=== PATIENT | male | born 1950 | race Caucasian/White ===

== ENCOUNTER 2020-05-08 10:47 | Outpatient (REF) | payer MEDICARE, SELFPAY ==
[2020-05-09 08:38] LABS: Lyme Abs Screen <0.90 index
== END 2020-05-08 10:48 | disposition home or self-care (01) ==
LOC: HO.HMGCLDS 10:47
PROVIDERS: PCP Nurse Practitioner Family; Visit Provider Hospitalist
DX: T14.8XXA Other injury of unspecified body region, initial encounter (principal)
CPT/HCPCS: 86618

== ENCOUNTER 2020-11-24 18:40 | Outpatient (REF) | payer MEDICARE, SELFPAY ==
--- NOTE | ~2020-11-24 | MR_ITS ---
EXAMINATION: MR LUMBAR SPINE WITHOUT CONTRAST CLINICAL INFORMATION: Low back pain. Self-reported bilateral lower extremity toe numbness or weakness. Self-reported left leg pain. COMPARISON: Lumbar spine radiographs 08/05/2019 TECHNIQUE: MRI of the lumbar spine was obtained using routine sequences without contrast. FINDINGS: VERTEBRAL BODIES AND PARASPINAL STRUCTURES: Four lumbar-type vertebral bodies are identified with mild bilateral sacralization of the presumed L5 vertebral body. No vertebral body compression deformities are identified. Multilevel endplate discogenic marrow signal changes are noted. Moderate multilevel anterior endplate osteophytosis is noted within the visualized lower thoracic spine and within the lumbar spine. CONUS MEDULLARIS AND CAUDA EQUINA: Normal, terminating at the level of L2. SPINAL LEVELS: T12-L1: No central or foraminal stenoses. Minimal posterior broad-based disc bulge. L1-L2: Mild left foraminal stenosis. Mild central stenosis. Findings arise secondary to a mild posterior broad-based disc bulge with focal prominence of the left intraforaminal component resulting in less than 50% left foraminal narrowing. Moderate bilateral ligamentum flavum hypertrophy and mild bilateral facet hypertrophy is noted. The intervertebral disc demonstrates approximately 75% overall loss of craniocaudal height. L2-L3: Mild central stenosis. Mild bilateral foraminal stenoses. Findings are present in the setting of a mild posterior broad-based disc bulge, moderate bilateral ligamentum flavum hypertrophy and mild bilateral facet hypertrophy. The intervertebral disc demonstrates approximately 75% overall loss of craniocaudal height. L3-L4: Mild central stenosis. Mild bilateral foraminal stenoses. Findings are present in the setting of marked diffuse loss of intervertebral disc height and a mild posterior broad-based disc-osteophyte complex along with moderate bilateral ligamentum flavum hypertrophy. L4-L5: Mild bilateral foraminal stenoses. Mild central stenosis. Findings are present in the setting of a mild central disc protrusion, moderate bilateral ligamentum flavum hypertrophy, mild bilateral facet hypertrophy, and approximately 50-75% loss of intervertebral disc height asymmetrically prominent posteriorly. L5-S1: Moderate right foraminal stenosis with mild abutment of disc material upon the exiting right L5 nerve roots. Mild central stenosis. Mild left foraminal stenosis. Findings are present in the setting of a mild posterior broad-based disc-osteophyte complex with right intraforaminal disc material mildly abutting the right L5 nerve roots. Partial effacement of the ventral thecal sac CSF space is noted. The intervertebral disc demonstrates greater than 75% loss of craniocaudal height. MR/MR lumbar spine wo con IMPRESSION: Multilevel chronic spondylosis throughout the lumbar spine, as detailed above. No marked central or marked foraminal stenoses are identified. Multilevel marked loss of intervertebral disc height is noted. Findings include L5-S1 moderate right foraminal stenosis with mild right L5 nerve root impingement.
== END 2020-11-24 18:41 | disposition home or self-care (01) ==
LOC: HO.MRI 18:40
PROVIDERS: PCP Nurse Practitioner Family; Visit Provider Nurse Practitioner Family
DX: M54.5 Low back pain (principal)
CPT/HCPCS: 72148

== ENCOUNTER 2021-01-11 07:00 | Outpatient (RCR) | payer MEDICARE, SELFPAY ==
--- NOTE | 2020-11-02 08:57 | MHC.PT.EP ---
[facility] [place] Office [place] Office [place] Office [address] Jennifer Kinsey [address] [phone] F: [phone] F: [phone] F: [phone] F: [phone] Physical Therapy Plan of Care Date of Evaluation: Date of Surgery: Diagnosis: SOMATIC DYSFUNCTION OF LEFT SACROILIAC JOINT Assessment: 70 YO MALE REF TO PT FOR SOMATIC DYSFUNCTION OF LEFT SI Jt W SECONDARY LEFT KNEE PAIN- HE IS RETIRED. OBJECTIVE FINDINGS: (+) PELVIC ASYM W LLI- SCOLIOSIS RIGHT THOR/LEFT LUMBAR; DECR FLEXIB Rt HS AND LATOYA HIP ROTAT; WEAKNESS IN LATOYA PROX LEs; PAIN W PALP Lt LS/ SI Jt. FUNCTIONAL LIMITATIONS : LIMITED STANDING/ WALKING/ DESC STAIRS, LEG EXER AND FITNESS WALKING/ HIKING. Pt IS A GOOD PT CANDIDATE TO DEV HEP AND IMPROVE Pt'S SELF-SX MGMT. Frequency and Duration: The patient will be seen 2x WK x 5 WKS Short Term Goals: DECR Pt'S LEFT SI Jt AND KNEE SXS TO 2-3/10 IN 2 WKS IMPROVE Pt'S PELVIC SYMM TO REDUCE LLI INFLUENCE ON Lt SI Jt IN 3 WKS Pt DMEON IMPROVED Rt HS AND LATOYA HIP ROTAT FLEXIBILITY IN 3 WKS Hoe Runner Goals: Pt INDEP W HEP FOR STRENGTH AND STAB AND SELF-SX MGMT TECHN IN 5 WKS Pt RESUME REG EXER/ FITNESS WALK/ ADLs EVIDENT W IMPROVED LEFT BY 10 POINTS (45/80 AT EVAL) IN 5 WKS Treatment Plan: Modalities to reduce pain, spasms and effusion. Manual therapy to restore motion and function. Therapeutic exercise to improve strength and flexibility. Neuromuscular re-education for posture and balance. Therapeutic activities to return to functional activities of daily living. Electronically signed by: Sylvia Osorio,PT Please sign and return to therapist. Thank you for your referral.
--- NOTE | 2021-01-11 08:02 | MHC.PT.DC ---
[facility] [place] Office [place] Office [place] Office [address] Jennifer Kinsey [address] [phone] F: [phone] F: [phone] F: [phone] F: [phone] Physical Therapy Discharge Report Diagnosis: SOMATIC DYSFUNCTION OF LEFT SACROILIAC JOINT Date of Surgery: Date of Evaluation: 11/02/20 Date of Discharge: 01/11/21 Treatments to Date: 14 Cancellations to Date: 0 No Shows to Date: 0 Discharge Status: Achieved Goals Improved Function Independent with HEP Discharge Summary: Pt HAS PROGRESSED NICELY IN PT- HE MET HIS GOALS OF SELF-SX MGMT, INDEP HEP/ PROGR; RETURN TO FITNESS WALKING/ EXER/ REG GYM WORKOUTS, AND IMPROVED BODY MECH/ POSTURAL AWARENESS. Pt'S PAIN IN HIS LS REGION AND LEFT KNEE HAVE REMAINED LOW 1-2/10 ; HE HAS WFL PELVIC SYMMETRY, AND HE DEMON IMPROVED OVERALL TRUNK AND HIP FLEXIBILITY- HIS LEFT SCORE AT D/C IS 65/80 (AT EVAL IT WAS 45/80) Electronically signed by: Sylvia Osorio,PT Please sign and return to therapist. Thank you for your referral.
== END 2021-01-11 08:03 | disposition home or self-care (01) ==
LOC: HO.PT 07:00
PROVIDERS: PCP Nurse Practitioner Family; Visit Provider Hospitalist
DX: M99.04 Segmental and somatic dysfunction of sacral region (principal)
CPT/HCPCS: 97110; 97112; 97140; 97162; 97530

== ENCOUNTER 2021-05-22 06:14 | Outpatient (REF) | payer MEDICARE, SELFPAY ==
[2021-05-22 11:15] LABS: Appearance Urine CLOUDY; Color Urine YELLOW; Glucose Urine UA NEG (NEG); Leukocyte Esterase Urine NEG (NEG); Nitrite Urine NEG (NEG); Specific Gravity - Urine >= 1.030 (1.005-1.025); Urine Blood NEG (NEG); Urine Ketones NEG (NEG); Urine Protein TRACE MG/DL (NEG-TRACE)
[2021-05-22 11:46] LABS: Alanine Aminotransferase 29 U/L (0-40); Albumin Level 4.5 g/dL (3.5-5.0); Alkaline Phosphatase 88 U/L (39-117); Anion Gap 12 (12-20); Aspartate Amino Transferase 23 U/L (5-37); Bilirubin Total 0.8 mg/dL (0.0-1.0); Blood Urea Nitrogen 24 mg/dL (9-16); Calcium 9.8 mg/dL (8.4-10.2); Carbon Dioxide 29 mmol/L (22-29); Chloride 100 mmol/L (96-108); Cholesterol 184 mg/dL; Estimated Glomerular Filt Rate > 60; Glucose Fasting 122 mg/dL (60-99); HDL Cholesterol 42 mg/dL; LDL Cholesterol Calculated 96 mg/dl; Potassium 4.3 mmol/L (3.3-5.1); Sodium 137 mmol/L (135-145); Total Protein 7.3 g/dL (6.5-8.0); Triglycerides 232 mg/dL
[2021-05-22 12:09] LABS: Prostate Specific Antigen Scr 1.68 ng/mL (<0.05-4.0); TSH reflex Free T4 3.63 uIU/mL (0.32-4.0)
== END 2021-05-22 06:15 | disposition home or self-care (01) ==
LOC: HO.HMGCLDS 06:14
PROVIDERS: PCP Nurse Practitioner Family; Visit Provider Nurse Practitioner Family
DX: Z12.5 Encounter for screening for malignant neoplasm of prostate (principal); I10 Essential (primary) hypertension
CPT/HCPCS: 36415; 80053; 80061; 81003; 84153; 84443

== ENCOUNTER 2021-08-13 07:01 | Outpatient (REF) | payer MEDICARE, SELFPAY ==
[2021-08-13 12:19] LABS: Cholesterol 169 mg/dL; HDL Cholesterol 43 mg/dL; LDL Cholesterol Calculated 92 mg/dl; Triglycerides 170 mg/dL
== END 2021-08-13 07:02 | disposition home or self-care (01) ==
LOC: HO.HMGCLDS 07:01
PROVIDERS: Visit Provider Nurse Practitioner Family
DX: E78.1 Pure hyperglyceridemia (principal)
CPT/HCPCS: 36415; 80061

== ENCOUNTER 2022-01-10 09:00 | Outpatient (RCR) | payer MEDICARE, SELFPAY ==
--- NOTE | 2021-12-05 09:29 | MHC.PT.EP ---
[facility] [place] Office [place] Office [place] Office [address] Jennifer Kinsey [address] [phone] F: [phone] F: [phone] F: [phone] F: [phone] Physical Therapy Plan of Care Date of Evaluation: Date of Surgery: Diagnosis: This is a 71 yo male presenting to skilled PT with a script for pain in L shoulder (RHD). Assessment: This is a 71 yo male presenting to skilled PT with a script for pain in L shoulder. Patient comes in today reporting frozen shoulder dx (2012), he would like to achieve improved ROM. Pain improved since initially dx'd but lately it has been increasing again. He is very active at baseline; enjoys hiking, yard work and consistent at the gym (however has been holding on his shoulder work lately due to pain). He has an x-ray from 2013 but nothing recent. Pain is located superior and posterior to GHJ. Pain is at rest (throbbing) and with movement (can be sharp). Denies numbness or tingling, also denies neck pain as well. He reports nonpainful crepitus at times including grinding. Pain increases with with adduction, abduction/IR, abduction/ER movements as well as OH movements and behind the back reaching. Tolerates household and ADLs fine. Assessment reveals pain that ranges up to a 3/10. He demos decreased shoulder and cervical ROM, decreased shoulder and scapular strength, impaired posture at c-spine, t-spine and GHJ, impaired joint mobility but tolerated mobs and improved ROM as well as gross functional decline with gym activities, ADLs and housework. He is a good candidate for skilled PT 2x/wk for 4 wks. Frequency and Duration: The patient will be seen 2x/wk for 4 wks Short Term Goals: I in HEP Demo good scap/retract/stab with HEP without need from cues from PT Print Controller Goals: Demos functional and equal ROM and strength Improve SPADI by at least 10 points Improve pain at the worst to no more than 1/10 with movement or at rest Demo proper lifting, squatting and carrying techniques without increase in pain or radiating symptoms Treatment Plan: Modalities to reduce pain, spasms and effusion. Manual therapy to restore motion and function. Therapeutic exercise to improve strength and flexibility. Neuromuscular re-education for posture and balance. Therapeutic activities to return to functional activities of daily living. Electronically signed by: Karmen Bass PT Please sign and return to therapist. Thank you for your referral.
--- NOTE | 2022-02-11 10:55 | MHC.PT.DC ---
[facility] [place] Office [place] Office [place] Office [address] Jennifer Kinsey [address] [phone] F: [phone] F: [phone] F: [phone] F: [phone] Physical Therapy Discharge Report Diagnosis: This is a 71 yo male presenting to skilled PT with a script for pain in L shoulder (RHD). Date of Surgery: Date of Evaluation: 12/05/21 Date of Discharge: 02/11/22 Treatments to Date: 9 Cancellations to Date: 0 No Shows to Date: 0 Discharge Status: Achieved Goals Improved Function Independent with HEP Recommend MD Follow-up Discharge Summary: Patient has reached I in HEP, he demos an improvement in ROM but still has crepitus and clunking. I educated him on following up with MD for updated imaging. He is active at the gym and has a thorough HEP for strength and ROM. Educated on safe ROM, anatomy and PT DC planning. At this time he is appropriate for DC to HEP and was educated on continuing exercises to maintain and continue to improve ROM. Patient on hold for 30 days and then DC'd. Electronically signed by: Karmen Bass PT Please sign and return to therapist. Thank you for your referral.
== END 2022-02-11 10:56 | disposition home or self-care (01) ==
LOC: HO.PTCHIC 09:00
PROVIDERS: PCP Nurse Practitioner Family; Visit Provider Nurse Practitioner Family
DX: M25.512 Pain in left shoulder (principal)
CPT/HCPCS: 97110; 97140; 97161; 97162

== ENCOUNTER 2022-01-17 14:10 | Outpatient (REF) | payer MEDICARE, SELFPAY ==
[2022-01-17 14:28] LABS: MANUAL DIFF FLAG NO
[2022-01-17 14:38] LABS: Basophils Absolute Auto 0.1 X10*3/uL (0.0-0.2); Eosinophils Absolute Auto 1.1 X10*3/uL (0.0-0.4); Eosinophils Percent Auto 10.4 % (0-4); Hematocrit 41.6 % (42.0-52.0); Hemoglobin 14.2 g/dl (14.0-18.0); Imm Gran Abs Auto 0.05 X10*3/uL (0.00-0.03); Imm Gran Pct Auto 0.5 % (0.0-0.4); Lymphocytes Absolute Auto 3.3 X10*3/uL (1.2-4.9); Lymphocytes Percent Auto 32.5 % (20-40); Mean Corpuscular HGB Conc 34.1 g/dl (31.0-36.0); Mean Corpuscular Hemoglobin 30.2 pg (27.0-33.0); Mean Corpuscular Volume 88.5 fL (80.0-98.0); Mean Platelet Volume 9.3 fL (9.4-12.4); Monocytes Absolute Auto 0.8 X10*3/uL (0.1-1.2); Monocytes Percent Auto 8.3 % (2-11); Neutrophils Absolute Auto 4.8 x10*3/uL (2.0-8.3); Neutrophils Percent Auto 47.3 % (45-73); Platelet Count 259 X10*3/uL (160-400); Red Cell Distribution Width 13.1 % (11.0-16.0); White Blood Count 10.1 X10*3/uL (4.8-10.8)
[2022-01-17 15:47] LABS: Alanine Aminotransferase 33 U/L (0-40); Albumin Level 4.5 g/dL (3.5-5.0); Alkaline Phosphatase 86 U/L (39-117); Anion Gap 15 (12-20); Aspartate Amino Transferase 29 U/L (5-37); Bilirubin Total 0.8 mg/dL (0.0-1.0); Blood Urea Nitrogen 26 mg/dL (9-16); Calcium 9.9 mg/dL (8.4-10.2); Carbon Dioxide 28 mmol/L (22-29); Chloride 100 mmol/L (96-108); Estimated Glomerular Filt Rate 59; Glucose Random 89 mg/dL (60-115); Potassium 5.1 mmol/L (3.3-5.1); Sodium 138 mmol/L (135-145); Total Protein 7.6 g/dL (6.5-8.0)
== END 2022-01-17 14:11 | disposition home or self-care (01) ==
LOC: HO.LAB 14:10
PROVIDERS: PCP Nurse Practitioner Family; Visit Provider Nurse Practitioner
DX: Z01.818 Encounter for other preprocedural examination (principal); D12.6 Benign neoplasm of colon, unspecified; Z80.0 Family history of malignant neoplasm of digestive organs
CPT/HCPCS: 36415; 80053; 85025; 99202

== ENCOUNTER 2022-05-22 10:29 | Outpatient (REF) | payer BC, SELFPAY ==
--- NOTE | ~2022-05-22 | XR_ITS ---
EXAMINATION: XR KNEE, LEFT CLINICAL INFORMATION: Left knee pain COMPARISON: Previous x-ray October 2014 TECHNIQUE: Four views of the left knee. FINDINGS: Bone alignment is normal. No fracture or dislocation. Arthritis at the medial femoral tibial and patellofemoral joints. No joint effusion. XR/XR knee LT 4V IMPRESSION: Arthritis.
== END 2022-05-22 10:30 | disposition home or self-care (01) ==
LOC: HO.HMGCX 10:29
PROVIDERS: PCP Nurse Practitioner Family; Visit Provider Nurse Practitioner Family
DX: M25.562 Pain in left knee (principal)
CPT/HCPCS: 73564

== ENCOUNTER 2022-05-23 07:11 | Day surgery (SDC) | payer BC, SELFPAY ==
[2022-05-17 09:27] VITALS: BMI 25.2
--- NOTE | 2022-05-23 06:33 | MHC.SHP ---
Pre-Procedural Eval Section A Date of Service: 05/23/22 Section B Chief Complaint: Personal history of colonic polyps Details of Present Illness: mother with colon cancer Relevant Family History (Specify if Yes): Yes Relevant Social History: Other (specify) (ex smoker, drinks alcohol ) Present Medications: see Short Stay Collaborative assessment Medical History: Significant History (Asthma Elevated cholesterol HTN (hypertension) Lipoma) History of Previous Operations: Relevant previous surgery/procedure and date(s) (H/O colonoscopy H/O right inguinal hernia repair Hx of excision of mass) Allergies: Allergies Allergy/AdvReac Type Severity Reaction Status Date / Time oxycodone [From PERCOCET] AdvReac Intermediate NAUSEA & Verified 05/22/22 09:44 VOMITING Review of Systems Sugical H&P ROS: Negative: Constitution, Cardiovascular, Respiratory, Neurological, Psychiatric, Hem-Onc, Allergic/Immunologic, Gastrointestinal, Genitourinary, Musculoskeletal, Integumentary, Endocrine and Eyes/Ears/Nose/Throat Exam Surgical H&P Exam: Normal: HEENT, Normal: Heart, Normal: Lungs, Normal: Extremities, Normal: Abdomen, Normal: Skin and Normal: Neurological Plan Diagnosis/Plan: Unchanged I have reviewed the history and physical and performed a pertinent physical examination on my patient. No changes have occurred unless specified. Time Spent With Patient Time: Total time managing care of this patient today ____ minutes.
[2022-05-23 07:29] VITALS: BMI 26.4
[2022-05-23 07:38] VITALS: BP 141/79; PULSE 73; RESP 16; TEMP 36.6; O2SAT 98
[2022-05-23] MEDS: Lactated Ringers 1,000 ML 50 ML IVCONT (07:54)
--- NOTE | 2022-05-23 08:01 | HO.ANESPROP2 ---
[facility] Active Problems Active Problems: All Active Problems (Updated 05/22/22 @ 10:19 by Nam Arguello [facility]-) Left knee pain (Acute) Tick bite (Acute) Essential hypertension (Acute) Somatic dysfunction of left sacroiliac joint (Acute) Lumbar back pain (Acute) HTN (hypertension) (Acute) Screening PSA (prostate specific antigen) (Acute) High triglycerides (Acute) Screening for colon cancer (Acute) Left shoulder pain (Acute) Encounter for annual wellness visit (AWV) in Medicare patient (Acute) Preop examination (Acute) Family history of colon cancer in mother (Acute) Tubular adenoma of colon (Acute) Past Medical History Medical History (Updated 05/22/22 @ 10:19 by MARCO A Weiss-) Asthma Elevated cholesterol HTN (hypertension) Lipoma Family History Family History Mother Mental health disorder Colon cancer Brother Prostate cancer Family history of problems with anesthesia: No Surgical History Surgical History (Updated 05/16/22 @ 15:12 by Ada Nevarez RN) H/O colonoscopy H/O right inguinal hernia repair Hx of excision of mass History of Problems with Anesthesia: No Social History Social History Housing: House Patient Tobacco Use Status: Former Tobacco user Quit Date: 2008 Tobacco use type: Cigarette Cigarette Packs Per Day: 1.5 Cigarettes Per Day: 30.0 Years Smoked: 40 Smoked in Last 30 Days: No e-Cigarette/Vaping Use: Never Used Use of substances other than those prescribed or required for medical reasons: Yes Are you DNR?: No Advance Directives: No Advance Directives Information Provided: Yes Current occupational status: retired Cognitive needs: No Hearing needs: No Vision needs: No Meds Allergies Allergy/AdvReac Type Severity Reaction Status Date / Time oxycodone [From PERCOCET] AdvReac Intermediate NAUSEA & Verified 05/23/22 07:27 VOMITING Active Medications: Current Medications Albuterol Sulfate (Albuterol Sulfate (0.083%) 2.5 Mg/3 Ml Vial.Neb) 2.5 mg INHALE ONCE PRN PRN Reason: Shortness of Breath/Wheezing Lactated Ringer's (Lr) 1,000 mls @ 50 mls/hr IVCONT .Q20H JOSÉ MANUEL Last Admin: 05/23/22 07:54 Dose: 50 mls/hr Home Medications Medication Instructions Recorded Confirmed Last Taken Type omeprazole magnesium 20 mg 20 mg PO DAILY 11/16/20 05/23/22 Unknown History tablet,delayed release (Prilosec OTC) Exam Exam Date and Time: May 23, 2022 0801 Height,Weight and Vital Signs: Height 5 ft 9 in Weight 81.193 kg Last Vital Signs Temp 97.8 F 05/23/22 07:38 Pulse 73 05/23/22 07:38 Resp 16 05/23/22 07:38 BP 141/79 H 05/23/22 07:38 Pulse Ox 98 05/23/22 07:38 O2 Del Method 05/23/22 07:38 Airway Mallampati Class: III TM Dist: >3cm Neck ROM: Full Partial: Upper and Lower Assessment and Plan Assessment Anesthesia Assessment: Anesthesia Plan Discussed and Chart Reviewed Final Anesthetic Review Family History of Problems with Anesthesia: No History of Problems with Anesthesia: No NPO: Yes ASA Class: II Final Preanesthetic Review: No Changes in Pt Med Stat, Meds/Allgs Chart Reviewed, Consent Obtained/Reviewed and Anes Risks/Benef Reviewed Patient Risk: Low Procedure Risk: Low Anesthetic Plan Anesthetic Plan: MAC: Disposition: Standard PACU
--- NOTE | 2022-05-23 08:10 | P.CONAN_ITS ---
[facility] Active Problems Active Problems: All Active Problems (Updated 05/22/22 @ 10:19 by Nam Arguello [facility]-) Left knee pain (Acute) Tick bite (Acute) Essential hypertension (Acute) Somatic dysfunction of left sacroiliac joint (Acute) Lumbar back pain (Acute) HTN (hypertension) (Acute) Screening PSA (prostate specific antigen) (Acute) High triglycerides (Acute) Screening for colon cancer (Acute) Left shoulder pain (Acute) Encounter for annual wellness visit (AWV) in Medicare patient (Acute) Preop examination (Acute) Family history of colon cancer in mother (Acute) Tubular adenoma of colon (Acute) Past Medical History Medical History (Updated 05/22/22 @ 10:19 by MARCO A Weiss-) Asthma Elevated cholesterol HTN (hypertension) Lipoma Family History Family History Mother Mental health disorder Colon cancer Brother Prostate cancer Family history of problems with anesthesia: No Surgical History Surgical History (Updated 05/16/22 @ 15:12 by Ada Nevarez RN) H/O colonoscopy H/O right inguinal hernia repair Hx of excision of mass History of Problems with Anesthesia: No Social History Social History Housing: House Patient Tobacco Use Status: Former Tobacco user Quit Date: 2008 Tobacco use type: Cigarette Cigarette Packs Per Day: 1.5 Cigarettes Per Day: 30.0 Years Smoked: 40 Smoked in Last 30 Days: No e-Cigarette/Vaping Use: Never Used Use of substances other than those prescribed or required for medical reasons: Yes Are you DNR?: No Advance Directives: No Advance Directives Information Provided: Yes Current occupational status: retired Cognitive needs: No Hearing needs: No Vision needs: No Meds Allergies Allergy/AdvReac Type Severity Reaction Status Date / Time oxycodone [From PERCOCET] AdvReac Intermediate NAUSEA & Verified 05/23/22 07:27 VOMITING Active Medications: Current Medications Albuterol Sulfate (Albuterol Sulfate (0.083%) 2.5 Mg/3 Ml Vial.Neb) 2.5 mg INHALE ONCE PRN PRN Reason: Shortness of Breath/Wheezing Lactated Ringer's (Lr) 1,000 mls @ 50 mls/hr IVCONT .Q20H JOSÉ MANUEL Last Admin: 05/23/22 07:54 Dose: 50 mls/hr Home Medications Medication Instructions Recorded Confirmed Last Taken Type omeprazole magnesium 20 mg 20 mg PO DAILY 11/16/20 05/23/22 Unknown History tablet,delayed release (Prilosec OTC) Exam Exam Date and Time: May 23, 2022 0810 Height,Weight and Vital Signs: Height 5 ft 9 in Weight 81.193 kg Last Vital Signs Temp 97.8 F 05/23/22 07:38 Pulse 73 05/23/22 07:38 Resp 16 05/23/22 07:38 BP 141/79 H 05/23/22 07:38 Pulse Ox 98 05/23/22 07:38 O2 Del Method 05/23/22 07:38 Airway Mallampati Class: III TM Dist: >3cm Neck ROM: Full Assessment and Plan Assessment Anesthesia Assessment: Anesthesia Plan Discussed and Chart Reviewed Final Anesthetic Review Family History of Problems with Anesthesia: No History of Problems with Anesthesia: No NPO: Yes
--- NOTE | 2022-05-23 08:10 | W.PM.OPN ---
Operative Note Operative Note Date of Service: 05/23/22 Narrative: Operative Information Procedure Description: Colonoscopy Indication: screening, FH of CRC< personal hx of polyps Anesthesia: MAC COLONOSCOPY Instrument: Olympus variable stiffness pediatric scope 190L Colonoscopy Monitoring: Vital signs and clinical assessment, continuous EKG monitoring, Pulse oximetry, Carbon Dioxide monitoring and blood pressure monitoring were done throughout the procedure. Colon withdrawal time was 8 minutes. Procedure: The patient was placed in the left lateral decubitis position and pre-procedure medications were administered. After a digital rectal examination of the ano-rectum, the video colonoscope was inserted into the rectum and advanced through the colon to the cecum/TI. The colonoscope was slowly withdrawn in a retrograde panoramic fashion and the colon mucosa was carefully examined including a retroflexed view of the rectum. Findings and interventions are described below. Procedure Difficulty: easy Findings: Terminal Ileum-normal Cecum:normal Ascending Colon: normal Transverse Colon -normal Descending Colon:normal Sigmoid Colon: 8-9 mm sessile polyp removed with cold snare, moderate diverticulosis noted Rectum: Retroflexion with small internal hemorrhoids, grade II, 7-9 mm sessile polyp removed with cold forceps Anorectum - normal Colon preparation: [place] Bowel Preparation Scale Right colon; 2 Transverse colon: 3 Left colon; 3 (0 = Unprepared colon segment with mucosa not seen due to solid stool that cannot be cleared. 1 = Portion of mucosa of the colon segment seen, but other areas of the colon segment not well seen due to staining, residual stool and/or opaque liquid. 2 = Minor amount of residual staining, small fragments of stool and/or opaque liquid, but mucosa of colon segment seen well. 3 = Entire mucosa of colon segment seen well with no residual staining, small fragments of stool or opaque liquid) Impression and Post Procedure Diagnosis: polyps internal hemorrhoids diverticular disease Plan: High fiber diet leaflet Avoid straining at stool, epsom salts and sitz bath, anusol supps or cream Repeat Colonoscopy in 5 years due to FH and hx of polyps or earlier if clinically indicated Above findings were reviewed with the patient and relevant handouts were provided if indicated.
[2022-05-23 08:53] VITALS: BP 118/67; PULSE 67; RESP 20; TEMP 36.6; O2SAT 96
[2022-05-23 09:08] VITALS: BP 117/62; PULSE 71; RESP 18; TEMP 36.1; O2SAT 96
== END 2022-05-23 09:44 | disposition home or self-care (01) ==
PROVIDERS: PCP Nurse Practitioner Family; Visit Provider Internal Medicine Gastroenterology
PROC: 0DJD8ZZ Inspection of Lower Intestinal Tract, Via Natural or Artificial Opening Endoscopic (ICD-10-PCS; CPT 45378; principal; 2022-05-23 08:20)
DX: Z12.11 Encounter for screening for malignant neoplasm of colon (principal); Z86.010 Personal history of colon polyps; Z80.0 Family history of malignant neoplasm of digestive organs; K63.5 Polyp of colon; K62.1 Rectal polyp; K57.30 Diverticulosis of large intestine without perforation or abscess without bleeding; K64.1 Second degree hemorrhoids; I10 Essential (primary) hypertension; E78.00 Pure hypercholesterolemia, unspecified; J45.909 Unspecified asthma, uncomplicated; Z79.51 Long term (current) use of inhaled steroids; Z79.899 Other long term (current) drug therapy; Z87.891 Personal history of nicotine dependence; Z88.8 Allergy status to other drugs, medicaments and biological substances
CPT/HCPCS: 45385; 45380; 88305

== ENCOUNTER 2022-05-24 17:36 | Emergency (ER) | payer BC, SELFPAY ==
--- NOTE | ~2022-05-24 | CT_ITS ---
EXAMINATION: CT ABDOMEN AND PELVIS WITH CONTRAST CLINICAL INFORMATION: Lower abdominal pain. Syncopal episodes. COMPARISON: None TECHNIQUE: Multidetector volumetric images were obtained from the superior aspect of the liver through the pubic symphysis following administration 85 mL of Omnipaque 350 intravenous contrast. Sagittal and coronal reformatted images were obtained on the technologist's workstation. Oral contrast: No This CT examination was performed using dose optimization techniques as appropriate, variously including the following: *Automated exposure control *Adjustment of mA and/or kV according to patient size (this includes techniques or standardized protocols for targeted exams where dose is matched to indication/reason for exam; i.e. extremities or head) *Use of iterative reconstruction technique DLP: 575 mGy-cm FINDINGS: LUNG BASES: The visualized lung bases are unremarkable. LIVER, GALLBLADDER, AND BILIARY TREE: The liver is normal in size, shape, and attenuation. No focal hepatic lesion or biliary ductal dilatation is present. There is perihepatic fluid collection. The gallbladder is unremarkable with no evidence of radiopaque gallstones, gallbladder wall thickening, or obvious pericholecystic inflammatory changes. PANCREAS: Unremarkable. SPLEEN: The spleen is normal size with minimal perisplenic fluid collection. ADRENAL GLANDS: The adrenal glands are symmetrical and normal. KIDNEYS AND URETERS: The kidneys are normal in size, shape, and attenuation. No hydronephrosis, hydroureter, or calculi seen. No perinephric stranding. There are nonenhancing bilateral exophytic renal cysts BLADDER: Unremarkable. GASTROINTESTINAL TRACT: There is colonic diverticulosis with mild mural thickening sigmoid colon but no pericolic fat stranding. Minimal scattered stool is seen in the right colon. The small bowel loops are nondilated with mild mural thickening. Appendix is normal caliber. There is minimal free fluid in the pelvis. There is mild mesenteric haziness likely edema ABDOMINAL WALL: No significant hernia is appreciated. LYMPH NODES: Normal. VASCULAR: Unremarkable. PELVIC VISCERA: The prostate gland is mildly enlarged with central gland calcification. Small amount of fluid is seen in the pelvis. No abnormal pelvic or inguinal lymph nodes seen. There is a left inguinal hernia containing fluid in the proximal inguinal ring. OSSEOUS STRUCTURES: There are degenerative disc changes and vacuum disc phenomena at 3 disc level. There is endplate sclerosis L1-L2 and L3-L4 disc levels. No aggressive lytic or sclerotic process seen. CT/CT abdomen pelvis w IV con IMPRESSION: 1. Diffuse mesenteric edema with small amount of free fluid in the abdomen and pelvis and mild mural thickening of small bowel suggestive of enteritis.. 2. Sigmoid diverticulosis without diverticulitis. 3. Bilateral exophytic renal cysts. 4. Small left inguinal hernia containing fluid in the proximal inguinal ring. 5. Mild prostate enlargement with central gland calcification. 6. Prominent lymph nodes in the portacaval space. Fleischner guidelines were followed.
--- NOTE | ~2022-05-24 | XR_ITS ---
EXAMINATION: XR CHEST CLINICAL INFORMATION: Syncope COMPARISON: Chest x-ray 10/01/2012 TECHNIQUE: Frontal view of the chest was obtained. FINDINGS: The lungs are clear. No airspace consolidation, pleural effusion, or pneumothorax. The cardiomediastinal silhouette is within normal limits. No acute osseous injury. Bilateral shoulder joint osteoarthritis noted. XR/XR chest 1V IMPRESSION: No acute pulmonary disease.
--- NOTE | ~2022-05-24 | CT_ITS ---
EXAMINATION: NONCONTRAST HEAD CT NONCONTRAST CERVICAL SPINE CT INDICATION INFORMATION: Syncope with head trauma COMPARISON: Head CT 05/28/2013 TECHNIQUE: Separate noncontrast CT examinations of the head and cervical spine were performed. Coronal and sagittal images were created for each examination at the technologist workstation. This CT examination was performed using dose optimization techniques as appropriate, variously including the following: *Automated exposure control *Adjustment of mA and/or kV according to patient size (this includes techniques or standardized protocols for targeted exams where dose is matched to indication/reason for exam; i.e. extremities or head) *Use of iterative reconstruction technique DLP: 1096 mGy-cm FINDINGS: HEAD: No intra or extra-axial fluid collection, hemorrhage, or mass. No ventriculomegaly. No midline shift or herniation. Basal cisterns are patent. Darby-white matter differentiation is maintained. No territorial encephalomalacia. No significant volume loss. A few scattered small foci of hypoattenuation in the supratentorial white matter, nonspecific. 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 Large left lateral scalp laceration. No calvarial fracture The mastoid air cells and visualized portions of the paranasal sinuses are well aerated. CERVICAL SPINE: Alignment: Straightening and minimal reversal the normal cervical lordosis. Mild retrolisthesis at C6-C7. No additional subluxation. Vertebra: No acute fracture. No prevertebral soft tissue swelling. Degenerative disc disease: Multilevel cervical spondylosis, severe at C5-C6 and C6-C7. Multilevel facet arthrosis and uncovertebral spurring also present. Moderate to severe spinal canal stenosis suspected at C5-C6. Other findings: No cervical lymphadenopathy. Visualized major salivary glands and thyroid gland are unremarkable. Visualized lung apices are clear. CT/CT cervical spine wo IV con IMPRESSION: 1. No intracranial hemorrhage or calvarial fracture. 2. Large left lateral scalp laceration. 3. No acute cervical spine fracture or traumatic subluxation. 4. Multilevel cervical spondylosis, severe at C5-C6 and C6-C7 with suspected moderate to severe spinal canal stenosis at C5-C6.
[2022-05-24 18:00] VITALS: BP 140/72; PULSE 78; RESP 18; TEMP 36.9; O2SAT 99; BMI 26.4
--- NOTE | 2022-05-24 18:02 | ED.GENADULT ---
HPI - General Adult General Chief complaint: Syncope <SHAYNA Alves Last Filed: 05/24/22 18:56> Stated complaint: head lac <SHAYNA Alves Last Filed: 05/24/22 18:56> Time Seen by Provider: 05/24/22 17:53 <SHAYNA Alves Last Filed: 05/24/22 18:56> Source: patient <SHAYNA Alves Last Filed: 05/24/22 18:56> Mode of arrival: ambulatory <SHAYNA Alves Last Filed: 05/24/22 18:56> History of Present Illness HPI narrative: 72-year-old male with past medical history of asthma, HLD, HTN, presenting to the ED complaining of scalp laceration s/p syncopal episode [employer]. Patient admits he had colonoscopy yesterday, since colonoscopy with abdominal discomfort/bloating without BM until this afternoon, states was sitting on toilet, mildly straining when syncopized hitting head on floor with + LOC. denies taking anticoagulation. Reports continued lightheadedness/generalized fatigue/weakness since incident. Admits to mild headache. Denies vision loss, neck/back pain, CP/SOB, nausea/vomiting, melena/bloody stools. Tetanus unknown <SHAYNA Alves Last Filed: 05/24/22 18:56> Onset (ago): hour(s) <SHAYNA Alves - Last Filed: 05/24/22 18:56> Related Data Home medications: Home Medications Medication Instructions Recorded Confirmed omeprazole magnesium 20 mg 20 mg PO DAILY 11/16/20 05/23/22 tablet,delayed release (Prilosec OTC) Previous Rx's Medication Instructions Recorded fluticasone propionate 110 1 puff PO BID 90 days #12 grams 07/23/21 mcg/actuation HFA aerosol inhaler (Flovent HFA) hydrochlorothiazide 12.5 mg tablet 12.5 mg PO DAILY #90 tabs 10/23/21 albuterol sulfate 90 mcg/actuation 2 puff PO Q6H PRN bronchospasm 30 11/22/21 aerosol inhaler (ProAir HFA) days #8.5 grams lisinopril 20 mg tablet 20 mg PO DAILY #90 tabs 01/01/22 atorvastatin 10 mg tablet 10 mg PO QPM 90 days #90 tabs 04/02/22 icosapent ethyl 1 gram capsule 1 g PO BID 90 days #180 caps 05/22/22 (Vascepa) <SHAYNA Alves - Last Filed: 05/24/22 18:56> Allergies/adverse reactions: Allergies Allergy/AdvReac Type Severity Reaction Status Date / Time oxycodone [From PERCOCET] AdvReac Intermediate NAUSEA & Verified 05/23/22 07:27 VOMITING <SHAYNA Alves - Last Filed: 05/24/22 18:56> Review of Systems Review of Systems: Constitutional: No Fever, No Chills, No Fatigue, No Malaise ENT/Mouth: No Ear Pain, No Nasal Congestion, No sore throat, No Rhinorrhea, No Swallowing Difficulty Eyes: No Eye Pain, No Swelling, No Redness, No Vision Changes Cardiovascular: No Chest Pain, No SOB, No Edema, No Palpitations Respiratory: No Cough, No Sputum, No Dyspnea Gastrointestinal: No Nausea, No Vomiting, No Diarrhea, No Constipation, + Abdominal pain Genitourinary: No irregular bleeding, No Dysuria, No Hematuria, No Urinary Incontinence/retention, No Flank Pain Musculoskeletal: No joint pain, No Myalgias, No Joint Swelling Skin: + Skin Lesions, No rash Neuro: No Weakness, No Numbness, No Paresthesias, + Loss of Consciousness, + lightheaded, +syncope, + Headache <SHAYNA Alves Last Filed: 05/24/22 18:56> Yes all other systems are reviewed and are negative <SHAYNA Alves Last Filed: 05/24/22 18:56> Constitutional: Constitutional: Reports as per HPI <SHAYNA Alves Last Filed: 05/24/22 18:56> Neurologic: Denies Abnormal speech present <SHAYNA Alves Last Filed: 05/24/22 18:56> [facility] Past Medical History Attestation statement: The following information was validated with the patient. <SHAYNA Alves Last Filed: 05/24/22 18:56> Medical History: Medical History Asthma Elevated cholesterol HTN (hypertension) Lipoma <SHAYNA Alves - Last Filed: 05/24/22 18:56> Surgical History: Surgical History H/O colonoscopy H/O right inguinal hernia repair Hx of excision of mass <SHAYNA Alves - Last Filed: 05/24/22 18:56> Family History Family History: Family History Mother Mental health disorder Colon cancer Brother Prostate cancer <SHAYNA Alves - Last Filed: 05/24/22 18:56> Social History Social History: Social History Housing: House Patient Tobacco Use Status: Former Tobacco user Quit Date: 2008 Tobacco use type: Cigarette Cigarette Packs Per Day: 1.5 Cigarettes Per Day: 30.0 Years Smoked: 40 e-Cigarette/Vaping Use: Never Used Advance Directives: Yes Advance Directives Information Provided: No Advance Directives on File: Yes Advance Directives Date on File: 11/27/21 Current occupational status: retired Cognitive needs: No Hearing needs: No Vision needs: No <SHAYNA Alves - Last Filed: 05/24/22 18:56> Physical Exam ED Vital Signs: Vital Signs - 24 hr 05/24/22 18:00 05/24/22 20:28 05/24/22 20:30 Temperature 98.4 F 98.3 F Pulse Rate 78 78 76 Respiratory Rate 18 17 Blood Pressure 140/72 H 131/63 136/59 L Pulse Oximetry 99 97 Oxygen Delivery Method Room Air Room Air 05/24/22 20:38 05/24/22 20:39 Temperature Pulse Rate 79 94 Respiratory Rate Blood Pressure 133/70 142/61 H Pulse Oximetry Oxygen Delivery Method BMI result Body Mass Index 26.4 <SHAYNA Alves - Last Filed: 05/24/22 18:56> Vital Signs - 24 hr 05/24/22 18:00 05/24/22 20:28 05/24/22 20:30 Temperature 98.4 F 98.3 F Pulse Rate 78 78 76 Respiratory Rate 18 17 Blood Pressure 140/72 H 131/63 136/59 L Pulse Oximetry 99 97 Oxygen Delivery Method Room Air Room Air 05/24/22 20:38 05/24/22 20:39 Temperature Pulse Rate 79 94 Respiratory Rate Blood Pressure 133/70 142/61 H Pulse Oximetry Oxygen Delivery Method BMI result Body Mass Index 26.4 <SHAYNA Brand Last Filed: 05/24/22 23:42> Const General: cooperative, healthy appearing and no acute distress <SHAYNA Alves Last Filed: 05/24/22 18:56> Orientation/consciousness: patient oriented x3 <SHAYNA Alves Last Filed: 05/24/22 18:56> Limitations: no limitations <SHAYNA Alves Last Filed: 05/24/22 18:56> HENMT Other: +8 cm half-boyd laceration noted to left parietal scalp with two small perpendicular lacerations one 2 cm one 1 cm <SHAYNA Alves Last Filed: 05/24/22 18:56> Head: Yes normal to inspection and No hematoma <SHAYNA Alves Last Filed: 05/24/22 18:56> Ears: hearing grossly normal bilaterally <SHAYNA Alves Last Filed: 05/24/22 18:56> General nose exam: Normal external nose present <SHAYNA Alves Last Filed: 05/24/22 18:56> Face and sinus: Yes normal facial exam <SHAYNA Alves Last Filed: 05/24/22 18:56> Mouth: Normal oral and palatal mucosa present <SHAYNA Alves Last Filed: 05/24/22 18:56> Throat: Yes posterior oropharynx normal, Yes tonsils normal, Yes uvula midline, No peritonsillar mass, No uvula laterally displaced and No uvular edema <SHAYNA Alves Last Filed: 05/24/22 18:56> Eyes General: appearance normal, both eyes and all related structures <SHAYNA Alves Last Filed: 05/24/22 18:56> Pupils: Equal, round and reactive pupils present <SHAYNA Alves Last Filed: 05/24/22 18:56> EOM: EOMs intact bilaterally <Shayna Linares PA - Last Filed: 05/24/22 18:56> Neck Other: No midline cervical spinous tenderness/step-off or deformity <Shayna Linares PA - Last Filed: 05/24/22 18:56> Neck: Yes normal visual inspection and Yes no meningeal signs <Shayna Linares PA - Last Filed: 05/24/22 18:56> Resp Effort & Inspection: normal respiratory effort and no respiratory distress <Shayna Linares PA - Last Filed: 05/24/22 18:56> Auscultation: clear to auscultation bilaterally <Shayna Linares PA - Last Filed: 05/24/22 18:56> Cardio Rate: regular rate <Shayna Linares PA - Last Filed: 05/24/22 18:56> Heart sounds: S1 normal heart sound present and S2 normal heart sound present <Shayna Linares PA - Last Filed: 05/24/22 18:56> GI Inspection: Yes normal to inspection <Shayna Linares PA - Last Filed: 05/24/22 18:56> Palpation (GI): Soft to palpation, not firm, nontender, no guarding and not rigid <Shayna Linares PA - Last Filed: 05/24/22 18:56> Back/Spine/Pelvis Other: No midline thoracic/lumbar spinous tenderness/step-off or deformity <Shayna Linares PA - Last Filed: 05/24/22 18:56> Skin Rashes: no rashes <Shayna Linares PA - Last Filed: 05/24/22 18:56> Wounds: no wounds <Shayna Linares PA - Last Filed: 05/24/22 18:56> Neuro General: patient oriented x3, gait normal, tone normal, moves all extremities, no meningeal signs, no focal motor deficits and CN's II-XI intact bilaterally <Shayna Linares PA - Last Filed: 05/24/22 18:56> Cranial nerves: Yes Equal, round and reactive pupils present <Shayna Linares PA - Last Filed: 05/24/22 18:56> Cognition (Neuro): normal cognition <SHAYNA Alves Last Filed: 05/24/22 18:56> Speech: No Abnormal speech present <SHAYNA Alves Last Filed: 05/24/22 18:56> Gait exam (Neuro): Normal gait present <SHAYNA Alves Last Filed: 05/24/22 18:56> Motor exam (neuro): 5/5 motor strength present throughout and no tremor noted <SHAYNA Alves Last Filed: 05/24/22 18:56> Extrem General: Yes normal to inspection, Yes no pedal edema and Yes no calf tenderness <SHAYNA Alves Last Filed: 05/24/22 18:56> Course Course Course Narrative: -Total at 18 gilda placed in patient's scalp -1900--ED care transferred to SHAYNA Bishop pending CT, CXR, labs, UA, orthostatics and re-evaluation <SHAYNA Alves Last Filed: 05/24/22 18:56> Reevaluation(s) Reevaluation #1: CT of head with no intracranial hemorrhage or clavicular fracture. Large left lateral scalp laceration which has been repaired. No acute cervical spine fracture or traumatic subluxation. Multilevel cervical spondylolysis noted. X-ray of the chest no acute findings. CBC with leukocytosis likely reactive, chemistry appears to be around patient's baseline with no acute electrolyte abnormalities requiring intervention. Troponin negative, EKG nonischemic unlikely ACS. Lipase within normal limits. Orthos negative. UA pending. Repeat CBC pending. <SHAYNA Brand Last Filed: 05/24/22 23:42> Time: 21:21 <SHAYNA Brand Last Filed: 05/24/22 23:42> Reevaluation #2: Repeat CBC still showing elevated leukocytosis will obtain CT of the abdomen and pelvis. Patient aware of plan. Educated him on plan he is agreeable he is still having some lower abdominal pain. <SHAYNA Brand Last Filed: 05/24/22 23:42> Time: 23:00 <SHAYNA Brand Last Filed: 05/24/22 23:42> Reevaluation #3: CT of the abdomen and pelvis with diffuse mesenteric edema with small amount of free fluid in the abdomen and pelvis suggestive of enteritis. I did discuss this CT with my attending who states patient can be discharged home with GI follow-up. At this time patient will be discharged home. Tolerating p.o. at time of discharge. Hemodynamically stable. Repeat abdomen exam improved, minimal tenderness to palpation. Patient feels better and feels good to go home. Educated patient on diagnosis and treatment plan, answered all question, patient verbalizes understanding. At this time patient will be discharged home, advised to return with new or worsening symptoms. Educated on worrisome signs and symptoms and when to return. At this time I feel comfortable discharge home. <SHAYNA Bradn - Last Filed: 05/24/22 23:42> Time: 23:41 <SHAYNA Brand - Last Filed: 05/24/22 23:42> Medications Administered Discontinued Medications Generic Name Dose Route Start Last Admin Trade Name Gabbie PRN Reason Stop Dose Admin Acetaminophen 650 mg 05/24/22 18:12 05/24/22 19:06 Acetaminophen 325 Mg Tablet PO 05/24/22 18:13 650 mg ONCE ONE Administration Diphtheria/Tetanus/Acell Pertussis 0.5 ml 05/24/22 18:12 05/24/22 19:56 Diphth,Pertus(Acell),Tet Adult 0.5 Ml Syringe IM 05/24/22 18:13 0.5 ml .ONCE ONE Administration Sodium Chloride 1,000 mls @ 999 mls/hr 05/24/22 18:15 05/24/22 21:29 Ns IV 05/24/22 19:15 Infused .Q1H1M JOSÉ MANUEL Infusion Iohexol 85 ml 05/24/22 22:13 05/24/22 22:13 Iohexol 350 Mg/Ml 100 Ml Infus..Btl IV 05/24/22 22:14 85 ml ONCE ONE Administration Lidocaine HCl 1 appl 05/24/22 18:18 05/24/22 19:57 Lidocaine 4 % Cream Kit TOPICAL 05/24/22 18:19 1 appl ONCE ONE Administration Protocol Ondansetron HCl 4 mg 05/24/22 18:12 05/24/22 19:07 Ondansetron Hcl 4 Mg/2 Ml Vial IVPUSH 05/24/22 18:13 4 mg ONCE ONE Administration <SHAYNA Alves Last Filed: 05/24/22 18:56> Medications Administered Discontinued Medications Generic Name Dose Route Start Last Admin Trade Name Gabbie PRN Reason Stop Dose Admin Acetaminophen 650 mg 05/24/22 18:12 05/24/22 19:06 Acetaminophen 325 Mg Tablet PO 05/24/22 18:13 650 mg ONCE ONE Administration Diphtheria/Tetanus/Acell Pertussis 0.5 ml 05/24/22 18:12 05/24/22 19:56 Diphth,Pertus(Acell),Tet Adult 0.5 Ml Syringe IM 05/24/22 18:13 0.5 ml .ONCE ONE Administration Sodium Chloride 1,000 mls @ 999 mls/hr 05/24/22 18:15 05/24/22 21:29 Ns IV 05/24/22 19:15 Infused .Q1H1M JOSÉ MANUEL Infusion Iohexol 85 ml 05/24/22 22:13 05/24/22 22:13 Iohexol 350 Mg/Ml 100 Ml Infus..Btl IV 05/24/22 22:14 85 ml ONCE ONE Administration Lidocaine HCl 1 appl 05/24/22 18:18 05/24/22 19:57 Lidocaine 4 % Cream Kit TOPICAL 05/24/22 18:19 1 appl ONCE ONE Administration Protocol Ondansetron HCl 4 mg 05/24/22 18:12 05/24/22 19:07 Ondansetron Hcl 4 Mg/2 Ml Vial IVPUSH 05/24/22 18:13 4 mg ONCE ONE Administration <SHAYNA Brand Last Filed: 05/24/22 23:42> Procedures Laceration Laceration 1: Site: scalp <SHAYNA Alves Last Filed: 05/24/22 18:56> Side (If applicable): left <SHAYNA Alves Last Filed: 05/24/22 18:56> Size (cm): 8 <SHAYNA Alves Last Filed: 05/24/22 18:56> Description: flap <SHAYNA Alves Last Filed: 05/24/22 18:56> Amount of anesthesia used (mL): 0 <Shayna Pouliot, PA - Last Filed: 05/24/22 18:56> Skin layer closed with: other (gilda) <Shayna Pouliot, PA - Last Filed: 05/24/22 18:56> Number of sutures: 13 <Shayna Pouliot, PA - Last Filed: 05/24/22 18:56> Laceration 2: Site: scalp <Shayna Pouliot, PA - Last Filed: 05/24/22 18:56> Size (cm): 2 <Shayna Pouliot, PA - Last Filed: 05/24/22 18:56> Description: linear <Shayna Pouliot, PA - Last Filed: 05/24/22 18:56> Amount of anesthesia used (mL): 0 <Shanya Pouliot, PA - Last Filed: 05/24/22 18:56> Skin layer closed with: other (gilda) <Shayna Pouliot, PA - Last Filed: 05/24/22 18:56> Number of sutures: 3 <Shayna Pouliot, PA - Last Filed: 05/24/22 18:56> Laceration 3: Site: scalp <Shayna Pouliot, PA - Last Filed: 05/24/22 18:56> Side (If applicable): left <Shayna Pouliot, PA - Last Filed: 05/24/22 18:56> Size (cm): 1 <Shayna Pouliot, PA - Last Filed: 05/24/22 18:56> Description: linear <Shayna Pouliot, PA - Last Filed: 05/24/22 18:56> Amount of anesthesia used (mL): 0 <Shayna Pouliot, PA - Last Filed: 05/24/22 18:56> Skin layer closed with: other (gilda) <Shayna Pouliot, PA - Last Filed: 05/24/22 18:56> Number of sutures: 2 <Shayna Pouliot, PA - Last Filed: 05/24/22 18:56> Medical Decision Making Medical Decision Making MDM Narrative: 72-year-old male with past medical history of asthma, HLD, HTN, presenting to the ED complaining of scalp laceration s/p syncopal episode [employer]. On exam vital signs stable, NAD, no midline spinous tenderness throughout, no red flag symptoms, physical exam as above with large left parietal scalp laceration, no active bleeding or hematoma. Concern for vasovagal syncope vs metabolic abnormality. Rule out ACS. Low suspicion for PE or GI bleed. Rule out ICH Plan: EKG, head/C-spine CT, labs, UA, CXR, IVF, orthostatics, repair wound, update tetanus <SHAYNA Alves - Last Filed: 05/24/22 18:56> Differential Diagnosis Differential Diagnoses: The differential diagnosis associated with the presentation includes <SHAYNA Alves - Last Filed: 05/24/22 18:56> As above <SHAYNA Alves - Last Filed: 05/24/22 18:56> Lab Data MDM Lab Attestation statement: I reviewed the patient's lab results. <SHAYNA Alves - Last Filed: 05/24/22 18:56> Result Diagrams: : 05/24/22 21:33 05/24/22 19:17 <SHAYNA Alves - Last Filed: 05/24/22 18:56> Labs: Lab Results 05/24/22 05/24/22 05/24/22 Range/Units 19:17 19:17 19:17 WBC 19.9 H (4.8-10.8) X10*3/uL RBC 5.03 (4.60-5.80) X10*6/uL Hgb 15.5 (14.0-18.0) g/dl Hct 44.4 (42.0-52.0) % MCV 88.3 (80.0-98.0) fL MCH 30.8 (27.0-33.0) pg MCHC 34.9 (31.0-36.0) g/dl RDW 13.0 (11.0-16.0) % Plt Count 267 (160-400) X10*3/uL MPV 9.4 (9.4-12.4) fL Immature Gran % (Auto) 0.5 H (0.0-0.4) % Neut % (Auto) 80.4 H (45-73) % Lymph % (Auto) 11.4 L (20-40) % Childress % (Auto) 5.9 (2-11) % Eos % (Auto) 1.3 (0-4) % Baso % (Auto) 0.5 (0-2) % Lymph # (Auto) 2.3 (1.2-4.9) X10*3/uL Childress # (Auto) 1.2 (0.1-1.2) X10*3/uL Eos # (Auto) 0.3 (0.0-0.4) X10*3/uL Baso # (Auto) 0.1 (0.0-0.2) X10*3/uL Abs Immat Gran (auto) 0.10 H (0.00-0.03) X10*3/uL Absolute Neuts (auto) 16.0 H (2.0-8.3) x10*3/uL Absolute Nucleated RBC 0.000 (0.0-0.012) X10*3/uL Nucleated RBC % (auto) 0.0 (0.0-0.2) /100WBC PT 11.2 (10.0-13.1) SEC INR 1.0 (0.9-1.1) Sodium 137 (135-145) mmol/L Potassium 4.4 (3.3-5.1) mmol/L Chloride 102 (96-108) mmol/L Carbon Dioxide 27 (22-29) mmol/L Anion Gap 12 (12-20) BUN 23 H (9-16) mg/dL Creatinine 1.29 (0.5-1.4) mg/dL Estim Creat Clear Calc 53.2 Estimated GFR 55 Random Glucose 146 H (60-115) mg/dL Calcium 9.7 (8.4-10.2) mg/dL Magnesium 1.6 (1.6-2.6) mg/dL Total Bilirubin 0.9 (0.0-1.0) mg/dL Direct Bilirubin 0.3 (0.0-0.5) mg/dL AST 25 (5-37) U/L ALT 35 (0-40) U/L Alkaline Phosphatase 91 (39-117) U/L Troponin I High Sens (<3.5-35.0) ng/L Total Protein 7.1 (6.5-8.0) g/dL Albumin 4.3 (3.5-5.0) g/dL Lipase 20 (8-78) U/L Urine Color Urine Appearance Urine pH (5.0-9.0) Ur Specific Gill (1.005-1.025) Urine Protein (Neg-Trace) mg/dL Urine Glucose (UA) (Negative) mg/dL Urine Ketones (Negative) mg/dL Urine Blood (Negative) Urine Nitrite (Negative) Ur Leukocyte Esterase (Negative) COVID-19 (GUANAKO) (Negative) COVID-19 Clin Com Influenza Type A (GENNA) (Negative) Influenza Type B (GENNA) (Negative) Influenza A & B Note 05/24/22 05/24/22 05/24/22 Range/Units 19:17 19:17 21:33 WBC (4.8-10.8) X10*3/uL RBC (4.60-5.80) X10*6/uL Hgb (14.0-18.0) g/dl Hct (42.0-52.0) % MCV (80.0-98.0) fL MCH (27.0-33.0) pg MCHC (31.0-36.0) g/dl RDW (11.0-16.0) % Plt Count (160-400) X10*3/uL MPV (9.4-12.4) fL Immature Gran % (Auto) (0.0-0.4) % Neut % (Auto) (45-73) % Lymph % (Auto) (20-40) % Childress % (Auto) (2-11) % Eos % (Auto) (0-4) % Baso % (Auto) (0-2) % Lymph # (Auto) (1.2-4.9) X10*3/uL Childress # (Auto) (0.1-1.2) X10*3/uL Eos # (Auto) (0.0-0.4) X10*3/uL Baso # (Auto) (0.0-0.2) X10*3/uL Abs Immat Gran (auto) (0.00-0.03) X10*3/uL Absolute Neuts (auto) (2.0-8.3) x10*3/uL Absolute Nucleated RBC (0.0-0.012) X10*3/uL Nucleated RBC % (auto) (0.0-0.2) /100WBC PT (10.0-13.1) SEC INR (0.9-1.1) Sodium (135-145) mmol/L Potassium (3.3-5.1) mmol/L Chloride (96-108) mmol/L Carbon Dioxide (22-29) mmol/L Anion Gap (12-20) BUN (9-16) mg/dL Creatinine (0.5-1.4) mg/dL Estim Creat Clear Calc Estimated GFR Random Glucose (60-115) mg/dL Calcium (8.4-10.2) mg/dL Magnesium (1.6-2.6) mg/dL Total Bilirubin (0.0-1.0) mg/dL Direct Bilirubin (0.0-0.5) mg/dL AST (5-37) U/L ALT (0-40) U/L Alkaline Phosphatase (39-117) U/L Troponin I High Sens < 3.5 (<3.5-35.0) ng/L Total Protein (6.5-8.0) g/dL Albumin (3.5-5.0) g/dL Lipase (8-78) U/L Urine Color Urine Appearance Urine pH (5.0-9.0) Ur Specific Gill (1.005-1.025) Urine Protein (Neg-Trace) mg/dL Urine Glucose (UA) (Negative) mg/dL Urine Ketones (Negative) mg/dL Urine Blood (Negative) Urine Nitrite (Negative) Ur Leukocyte Esterase (Negative) COVID-19 (GUANAKO) Negative (Negative) COVID-19 Clin Com See Note Influenza Type A (GENNA) Negative (Negative) Influenza Type B (GENNA) Negative (Negative) Influenza A & B Note See Note 05/24/22 05/24/22 05/24/22 Range/Units 21:33 21:33 21:41 WBC 15.9 H (4.8-10.8) X10*3/uL RBC 4.86 (4.60-5.80) X10*6/uL Hgb 14.7 (14.0-18.0) g/dl Hct 42.5 (42.0-52.0) % MCV 87.4 (80.0-98.0) fL MCH 30.2 (27.0-33.0) pg MCHC 34.6 (31.0-36.0) g/dl RDW 13.0 (11.0-16.0) % Plt Count 245 (160-400) X10*3/uL MPV 9.4 (9.4-12.4) fL Immature Gran % (Auto) 0.4 (0.0-0.4) % Neut % (Auto) 83.2 H (45-73) % Lymph % (Auto) 11.5 L (20-40) % Childress % (Auto) 4.1 (2-11) % Eos % (Auto) 0.4 (0-4) % Baso % (Auto) 0.4 (0-2) % Lymph # (Auto) 1.8 (1.2-4.9) X10*3/uL Childress # (Auto) 0.7 (0.1-1.2) X10*3/uL Eos # (Auto) 0.1 (0.0-0.4) X10*3/uL Baso # (Auto) 0.1 (0.0-0.2) X10*3/uL Abs Immat Gran (auto) 0.07 H (0.00-0.03) X10*3/uL Absolute Neuts (auto) 13.2 H (2.0-8.3) x10*3/uL Absolute Nucleated RBC 0.000 (0.0-0.012) X10*3/uL Nucleated RBC % (auto) 0.0 (0.0-0.2) /100WBC PT (10.0-13.1) SEC INR (0.9-1.1) Sodium (135-145) mmol/L Potassium (3.3-5.1) mmol/L Chloride (96-108) mmol/L Carbon Dioxide (22-29) mmol/L Anion Gap (12-20) BUN (9-16) mg/dL Creatinine (0.5-1.4) mg/dL Estim Creat Clear Calc Estimated GFR Random Glucose (60-115) mg/dL Calcium (8.4-10.2) mg/dL Magnesium (1.6-2.6) mg/dL Total Bilirubin (0.0-1.0) mg/dL Direct Bilirubin (0.0-0.5) mg/dL AST (5-37) U/L ALT (0-40) U/L Alkaline Phosphatase (39-117) U/L Troponin I High Sens 4.2 (<3.5-35.0) ng/L Total Protein (6.5-8.0) g/dL Albumin (3.5-5.0) g/dL Lipase (8-78) U/L Urine Color Yellow Urine Appearance Clear Urine pH 5.5 (5.0-9.0) Ur Specific Gill 1.020 (1.005-1.025) Urine Protein Trace (Neg-Trace) mg/dL Urine Glucose (UA) Negative (Negative) mg/dL Urine Ketones Negative (Negative) mg/dL Urine Blood Negative (Negative) Urine Nitrite Negative (Negative) Ur Leukocyte Esterase Negative (Negative) COVID-19 (GUANAKO) (Negative) COVID-19 Clin Com Influenza Type A (GENNA) (Negative) Influenza Type B (GENNA) (Negative) Influenza A & B Note <SHAYNA Alves - Last Filed: 05/24/22 18:56> Lab Results 05/24/22 05/24/22 05/24/22 Range/Units 19:17 19:17 19:17 WBC 19.9 H (4.8-10.8) X10*3/uL RBC 5.03 (4.60-5.80) X10*6/uL Hgb 15.5 (14.0-18.0) g/dl Hct 44.4 (42.0-52.0) % MCV 88.3 (80.0-98.0) fL MCH 30.8 (27.0-33.0) pg MCHC 34.9 (31.0-36.0) g/dl RDW 13.0 (11.0-16.0) % Plt Count 267 (160-400) X10*3/uL MPV 9.4 (9.4-12.4) fL Immature Gran % (Auto) 0.5 H (0.0-0.4) % Neut % (Auto) 80.4 H (45-73) % Lymph % (Auto) 11.4 L (20-40) % Childress % (Auto) 5.9 (2-11) % Eos % (Auto) 1.3 (0-4) % Baso % (Auto) 0.5 (0-2) % Lymph # (Auto) 2.3 (1.2-4.9) X10*3/uL Childress # (Auto) 1.2 (0.1-1.2) X10*3/uL Eos # (Auto) 0.3 (0.0-0.4) X10*3/uL Baso # (Auto) 0.1 (0.0-0.2) X10*3/uL Abs Immat Gran (auto) 0.10 H (0.00-0.03) X10*3/uL Absolute Neuts (auto) 16.0 H (2.0-8.3) x10*3/uL Absolute Nucleated RBC 0.000 (0.0-0.012) X10*3/uL Nucleated RBC % (auto) 0.0 (0.0-0.2) /100WBC PT 11.2 (10.0-13.1) SEC INR 1.0 (0.9-1.1) Sodium 137 (135-145) mmol/L Potassium 4.4 (3.3-5.1) mmol/L Chloride 102 (96-108) mmol/L Carbon Dioxide 27 (22-29) mmol/L Anion Gap 12 (12-20) BUN 23 H (9-16) mg/dL Creatinine 1.29 (0.5-1.4) mg/dL Estim Creat Clear Calc 53.2 Estimated GFR 55 Random Glucose 146 H (60-115) mg/dL Calcium 9.7 (8.4-10.2) mg/dL Magnesium 1.6 (1.6-2.6) mg/dL Total Bilirubin 0.9 (0.0-1.0) mg/dL Direct Bilirubin 0.3 (0.0-0.5) mg/dL AST 25 (5-37) U/L ALT 35 (0-40) U/L Alkaline Phosphatase 91 (39-117) U/L Troponin I High Sens (<3.5-35.0) ng/L Total Protein 7.1 (6.5-8.0) g/dL Albumin 4.3 (3.5-5.0) g/dL Lipase 20 (8-78) U/L Urine Color Urine Appearance Urine pH (5.0-9.0) Ur Specific Gill (1.005-1.025) Urine Protein (Neg-Trace) mg/dL Urine Glucose (UA) (Negative) mg/dL Urine Ketones (Negative) mg/dL Urine Blood (Negative) Urine Nitrite (Negative) Ur Leukocyte Esterase (Negative) COVID-19 (GUANAKO) (Negative) COVID-19 Clin Com Influenza Type A (GENNA) (Negative) Influenza Type B (GENNA) (Negative) Influenza A & B Note 05/24/22 05/24/22 05/24/22 Range/Units 19:17 19:17 21:33 WBC (4.8-10.8) X10*3/uL RBC (4.60-5.80) X10*6/uL Hgb (14.0-18.0) g/dl Hct (42.0-52.0) % MCV (80.0-98.0) fL MCH (27.0-33.0) pg MCHC (31.0-36.0) g/dl RDW (11.0-16.0) % Plt Count (160-400) X10*3/uL MPV (9.4-12.4) fL Immature Gran % (Auto) (0.0-0.4) % Neut % (Auto) (45-73) % Lymph % (Auto) (20-40) % Childress % (Auto) (2-11) % Eos % (Auto) (0-4) % Baso % (Auto) (0-2) % Lymph # (Auto) (1.2-4.9) X10*3/uL Childress # (Auto) (0.1-1.2) X10*3/uL Eos # (Auto) (0.0-0.4) X10*3/uL Baso # (Auto) (0.0-0.2) X10*3/uL Abs Immat Gran (auto) (0.00-0.03) X10*3/uL Absolute Neuts (auto) (2.0-8.3) x10*3/uL Absolute Nucleated RBC (0.0-0.012) X10*3/uL Nucleated RBC % (auto) (0.0-0.2) /100WBC PT (10.0-13.1) SEC INR (0.9-1.1) Sodium (135-145) mmol/L Potassium (3.3-5.1) mmol/L Chloride (96-108) mmol/L Carbon Dioxide (22-29) mmol/L Anion Gap (12-20) BUN (9-16) mg/dL Creatinine (0.5-1.4) mg/dL Estim Creat Clear Calc Estimated GFR Random Glucose (60-115) mg/dL Calcium (8.4-10.2) mg/dL Magnesium (1.6-2.6) mg/dL Total Bilirubin (0.0-1.0) mg/dL Direct Bilirubin (0.0-0.5) mg/dL AST (5-37) U/L ALT (0-40) U/L Alkaline Phosphatase (39-117) U/L Troponin I High Sens < 3.5 (<3.5-35.0) ng/L Total Protein (6.5-8.0) g/dL Albumin (3.5-5.0) g/dL Lipase (8-78) U/L Urine Color Urine Appearance Urine pH (5.0-9.0) Ur Specific Gill (1.005-1.025) Urine Protein (Neg-Trace) mg/dL Urine Glucose (UA) (Negative) mg/dL Urine Ketones (Negative) mg/dL Urine Blood (Negative) Urine Nitrite (Negative) Ur Leukocyte Esterase (Negative) COVID-19 (GUANAKO) Negative (Negative) COVID-19 Clin Com See Note Influenza Type A (GENNA) Negative (Negative) Influenza Type B (GENNA) Negative (Negative) Influenza A & B Note See Note 05/24/22 05/24/22 05/24/22 Range/Units 21:33 21:33 21:41 WBC 15.9 H (4.8-10.8) X10*3/uL RBC 4.86 (4.60-5.80) X10*6/uL Hgb 14.7 (14.0-18.0) g/dl Hct 42.5 (42.0-52.0) % MCV 87.4 (80.0-98.0) fL MCH 30.2 (27.0-33.0) pg MCHC 34.6 (31.0-36.0) g/dl RDW 13.0 (11.0-16.0) % Plt Count 245 (160-400) X10*3/uL MPV 9.4 (9.4-12.4) fL Immature Gran % (Auto) 0.4 (0.0-0.4) % Neut % (Auto) 83.2 H (45-73) % Lymph % (Auto) 11.5 L (20-40) % Childress % (Auto) 4.1 (2-11) % Eos % (Auto) 0.4 (0-4) % Baso % (Auto) 0.4 (0-2) % Lymph # (Auto) 1.8 (1.2-4.9) X10*3/uL Childress # (Auto) 0.7 (0.1-1.2) X10*3/uL Eos # (Auto) 0.1 (0.0-0.4) X10*3/uL Baso # (Auto) 0.1 (0.0-0.2) X10*3/uL Abs Immat Gran (auto) 0.07 H (0.00-0.03) X10*3/uL Absolute Neuts (auto) 13.2 H (2.0-8.3) x10*3/uL Absolute Nucleated RBC 0.000 (0.0-0.012) X10*3/uL Nucleated RBC % (auto) 0.0 (0.0-0.2) /100WBC PT (10.0-13.1) SEC INR (0.9-1.1) Sodium (135-145) mmol/L Potassium (3.3-5.1) mmol/L Chloride (96-108) mmol/L Carbon Dioxide (22-29) mmol/L Anion Gap (12-20) BUN (9-16) mg/dL Creatinine (0.5-1.4) mg/dL Estim Creat Clear Calc Estimated GFR Random Glucose (60-115) mg/dL Calcium (8.4-10.2) mg/dL Magnesium (1.6-2.6) mg/dL Total Bilirubin (0.0-1.0) mg/dL Direct Bilirubin (0.0-0.5) mg/dL AST (5-37) U/L ALT (0-40) U/L Alkaline Phosphatase (39-117) U/L Troponin I High Sens 4.2 (<3.5-35.0) ng/L Total Protein (6.5-8.0) g/dL Albumin (3.5-5.0) g/dL Lipase (8-78) U/L Urine Color Yellow Urine Appearance Clear Urine pH 5.5 (5.0-9.0) Ur Specific Gill 1.020 (1.005-1.025) Urine Protein Trace (Neg-Trace) mg/dL Urine Glucose (UA) Negative (Negative) mg/dL Urine Ketones Negative (Negative) mg/dL Urine Blood Negative (Negative) Urine Nitrite Negative (Negative) Ur Leukocyte Esterase Negative (Negative) COVID-19 (GUANAKO) (Negative) COVID-19 Clin Com Influenza Type A (GENNA) (Negative) Influenza Type B (GENNA) (Negative) Influenza A & B Note <SHAYNA Brand - Last Filed: 05/24/22 23:42> Radiology Impression Discussion of test interpretation with radiology: I have reviewed the radiologist's reading. <SHAYNA Alves - Last Filed: 05/24/22 18:56> Independent Historian Clinical information obtained from an independent historian. History obtained from or confirmed by: Friend <SHAYNA Alves - Last Filed: 05/24/22 18:56> External Record Review External record reviewed: Outpatient record and Prior outpatient labs <SHAYNA Alves - Last Filed: 05/24/22 18:56> Discharge Plan Discharge Clinical Impression: Syncope, Laceration of scalp, Vasovagal syncope <SHAYNA Alves Last Filed: 05/24/22 18:56> Patient Disposition: Home, Self-Care <SHAYNA Alves Last Filed: 05/24/22 18:56> Instructions: Laceration (ED), Near Syncope (ED) <SHAYNA Alves - Last Filed: 05/24/22 18:56> Additional Instructions: Your wounds were repaired today in the emergency department. Keep dry and clean. You need to return to any emergency department, urgent care, or your PCPs office in 7-10 days for suture removal Apply bacitracin and or Neosporin daily Once gilda are removed apply anti scar cream like Mederma If area begins look infected, is red, there is drainage, streaking, or you have fever please return to the emergency department Take your medications as prescribed. If you were prescribed antibiotics today, it is important that you take your medication to their entirety, do not skip any doses, do not finish them early. Follow-up with your primary care provider this week. Return to the emergency department with new or worsening symptoms. Such as fevers, chills, chest pain, shortness of breath, nausea, vomiting, dizziness, headache, vision changes, lethargy In case of emergency call 911 XR/XR chest 1V IMPRESSION: No acute pulmonary disease. CT/CT cervical spine & head wo IV con IMPRESSION: 1.? No intracranial hemorrhage or calvarial fracture. 2.? Large left lateral scalp laceration. 3.? No acute cervical spine fracture or traumatic subluxation. 4.? Multilevel cervical spondylosis, severe at C5-C6 and C6-C7 with suspected moderate to severe spinal canal stenosis at C5-C6. ? CT/CT abdomen pelvis w IV con IMPRESSION: 1.? Diffuse mesenteric edema with small amount of free fluid in the abdomen and pelvis and mild mural thickening of small bowel suggestive of enteritis.. 2.? Sigmoid diverticulosis without diverticulitis. 3.? Bilateral exophytic renal cysts. 4.? Small left inguinal hernia containing fluid in the proximal inguinal ring. 5. Mild prostate enlargement with central gland calcification. 6. Prominent lymph nodes in the portacaval space. ? Fleischner guidelines were followed. ? <SHAYNA Alves - Last Filed: 05/24/22 18:56> Prescriptions: No Action Flovent HFA 110 mcg/actuation HFA aerosol inhaler 1 puff PO BID 90 Days Qty: 12 12RF hydrochlorothiazide 12.5 mg tablet 12.5 mg PO DAILY Qty: 90 3RF albuterol sulfate [ProAir HFA] 90 mcg/actuation HFA aerosol inhaler 2 puff PO Q6H PRN (Reason: bronchospasm) 30 Days Qty: 8.5 3RF lisinopril 20 mg tablet 20 mg PO DAILY Qty: 90 3RF atorvastatin 10 mg tablet 10 mg PO QPM 90 Days Qty: 90 0RF omeprazole magnesium [Prilosec OTC] 20 mg tablet,delayed release (DR/EC) 20 mg PO DAILY icosapent ethyl [Vascepa] 1 gram capsule 1 g PO BID 90 Days Qty: 180 0RF <SHAYNA Alves - Last Filed: 05/24/22 18:56> Referrals: ED Physician,Generic [Physician] - 1 week (For staple removal) <SHAYNA Alves - Last Filed: 05/24/22 18:56> Interventions: ED Discharge Assessment Last Done: 05/25/22 00:01 <SHAYNA Alves - Last Filed: 05/24/22 18:56> Discharge Date/Time: 05/25/22 00:04 <SHAYNA Alves - Last Filed: 05/24/22 18:56>
--- NOTE | 2022-05-24 18:12 | ECG_ITS ---
Test Reason : SYNCOPE Blood Pressure : / mmHG Vent. Rate : 082 BPM Atrial Rate : 082 BPM P-R Int : 170 ms QRS Dur : 096 ms QT Int : 382 ms P-R-T Axes : 081 080 075 degrees QTc Int : 446 ms Normal sinus rhythm Normal ECG When compared with ECG of 11-DEC-2004 17:15, No significant change was found Referred By: Shayna Linares Electronically Signed By:LOKESH GOLDSTEIN MD
[2022-05-24] MEDS: Acetaminophen 325 MG TABLET 650 MG PO (19:06)
[2022-05-24] MEDS: ondansetron HCL 4 MG/2 ML VIAL IVPUSH (19:07)
[2022-05-24] MEDS: 0.9 % Sodium Chloride 1,000 ML 999 ML IV (19:07)
[2022-05-24 19:22] LABS: MANUAL DIFF FLAG NO
[2022-05-24 19:23] LABS: Basophils Absolute Auto 0.1 X10*3/uL (0.0-0.2); Basophils Percent Auto 0.5 % (0-2); Eosinophils Absolute Auto 0.3 X10*3/uL (0.0-0.4); Eosinophils Percent Auto 1.3 % (0-4); Hematocrit 44.4 % (42.0-52.0); Hemoglobin 15.5 g/dl (14.0-18.0); Imm Gran Pct Auto 0.5 % (0.0-0.4); Lymphocytes Absolute Auto 2.3 X10*3/uL (1.2-4.9); Lymphocytes Percent Auto 11.4 % (20-40); Mean Corpuscular HGB Conc 34.9 g/dl (31.0-36.0); Mean Corpuscular Hemoglobin 30.8 pg (27.0-33.0); Mean Corpuscular Volume 88.3 fL (80.0-98.0); Mean Platelet Volume 9.4 fL (9.4-12.4); Monocytes Absolute Auto 1.2 X10*3/uL (0.1-1.2); Monocytes Percent Auto 5.9 % (2-11); Neutrophils Percent Auto 80.4 % (45-73); Platelet Count 267 X10*3/uL (160-400); Red Blood Count 5.03 X10*6/uL (4.60-5.80); White Blood Count 19.9 X10*3/uL (4.8-10.8)
[2022-05-24 19:30] LABS: Prothrombin Time 11.2 SEC (10.0-13.1)
[2022-05-24 19:39] LABS: Alanine Aminotransferase 35 U/L (0-40); Albumin Level 4.3 g/dL (3.5-5.0); Alkaline Phosphatase 91 U/L (39-117); Anion Gap 12 (12-20); Aspartate Amino Transferase 25 U/L (5-37); Bilirubin Direct 0.3 mg/dL (0.0-0.5); Bilirubin Total 0.9 mg/dL (0.0-1.0); Blood Urea Nitrogen 23 mg/dL (9-16); Calcium 9.7 mg/dL (8.4-10.2); Carbon Dioxide 27 mmol/L (22-29); Chloride 102 mmol/L (96-108); Creatinine Clr Calc Pharmacy 53.2; Estimated Glomerular Filt Rate 55; Glucose Random 146 mg/dL (60-115); Lipase 20 U/L (8-78); Magnesium 1.6 mg/dL (1.6-2.6); Potassium 4.4 mmol/L (3.3-5.1); Sodium 137 mmol/L (135-145); Total Protein 7.1 g/dL (6.5-8.0)
[2022-05-24 19:43] LABS: COVID-19 Test Negative (Negative); IDNOW Serial# 16C4AD1C
[2022-05-24 19:47] LABS: Troponin-I High Sensitivity < 3.5 ng/L (<3.5-35.0)
[2022-05-24] MEDS: Diphth,Pertus(ACell),Tet Adult 0.5 ML SYRINGE IM (19:56)
[2022-05-24] MEDS: Lidocaine 4 % Cream KIT 1 APPL TOPICAL (19:57)
[2022-05-24 20:28] VITALS: BP 131/63; PULSE 78; RESP 17; TEMP 36.8; O2SAT 97
[2022-05-24 20:30] VITALS: BP 136/59; PULSE 76
[2022-05-24 20:38] VITALS: BP 133/70; PULSE 79
[2022-05-24 20:39] VITALS: BP 142/61; PULSE 94
[2022-05-24 21:37] LABS: MANUAL DIFF FLAG NO
[2022-05-24 21:38] LABS: Basophils Absolute Auto 0.1 X10*3/uL (0.0-0.2); Basophils Percent Auto 0.4 % (0-2); Eosinophils Absolute Auto 0.1 X10*3/uL (0.0-0.4); Eosinophils Percent Auto 0.4 % (0-4); Hematocrit 42.5 % (42.0-52.0); Hemoglobin 14.7 g/dl (14.0-18.0); Imm Gran Abs Auto 0.07 X10*3/uL (0.00-0.03); Imm Gran Pct Auto 0.4 % (0.0-0.4); Lymphocytes Absolute Auto 1.8 X10*3/uL (1.2-4.9); Lymphocytes Percent Auto 11.5 % (20-40); Mean Corpuscular HGB Conc 34.6 g/dl (31.0-36.0); Mean Corpuscular Hemoglobin 30.2 pg (27.0-33.0); Mean Corpuscular Volume 87.4 fL (80.0-98.0); Mean Platelet Volume 9.4 fL (9.4-12.4); Monocytes Absolute Auto 0.7 X10*3/uL (0.1-1.2); Monocytes Percent Auto 4.1 % (2-11); Neutrophils Absolute Auto 13.2 x10*3/uL (2.0-8.3); Neutrophils Percent Auto 83.2 % (45-73); Platelet Count 245 X10*3/uL (160-400); Red Blood Count 4.86 X10*6/uL (4.60-5.80); White Blood Count 15.9 X10*3/uL (4.8-10.8)
[2022-05-24 21:49] LABS: Appearance Urine Clear; Color Urine Yellow; Glucose Urine UA Negative (Negative); Leukocyte Esterase Urine Negative (Negative); Nitrite Urine Negative (Negative); PH 5.5 (5.0-9.0); Urine Blood Negative (Negative); Urine Ketones Negative (Negative); Urine Protein Trace mg/dL (Neg-Trace)
[2022-05-24 21:54] LABS: IDNOW Serial# 08D9AD1C; Influenza A Negative (Negative); Influenza B2 Negative (Negative)
[2022-05-24 22:00] LABS: Troponin-I High Sensitivity 4.2 ng/L (<3.5-35.0)
[2022-05-24] MEDS: iohexoL 350 MG/ML 100 ML INFUS..BTL 85 ML IV (22:13)
== END 2022-05-25 00:04 | disposition home or self-care (01) ==
PROVIDERS: Physician Assistant; Emergency Provider Internal Medicine; PCP Nurse Practitioner Family
DX: S01.01XA Laceration without foreign body of scalp, initial encounter (principal); S40.819A Abrasion of unspecified upper arm, initial encounter; R55 Syncope and collapse; I10 Essential (primary) hypertension; R51.9 Headache, unspecified; M54.2 Cervicalgia; M54.6 Pain in thoracic spine; R07.89 Other chest pain; F17.210 Nicotine dependence, cigarettes, uncomplicated; R10.9 Unspecified abdominal pain; W01.10XA Fall on same level from slipping, tripping and stumbling with subsequent striking against unspecified object, initial encounter; Y93.9 Activity, unspecified; Y92.9 Unspecified place or not applicable; Y99.9 Unspecified external cause status; Z20.822 Contact with and (suspected) exposure to COVID-19; Z71.6 Tobacco abuse counseling; Z23 Encounter for immunization; Z79.899 Other long term (current) drug therapy
CPT/HCPCS: 12034; 36415; 70450; 71045; 72125; 74177; 80048; 80076; 81003; 83690; 83735; 84484; 85025; 85610; 87502; 87635; 90471; 90715; 93005; 96361; 96374; 99284; J2405; Q9967

== ENCOUNTER → 2022-06-10 13:42 | Outpatient (BNVA) | payer BC, SELFPAY | PROVIDERS: PCP Nurse Practitioner Family; Referring Provider Nurse Practitioner Family; Visit Provider Internal Medicine Gastroenterology | DX: Z13.89 Encounter for screening for other disorder (principal) ==

== ENCOUNTER 2022-06-11 07:28 | Outpatient (REF) | payer BC, SELFPAY ==
[2022-06-11 11:38] LABS: Appearance Urine Clear; Color Urine Yellow; Glucose Urine UA Negative (Negative); Leukocyte Esterase Urine Negative (Negative); Nitrite Urine Negative (Negative); PH 5.5 (5.0-9.0); Urine Blood Negative (Negative); Urine Ketones Negative (Negative); Urine Protein Negative (Neg-Trace)
[2022-06-11 11:53] LABS: MANUAL DIFF FLAG NO
[2022-06-11 12:03] LABS: Basophils Absolute Auto 0.1 X10*3/uL (0.0-0.2); Basophils Percent Auto 1.1 % (0-2); Eosinophils Absolute Auto 0.9 X10*3/uL (0.0-0.4); Eosinophils Percent Auto 9.8 % (0-4); Hematocrit 44.1 % (42.0-52.0); Imm Gran Abs Auto 0.03 X10*3/uL (0.00-0.03); Imm Gran Pct Auto 0.3 % (0.0-0.4); Lymphocytes Absolute Auto 2.9 X10*3/uL (1.2-4.9); Lymphocytes Percent Auto 32.5 % (20-40); Mean Corpuscular Hemoglobin 30.5 pg (27.0-33.0); Mean Corpuscular Volume 89.6 fL (80.0-98.0); Monocytes Absolute Auto 0.9 X10*3/uL (0.1-1.2); Monocytes Percent Auto 9.6 % (2-11); Neutrophils Absolute Auto 4.1 x10*3/uL (2.0-8.3); Neutrophils Percent Auto 46.7 % (45-73); Platelet Count 290 X10*3/uL (160-400); Red Blood Count 4.92 X10*6/uL (4.60-5.80); Red Cell Distribution Width 13.1 % (11.0-16.0); White Blood Count 8.8 X10*3/uL (4.8-10.8)
[2022-06-11 12:49] LABS: Alanine Aminotransferase 38 U/L (0-40); Albumin Level 4.4 g/dL (3.5-5.0); Alkaline Phosphatase 90 U/L (39-117); Anion Gap 13 (12-20); Aspartate Amino Transferase 28 U/L (5-37); Bilirubin Total 1.1 mg/dL (0.0-1.0); Blood Urea Nitrogen 21 mg/dL (9-16); Calcium 9.8 mg/dL (8.4-10.2); Carbon Dioxide 29 mmol/L (22-29); Chloride 100 mmol/L (96-108); Cholesterol 162 mg/dL; Estimated Glomerular Filt Rate > 60; Glucose Fasting 132 mg/dL (60-99); HDL Cholesterol 41 mg/dL; LDL Cholesterol Calculated 90 mg/dl; Potassium 4.7 mmol/L (3.3-5.1); Sodium 137 mmol/L (135-145); Total Protein 7.5 g/dL (6.5-8.0); Triglycerides 158 mg/dL
[2022-06-11 12:53] LABS: Prostate Specific Antigen Scr 1.77 ng/mL (<0.05-4.0); TSH reflex Free T4 3.05 uIU/mL (0.32-4.0)
== END 2022-06-11 07:29 | disposition home or self-care (01) ==
LOC: HO.HMGCLDS 07:28
PROVIDERS: PCP Nurse Practitioner Family; Visit Provider Nurse Practitioner Family
DX: Z12.5 Encounter for screening for malignant neoplasm of prostate (principal); I10 Essential (primary) hypertension
CPT/HCPCS: 36415; 80053; 80061; 81003; 84153; 84443; 85025

== ENCOUNTER 2022-06-25 07:02 | Outpatient (REF) | payer BC, SELFPAY ==
[2022-06-25 12:24] LABS: Alanine Aminotransferase 28 U/L (0-40); Albumin Level 4.5 g/dL (3.5-5.0); Alkaline Phosphatase 94 U/L (39-117); Anion Gap 14 (12-20); Aspartate Amino Transferase 27 U/L (5-37); Bilirubin Total 1.5 mg/dL (0.0-1.0); Blood Urea Nitrogen 19 mg/dL (9-16); Carbon Dioxide 28 mmol/L (22-29); Chloride 100 mmol/L (96-108); Estimated Glomerular Filt Rate > 60; Glucose Fasting 116 mg/dL (60-99); Potassium 5.2 mmol/L (3.3-5.1); Sodium 137 mmol/L (135-145); Total Protein 7.5 g/dL (6.5-8.0)
[2022-06-25 12:31] LABS: Estimated Average Glucose 137 mg/dL; Hemoglobin A1c % 6.4 %
== END 2022-06-25 07:03 | disposition home or self-care (01) ==
LOC: HO.HMGCLDS 07:02
PROVIDERS: PCP Nurse Practitioner Family; Visit Provider Nurse Practitioner Family
DX: R73.01 Impaired fasting glucose (principal)
CPT/HCPCS: 36415; 80053; 83036

== ENCOUNTER 2022-06-27 11:23 | Outpatient (REF) | payer BC, SELFPAY ==
[2022-06-27 14:30] LABS: Anion Gap 14 (12-20); Carbon Dioxide 28 mmol/L (22-29); Chloride 98 mmol/L (96-108); Potassium 4.5 mmol/L (3.3-5.1); Sodium 135 mmol/L (135-145)
== END 2022-06-27 11:24 | disposition home or self-care (01) ==
LOC: HO.HMGCLDS 11:23
PROVIDERS: PCP Nurse Practitioner Family; Visit Provider Nurse Practitioner Family
DX: E87.5 Hyperkalemia (principal)
CPT/HCPCS: 36415; 80051

== ENCOUNTER 2022-09-26 09:01 | Outpatient (REF) | payer BC, SELFPAY ==
--- NOTE | ~2022-09-26 | CT_ITS ---
EXAMINATION: CT ABDOMEN AND PELVIS WITH CONTRAST CLINICAL INFORMATION: Noninfective gastroenteritis and colitis COMPARISON: CT abdomen pelvis 09/26/2022 TECHNIQUE: Multidetector volumetric images were obtained from the superior aspect of the liver through the pubic symphysis following administration 85 mL of Omnipaque 350 intravenous contrast. Sagittal and coronal reformatted images were obtained on the technologist's workstation. Oral contrast: No This CT examination was performed using dose optimization techniques as appropriate, variously including the following: *Automated exposure control *Adjustment of mA and/or kV according to patient size (this includes techniques or standardized protocols for targeted exams where dose is matched to indication/reason for exam; i.e. extremities or head) *Use of iterative reconstruction technique DLP: 712 mGy-cm FINDINGS: LUNG BASES: Calcified granuloma in the right lung base. 3 mm solid right lower lobe pulmonary nodule, 6:27. ABDOMINAL AND PELVIC WALL: A small fat-containing left inguinal hernia. LIVER AND BILIARY TREE: Unremarkable. GALLBLADDER: Unremarkable. PANCREAS: Tiny punctate calcification in the pancreas which could be seen in the setting of chronic pancreatitis. SPLEEN: Unremarkable. ADRENAL GLANDS: Unremarkable. KIDNEYS AND URETERS: Bilateral renal hypodensities too small to characterize. GASTROINTESTINAL TRACT: Colonic diverticulosis without evidence of diverticulitis. Small bowel is unremarkable. No bowel wall thickening or hyperenhancement levoconvex curvature of the lumbar spine with multilevel degenerative disc disease. Normal appendix. VASCULAR: Atherosclerosis of the abdominal aorta. LYMPH NODES/PERITONEUM: Jitendra hepatic lymphadenopathy for example a 1.5 cm short axis jitendra hepatic node, 3:19 unchanged from prior. A 0.8 cm short axis retrocaval node, 3:23 is slightly decreased from prior previously 1.1 cm. FREE FLUID: None. BLADDER: Unremarkable. PELVIC VISCERA: Unremarkable. OSSEOUS STRUCTURES: Unremarkable. CT/CT abdomen pelvis w IV con IMPRESSION: * Chronic diverticulosis without evidence of diverticulitis. No bowel wall thickening or hyperenhancement. * Jitendra hepatic lymphadenopathy, not significantly changed measuring up to 1.5 cm short axis. Findings are nonspecific however this is a common location for reactive lymphadenopathy if any history of underlying liver disease. A previously seen mildly enlarged retrocaval node is decreased in size from prior, no longer pathologically enlarged. * Tiny punctate calcification in the pancreas which could be seen in the setting of chronic pancreatitis. * 3 mm solid right lower lobe pulmonary nodule. Assuming patient has no history of malignancy, recommend follow-up per Fleischner Society recommendations. According to the UPDATED 2017 Fleischner Society recommendations, the advised followup imaging for solid nodules < 6 mm is: LOW RISK PATIENT: No routine follow up. HIGH RISK PATIENT: Optional CT at 12 months.
[2022-09-26] MEDS: iohexoL 350 MG/ML 100 ML INFUS..BTL 85 ML IV (11:31)
[2022-09-26] MEDS: Barium Sulfate Oral (Vanilla) 450 ML ORAL.SUSP 900 ML PO (11:32)
[2022-09-27 07:09] LABS: Creatinine POC 0.7 mg/dL (0.5-1.4); GFR POC > 60
== END 2022-09-26 09:02 | disposition home or self-care (01) ==
LOC: HO.CT 09:01
PROVIDERS: PCP Nurse Practitioner Family; Visit Provider Nurse Practitioner Family
DX: K52.9 Noninfective gastroenteritis and colitis, unspecified (principal); R93.5 Abnormal findings on diagnostic imaging of other abdominal regions, including retroperitoneum
CPT/HCPCS: 74177; 82565; Q9967

== ENCOUNTER 2022-12-18 08:56 | Outpatient (AMB) | payer BC, SELFPAY ==
--- NOTE | 2022-12-18 10:06 | MHC.OFFWIV ---
Intake Vital Signs 12/18/22 10:08 Height 5 ft 9 in BP 112/50 L Blood Pressure Location Rt brachial Position Sitting Pulse 86 Pulse Source Pulse Oximeter Temp 96.2 F L Temp Source Temporal Artery Scan Pulse Oximetry (%) 130 H Oxygen Delivery Method Room Air Intake Visit Reasons: EP, Right ear pain Intake Note: Pt is here c/o right ear pain for the last week. Patient Tobacco Use Status: Former Tobacco user Quit Date: 2008 Allergies oxycodone [From PERCOCET] Adverse Reaction (Intermediate, Verified 12/18/22 10:08) NAUSEA & VOMITING Do you need a note to return to daycare/school/sports/work: No HPI EP, Right ear pain HPI Details 72-year-old male patient presents today with right ear pain over the last week. He states his ear has been a little bit tender, and he has some hearing loss on that right side. He denies any fever, chills, or any other sick symptoms. [facility] Medical History Asthma Elevated cholesterol HTN (hypertension) Lipoma Surgical History H/O colonoscopy H/O right inguinal hernia repair Hx of excision of mass Family History Mother Mental health disorder Colon cancer Brother Prostate cancer Social History Housing: House Patient Tobacco Use Status: Former Tobacco user Quit Date: 2008 Tobacco use type: Cigarette Cigarette Packs Per Day: 1.5 Cigarettes Per Day: 30.0 Years Smoked: 40 e-Cigarette/Vaping Use: Never Used Advance Directives Date on File: 11/27/21 Current occupational status: retired Cognitive needs: No Hearing needs: No Vision needs: No Review of Systems Const All systems reviewed & are unremarkable except as noted in HPI and below Physical Exam Vital Signs: Last Vital Signs Temp 96.2 F L 12/18/22 10:08 Pulse 86 12/18/22 10:08 BP 112/50 L 12/18/22 10:08 Pulse Ox 130 H 12/18/22 10:08 Oxygen Delivery Method Room Air 12/18/22 10:08 Const General: cooperative, healthy appearing, comfortable and no acute distress HEENT Head: Yes normal to inspection Ears: external ears normal, TM normal on the left and TM abnormal (right TM erythematous, purulence effusion) General nose exam: Normal external nose present and Normal nares present Neck Neck: Yes no lymphadenopathy Resp Effort & Inspection: normal respiratory effort and able to speak in complete sentences Skin General skin exam: no rashes or lesions noted Extrem General: Yes capillary refill normal and Yes no clubbing, cyanosis or edema Psych Appearance: grossly normal Mental Status: mental status grossly normal Speech and movement: Normal speech and movement present Assessment & Plan Assessment & Plan (1) Right otitis media with effusion: Code(s): H65.91 - Unspecified nonsuppurative otitis media, right ear Plan: Augmentin BID for 10 days for right otitis media. Encourage patient to utilize Tylenol/Motrin as needed for any discomfort. If symptoms worsen or if he does not improve with treatment, he should return to the clinic. He agrees to plan. Medications: New amoxicillin-pot clavulanate 875-125 mg 1 tab PO BID 20 tabs 0RF 10 days H65.91 - Unspecified nonsuppurative otitis media, right ear Coding Level of Care Code Est Pt Level 3 (72819) Diagnoses Right otitis media with effusion H65.91
[2022-12-18 10:08] VITALS: BP 112/50; PULSE 86; TEMP 35.7; O2SAT 130
== END 2022-12-18 10:30 | disposition home or self-care (01) ==
PROVIDERS: PCP Nurse Practitioner Family; Visit Provider Nurse Practitioner Family
DX: H65.91 Unspecified nonsuppurative otitis media, right ear (principal)
CPT/HCPCS: 99213

== ENCOUNTER 2023-01-10 13:39 | Outpatient (AMB) | payer BC, SELFPAY ==
--- NOTE | 2023-01-10 13:46 | AM.OFFWIN_ITS ---
Intake Vital Signs 01/10/23 13:47 Height 5 ft 9 in Weight 169 lb BMI 25.0 BP 138/62 Blood Pressure Location Rt brachial Position Sitting Pulse 81 Pulse Source Pulse Oximeter Temp 98.2 F Temp Source Temporal Artery Scan Pulse Oximetry (%) 96 Oxygen Delivery Method Room Air Intake Visit Reasons: EP, right testicle swelling Intake Note: Pt is here c/o right testicle swelling. Pt states he noticed it about two months ago. Pt states he isn't in pain but it is very uncomfortable and concerning. Patient Tobacco Use Status: Former Tobacco user Quit Date: 2008 Allergies oxycodone [From PERCOCET] Adverse Reaction (Intermediate, Verified 12/18/22 10:08) NAUSEA & VOMITING HPI EP, right testicle swelling HPI Details [age] year male presents to the office for a sick visit. Patient is reporting a lump on the right side of his scrotum. Symptoms have been present for a couple of months. Patient is very active in the gym. He reports no pain. No urinary discharge. [facility] Medical History Asthma Elevated cholesterol HTN (hypertension) Lipoma Surgical History H/O colonoscopy H/O right inguinal hernia repair Hx of excision of mass Family History Mother Mental health disorder Colon cancer Brother Prostate cancer Social History Housing: House Patient Tobacco Use Status: Former Tobacco user Quit Date: 2008 Tobacco use type: Cigarette Cigarette Packs Per Day: 1.5 Cigarettes Per Day: 30.0 Years Smoked: 40 e-Cigarette/Vaping Use: Never Used Advance Directives Date on File: 11/27/21 Current occupational status: retired Cognitive needs: No Hearing needs: No Vision needs: No Physical Exam Vital Signs: Last Vital Signs Temp 98.2 F 01/10/23 13:47 Pulse 81 01/10/23 13:47 BP 138/62 01/10/23 13:47 Pulse Ox 96 01/10/23 13:47 Oxygen Delivery Method Room Air 01/10/23 13:47 BMI result Body Mass Index 25.0 Const General: cooperative and healthy appearing Nutritional Appearance: well nourished Orientation/consciousness: patient oriented x3 Limitations: no limitations HEENT Head: Yes normal to inspection Eyes General: appearance normal, both eyes and all related structures Neck Neck: Yes normal visual inspection Chest Chest palpation & inspection: normal palpation of entire chest wall Resp Effort & Inspection: normal respiratory effort Other: Gen: Ill-defined in swelling near the right testicle.. No tenderness. Left testicle is normal in size. Hernial orifices are empty. Neuro General: patient oriented x3 Assessment & Plan Assessment & Plan (1) Right varicocele: Code(s): I86.1 - Scrotal varices Plan: Ultrasound of the scrotum has been ordered. Will call with results. Coding Level of Care Code Est Pt Level 4 (52639) Diagnoses Right varicocele I86.1
[2023-01-10 13:47] VITALS: BP 138/62; PULSE 81; TEMP 36.8; O2SAT 96; BMI 25.0
== END 2023-01-10 15:23 | disposition home or self-care (01) ==
PROVIDERS: PCP Nurse Practitioner Family; Visit Provider Internal Medicine
DX: I86.1 Scrotal varices (principal)
CPT/HCPCS: 99214

== ENCOUNTER 2023-01-17 08:56 | Outpatient (AMB) | payer BC, SELFPAY ==
--- NOTE | 2023-01-17 09:58 | MHC.OFFWIV ---
Intake Vital Signs 01/17/23 09:59 Weight 168 lb BP 118/68 Blood Pressure Location Lt brachial Position Sitting Pulse 65 Pulse Source Pulse Oximeter Temp 97.3 F Temp Source Temporal Artery Scan Pulse Oximetry (%) 98 Oxygen Delivery Method Room Air Oxygen Flow Rate 97.3 Intake Visit Reasons: EP RT ear concern Intake Note: Patient here for right ear pain, he states he had bilat ear infection and was put on antibiotics which helped but now it seems to have come back only to that ear, states it feels like there is fluid in ear and very painful. Patient Tobacco Use Status: Former Tobacco user Quit Date: 2008 Allergies oxycodone [From PERCOCET] Adverse Reaction (Intermediate, Verified 01/17/23 10:01) NAUSEA & VOMITING HPI HPI Comments History of Present Illness Details This is a 72-year-old male who presents to the office today for sick visit. Patient complaining of right-sided otalgia times 2-3 days. Patient states he was treated for bilateral ear infection about 1 month ago. He completed a course of antibiotics and his symptoms subsided; however, he began having similar symptoms in his right ear about 2 days ago. He denies any fevers or chills. Denies any sick contacts. He reports a chronic cough secondary to his asthma denies any other acute symptoms he has congestion/rhinorrhea, sore throat, or myalgias. [facility] Medical History Asthma Elevated cholesterol HTN (hypertension) Lipoma Surgical History H/O colonoscopy H/O right inguinal hernia repair Hx of excision of mass Family History Mother Mental health disorder Colon cancer Brother Prostate cancer Social History Housing: House Patient Tobacco Use Status: Former Tobacco user Quit Date: 2008 Tobacco use type: Cigarette Cigarette Packs Per Day: 1.5 Cigarettes Per Day: 30.0 Years Smoked: 40 e-Cigarette/Vaping Use: Never Used Advance Directives Date on File: 11/27/21 Current occupational status: retired Cognitive needs: No Hearing needs: No Vision needs: No Review of Systems Const All systems reviewed & are unremarkable except as noted in HPI and below Reports no additional complaints Eyes Reports no additional complaints ENT Reports no additional complaints Card Reports no additional complaints Resp Reports no additional complaints GI Reports no additional complaints Reports no additional complaints Musc Reports no additional complaints Skin/Breast Reports system reviewed and no additional complaints, except as documented Neuro Reports no additional complaints Psych Reports no additional complaints Endo Reports no additional complaints Rocky/Lymph Reports no additional complaints Aller/Immun Reports no additional complaints Physical Exam Vital Signs: Last Vital Signs Temp 97.3 F 01/17/23 09:59 Pulse 65 01/17/23 09:59 BP 118/68 01/17/23 09:59 Pulse Ox 98 01/17/23 09:59 Oxygen Delivery Method Room Air 01/17/23 09:59 Oxygen Flow Rate 97.3 01/17/23 09:59 Const General: cooperative, healthy appearing, no acute distress and well developed Orientation/consciousness: patient oriented x3 HEENT Head: Yes normal to inspection Ears: hearing grossly normal bilaterally and TM abnormal bulging, erythematous and with fluid behind the TM General nose exam: Normal external nose present Face and sinus: Yes normal facial exam Mouth: Normal oral and palatal mucosa present Eyes General: appearance normal, both eyes and all related structures Pupils: Equal, round and reactive pupils present EOM: EOMs intact bilaterally Resp Effort & Inspection: normal respiratory effort and no respiratory distress Auscultation: clear to auscultation bilaterally Cardio Rate: regular rate Rhythm: regular rhythm Heart sounds: no gallops, no murmurs and no rubs Peripheral pulses: Peripheral pulses 2+ throughout GI Inspection: No distended Palpation (GI): Soft to palpation and nontender Auscultation: normal bowel sounds Skin General skin exam: no rashes or lesions noted Neuro General: patient oriented x3 Cranial nerves: Yes CN's II-XII intact bilaterally and Yes Equal, round and reactive pupils present Gait exam (Neuro): Normal gait present Motor exam (neuro): 5/5 motor strength present throughout Extrem General: Yes normal to inspection, Yes full ROM and Yes no clubbing, cyanosis or edema Psych Appearance: grossly normal Mental Status: mental status grossly normal Assessment & Plan Assessment & Plan (1) Otitis media: Code(s): H66.90 - Otitis media, unspecified, unspecified ear Plan: This is a 72-year-old male presenting to the office today complaining of right-sided no otalgia. On physical exam, his right TM is bulging and erythematous consistent with an acute otitis media. His vital signs are stable and patient is otherwise well and nontoxic appearing. Patient sent home on p.o. amoxicillin clavulanate twice daily x7 days. Recommended symptomatic management including [id number] decongestants as long as blood pressure allows, Advil/Tylenol as long as he has no medical contraindications, and antihistamines. Patient advised to follow-up with his primary care physician for possible ENT referral given recurrent ear infections. He was advised to follow-up here or go to the emergency room if he were to develop of persistent/worsening symptoms. Patient verbalizes understanding and he is in agreement with the plan. Medications: New amoxicillin-pot clavulanate 875-125 mg 1 tab PO BID 14 tabs 0RF Coding Level of Care Code Est Pt Level 3 (59691) Diagnoses Otitis media H66.90
[2023-01-17 09:59] VITALS: BP 118/68; PULSE 65; TEMP 36.3; O2SAT 98
== END 2023-01-17 10:13 | disposition home or self-care (01) ==
PROVIDERS: PCP Nurse Practitioner Family; Visit Provider Physician Assistant Medical
DX: H66.90 Otitis media, unspecified, unspecified ear (principal)
CPT/HCPCS: 99213

== ENCOUNTER 2023-01-20 11:26 | Outpatient (REF) | payer BC, SELFPAY ==
--- NOTE | ~2023-01-20 | US_ITS ---
EXAMINATION: US SCROTUM CLINICAL INFORMATION: Scrotal varices. COMPARISON: CT abdomen and pelvis with contrast 09/26/2022. TECHNIQUE: A sonogram of the scrotum was performed assessing sarah-scale appearance and color Doppler flow. Spectral Doppler analysis of the arterial and venous flow were performed in the testes bilaterally. FINDINGS: RIGHT: Right testicle measures 5.0 x 2.3 x 3.6 cm, volume 21.7 mL. Right tubular ectasia of the rete testes, largest right cyst 1.3 x 0.9 x 1.8 cm. Spectral Doppler analysis of the arterial and venous flow is normal in the right testis. Multiple cysts in the region of the right epididymal head, largest 2.6 x 2.1 x 3.3 cm, obscure visualization of discrete right epididymal head tissue. No right hydrocele or varicocele is seen. Right epididymal Doppler flow is normal. LEFT: Left testicle measures 5.2 x 1.9 x 2.9 cm, volume 15.0 mL. No focal testicular parenchymal lesions are visualized. Spectral Doppler analysis of the arterial and venous flow is normal in the left testis. Multiple cysts in the region of the left epididymal head, largest 1.9 x 1.0 x 1.7 cm, obscure visualization of discrete left epididymal head tissue. Left epididymal Doppler flow is normal. Left varicocele. No left hydrocele. US/US scrotum IMPRESSION: 1. Right testicle volume 21.7 mm, larger than left testicle 15.0 mL. 2. Multiple cysts in the region of the bilateral epididymal heads obscure visualization of bilateral epididymides. 3. Left varicocele.
== END 2023-01-20 11:27 | disposition home or self-care (01) ==
LOC: HO.HMGCX 11:26
PROVIDERS: PCP Nurse Practitioner Family; Visit Provider Internal Medicine
DX: I86.1 Scrotal varices (principal)
CPT/HCPCS: 76870

== ENCOUNTER 2023-02-25 09:53 | Outpatient (AMB) | payer BC, SELFPAY ==
[2023-02-25 10:13] VITALS: BP 110/68; PULSE 65; O2SAT 96; BMI 24.5
--- NOTE | 2023-02-25 10:13 | MHC.PC.OV ---
Vital Signs 02/25/23 10:13 Height 5 ft 9 in Weight 166 lb 2 oz BMI 24.5 BP 110/68 Blood Pressure Location Lt brachial Position Sitting Pulse 65 Pulse Source Pulse Oximeter Pulse Oximetry (%) 96 Oxygen Delivery Method Room Air Intake Visit Reasons: 4 month follow up Allergies oxycodone [From PERCOCET] Adverse Reaction (Intermediate, Verified 02/25/23 10:34) NAUSEA & VOMITING Medication List - Last Reconciled 02/25/23 by Nam Arguello [facility]- albuterol sulfate 90 mcg/actuation (ProAir HFA) 2 puffs PO Q6H PRN 30 days atorvastatin 10 mg PO QPM 90 days blood sugar diagnostic (Medbox Ultra Test strips) Check fasting blood sugar and a random blood sugar daily. blood-glucose meter (Medbox Ultra2 Meter) Check fasting blood sugar and a random blood sugar daily. fluticasone propionate 110 mcg/actuation (Flovent HFA) 1 puff PO BID 90 days hydrochlorothiazide 12.5 mg PO DAILY lancets (Medbox Delica Lancets) Check fasting blood sugar and a random blood sugar daily. lisinopril 20 mg PO DAILY omeprazole magnesium (Prilosec OTC) 20 mg PO DAILY psyllium husk (Metamucil) 1 tbsp PO DAILY Vascepa (icosapent ethyl) 1 g PO BID 90 days NS Tobacco use date assessed: 02/25/23 Fall risk assessment: 1 Fall in past year Last assessed Fall Risk: 02/25/23 Dental Screening Dental Screen Date: 02/25/23 Did you have a dental visit in the last 12 months?: Yes Did you have a dental problem in the last 6 months where you did not have access to dental care?: No Was dental information given to patient?: Patient has dentist HPI 4 month follow up HPI Details Pt is a diabetic, on an IBETH and a statin. A1C in office today is 6.3. Due for microalbumin, will order. Denies polyuria, polydipsia, does report neuropathy. Pt denies any signs and symptoms of hypoglycemia and does know how to correct it. Pt reports that his blood sugar is well-controlled. Pt had a recent scrotum US which showed multiple cysts in the region of the bilateral epididymal heads. Will refer to urology, though denies current pains. Pt reports some intermittent arm numbness after being very frustrated while replacing a door on his house. EKG in office today was benign. [facility] Medical History Asthma Elevated cholesterol HTN (hypertension) Lipoma Surgical History Hx of excision of mass H/O right inguinal hernia repair H/O colonoscopy Family History Mother Mental health disorder Colon cancer Brother Prostate cancer Social History Housing: House Patient Tobacco Use Status: Former Tobacco user Quit Date: 2008 Tobacco use type: Cigarette Cigarette Packs Per Day: 1.5 Cigarettes Per Day: 30.0 Years Smoked: 40 e-Cigarette/Vaping Use: Never Used Advance Directives Date on File: 11/27/21 Current occupational status: retired Cognitive needs: No Hearing needs: No Vision needs: No Questionnaire Thrive Questionnaire Date Thrive assessed: 06/04/22 ANDRIY-7 AMB Questionnaire ANDRIY-7 Date ANDRIY - 7 assessed: 06/04/22 Source: Developed by Drs. Kyle Bravo, Yareli Josue, Lucho Dhaliwal and colleagues, with an educational leyla from [employer]. Review of Systems Const Reports as per HPI Physical exam (Primary Care) Vital Signs: Last Vital Signs Pulse 65 02/25/23 10:13 BP 110/68 02/25/23 10:13 Pulse Ox 96 02/25/23 10:13 Oxygen Delivery Method Room Air 02/25/23 10:13 BMI result Body Mass Index 24.5 Tobacco/Smoking Status: Tobacco use Status Tobacco use date assessed 02/25/23 02/25/23 10:19 Patient Tobacco Use Status Former Tobacco user 02/25/23 10:19 Tobacco use type Cigarette 02/25/23 10:19 e-Cigarette/Vaping Use Never Used 02/25/23 10:19 Thrive Assessment: Date of Thrive Assessment Date Thrive assessed 06/04/22 02/25/23 10:19 Const General: cooperative Orientation/consciousness: patient oriented x3 Resp Effort & Inspection: normal respiratory effort Auscultation: clear to auscultation bilaterally Cardio Rate: regular rate Rhythm: regular rhythm Heart sounds: S1 normal heart sound present and S2 normal heart sound present Neuro General: patient oriented x3 Extrem Other: bilat feet: + sensation with use of monofilament Psych Appearance: grossly normal Mental Status: mental status grossly normal Speech and movement: Normal speech and movement present Affect: normal affect Attitude: cooperative Thought process: Normal thought process present Thought content: Normal thought content present Insight: Good insight present (Psych) Judgement: Good judgement present (Psych) Results AMB Hemoglobin A1c AMB Hemoglobin A1c 6.3 % Last Edit by Rosamaria Todd CMA on 02/25/23 11:00 Results Reviewed Results Reviewed: Laboratory Last Values Hgb A1c (Clinic) 6.3 % (4.0-6.0) H 02/25/23 10:49 Assessment and Plan Assessment & Plan (1) Diabetes: Code(s): E11.9 - Type 2 diabetes mellitus without complications Plan: Labs ordered (2) Epididymal cyst: Code(s): N50.3 - Cyst of epididymis Plan: Referred to urology (3) Arm numbness: Code(s): R20.0 - Anesthesia of skin Plan: EKG done in office Plan The patient agreed to the use of a center medical and lab director for this encounter. Scribed for EDER Ackerman by Amara Calvo center medical and lab director, on 02/25/2023 at 10:35 EST Orders: Orders Complete Blood Count Auto Diff Today E11.9 - Type 2 diabetes mellitus without complications Comprehensive [place]. Panel Fast Today E11.9 - Type 2 diabetes mellitus without complications TSH reflex Free T4 Today E11.9 - Type 2 diabetes mellitus without complications UA CC w/rflx Micro + Cult Today E11.9 - Type 2 diabetes mellitus without complications Microalbumin, Random (w Creat) Today E11.9 - Type 2 diabetes mellitus without complications AMB EKG-In Office Today R20.0 - Anesthesia of skin AMB Hemoglobin A1c Today E11.9 - Type 2 diabetes mellitus without complications Lipid Panel Today E11.9 - Type 2 diabetes mellitus without complications Referrals Urology Referral N50.3 - Cyst of epididymis Coding Level of Care Code Est Pt Level 3 (59826) Diagnoses Diabetes E11.9 Epididymal cyst N50.3 Arm numbness R20.0
== END 2023-02-25 11:18 | disposition home or self-care (01) ==
PROVIDERS: PCP Nurse Practitioner Family; Visit Provider Nurse Practitioner Family
DX: E11.9 Type 2 diabetes mellitus without complications (principal); N50.3 Cyst of epididymis; R20.0 Anesthesia of skin
CPT/HCPCS: 83036; 99213

== ENCOUNTER 2023-03-07 13:38 | Outpatient (AMB) | payer BC, SELFPAY ==
[2023-03-07 14:27] VITALS: BP 130/76; PULSE 74; TEMP 36.6; O2SAT 96; BMI 24.5
--- NOTE | 2023-03-07 14:27 | AM.OFFWIN_ITS ---
Intake Vital Signs 03/07/23 14:27 Height 5 ft 9 in Weight 166 lb BMI 24.5 BP 130/76 Blood Pressure Location Lt brachial Position Sitting Pulse 74 Pulse Source Pulse Oximeter Temp 97.8 F Temp Source Temporal Artery Scan Pulse Oximetry (%) 96 Oxygen Delivery Method Room Air Intake Visit Reasons: EST/lip swelling(lobby) Intake Note: pt is here for c/o lip swelling unsure how it happened Patient Tobacco Use Status: Former Tobacco user Quit Date: 2008 Allergies oxycodone [From PERCOCET] Adverse Reaction (Intermediate, Verified 03/07/23 14:27) NAUSEA & VOMITING Do you need a note to return to daycare/school/sports/work: Yes HPI HPI Comments History of Present Illness Details This is a 72-year-old male who presents to the office today for sick visit. Patient complaining of swelling of his lower lip. Patient states he was doing work outside in all the sudden developed swelling of his lower lip several hours ago. He denies any throat swelling, trouble swallowing, difficulty breathing, chest tightness, wheezing, or rash. Patient states he applied ice to the area and took some Benadryl and the lip swelling is now improved. [facility] Medical History Asthma Elevated cholesterol HTN (hypertension) Lipoma Surgical History Hx of excision of mass H/O right inguinal hernia repair H/O colonoscopy Family History Mother Mental health disorder Colon cancer Brother Prostate cancer Social History Housing: House Patient Tobacco Use Status: Former Tobacco user Quit Date: 2008 Tobacco use type: Cigarette Cigarette Packs Per Day: 1.5 Cigarettes Per Day: 30.0 Years Smoked: 40 e-Cigarette/Vaping Use: Never Used Advance Directives Date on File: 11/27/21 Current occupational status: retired Cognitive needs: No Hearing needs: No Vision needs: No Review of Systems Const All systems reviewed & are unremarkable except as noted in HPI and below Reports no additional complaints Eyes Reports no additional complaints ENT Reports no additional complaints Card Reports no additional complaints Resp Reports no additional complaints GI Reports no additional complaints Reports no additional complaints Musc Reports no additional complaints Skin/Breast Reports system reviewed and no additional complaints, except as documented Neuro Reports no additional complaints Psych Reports no additional complaints Endo Reports no additional complaints Rocky/Lymph Reports no additional complaints Aller/Immun Reports no additional complaints Physical Exam Vital Signs: Last Vital Signs Temp 97.8 F 03/07/23 14:27 Pulse 74 03/07/23 14:27 BP 130/76 03/07/23 14:27 Pulse Ox 96 03/07/23 14:27 Oxygen Delivery Method Room Air 03/07/23 14:27 BMI result Body Mass Index 24.5 Const Other: Vital signs reviewed. Constitutional: Non-toxic appearing. No acute distress. Well-developed and well-nourished. HEENT: Normocephalic and atraumatic. Moist mucous membranes. No pharyngeal erythema or exudates. No throat swelling. Mild swelling of the lower lip on the right side. Skin: Warm and dry. No rashes or lesions noted. Neck: Full and painless range of motion. No cervical lymphadenopathy. Cardio: Regular rate. No lower extremity edema. No JVD. Pulmonary: No respiratory distress. No accessory muscle usage. No stridor or audible wheezing. Gastrointestinal: Soft, nontender, and nondistended in all 4 quadrants. Genitourinary: No CVA tenderness. Musculoskeletal: Normal range of motion in joints throughout the body. No deformity or other signs of injury. Neuro: Alert and oriented x4. Cranial nerves 2-12 grossly intact. No focal deficits appreciated. Psych: Normal mood and affect. Assessment & Plan Assessment & Plan (1) Allergic reaction: Code(s): T78.40XA - Allergy, unspecified, initial encounter Plan: This is a 72-year-old male presenting to the office complaining of mild swelling of his lower lip that started several hours ago while working outside. Patient likely was bitten by an insect causing a localized reaction. He is no evidence of anaphylaxis or anaphylactic shock. He has no throat swelling, difficulty swallowing, trouble breathing, wheezing, stridor, or chest tightness. He has no rashes. Recommended applying ice to the area and continuing with antihistamines such as Benadryl. Patient was instructed to proceed directly to the emergency room if he were to develop throat swelling, difficulty swallowing, trouble breathing, wheezing, stridor, or chest tightness. Patient verbalized understanding and is agreeable with the plan. Coding Level of Care Code Est Pt Level 3 (30903) Diagnoses Allergic reaction T78.40XA
== END 2023-03-07 14:47 | disposition home or self-care (01) ==
PROVIDERS: PCP Nurse Practitioner Family; Visit Provider Physician Assistant Medical
DX: T78.40XA Allergy, unspecified, initial encounter (principal)
CPT/HCPCS: 99213

== ENCOUNTER 2023-03-13 07:19 | Outpatient (REF) | payer BC, SELFPAY ==
[2023-03-13 11:07] LABS: MANUAL DIFF FLAG NO
[2023-03-13 11:22] LABS: Appearance Urine Clear; Color Urine Yellow; Glucose Urine UA Negative (Negative); Leukocyte Esterase Urine Negative (Negative); Nitrite Urine Negative (Negative); PH 6.5 (5.0-9.0); Urine Blood Negative (Negative); Urine Ketones Negative (Negative); Urine Protein Negative (Neg-Trace)
[2023-03-13 11:26] LABS: Basophils Absolute Auto 0.1 X10*3/uL (0.0-0.2); Basophils Percent Auto 0.8 % (0-2); Eosinophils Absolute Auto 0.4 X10*3/uL (0.0-0.4); Eosinophils Percent Auto 4.5 % (0-4); Hematocrit 44.4 % (42.0-52.0); Hemoglobin 15.2 g/dl (14.0-18.0); Imm Gran Abs Auto 0.04 X10*3/uL (0.00-0.03); Imm Gran Pct Auto 0.4 % (0.0-0.4); Lymphocytes Absolute Auto 2.9 X10*3/uL (1.2-4.9); Lymphocytes Percent Auto 30.8 % (20-40); Mean Corpuscular HGB Conc 34.2 g/dl (31.0-36.0); Mean Corpuscular Hemoglobin 30.6 pg (27.0-33.0); Mean Corpuscular Volume 89.5 fL (80.0-98.0); Mean Platelet Volume 9.4 fL (9.4-12.4); Monocytes Absolute Auto 0.8 X10*3/uL (0.1-1.2); Monocytes Percent Auto 8.9 % (2-11); Neutrophils Absolute Auto 5.2 x10*3/uL (2.0-8.3); Neutrophils Percent Auto 54.6 % (45-73); Platelet Count 262 X10*3/uL (160-400); Red Blood Count 4.96 X10*6/uL (4.60-5.80); Red Cell Distribution Width 13.2 % (11.0-16.0); White Blood Count 9.4 X10*3/uL (4.8-10.8)
[2023-03-13 12:40] LABS: TSH reflex Free T4 1.85 uIU/mL (0.32-4.0)
[2023-03-13 12:42] LABS: Anion Gap 14 (12-20)
[2023-03-13 12:49] LABS: Alanine Aminotransferase 35 U/L (0-40); Albumin Level 4.5 g/dL (3.5-5.0); Alkaline Phosphatase 95 U/L (39-117); Aspartate Amino Transferase 32 U/L (5-37); Bilirubin Total 1.3 mg/dL (0.0-1.0); Blood Urea Nitrogen 23 mg/dL (9-16); Calcium 10.4 mg/dL (8.4-10.2); Carbon Dioxide 25 mmol/L (22-29); Chloride 100 mmol/L (96-108); Cholesterol 201 mg/dL (<200); Estimated Glomerular Filt Rate > 60; Glucose Fasting 102 mg/dL (60-99); HDL Cholesterol 60 mg/dL (>40); LDL Cholesterol Calculated 119 mg/dL (<100); Potassium 5.2 mmol/L (3.3-5.1); Sodium 134 mmol/L (135-145); Total Protein 7.8 g/dL (6.5-8.0); Triglycerides 113 mg/dL (<150)
[2023-03-13 13:30] LABS: Creatinine Urine 174.45 mg/dL; Microalbum/Creatinine Ratio Ur 4.5 ug/mg cr (<30)
== END 2023-03-13 07:20 | disposition home or self-care (01) ==
LOC: HO.HMGCLDS 07:19
PROVIDERS: PCP Nurse Practitioner Family; Visit Provider Nurse Practitioner Family
DX: E11.9 Type 2 diabetes mellitus without complications (principal)
CPT/HCPCS: 36415; 80053; 80061; 81003; 82043; 82570; 84443; 85025

== ENCOUNTER 2023-03-17 10:57 | Outpatient (REF) | payer MEDICARE, SELFPAY ==
[2023-03-17 14:10] LABS: Alanine Aminotransferase 38 U/L (0-40); Albumin Level 4.4 g/dL (3.5-5.0); Alkaline Phosphatase 85 U/L (39-117); Anion Gap 13 (12-20); Aspartate Amino Transferase 26 U/L (5-37); Bilirubin Total 0.6 mg/dL (0.0-1.0); Blood Urea Nitrogen 18 mg/dL (9-16); Calcium 9.9 mg/dL (8.4-10.2); Carbon Dioxide 27 mmol/L (22-29); Chloride 102 mmol/L (96-108); Estimated Glomerular Filt Rate > 60; Glucose Random 103 mg/dL (60-115); Potassium 4.7 mmol/L (3.3-5.1); Sodium 137 mmol/L (135-145); Total Protein 7.4 g/dL (6.5-8.0)
== END 2023-03-17 10:58 | disposition home or self-care (01) ==
LOC: HO.HMGCLDS 10:57
PROVIDERS: PCP Nurse Practitioner Family; Visit Provider Nurse Practitioner Family
DX: R93.5 Abnormal findings on diagnostic imaging of other abdominal regions, including retroperitoneum (principal)
CPT/HCPCS: 36415; 80053

== ENCOUNTER 2023-04-02 07:56 | Outpatient (REF) | payer MEDICARE, SELFPAY ==
--- NOTE | ~2023-04-02 | CT_ITS ---
EXAMINATION: CT ABDOMEN AND PELVIS WITH CONTRAST CLINICAL INFORMATION: Abnormal findings on diagnostic imaging of other abdominal region. COMPARISON: CT abdomen and pelvis 09/26/2022. TECHNIQUE: Multidetector volumetric images were obtained from the superior aspect of the liver through the pubic symphysis following administration 85 mL of Omnipaque 350 intravenous contrast. Sagittal and coronal reformatted images were obtained on the technologist's workstation. Oral contrast: No This CT examination was performed using dose optimization techniques as appropriate, variously including the following: *Automated exposure control *Adjustment of mA and/or kV according to patient size (this includes techniques or standardized protocols for targeted exams where dose is matched to indication/reason for exam; i.e. extremities or head) *Use of iterative reconstruction technique DLP: 356 mGy-cm FINDINGS: LUNG BASES: The visualized lung bases are unremarkable. LIVER, GALLBLADDER, AND BILIARY TREE: The liver is normal in size, shape, and attenuation. No focal hepatic lesion or biliary ductal dilatation is present. Suspect tiny cholelithiasis. PANCREAS: No discrete mass. No ductal dilatation. Punctate calcification in the uncinate. SPLEEN: Unremarkable. ADRENAL GLANDS: Unremarkable. KIDNEYS AND URETERS: Tiny cyst in the upper right kidney. Tiny cyst in the upper left kidney. No follow-up imaging is recommended. Symmetric nephrograms. No nephrolithiasis or hydronephrosis. BLADDER: Unremarkable. GASTROINTESTINAL TRACT: The small and large bowel are normal in caliber. The appendix is normal. Moderate sigmoid diverticulosis. ABDOMINAL WALL: Fat-containing left femoral hernia. LYMPH NODES: Enlarged portacaval node measuring 1.4 cm short axis unchanged compared to prior. Otherwise no enlarged lymph nodes. VASCULAR: Moderate aortoiliac atherosclerosis. No aneurysm. PELVIC VISCERA: Mildly enlarged prostate. OSSEOUS STRUCTURES: Degenerative changes in the spine. CT/CT abdomen pelvis w IV con IMPRESSION: Unchanged mildly enlarged portacaval lymph node measuring 1.4 cm. Otherwise no enlarged lymph nodes. Other findings as above. Fleischner guidelines were followed.
[2023-04-02] MEDS: iohexoL 350 MG/ML 100 ML INFUS..BTL IV (08:44)
== END 2023-04-02 07:57 | disposition home or self-care (01) ==
LOC: HO.CT 07:56
PROVIDERS: PCP Nurse Practitioner Family; Visit Provider Nurse Practitioner Family
DX: R93.5 Abnormal findings on diagnostic imaging of other abdominal regions, including retroperitoneum (principal); R59.1 Generalized enlarged lymph nodes
CPT/HCPCS: 74177; Q9967

== ENCOUNTER 2023-05-05 11:25 | Outpatient (AMB) | payer BC, SELFPAY ==
--- NOTE | 2023-05-05 11:42 | A.OFFVIS_ITS ---
Intake Intake Visit Reasons: Cyst of epididymis (pt asymptomatic) Intake Note: New Patient presents for initial visit for cyst of epididymis Urology Medications: none Blood Thinner: none Belt Measurer Required: No Accompanied by: Self / Same As Patient Allergies oxycodone [From PERCOCET] Adverse Reaction (Intermediate, Verified 05/05/23 13:31) NAUSEA & VOMITING Medication List - Last Reconciled 05/05/23 by MARCO A Min- albuterol sulfate 90 mcg/actuation (ProAir HFA) 2 puffs PO Q6H PRN 30 days atorvastatin 20 mg PO QPM 90 days blood sugar diagnostic (OneTouch Ultra Test strips) Check fasting blood sugar and a random blood sugar daily. blood sugar diagnostic (FreeStyle Test strips) bid for diabetes blood-glucose meter (OneTouch Ultra2 Meter) Check fasting blood sugar and a random blood sugar daily. blood-glucose meter (FreeStyle System Kit) BID testing for diabetes fluticasone propionate 110 mcg/actuation (Flovent HFA) 1 puff PO BID 90 days hydrochlorothiazide 12.5 mg PO DAILY lancets Check fasting blood sugar and a random blood sugar daily. lisinopril 20 mg PO DAILY omeprazole magnesium (Prilosec OTC) 20 mg PO DAILY psyllium husk (Metamucil) 1 tbsp PO DAILY Vascepa (icosapent ethyl) 1 g PO BID 90 days NS HPI HPI Comments History of Present Illness Details Bj is a very pleasant 73-year-old male patient of . He has a past medical history of asthma, hypertension, and hyperlipidemia. He presents to the office today as a new patient for ongoing int ermittent right-sided scrotal pain. In discussion with the patient today he reports to have followed up with urgent care services earlier this summer for intermittent right-sided scrotal discomfort he had been experiencing at which time a scrotal ultrasound was ordered and performed. These results were reviewed with the patient today. Multiple cysts of the region of the bilateral epididymal heads obscuring visualization of bilateral epididymitis. Left varicocele. In assessment of the patient today no pain elicited on exam. Bilateral testicles with no lesions, drainage, and or open areas noted. Two small palpable painless scrotal lumps noted to the right of the epididymal tail. These scrotal lumps were felt separately to the right of the testicle. Penis is circumcised with no abnormalities noted. He denies any recent or known trauma. However, he discusses going to the gym regularly and does feel he might have exerted himself. When asked he does report a weak urinary stream and discusses feeling it takes him longer to empty his bladder than previously. He otherwise denies urinary urgency, urinary frequency, incontinence, nocturia, hematuria, dysuria, foul smelling urine, changes to urinary stream, flank pain, fever, and or chills. He is happy with his current voiding parameters. He does not find weak urinary stream bothersome. He reports pain has since subsided and has not experienced pain in 2-3 months. Discussed obtaining PSA for further assessment evaluation. As well as retroperitoneal ultrasound as recent CT from approximately 1 month ago noted mildly enlarged prostate. In office urinalysis results reviewed with the patient today. He otherwise offers no other issues or concerns at this time. [facility] Medical History Asthma Elevated cholesterol HTN (hypertension) Lipoma Surgical History Hx of excision of mass H/O right inguinal hernia repair H/O colonoscopy Family History Mother Mental health disorder Colon cancer Brother Prostate cancer Social History Housing: House Patient Tobacco Use Status: Former Tobacco user Quit Date: 2008 Tobacco use type: Cigarette Cigarette Packs Per Day: 1.5 Cigarettes Per Day: 30.0 Years Smoked: 40 e-Cigarette/Vaping Use: Never Used Advance Directives Date on File: 11/27/21 Current occupational status: retired Cognitive needs: No Hearing needs: No Vision needs: No Review of Systems Const Reports as per HPI Eyes Reports no additional complaints ENT Reports no additional complaints Card Reports as per HPI Resp Reports as per HPI GI Reports no additional complaints Reports as per HPI Musc Reports no additional complaints Neuro Reports no additional complaints Psych Reports no additional complaints Endo Reports no additional complaints Rocky/Lymph Reports no additional complaints Aller/Immun Reports no additional complaints Physical Exam Const General: cooperative, healthy appearing, comfortable, no acute distress, well developed, alert and awake Orientation/consciousness: patient oriented x3 Limitations: no limitations HEENT Head: Yes normal to inspection, Yes normocephalic and Yes atraumatic Ears: hearing grossly normal bilaterally Eyes General: appearance normal, both eyes and all related structures Neck Neck: Yes normal visual inspection and Yes trachea midline Chest Chest palpation & inspection: normal inspection of the chest Resp Effort & Inspection: normal respiratory effort and able to speak in complete sentences Cardio Rate: regular rate GI Inspection: Yes normal to inspection General: Yes no CVA tenderness Penis: normal penis and circumcised Meatus: meatus normal Testes: epididymal mass (To small epididymal tail cyst noted) on the right and high-riding testicle (left greater than right ) Back/Spine/Pelvis Back: no CVA tenderness Skin General skin exam: no rashes or lesions noted Neuro General: patient oriented x3 Extrem General: Yes normal to inspection Psych Appearance: grossly normal and well kempt Mental Status: mental status grossly normal Speech and movement: Normal speech and movement present and Clear speech present Affect: normal affect Attitude: cooperative Thought process: Normal thought process present Thought content: Normal thought content present Insight: Fair insight present (Psych) Judgement: Fair judgement present (Psych) Results AMB Urinalysis, Automated UA Leukoctes 0 Zina/uL Last Edit by [employer] on 05/05/23 11:51 UA Nitrite Negative Last Edit by [employer] on 05/05/23 11:51 UA Urobilinogen 0.2 mg/dL Last Edit by [employer] on 05/05/23 11:51 UA Protein 15 mg/dL Last Edit by [employer] on 05/05/23 11:51 UA pH 6.0 Last Edit by [employer] on 05/05/23 11:51 UA Blood 0 Jose/uL Last Edit by [employer] on 05/05/23 11:51 UA Specific [place] 1.025 Last Edit by [employer] on 05/05/23 11:51 UA Ketone Negative Last Edit by [employer] on 05/05/23 11:51 UA Bilirubin 0 mg/dL Last Edit by [employer] on 05/05/23 11:51 UA Glucose 0 mg/dL Last Edit by [employer] on 05/05/23 11:51 Results Reviewed Results Reviewed: Laboratory Last Values Urine pH (Auto) 6.0 05/05/23 11:44 Specific [place] (Auto) 1.025 05/05/23 11:44 Urine Protein (Auto) 15 mg/dL 05/05/23 11:44 Glucose (UA)(Auto) 0 mg/dL 05/05/23 11:44 Urine Ketones (Auto) Negative 05/05/23 11:44 Urine Blood (Auto) 0 Jose/uL 05/05/23 11:44 Urine Nitrite (Auto) Negative 05/05/23 11:44 Urine Bilirubin (Auto) 0 mg/dL 05/05/23 11:44 Urine Urobilinogen (Auto) 0.2 mg/dL 05/05/23 11:44 Leukocyte Esterase (Auto) 0 Zina/uL 05/05/23 11:44 Date of Service: 01/20/23 EXAMINATION: US SCROTUM FINDINGS: RIGHT: Right testicle measures 5.0 x 2.3 x 3.6 cm, volume 21.7 mL. Right tubular ectasia of the rete testes, largest right cyst 1.3 x 0.9 x 1.8 cm. Spectral Doppler analysis of the arterial and venous flow is normal in the right testis. Multiple cysts in the region of the right epididymal head, largest 2.6 x 2.1 x 3.3 cm, obscure visualization of discrete right epididymal head tissue. No right hydrocele or varicocele is seen. Right epididymal Doppler flow is normal. LEFT: Left testicle measures 5.2 x 1.9 x 2.9 cm, volume 15.0 mL. No focal testicular parenchymal lesions are visualized. Spectral Doppler analysis of the arterial and venous flow is normal in the left testis. Multiple cysts in the region of the left epididymal head, largest 1.9 x 1.0 x 1.7 cm, obscure visualization of discrete left epididymal head tissue. Left epididymal Doppler flow is normal. Left varicocele. No left hydrocele. IMPRESSION: 1. Right testicle volume 21.7 mm, larger than left testicle 15.0 mL. 2. Multiple cysts in the region of the bilateral epididymal heads obscure visualization of bilateral epididymides. 3. Left varicocele. Assessment & Plan Assessment & Plan (1) Epididymal cyst: Code(s): N50.3 - Cyst of epididymis (2) Right varicocele: Code(s): I86.1 - Scrotal varices (3) Enlarged prostate: Code(s): N40.0 - Benign prostatic hyperplasia without lower urinary tract symptoms Plan In office urinalysis results reviewed with the patient today; as noted above. No pain elicited on exam today. Discussed surveillance monitoring of epididymal cyst versus surgical intervention; this was discussed at length; discussed risks and benefits of surveillance monitoring versus surgical intervention Will continue with surveillance monitoring Will obtain PSA for further assessment evaluation. Discussed obtaining retroperitoneal ultrasound however will await PSA results per patient request. Patient denies any bothersome urinary issues or concerns at this time. He reports to be happy with current voiding parameters. Follow-up in 2-4 weeks with lab to be completed prior; or sooner with any issues, concerns, and or questions. Orders: Orders AMB Urinalysis Automated Today Z13.9 - Encounter for screening, unspecified Prostate Specific Antigen Today N40.0 - Benign prostatic hyperplasia without lower urinary tract symptoms Patient Instructions: The patient had an opportunity to ask questions regarding the treatment plan. All questions were answered. Physical exam, labs, and imaging were discussed and reviewed in detail. As well as risks, benefits, and discussion of treatment choices. No major barriers to understanding were identified. The patient expressed understanding and agreement with the above treatment plan. The patient was made aware they should contact our office by phone for worsening of their current condition, the appearance of new symptoms, or with any questions or concerns. Compliance is encouraged with any medications and follow up testing that is ordered. It is a privilege to be allowed the opportunity to participate in? your urological care.? Again, if you have any questions or concerns If you have any questions or concerns please do not hesitate to contact me. The office is [phone]. This note is constructed using voice recognition software. While every effort has been made to ensure accuracy helmet coverer errors may have been included. Yours sincerely, EDER Min Coding Level of Care Code New Pt Level 3 (84428) Diagnoses Epididymal cyst N50.3 Right varicocele I86.1 Enlarged prostate N40.0
== END 2023-05-05 12:09 | disposition home or self-care (01) ==
PROVIDERS: PCP Nurse Practitioner Family; Referring Provider Nurse Practitioner Family; Visit Provider Nurse Practitioner Family
DX: N50.3 Cyst of epididymis (principal); I86.1 Scrotal varices; N40.0 Benign prostatic hyperplasia without lower urinary tract symptoms; Z13.9 Encounter for screening, unspecified
CPT/HCPCS: 99203

== ENCOUNTER → 2023-05-05 11:25 | Outpatient (BNVA) | payer BC, SELFPAY | PROVIDERS: PCP Nurse Practitioner Family; Referring Provider Nurse Practitioner Family; Visit Provider Nurse Practitioner Family | DX: N50.3 Cyst of epididymis (principal); I86.1 Scrotal varices; N40.0 Benign prostatic hyperplasia without lower urinary tract symptoms | CPT/HCPCS: 81003 ==

== ENCOUNTER 2023-05-23 09:05 | Outpatient (AMB) | payer BC, SELFPAY ==
[2023-05-23 10:07] VITALS: BP 118/60; PULSE 75; TEMP 36.3; O2SAT 96; BMI 25.8
--- NOTE | 2023-05-23 10:07 | MHC.OFFWIV ---
Intake Vital Signs 05/23/23 10:07 Height 5 ft 9 in Weight 175 lb BMI 25.8 BP 118/60 Blood Pressure Location Lt brachial Position Sitting Pulse 75 Pulse Source Pulse Oximeter Temp 97.3 F Temp Source Temporal Artery Scan Pulse Oximetry (%) 96 Oxygen Delivery Method Room Air Intake Visit Reasons: EP cough congestion asthma [id number] Intake Note: pt is here tofday for cough congestion asthma started 05/19 Patient Tobacco Use Status: Former Tobacco user Quit Date: 2008 Allergies oxycodone [From PERCOCET] Adverse Reaction (Intermediate, Verified 05/23/23 10:09) NAUSEA & VOMITING Do you need a note to return to daycare/school/sports/work: No HPI HPI Comments History of Present Illness Details He presents to office with cold he said cough, congestion, upper chest He had similar symptoms at the end of February that lasted 4 weeks Symptoms onset 05/19 Was exposed to dog danger and got congested/sneezing/runny eyes Tried Benadryl without relief used OTC cough medicine/Vitamin C, Ibuprofen Denies fever or chills. + fatigue and body aches + production to cough PFSH Medical History Asthma Elevated cholesterol HTN (hypertension) Lipoma Surgical History Hx of excision of mass H/O right inguinal hernia repair H/O colonoscopy Family History Mother Mental health disorder Colon cancer Brother Prostate cancer Social History Housing: House Patient Tobacco Use Status: Former Tobacco user Quit Date: 2008 Tobacco use type: Cigarette Cigarette Packs Per Day: 1.5 Cigarettes Per Day: 30.0 Years Smoked: 40 e-Cigarette/Vaping Use: Never Used Advance Directives Date on File: 11/27/21 Current occupational status: retired Cognitive needs: No Hearing needs: No Vision needs: No Review of Systems Const Denies body aches, Denies chills, Reports fatigue and Denies fever(s) Eyes Denies blurry vision ENT Denies otalgia, Reports nasal discharge, Reports sore throat (from cough) and Denies throat swelling Card Denies chest pain, Denies rapid heart rate and Denies dyspnea Resp Reports chest congestion, Reports cough and Denies dyspnea Endo Reports fatigue Aller/Immun Denies throat swelling Physical Exam Vital Signs: Last Vital Signs Temp 97.3 F 05/23/23 10:07 Pulse 75 05/23/23 10:07 BP 118/60 05/23/23 10:07 Pulse Ox 96 05/23/23 10:07 Oxygen Delivery Method Room Air 05/23/23 10:07 BMI result Body Mass Index 25.8 General: Non-toxic, NAD. Speaking full sentences. Skin: Warm dry throughout Eye: EOMI HENT: Airway patent. Uvula midline. Slight pharyngeal erythema without edema. No RENEWALS REPRESENTATIVE. Bilateral canals clear. TM non-erythematous, non-bulging. No TM perforation or hemotympanum noted. Respiratory: RHonchi without rales or wheeze. No tachypnea Cardiac: RRR. No murmur MSK: Full ROM extremities. Neurology: A/O. No aphasia or facial droop. Gait without abnormality Psych: Good mood and affect Assessment & Plan Assessment & Plan (1) Acute bacterial bronchitis: Code(s): J20.8 - Acute bronchitis due to other specified organisms; B96.89 - Other specified bacterial agents as the cause of diseases classified elsewhere Plan: Patient seen and evaluated. +rhonchi on exam, consistent with bacterial bronchitis Continue albuterol prn Tessalon for cough F/U with PCP Patient gave verbal understanding and had no additional questions or concerns at time of discharge All questions answered Medications: New benzonatate 100 mg PO BID-TID PRN 14 caps 0RF cough B96.89 - Other specified bacterial agents as the cause of diseases classified elsewhere, J20.8 - Acute bronchitis due to other specified organisms azithromycin start on day 2 of therapy 250 mg PO DAILY 6 tabs 0RF 6 days B96.89 - Other specified bacterial agents as the cause of diseases classified elsewhere, J20.8 - Acute bronchitis due to other specified organisms Coding Level of Care Code Est Pt Level 3 (03611) Diagnoses Acute bacterial bronchitis J20.8; B96.89
== END 2023-05-23 10:47 | disposition home or self-care (01) ==
PROVIDERS: PCP Nurse Practitioner Family; Visit Provider Physician Assistant
DX: J20.8 Acute bronchitis due to other specified organisms (principal); B96.89 Other specified bacterial agents as the cause of diseases classified elsewhere
CPT/HCPCS: 99213

== ENCOUNTER 2023-06-02 08:07 | Outpatient (REF) | payer BC, SELFPAY | END 2023-06-02 08:08 | disposition home or self-care (01) | LOC: HO.HMGCLDS 08:07 | PROVIDERS: PCP Nurse Practitioner Family; Visit Provider Nurse Practitioner Family | DX: Z12.5 Encounter for screening for malignant neoplasm of prostate (principal); E87.5 Hyperkalemia; N40.0 Benign prostatic hyperplasia without lower urinary tract symptoms | CPT/HCPCS: 36415; 80051; 84153 ==

== ENCOUNTER 2023-06-04 09:33 | Outpatient (AMB) | payer BC, SELFPAY ==
--- NOTE | 2023-06-04 09:54 | MHC.PC.OV ---
Vital Signs 06/04/23 09:56 Weight 173 lb BP 120/74 Blood Pressure Location Lt brachial Position Sitting Pulse 76 Pulse Source Pulse Oximeter Pulse Oximetry (%) 97 Oxygen Delivery Method Room Air Intake Visit Reasons: 4 month follow up Intake Note: Patient here for diabetes f/u. Pt states hes had a couple spikes in blood sugars recently and has a log. Allergies oxycodone [From PERCOCET] Adverse Reaction (Intermediate, Verified 06/04/23 09:57) NAUSEA & VOMITING Medication List - Last Reconciled 06/04/23 by Nam Arguello, FIELD ARTILLERY RADAR OPERATOR- albuterol sulfate 90 mcg/actuation (ProAir HFA) 2 puffs PO Q6H PRN 30 days atorvastatin 20 mg PO QPM 90 days blood sugar diagnostic ([employer]itch RadioTouch Ultra Test strips) Check fasting blood sugar and a random blood sugar daily. blood sugar diagnostic (FreeStyle Test strips) bid for diabetes blood-glucose meter (TalkTouch Ultra2 Meter) Check fasting blood sugar and a random blood sugar daily. blood-glucose meter (FreeStyle System Kit) BID testing for diabetes fluticasone propionate 110 mcg/actuation (Flovent HFA) 1 puff PO BID 90 days hydrochlorothiazide 12.5 mg PO DAILY lancets Check fasting blood sugar and a random blood sugar daily. lisinopril 20 mg PO DAILY omeprazole magnesium (Prilosec OTC) 20 mg PO DAILY psyllium husk (Metamucil) 1 tbsp PO DAILY Vascepa (icosapent ethyl) 1 g PO BID 90 days NS Tobacco use date assessed: 06/04/23 Fall risk assessment: No Falls in past year Last assessed Fall Risk: 06/04/23 Dental Screening Dental Screen Date: 07/02/23 Did you have a dental visit in the last 12 months?: Yes Did you have a dental problem in the last 6 months where you did not have access to dental care?: No Was dental information given to patient?: Patient has dentist HPI 4 month follow up HPI Details Pt is a diabetic, on an IBETH and a statin. A1C in office today is 7.1, microalbumin is up to date. Denies polyuria, polydipsia, and does have some neuropathy. Pt denies any signs and symptoms of hypoglycemia and does know how to correct it. Pt's blood sugar has been elevated, will start jardiance 10mg. Pt knows he should get an eye exam every year. [facility] Medical History Asthma Elevated cholesterol HTN (hypertension) Lipoma Surgical History Hx of excision of mass H/O right inguinal hernia repair H/O colonoscopy Family History Mother Mental health disorder Colon cancer Brother Prostate cancer Social History Housing: House Patient Tobacco Use Status: Former Tobacco user Quit Date: 2008 Tobacco use type: Cigarette Cigarette Packs Per Day: 1.5 Cigarettes Per Day: 30.0 Years Smoked: 40 e-Cigarette/Vaping Use: Never Used Advance Directives Date on File: 11/27/21 service: No Current occupational status: retired Cognitive needs: No Hearing needs: No Vision needs: No Questionnaire Thrive Questionnaire Date Thrive assessed: 06/04/22 AUDIT C Alcohol Use Questionnaire (AUDIT-C) 1. How often do you have a drink containing alcohol?: 2-4 times a month 2. How many drinks containing alcohol do you have on a typical day when you are drinking?: 1 or 2 3. How often do you have six or more drinks on one occasion?: Never Total Score: 2 Score Reviewed/Action Taken: No ANDRIY-7 AMB Questionnaire ANDRIY-7 Date ANDRIY - 7 assessed: 06/04/22 Source: Developed by Drs. Kyle Bravo, Yareli Josue, Lucho Dhaliwal and colleagues, with an educational leyla from [employer]. Review of Systems Const Reports as per HPI Physical exam (Primary Care) Vital Signs: Last Vital Signs Pulse 76 06/04/23 09:56 BP 120/74 06/04/23 09:56 Pulse Ox 97 06/04/23 09:56 Oxygen Delivery Method Room Air 06/04/23 09:56 Tobacco/Smoking Status: Tobacco use Status Tobacco use date assessed 06/04/23 06/04/23 09:59 Patient Tobacco Use Status Former Tobacco user 06/04/23 09:56 Tobacco use type Cigarette 06/04/23 09:56 e-Cigarette/Vaping Use Never Used 06/04/23 09:56 Thrive Assessment: Date of Thrive Assessment Date Thrive assessed 06/04/22 06/04/23 09:56 Const General: cooperative Orientation/consciousness: patient oriented x3 Resp Effort & Inspection: normal respiratory effort Auscultation: clear to auscultation bilaterally Cardio Rate: regular rate Rhythm: regular rhythm Heart sounds: S1 normal heart sound present and S2 normal heart sound present Neuro General: patient oriented x3 Extrem Other: bilat feet: + sensation with use of monofilament Psych Appearance: grossly normal Mental Status: mental status grossly normal Speech and movement: Normal speech and movement present Affect: normal affect Attitude: cooperative Thought process: Normal thought process present Thought content: Normal thought content present Insight: Good insight present (Psych) Judgement: Good judgement present (Psych) Results AMB Hemoglobin A1c AMB Hemoglobin A1c 7.1 % Last Edit by KELECHI Lopez on 06/04/23 10:11 Results Reviewed Results Reviewed: Laboratory Last Values Hgb A1c (Clinic) 7.1 % (4.0-6.0) H 06/04/23 10:10 Assessment and Plan Assessment & Plan (1) Diabetes: Code(s): E11.9 - Type 2 diabetes mellitus without complications Plan: Labs ordered Plan The patient agreed to the use of a medical examiner for this encounter. Scribed for EDER Ackerman by Amara Calvo medical examiner, on 06/04/2023 at 10:20 EST. Orders: Orders Lipid Panel Today E11.9 - Type 2 diabetes mellitus without complications AMB Hemoglobin A1c Today E11.9 - Type 2 diabetes mellitus without complications Complete Blood Count Auto Diff Today E11.9 - Type 2 diabetes mellitus without complications Comprehensive [place]. Panel Fast Today E11.9 - Type 2 diabetes mellitus without complications TSH reflex Free T4 Today E11.9 - Type 2 diabetes mellitus without complications UA CC w/rflx Micro + Cult Today E11.9 - Type 2 diabetes mellitus without complications Medications: New empagliflozin (Jardiance) 10 mg PO DAILY 90 tabs 0RF budesonide 90 mcg/actuation (Pulmicort Flexhaler) 1 inh inhalation BID 1 ea 4RF Coding Level of Care Code Est Pt Level 3 (90860) Diagnoses Diabetes E11.9
[2023-06-04 09:56] VITALS: BP 120/74; PULSE 76; O2SAT 97
== END 2023-06-04 11:32 | disposition home or self-care (01) ==
PROVIDERS: PCP Nurse Practitioner Family; Visit Provider Nurse Practitioner Family
DX: E11.9 Type 2 diabetes mellitus without complications (principal)
CPT/HCPCS: 83036; 99213

== ENCOUNTER 2023-06-09 10:35 | Outpatient (AMB) | payer BC, SELFPAY ==
--- NOTE | 2023-06-09 10:50 | MHC.OFFVIS ---
Intake Intake Visit Reasons: 5w/PSA Intake Note: Patient is Present for Follow Up PSA Urology Medication: None Antibiotic Allergies: None Blood Thinners: None PVR: 45ml Allergies oxycodone [From PERCOCET] Adverse Reaction (Intermediate, Verified 06/09/23 10:53) NAUSEA & VOMITING HPI HPI Comments History of Present Illness Details Bj is a very pleasant 73-year-old male patient of . He has a past medical history of asthma, hypertension, and hyperlipidemia. He presents to the office today for follow-up. Of note, patient was seen approximately 1 month ago as a new patient for ongoing intermittent right-sided scrotal pain at which time a PSA was ordered for further assessment evaluation. These results reviewed with the patient today. PSA 06/18--1.6. Previous workup has included a scrotal ultrasound noting multiple cysts of the region of the bilateral epididymal heads obscuring visualization of bilateral epididymitis. Left varicocele. When asked patient continues with no significant issues regarding his scrotal pain. He reports pain is very infrequent. Discussed at length potential treatment options for epididymal head cyst. Will continue with surveillance monitoring. This was discussed at length. In discussion with the patient today he reports since his last office visit here approximately 1 month ago he has been trending his urination in does feel he has bothersome nocturia. He reports episodes of nocturia approximately 4 times per night. Discussed at length potential causes of nocturia as well as lifestyle modifications. He also endorses weak urinary stream. He otherwise denies urinary urgency, urinary frequency, incontinence, hematuria, dysuria, foul smelling urine, flank pain, fever, and or chills. He reports pain has since subsided and has not experienced pain in 2-3 months. In office urinalysis results reviewed with the patient today. PVR 45 mL He otherwise offers no other issues or concerns at this time. [facility] Medical History Asthma Elevated cholesterol HTN (hypertension) Lipoma Surgical History Hx of excision of mass H/O right inguinal hernia repair H/O colonoscopy Family History Mother Mental health disorder Colon cancer Brother Prostate cancer Social History Housing: House Patient Tobacco Use Status: Former Tobacco user Quit Date: 2008 Tobacco use type: Cigarette Cigarette Packs Per Day: 1.5 Cigarettes Per Day: 30.0 Years Smoked: 40 e-Cigarette/Vaping Use: Never Used Advance Directives Date on File: 11/27/21 service: No Current occupational status: retired Cognitive needs: No Hearing needs: No Vision needs: No Review of Systems Const Reports as per HPI Eyes Reports no additional complaints ENT Reports no additional complaints Card Reports as per HPI Resp Reports as per HPI GI Reports no additional complaints Reports as per HPI Musc Reports no additional complaints Neuro Reports no additional complaints Psych Reports no additional complaints Endo Reports no additional complaints Rocky/Lymph Reports no additional complaints Aller/Immun Reports no additional complaints Physical Exam Const General: cooperative, healthy appearing, comfortable, no acute distress, well developed, alert and awake Orientation/consciousness: patient oriented x3 Limitations: no limitations HEENT Head: Yes normal to inspection, Yes normocephalic and Yes atraumatic Ears: hearing grossly normal bilaterally Eyes General: appearance normal, both eyes and all related structures Neck Neck: Yes normal visual inspection and Yes trachea midline Chest Chest palpation & inspection: normal inspection of the chest Resp Effort & Inspection: normal respiratory effort and able to speak in complete sentences Cardio Rate: regular rate GI Inspection: Yes normal to inspection General: Yes no CVA tenderness Back/Spine/Pelvis Back: no CVA tenderness Skin General skin exam: no rashes or lesions noted Neuro General: patient oriented x3 Extrem General: Yes normal to inspection Psych Appearance: grossly normal and well kempt Mental Status: mental status grossly normal Speech and movement: Normal speech and movement present and Clear speech present Affect: normal affect Attitude: cooperative Thought process: Normal thought process present Thought content: Normal thought content present Insight: Fair insight present (Psych) Judgement: Fair judgement present (Psych) Office Procedures Post Void Residual Post Residual Void Post Void Residual (PVR): 45 [id number] Void Residual by ultrasound Results AMB Urinalysis, Automated UA Leukoctes 0 Zina/uL Last Edit by SKYE Sandra on 06/09/23 11:06 UA Nitrite Negative Last Edit by SKYE Sandra on 06/09/23 11:06 UA Urobilinogen 0.2 mg/dL Last Edit by Makenzie Sabillon, RMA on 06/09/23 11:06 UA Protein 0 mg/dL Last Edit by Makenzie Sabillon, RMA on 06/09/23 11:06 UA pH 6.0 Last Edit by Makenzie Sabillon, RMA on 06/09/23 11:06 UA Blood 0 Jose/uL Last Edit by Makenzie Sabillon, RMA on 06/09/23 11:06 UA Specific [place] 1.030 Last Edit by Makenzie Sabillon, RMA on 06/09/23 11:06 UA Ketone Negative Last Edit by Makenzie Sabillon, RMA on 06/09/23 11:06 UA Bilirubin 0 mg/dL Last Edit by Makenzie Sabillon, RMA on 06/09/23 11:06 UA Glucose 0 mg/dL Last Edit by Makenzie Sabillon, A on 06/09/23 11:06 Results Reviewed Results Reviewed: Laboratory Last Values Urine pH (Auto) 6.0 06/09/23 10:54 Specific [place] (Auto) 1.030 06/09/23 10:54 Urine Protein (Auto) 0 mg/dL 06/09/23 10:54 Glucose (UA)(Auto) 0 mg/dL 06/09/23 10:54 Urine Ketones (Auto) Negative 06/09/23 10:54 Urine Blood (Auto) 0 Jose/uL 06/09/23 10:54 Urine Nitrite (Auto) Negative 06/09/23 10:54 Urine Bilirubin (Auto) 0 mg/dL 06/09/23 10:54 Urine Urobilinogen (Auto) 0.2 mg/dL 06/09/23 10:54 Leukocyte Esterase (Auto) 0 Zina/uL 06/09/23 10:54 Assessment & Plan Assessment & Plan (1) Epididymal cyst: Code(s): N50.3 - Cyst of epididymis (2) Right varicocele: Code(s): I86.1 - Scrotal varices (3) Enlarged prostate: Code(s): N40.0 - Benign prostatic hyperplasia without lower urinary tract symptoms Plan In office urinalysis results reviewed with the patient today; as noted above. PVR 45 mL. Recent PSA results reviewed with the patient today; as noted above Discussed at length lifestyle modifications to assist with nocturia Will continue with surveillance monitoring of epididymal head cysts. Start Flomax and finasteride as discussed and prescribed. Discussed possible near future in office cystoscopy for further assessment evaluation. Follow-up in 6 weeks with PVR; or sooner with any issues, concerns, and or questions. Orders: Orders AMB Post Void Residual by ultrasound Today N40.0 - Benign prostatic hyperplasia without lower urinary tract symptoms AMB Urinalysis Automated Today Z13.9 - Encounter for screening, unspecified Medications: New tamsulosin 0.4 mg PO BEDTIME 90 caps 0RF 90 days N40.1 - Benign prostatic hyperplasia with lower urinary tract symptoms finasteride 5 mg PO DAILY 90 tabs 1RF 90 days N13.8 - Other obstructive and reflux uropathy, N40.1 - Benign prostatic hyperplasia with lower urinary tract symptoms, R33.9 - Retention of urine, unspecified Patient Instructions: The patient had an opportunity to ask questions regarding the treatment plan. All questions were answered. Physical exam, labs, and imaging were discussed and reviewed in detail. As well as risks, benefits, and discussion of treatment choices. No major barriers to understanding were identified. The patient expressed understanding and agreement with the above treatment plan. The patient was made aware they should contact our office by phone for worsening of their current condition, the appearance of new symptoms, or with any questions or concerns. Compliance is encouraged with any medications and follow up testing that is ordered. It is a privilege to be allowed the opportunity to participate in? your urological care.? Again, if you have any questions or concerns If you have any questions or concerns please do not hesitate to contact me. The office is [phone]. This note is constructed using voice recognition software. While every effort has been made to ensure accuracy maple syrup maker errors may have been included. Yours sincerely, EDER Min Coding Level of Care Code Est Pt Level 4 (47711) Diagnoses Epididymal cyst N50.3 Right varicocele I86.1 Enlarged prostate N40.0 CPT Codes Post Residual Void - PVR CPT Code: 03791-Mpnd Void Residual by ultrasound ([id number])
== END 2023-06-09 11:29 | disposition home or self-care (01) ==
PROVIDERS: PCP Nurse Practitioner Family; Visit Provider Nurse Practitioner Family
DX: N50.3 Cyst of epididymis (principal); I86.1 Scrotal varices; N40.0 Benign prostatic hyperplasia without lower urinary tract symptoms; Z13.9 Encounter for screening, unspecified
CPT/HCPCS: 99214

== ENCOUNTER → 2023-06-09 10:35 | Outpatient (BNVA) | payer BC, SELFPAY | PROVIDERS: PCP Nurse Practitioner Family; Visit Provider Nurse Practitioner Family | DX: N50.3 Cyst of epididymis (principal); I86.1 Scrotal varices; N40.0 Benign prostatic hyperplasia without lower urinary tract symptoms | CPT/HCPCS: 51798; 81003 ==

== ENCOUNTER 2023-07-24 08:37 | Outpatient (AMB) | payer BC, SELFPAY ==
--- NOTE | 2023-07-24 08:41 | A.OFFVIS_ITS ---
Intake Intake Visit Reasons: 6w/PVR Intake Note: Patient presents today for follow up of epididymal cyst, r. varicocele, enlarged prostate, and psa lab PSA: 1.62 Urology Medication: finasteride and tamsulosin (patient stopped taking due to side effects) Antibiotic Allergies: None Blood Thinners: None PVR: 36ml's Spring Crater Required: No Accompanied by: Self / Same As Patient Allergies oxycodone [From PERCOCET] Adverse Reaction (Intermediate, Verified 07/24/23 09:00) NAUSEA & VOMITING Medication List - Last Reconciled 07/24/23 by MARCO A Min- albuterol sulfate 90 mcg/actuation (ProAir HFA) 2 puffs PO Q6H PRN 30 days atorvastatin 20 mg PO QPM 90 days blood sugar diagnostic (FreeStyle Test strips) bid for diabetes finasteride 5 mg PO DAILY 90 days fluticasone furoate 100 mcg/actuation (Arnuity Ellipta) 1 inh inhalation DAILY hydrochlorothiazide 12.5 mg PO DAILY lancets Check fasting blood sugar and a random blood sugar daily. lisinopril 20 mg PO DAILY metformin ER 500 mg PO DAILY omeprazole magnesium (Prilosec OTC) 20 mg PO DAILY psyllium husk (Metamucil) 1 tbsp PO DAILY tamsulosin 0.4 mg PO BEDTIME 90 days Vascepa (icosapent ethyl) 1 g PO BID 90 days NS HPI HPI Comments History of Present Illness Details Bj is a very pleasant 73-year-old male patient of Dr.G nichols. He has a past medical history of asthma, hypertension, and hyperlipidemia. He presents to the office today for follow-up. Of note, patient was seen approximately 1 month ago at which time a PSA was ordered for further assessment evaluation. These results reviewed with the patient today. PSA 06/18--1.6. During last office visit patient was started on Finasteride and Flomax daily as most recent CT noted mildly enlarged prostate. However, in discussion with the patient today he reports having stopped both Flomax and finasteride as he had been experiencing retrograde ejaculation as well as issues with maintaining his erections. He reports since stopping Flomax and finasteride he feels symptoms have resolved. Discussed at length side effects of these medications. Discuss trial of alfuzosin verses Flomax. This was discussed at length. He reports feeling episodes of nocturia have somewhat improved however also discusses variation in the symptoms. Discussed at length potential causes of nocturia as well as lifestyle modifications to assist with nocturia. Discussed in office cystoscopy for further assessment evaluation as patient does continue to report in endorse weak urinary stream. However, he discusses his reluctancy to further workup and or taking medications. He otherwise denies urinary urgency, urinary frequency, incontinence, hematuria, dysuria, foul smelling urine, flank pain, fever, and or chills. Of note, patient with a history of epididymal head cyst. However is not having any scrotal issues at this time will continue with surveillance monitoring. In office urinalysis results reviewed with the patient today. PVR 36mls. He otherwise offers no other issues or concerns at this time. [facility] Medical History Asthma Elevated cholesterol HTN (hypertension) Lipoma Surgical History Hx of excision of mass H/O right inguinal hernia repair H/O colonoscopy Family History Mother Mental health disorder Colon cancer Brother Prostate cancer Social History Housing: House Patient Tobacco Use Status: Former Tobacco user Quit Date: 2008 Tobacco use type: Cigarette Cigarette Packs Per Day: 1.5 Cigarettes Per Day: 30.0 Years Smoked: 40 e-Cigarette/Vaping Use: Never Used Advance Directives Date on File: 11/27/21 service: No Current occupational status: retired Cognitive needs: No Hearing needs: No Vision needs: No Review of Systems Const Reports as per HPI Eyes Reports no additional complaints ENT Reports no additional complaints Card Reports as per HPI Resp Reports as per HPI GI Reports no additional complaints Reports as per HPI Musc Reports no additional complaints Neuro Reports no additional complaints Psych Reports no additional complaints Endo Reports no additional complaints Rocky/Lymph Reports no additional complaints Aller/Immun Reports no additional complaints Physical Exam Const General: cooperative, healthy appearing, comfortable, no acute distress, well developed, alert and awake Orientation/consciousness: patient oriented x3 Limitations: no limitations HEENT Head: Yes normal to inspection, Yes normocephalic and Yes atraumatic Ears: hearing grossly normal bilaterally Eyes General: appearance normal, both eyes and all related structures Neck Neck: Yes normal visual inspection and Yes trachea midline Chest Chest palpation & inspection: normal inspection of the chest Resp Effort & Inspection: normal respiratory effort and able to speak in complete sentences Cardio Rate: regular rate GI Inspection: Yes normal to inspection General: Yes no CVA tenderness Back/Spine/Pelvis Back: no CVA tenderness Skin General skin exam: no rashes or lesions noted Neuro General: patient oriented x3 Extrem General: Yes normal to inspection Psych Appearance: grossly normal and well kempt Mental Status: mental status grossly normal Speech and movement: Normal speech and movement present and Clear speech present Affect: normal affect Attitude: cooperative Thought process: Normal thought process present Thought content: Normal thought content present Insight: Fair insight present (Psych) Judgement: Fair judgement present (Psych) Office Procedures Post Void Residual Post Residual Void Post Void Residual (PVR): 36 [id number] Void Residual by ultrasound Results AMB Urinalysis, Automated UA Leukoctes 0 Zina/uL Last Edit by [employer] on 07/24/23 08:57 UA Nitrite Negative Last Edit by [employer] on 07/24/23 08:57 UA Urobilinogen 0.2 mg/dL Last Edit by [employer] on 07/24/23 08:57 UA Protein 0 mg/dL Last Edit by [employer] on 07/24/23 08:57 UA pH 6.0 Last Edit by [employer] on 07/24/23 08:57 UA Blood 0 Jose/uL Last Edit by [employer] on 07/24/23 08:57 UA Specific [place] 1.015 Last Edit by [employer] on 07/24/23 08:57 UA Ketone Negative Last Edit by [employer] on 07/24/23 08:57 UA Bilirubin 0 mg/dL Last Edit by [employer] on 07/24/23 08:57 UA Glucose 0 mg/dL Last Edit by [employer] on 07/24/23 08:57 Results Reviewed Results Reviewed: Laboratory Last Values Urine pH (Auto) 6.0 07/24/23 08:47 Specific [place] (Auto) 1.015 07/24/23 08:47 Urine Protein (Auto) 0 mg/dL 07/24/23 08:47 Glucose (UA)(Auto) 0 mg/dL 07/24/23 08:47 Urine Ketones (Auto) Negative 07/24/23 08:47 Urine Blood (Auto) 0 Jose/uL 07/24/23 08:47 Urine Nitrite (Auto) Negative 07/24/23 08:47 Urine Bilirubin (Auto) 0 mg/dL 07/24/23 08:47 Urine Urobilinogen (Auto) 0.2 mg/dL 07/24/23 08:47 Leukocyte Esterase (Auto) 0 Zina/uL 07/24/23 08:47 Assessment & Plan Assessment & Plan (1) Enlarged prostate: Code(s): N40.0 - Benign prostatic hyperplasia without lower urinary tract symptoms (2) Epididymal cyst: Code(s): N50.3 - Cyst of epididymis (3) Weak urinary stream: Code(s): R39.12 - Poor urinary stream (4) Nocturia: Code(s): R35.1 - Nocturia Plan In office urinalysis results reviewed with the patient today; as noted above. PVR 36 mL. Recent PSA results reviewed with the patient today; as noted above. Discussed at length further treatment options for mildly enlarged prostate and lower urinary tract symptoms. Discussed at length side effects of medications prescribed such as alfuzosin, Flomax, and or finasteride. Stop Flomax as discussed. Will restart finasteride every other day as discussed Discuss trial alfuzosin; however patient declines does not feel urinary symptoms are bothersome at this time. Discussed bladder triggers/irritants. Discussed lifestyle modifications to assist with nocturia Will continue with surveillance monitoring of epididymal head cysts. He currently does not wish to undergo further treatment options as he does not feel urinary symptoms are bothersome Follow-up in 6 months with PVR; or sooner with any issues, concerns, and or questions. Orders: Orders AMB Urinalysis Automated Today Z13.9 - Encounter for screening, unspecified AMB Post Void Residual by ultrasound Today N40.0 - Benign prostatic hyperplasia without lower urinary tract symptoms Medications: Discontinued tamsulosin Discontinued Reason: Doctor's Order 0.4 mg PO BEDTIME 90 days 90 caps 0RF N40.1 - Benign prostatic hyperplasia with lower urinary tract symptoms Patient Instructions: The patient had an opportunity to ask questions regarding the treatment plan. All questions were answered. Physical exam, labs, and imaging were discussed and reviewed in detail. As well as risks, benefits, and discussion of treatment choices. No major barriers to understanding were identified. The patient expressed understanding and agreement with the above treatment plan. The patient was made aware they should contact our office by phone for worsening of their current condition, the appearance of new symptoms, or with any questions or concerns. Compliance is encouraged with any medications and follow up testing that is ordered. It is a privilege to be allowed the opportunity to participate in? your urological care.? Again, if you have any questions or concerns If you have any questions or concerns please do not hesitate to contact me. The office is [phone]. This note is constructed using voice recognition software. While every effort has been made to ensure accuracy load haul dump operator errors may have been included. Yours sincerely, EDER Min Coding Level of Care Code Est Pt Level 4 (96578) Diagnoses Enlarged prostate N40.0 Epididymal cyst N50.3 Weak urinary stream R39.12 Nocturia R35.1 CPT Codes Post Residual Void - PVR CPT Code: 42571-[id number] Void Residual by ultrasound ([id number]) Time Spent (min) 35
== END 2023-07-24 09:24 | disposition home or self-care (01) ==
PROVIDERS: PCP Nurse Practitioner Family; Visit Provider Nurse Practitioner Family
DX: N40.0 Benign prostatic hyperplasia without lower urinary tract symptoms (principal); N50.3 Cyst of epididymis; R39.12 Poor urinary stream; R35.1 Nocturia; Z13.9 Encounter for screening, unspecified
CPT/HCPCS: 99214

== ENCOUNTER → 2023-07-24 08:37 | Outpatient (BNVA) | payer BC, SELFPAY | PROVIDERS: PCP Nurse Practitioner Family; Visit Provider Nurse Practitioner Family | DX: N40.1 Benign prostatic hyperplasia with lower urinary tract symptoms (principal); R39.12 Poor urinary stream; R35.1 Nocturia; N50.3 Cyst of epididymis | CPT/HCPCS: 51798; 81003 ==

== ENCOUNTER 2023-08-12 09:24 | Outpatient (AMB) | payer BC, SELFPAY ==
[2023-08-12 10:19] VITALS: BP 120/68; PULSE 70; TEMP 36.5; O2SAT 98; BMI 25.4
--- NOTE | 2023-08-12 10:19 | AM.OFFWIN_ITS ---
Intake Vital Signs 08/12/23 10:19 Height 5 ft 9 in Weight 172 lb 4 oz BMI 25.4 BP 120/68 Blood Pressure Location Rt brachial Position Sitting Pulse 70 Pulse Source Pulse Oximeter Temp 97.7 F Temp Source Oral Pulse Oximetry (%) 98 Oxygen Delivery Method Room Air Intake Visit Reasons: EP Tick on RT thigh (lobby) Intake Note: pt says he noticed a tick in his lower right thigh and he pulled half of it out and part of it is still in pt's thigh he says he thinks he was bitten last Th pt say ok to l/m with results Patient Tobacco Use Status: Former Tobacco user Quit Date: 2008 Allergies oxycodone [From PERCOCET] Adverse Reaction (Intermediate, Verified 08/12/23 10:59) NAUSEA & VOMITING Medication List - Last Reconciled 08/12/23 by Teo Spencer MD albuterol sulfate 90 mcg/actuation (ProAir HFA) 2 puffs PO Q6H PRN 30 days atorvastatin 20 mg PO QPM 90 days blood sugar diagnostic (FreeStyle Test strips) bid for diabetes fluticasone furoate 100 mcg/actuation (Arnuity Ellipta) 1 inh inhalation DAILY hydrochlorothiazide 12.5 mg PO DAILY lancets Check fasting blood sugar and a random blood sugar daily. lisinopril 20 mg PO DAILY omeprazole magnesium (Prilosec OTC) 20 mg PO DAILY psyllium husk (Metamucil) 1 tbsp PO DAILY Vascepa (icosapent ethyl) 1 g PO BID 90 days NS HPI EP Tick on RT thigh (lobby) HPI Details 73-year-old male presents to the office for a sick visit. He has an em bedded tick in the right thigh that he would like evaluated. He noticed it yesterday. PFSH Medical History Asthma Elevated cholesterol HTN (hypertension) Lipoma Surgical History Hx of excision of mass H/O right inguinal hernia repair H/O colonoscopy Family History Mother Mental health disorder Colon cancer Brother Prostate cancer Social History Housing: House Patient Tobacco Use Status: Former Tobacco user Quit Date: 2008 Tobacco use type: Cigarette Cigarette Packs Per Day: 1.5 Cigarettes Per Day: 30.0 Years Smoked: 40 e-Cigarette/Vaping Use: Never Used Advance Directives Date on File: 11/27/21 service: No Current occupational status: retired Cognitive needs: No Hearing needs: No Vision needs: No Physical Exam Vital Signs: Last Vital Signs Temp 97.7 F 08/12/23 10:19 Pulse 70 08/12/23 10:19 BP 120/68 08/12/23 10:19 Pulse Ox 98 08/12/23 10:19 Oxygen Delivery Method Room Air 08/12/23 10:19 BMI result Body Mass Index 25.4 Skin Other: Right eye: Fragment of a tick embedded surrounded by erythema. No tenderness. Assessment & Plan Assessment & Plan (1) Tick bite: Code(s): W57.XXXA - Bitten or stung by nonvenomous insect and other nonvenomous arthropods, initial encounter Qualifiers: Encounter type: initial encounter Qualified Code(s): W57.XXXA - Bitten or stung by nonvenomous insect and other nonvenomous arthropods, initial encounter Plan: Doxycycline for 1 day. Lyme titer in 3 weeks. Coding Level of Care Code Est Pt Level 3 (19954) Diagnoses Tick bite, initial encounter W57.XXXA Encounter type: initial encounter
== END 2023-08-12 11:41 | disposition home or self-care (01) ==
PROVIDERS: PCP Nurse Practitioner Family; Visit Provider Internal Medicine
DX: T63.481A Toxic effect of venom of other arthropod, accidental (unintentional), initial encounter (principal)
CPT/HCPCS: 99213

== ENCOUNTER 2023-09-08 08:03 | Outpatient (REF) | payer BC, SELFPAY ==
[2023-09-09 09:50] LABS: Lyme Abs Screen <0.90 index
== END 2023-09-08 08:04 | disposition home or self-care (01) ==
LOC: HO.HMGCLDS 08:03
PROVIDERS: PCP Nurse Practitioner Family; Referring Provider Internal Medicine; Visit Provider Nurse Practitioner Family
DX: T14.8XXA Other injury of unspecified body region, initial encounter (principal); W57.XXXA Bitten or stung by nonvenomous insect and other nonvenomous arthropods, initial encounter
CPT/HCPCS: 36415; 86617; 86618

== ENCOUNTER 2023-09-16 07:57 | Outpatient (REF) | payer BC, SELFPAY ==
[2023-09-16 10:26] LABS: MANUAL DIFF FLAG NO
[2023-09-16 10:36] LABS: Basophils Absolute Auto 0.1 X10*3/uL (0.0-0.2); Eosinophils Absolute Auto 0.4 X10*3/uL (0.0-0.4); Eosinophils Percent Auto 5.3 % (0-4); Hematocrit 44.3 % (42.0-52.0); Imm Gran Abs Auto 0.03 X10*3/uL (0.00-0.03); Imm Gran Pct Auto 0.4 % (0.0-0.4); Lymphocytes Absolute Auto 2.6 X10*3/uL (1.2-4.9); Lymphocytes Percent Auto 32.6 % (20-40); Mean Corpuscular HGB Conc 33.9 g/dl (31.0-36.0); Mean Corpuscular Hemoglobin 30.8 pg (27.0-33.0); Mean Platelet Volume 9.6 fL (9.4-12.4); Monocytes Absolute Auto 0.8 X10*3/uL (0.1-1.2); Monocytes Percent Auto 10.3 % (2-11); Neutrophils Absolute Auto 4.1 x10*3/uL (2.0-8.3); Neutrophils Percent Auto 50.4 % (45-73); Platelet Count 235 X10*3/uL (160-400); Red Blood Count 4.87 X10*6/uL (4.60-5.80); Red Cell Distribution Width 13.2 % (11.0-16.0); White Blood Count 8.1 X10*3/uL (4.8-10.8)
[2023-09-16 10:40] LABS: Appearance Urine Turbid; Color Urine Yellow; Glucose Urine UA Negative (Negative); Leukocyte Esterase Urine Negative (Negative); Nitrite Urine Negative (Negative); PH 5.5 (5.0-9.0); Specific Gravity - Urine 1.025 (1.005-1.025); Urine Blood Negative (Negative); Urine Ketones Negative (Negative); Urine Protein Negative (Neg-Trace)
[2023-09-16 11:51] LABS: Alanine Aminotransferase 29 U/L (0-40); Albumin Level 4.4 g/dL (3.5-5.0); Alkaline Phosphatase 72 U/L (39-117); Anion Gap 11 (12-20); Aspartate Amino Transferase 21 U/L (5-37); Bilirubin Total 1.4 mg/dL (0.0-1.0); Blood Urea Nitrogen 18 mg/dL (9-16); Calcium 9.7 mg/dL (8.4-10.2); Carbon Dioxide 29 mmol/L (22-29); Chloride 99 mmol/L (96-108); Cholesterol 213 mg/dL (<200); Estimated Glomerular Filt Rate > 60; Glucose Fasting 114 mg/dL (60-99); HDL Cholesterol 50 mg/dL (>40); LDL Cholesterol Calculated 139 mg/dL (<100); Potassium 4.7 mmol/L (3.3-5.1); Sodium 134 mmol/L (135-145); Total Protein 7.2 g/dL (6.5-8.0); Triglycerides 124 mg/dL (<150)
[2023-09-16 12:09] LABS: TSH reflex Free T4 1.73 uIU/mL (0.32-4.0)
== END 2023-09-16 07:58 | disposition home or self-care (01) ==
LOC: HO.HMGCLDS 07:57
PROVIDERS: PCP Nurse Practitioner Family; Visit Provider Nurse Practitioner Family
DX: E11.9 Type 2 diabetes mellitus without complications (principal)
CPT/HCPCS: 36415; 80053; 80061; 81003; 84443; 85025

== ENCOUNTER 2023-09-24 09:36 | Outpatient (AMB) | payer BC, SELFPAY ==
--- NOTE | 2023-09-24 09:37 | MHC.PC.OV ---
Vital Signs 09/24/23 09:45 Height 5 ft 9 in Weight 166 lb 8 oz BMI 24.6 BP 112/68 Blood Pressure Location Rt brachial Position Sitting Pulse 64 Pulse Source Pulse Oximeter Pulse Oximetry (%) 94 Oxygen Delivery Method Room Air Intake Visit Reasons: Annual PE Intake Note: Patient here for physical exam. colon: Allergies oxycodone [From PERCOCET] Adverse Reaction (Intermediate, Verified 09/24/23 09:46) NAUSEA & VOMITING Medication List - Last Reconciled 09/24/23 by EDER Weiss albuterol sulfate 90 mcg/actuation (ProAir HFA) 2 puffs PO Q6H PRN 30 days atorvastatin 20 mg PO QPM 90 days blood sugar diagnostic (FreeStyle Test strips) bid for diabetes empagliflozin (Jardiance) 10 mg PO DAILY 90 days finasteride 5 mg PO DAILY fluticasone furoate 100 mcg/actuation (Arnuity Ellipta) 1 inh inhalation DAILY hydrochlorothiazide 12.5 mg PO DAILY lancets Check fasting blood sugar and a random blood sugar BID (freestyle) lisinopril 20 mg PO DAILY omeprazole magnesium (Prilosec OTC) 20 mg PO DAILY psyllium husk (Metamucil) 1 tbsp PO DAILY Vascepa (icosapent ethyl) 1 g PO BID 90 days NS Tobacco use date assessed: 06/04/23 Fall risk assessment: No Falls in past year Last assessed Fall Risk: 09/24/23 Dental Screening Dental Screen Date: 07/02/23 HPI Annual PE HPI Details Pt is here for a PE. Labs were already performed. Colon screen is up to date. PSA is up to date. Denies dribbling with urination, weak stream, and frequent nocturia. Pt is a diabetic, on an IBETH and a statin. A1C in office today is 6.7. Microalbumin is up to date. Denies polyuria, polydipsia, does report neuropathy. Pt denies any signs and symptoms of hypoglycemia and does know how to correct it. Will start jardiance 10mg. Dyslipidemia: Will increase atorvastatin from 20mg to 40mg. Will repeat labs 2 months after starting increased dose. [facility], [facility] Medical History Asthma Elevated cholesterol HTN (hypertension) Lipoma Surgical History Hx of excision of mass H/O right inguinal hernia repair H/O colonoscopy Family History Mother Mental health disorder Colon cancer Brother Prostate cancer Social History Housing: House Patient Tobacco Use Status: Former Tobacco user Quit Date: 2008 Tobacco use type: Cigarette Cigarette Packs Per Day: 1.5 Cigarettes Per Day: 30.0 Years Smoked: 40 e-Cigarette/Vaping Use: Never Used Advance Directives Date on File: 11/27/21 service: No Current occupational status: retired Cognitive needs: No Hearing needs: No Vision needs: No Questionnaire Thrive Questionnaire Date Thrive assessed: 06/04/22 AUDIT C Alcohol Use Questionnaire (AUDIT-C) 1. How often do you have a drink containing alcohol?: 2-3 times a week 2. How many drinks containing alcohol do you have on a typical day when you are drinking?: 1 or 2 3. How often do you have six or more drinks on one occasion?: Never Total Score: 3 Score Reviewed/Action Taken: No ANDRIY-7 AMB Questionnaire ANDRIY-7 Date ANDRIY - 7 assessed: 06/04/22 Source: Developed by Drs. Kyle Bravo, Yareli Josue, Lucho Dhaliwal and colleagues, with an educational leyla from [employer]. Review of Systems Const Denies chills and Denies fever(s) Eyes Denies blurry vision ENT Denies vertigo, Denies dizziness and Denies sore throat Card Denies chest pain at rest, Denies chest pain with activity, Denies diaphoresis, Denies dyspnea and Denies dyspnea on exertion Resp Denies cough, Denies dyspnea, Denies dyspnea on exertion and Denies wheezing GI Denies abdominal pain, Denies melena, Denies hematochezia, Denies constipation, Denies diarrhea and Denies loose stools Denies hematuria Musc Denies numbness and Denies tingling Skin/Breast Denies lesions Neuro Denies vertigo, Denies dizziness, Denies numbness and Denies tingling Psych Denies anxiety, Denies depression, Denies homicidal ideation, Denies suicidal ideation and Denies other (substance abuse) Aller/Immun Denies wheezing Physical exam (Primary Care) Vital Signs: Last Vital Signs Pulse 64 09/24/23 09:45 BP 112/68 09/24/23 09:45 Pulse Ox 94 09/24/23 09:45 Oxygen Delivery Method Room Air 09/24/23 09:45 BMI result Body Mass Index 24.6 Tobacco/Smoking Status: Tobacco use Status Tobacco use date assessed 06/04/23 09/24/23 09:39 Patient Tobacco Use Status Former Tobacco user 09/24/23 09:39 Tobacco use type Cigarette 09/24/23 09:39 e-Cigarette/Vaping Use Never Used 09/24/23 09:39 Thrive Assessment: Date of Thrive Assessment Date Thrive assessed 06/04/22 09/24/23 09:39 Const General: cooperative Nutritional Appearance: well nourished Orientation/consciousness: patient oriented x3 HENMT Head: Yes normal to inspection, Yes normocephalic and Yes atraumatic Ears: TM's normal bilaterally Eyes General: appearance normal, both eyes and all related structures Alignment and Position: alignment normal and position normal Neck Neck: Yes normal visual inspection and Yes no lymphadenopathy Thyroid: Thyroid normal Resp Effort & Inspection: normal respiratory effort Auscultation: clear to auscultation bilaterally Cardio Rate: regular rate Rhythm: regular rhythm Heart sounds: S1 normal heart sound present, S2 normal heart sound present and no murmurs GI Palpation (GI): Soft to palpation and nontender Auscultation: normal bowel sounds Male General Exam: Yes normal external exam Penis: normal penis Scrotum: scrotum normal, testes descended bilaterally and no inguinal hernias Testes: no testicular mass Skin Rashes: no rashes Neuro General: patient oriented x3, moves all extremities, no focal motor deficits and deep tendon reflexes 2+ bilaterally Romberg Test: Negative Extrem Other: bilat feet: + sensation with use of monofilament, feet intact Psych Appearance: grossly normal Mental Status: mental status grossly normal Speech and movement: Normal speech and movement present Affect: normal affect Attitude: cooperative Thought process: Normal thought process present Thought content: Normal thought content present Insight: Good insight present (Psych) Judgement: Good judgement present (Psych) Results AMB Hemoglobin A1c AMB Hemoglobin A1c 6.7 % Last Edit by KELECHI Lopez on 09/24/23 10:18 Assessment and Plan Assessment & Plan (1) Dyslipidemia: Code(s): E78.5 - Hyperlipidemia, unspecified Plan: increasing statin from 20mg to 40mg (2) Encounter for routine adult physical exam with abnormal findings: Code(s): Z00.01 - Encounter for general adult medical examination with abnormal findings Plan: adding jardiance (3) Diabetes: Code(s): E11.9 - Type 2 diabetes mellitus without complications Plan: 6.7 a1c, adding low dose jardiance Plan The patient agreed to the use of a medical physics researcher for this encounter. Scribed for EDER Ackerman by Amara Calvo medical physics researcher, on 09/24/2023 at 09:55 EST. Orders: Orders Lipid Panel Today E78.5 - Hyperlipidemia, unspecified Comprehensive [place]. Panel Fast Today E78.5 - Hyperlipidemia, unspecified AMB Hemoglobin A1c Today Z13.9 - Encounter for screening, unspecified Medications: New empagliflozin (Jardiance) 10 mg PO DAILY 90 days 90 tabs 0RF Changed From lancets Check fasting blood sugar and a random blood sugar daily. 100 ea 3RF R73.01 - Impaired fasting glucose To lancets Check fasting blood sugar and a random blood sugar BID (freestyle) 100 ea 3RF R73.01 - Impaired fasting glucose From atorvastatin 20 mg PO QPM 90 days 90 tabs 1RF To atorvastatin 40 mg PO QPM 90 days 90 tabs 1RF Coding Level of Care Code Est Pt Prev Care >65y(65577) Diagnoses Dyslipidemia E78.5 Encounter for routine adult physical exam with abnormal findings Z00.01 Diabetes E11.9
[2023-09-24 09:45] VITALS: BP 112/68; PULSE 64; O2SAT 94; BMI 24.6
== END 2023-09-24 11:19 | disposition home or self-care (01) ==
PROVIDERS: PCP Nurse Practitioner Family; Visit Provider Nurse Practitioner Family
DX: Z00.01 Encounter for general adult medical examination with abnormal findings (principal); E78.5 Hyperlipidemia, unspecified; E11.69 Type 2 diabetes mellitus with other specified complication
CPT/HCPCS: 83036; 99213; 99397

== ENCOUNTER 2023-10-18 10:00 | Outpatient (AMB) | payer BC, SELFPAY ==
--- NOTE | 2023-10-18 11:33 | A.OFFPC_ITS ---
Vital Signs 10/18/23 11:35 Height 5 ft 9 in Weight 165 lb BMI 24.4 BP 112/65 Blood Pressure Location Lt brachial Position Sitting Pulse 90 Pulse Source Pulse Oximeter Temp 100 F Temp Source Oral Pulse Oximetry (%) 98 Oxygen Delivery Method Room Air Intake Visit Reasons: Ep COVID + 10/17-paxlovid if [id number] Intake Note: Patient is here with Covid, tested positive, is wondering if he could have Paxlovide. Allergies oxycodone [From PERCOCET] Adverse Reaction (Intermediate, Verified 10/18/23 12:17) NAUSEA & VOMITING Tobacco use date assessed: 10/18/23 Fall risk assessment: No Falls in past year Last assessed Fall Risk: 09/24/23 Dental Screening Dental Screen Date: 07/02/23 [facility] Medical History Asthma Elevated cholesterol HTN (hypertension) Lipoma Surgical History Hx of excision of mass H/O right inguinal hernia repair H/O colonoscopy Family History Mother Mental health disorder Colon cancer Brother Prostate cancer Social History Housing: House Patient Tobacco Use Status: Former Tobacco user Quit Date: 2008 Tobacco use type: Cigarette Cigarette Packs Per Day: 1.5 Cigarettes Per Day: 30.0 Years Smoked: 40 e-Cigarette/Vaping Use: Never Used Advance Directives Date on File: 11/27/21 service: No Current occupational status: retired Cognitive needs: No Hearing needs: No Vision needs: No Questionnaire Thrive Questionnaire Date Thrive assessed: 06/04/22 ANDRIY-7 AMB Questionnaire ANDRIY-7 Date ANDRIY - 7 assessed: 06/04/22 Source: Developed by Drs. Kyle Bravo, Yareli Josue, Lucho Dhaliwal and colleagues, with an educational leyla from [employer]. Physical exam (Primary Care) Vital Signs: Last Vital Signs Temp 100 F 10/18/23 11:35 Pulse 90 10/18/23 11:35 BP 112/65 10/18/23 11:35 Pulse Ox 98 10/18/23 11:35 Oxygen Delivery Method Room Air 10/18/23 11:35 BMI result Body Mass Index 24.4 Tobacco/Smoking Status: Tobacco use Status Tobacco use date assessed 10/18/23 10/18/23 12:21 Patient Tobacco Use Status Former Tobacco user 10/18/23 11:34 Tobacco use type Cigarette 10/18/23 11:34 e-Cigarette/Vaping Use Never Used 10/18/23 11:34 Thrive Assessment: Date of Thrive Assessment Date Thrive assessed 06/04/22 10/18/23 11:34 Assessment and Plan Assessment & Plan Medications: New nirmatrelvir-ritonavir 300 mg (150 mg x 2)-100 mg (Paxlovid) take TWO 150 mg tablets of nirmatrelvir with ONE 100 mg tablet of ritonavir twice daily for 5 days PO 30 ea 0RF prednisone 40 mg (2 x 20 mg) PO DAILY 10 tabs 0RF 5 days Coding Level of Care Code Est Pt Level 4 (98840)
[2023-10-18 11:35] VITALS: BP 112/65; PULSE 90; TEMP 37.7; O2SAT 98; BMI 24.4
--- NOTE | 2023-10-18 14:47 | AM.OFFWIN_ITS ---
Intake Vital Signs 10/18/23 11:35 Height 5 ft 9 in Weight 165 lb BMI 24.4 BP 112/65 Blood Pressure Location Lt brachial Position Sitting Pulse 90 Pulse Source Pulse Oximeter Temp 100 F Temp Source Oral Pulse Oximetry (%) 98 Oxygen Delivery Method Room Air Intake Visit Reasons: Ep COVID + 10/17-paxlovid if [id number] Intake Note: Patient is here today, tested positive for Covid at home, he's hoping to get Paxlovid today. Patient Tobacco Use Status: Former Tobacco user Quit Date: 2008 Allergies oxycodone [From PERCOCET] Adverse Reaction (Intermediate, Verified 10/18/23 12:17) NAUSEA & VOMITING HPI Ep COVID + 10/17-paxlovid if [id number] HPI Details Patient is a 73-year-old male with a history of asthma, acute bronchitis, diabetes and hypertension, who has his primary care here at the office, and comes to the walk-in clinic complaining of being on his 3rd day of mild COVID symptoms. He just tested positive this morning, but had suspected this due to close contact falling ill just a few days prior. He reports due to his asthma history he would like to trial Paxlovid. He does have a mild cough, and has been using his albuterol a few times a day since getting sick, however he denies shortness of breath or chest pain. He also denies nausea vomiting or diarrhea, dizziness or weakness, myalgias, severe headache, severe sore throat, or other significant associated symptoms. Past medical history reviewed with the patient. He also uses Ellipta for maintenance treatment of the asthma. [facility] Medical History Asthma Elevated cholesterol HTN (hypertension) Lipoma Surgical History Hx of excision of mass H/O right inguinal hernia repair H/O colonoscopy Family History Mother Mental health disorder Colon cancer Brother Prostate cancer Social History Housing: House Patient Tobacco Use Status: Former Tobacco user Quit Date: 2008 Tobacco use type: Cigarette Cigarette Packs Per Day: 1.5 Cigarettes Per Day: 30.0 Years Smoked: 40 e-Cigarette/Vaping Use: Never Used Advance Directives Date on File: 11/27/21 service: No Current occupational status: retired Cognitive needs: No Hearing needs: No Vision needs: No Review of Systems Const All systems reviewed & are unremarkable except as noted in HPI and below Physical Exam Vital Signs: Last Vital Signs Temp 100 F 10/18/23 11:35 Pulse 90 10/18/23 11:35 BP 112/65 10/18/23 11:35 Pulse Ox 98 10/18/23 11:35 Oxygen Delivery Method Room Air 10/18/23 11:35 BMI result Body Mass Index 24.4 Const General: cooperative, healthy appearing, comfortable, no acute distress, alert, awake, Physically active, ill appearing (Mild) acutely and well groomed; No anxious, diaphoretic, intoxicated appearing, poor hygiene or tired appearing Nutritional Appearance: average body habitus Orientation/consciousness: patient oriented x3 Limitations: no limitations HEENT Head: Yes normal to inspection, Yes normocephalic and Yes atraumatic Ears: hearing grossly normal bilaterally, external ears normal, TM's normal bilaterally and EAC's normal General nose exam: Normal external nose present, Normal septum present, Abnormal mucous membranes and turbinates present and Nasal discharge present Face and sinus: Yes normal facial exam, Yes sinuses nontender and Yes face symmetric Mouth: Normal oral and palatal mucosa present, lip normal and tongue normal Throat: Yes posterior oropharynx normal, Yes abnormal tonsil (mildly erythematous bilaterally), No peritonsillar mass, No postnasal drainage, No uvular edema and No cobblestoning Eyes General: appearance normal, both eyes and all related structures Neck Neck: Yes normal visual inspection, Yes full ROM, Yes no lymphadenopathy, Yes trachea midline, Yes supple and No anterior neck swelling Chest Chest palpation & inspection: normal palpation of entire chest wall Resp Effort & Inspection: normal respiratory effort, able to speak in complete sentences, normal respiratory pattern, no audible wheezes, Actively coughing (mild), no grunting, not labored, no nasal flaring, no respiratory distress, no retractions, not tachypneic, no tripod positioning, no use of accessory muscles and symmetric chest movement Auscultation: clear to auscultation bilaterally, no crackles, no rales, no rhonchi, no wheezes, lung sounds not diminished and No rub present Cardio Rate: regular rate Rhythm: regular rhythm Skin Other: Good color, warm and dry Neuro General: patient oriented x3 Psych Appearance: grossly normal Mental Status: mental status grossly normal Speech and movement: Normal speech and movement present Affect: normal affect Attitude: cooperative Thought process: Normal thought process present Insight: Good insight present (Psych) Judgement: Good judgement present (Psych) Assessment & Plan Assessment & Plan (1) COVID: Code(s): U07.1 - COVID-19 Plan Patient is a 73 year old male asthma and diabetes as well as hypertension history, who presents on day 3 with apparent mild COVID virus today per home test, and so far he is coping well with his albuterol use and continuing his Ellipta for asthma. He declines chest x-ray today, and request Paxlovid. I did offer to start him on this, and advised that he monitor his symptoms closely. We discussed the most likely side effects. Due to using his albuterol a few times a day however, even though he denies shortness of breath, I did write him for a short course steroid in case his cough worsens or he grows short of breath over the weekend, has it holiday weekend and offices are closed on Friday. We will try to hold off on initially however, as he does have history of diabetes, and he is not showing any signs of being short of breath today. He knows to check his blood sugars closely if he does start the prednisone course, as even a prednisone injection in the past had transiently elevated his blood sugars. He knows to go to the emergency department if needed with any worrisome symptoms. Medications: New nirmatrelvir-ritonavir 300 mg (150 mg x 2)-100 mg (Paxlovid) take TWO 150 mg tablets of nirmatrelvir with ONE 100 mg tablet of ritonavir twice daily for 5 days PO 30 ea 0RF prednisone 40 mg (2 x 20 mg) PO DAILY 10 tabs 0RF 5 days Coding Level of Care Code Est Pt Level 4 (43683) Diagnoses COVID U07.1
== END 2023-10-18 13:29 | disposition home or self-care (01) ==
PROVIDERS: PCP Nurse Practitioner Family; Visit Provider Physician Assistant Medical
DX: U07.1 COVID-19 (principal)
CPT/HCPCS: 99214

== ENCOUNTER 2023-11-24 07:42 | Outpatient (REF) | payer BC, SELFPAY ==
[2023-11-24 12:18] LABS: Alanine Aminotransferase 30 U/L (0-40); Albumin Level 4.5 g/dL (3.5-5.0); Alkaline Phosphatase 101 U/L (39-117); Anion Gap 14 (12-20); Aspartate Amino Transferase 30 U/L (5-37); Bilirubin Total 1.1 mg/dL (0.0-1.0); Blood Urea Nitrogen 21 mg/dL (9-16); Calcium 10.2 mg/dL (8.4-10.2); Carbon Dioxide 26 mmol/L (22-29); Chloride 100 mmol/L (96-108); Cholesterol 177 mg/dL (<200); Estimated Glomerular Filt Rate > 60; Glucose Fasting 111 mg/dL (60-99); HDL Cholesterol 48 mg/dL (>40); LDL Cholesterol Calculated 105 mg/dL (<100); Potassium 4.5 mmol/L (3.3-5.1); Sodium 135 mmol/L (135-145); Total Protein 7.6 g/dL (6.5-8.0); Triglycerides 120 mg/dL (<150)
== END 2023-11-24 07:43 | disposition home or self-care (01) ==
LOC: HO.HMGCLDS 07:42
PROVIDERS: PCP Nurse Practitioner Family; Visit Provider Nurse Practitioner Family
DX: E78.5 Hyperlipidemia, unspecified (principal)
CPT/HCPCS: 36415; 80053; 80061

== ENCOUNTER 2023-12-01 07:06 | Outpatient (AMB) | payer BC, SELFPAY ==
--- NOTE | 2023-12-01 07:11 | A.OFFPC_ITS ---
Intake Visit Reasons: lab review Allergies oxycodone [From PERCOCET] Adverse Reaction (Intermediate, Verified 10/18/23 12:17) NAUSEA & VOMITING Tobacco use date assessed: 06/04/23 Dental Screening Dental Screen Date: 07/02/23 HPI lab review HPI Details Dyslipidemia: Pt's atorvastatin was recently increased from 20mg to 40mg. Pt's cholesterol is improving. Denies chest pain, shortness of breath, and dizziness. PFSH Medical History Asthma Elevated cholesterol HTN (hypertension) Lipoma Surgical History Hx of excision of mass H/O right inguinal hernia repair H/O colonoscopy Family History Mother Mental health disorder Colon cancer Brother Prostate cancer Social History Housing: House Patient Tobacco Use Status: Former Tobacco user Tobacco use type: Cigarette Cigarette Packs Per Day: 1.5 Cigarettes Per Day: 30.0 Years Smoked: 40 e-Cigarette/Vaping Use: Never Used Advance Directives Date on File: 11/27/21 service: No Current occupational status: retired Cognitive needs: No Hearing needs: No Vision needs: No Questionnaire Thrive Questionnaire Date Thrive assessed: 06/04/22 ANDRIY-7 AMB Questionnaire ANDRIY-7 Date ANDRIY - 7 assessed: 06/04/22 Source: Developed by Drs. Kyle Bravo, Yareli Josue, Lucho Dhaliwal and colleagues, with an educational leyla from [email or web address]. Review of Systems Const Reports as per HPI Physical exam (Primary Care) Tobacco/Smoking Status: Tobacco use Status Tobacco use date assessed 06/04/23 09/24/23 09:39 Patient Tobacco Use Status Former Tobacco user 10/18/23 14:49 Tobacco use type Cigarette 09/24/23 09:39 e-Cigarette/Vaping Use Never Used 09/24/23 09:39 Thrive Assessment: Date of Thrive Assessment Date Thrive assessed 06/04/22 09/24/23 09:39 Const General: cooperative Orientation/consciousness: patient oriented x3 Neuro General: patient oriented x3 Psych Appearance: grossly normal Mental Status: mental status grossly normal Speech and movement: Clear speech present Affect: normal affect Attitude: cooperative Thought process: Normal thought process present Thought content: Normal thought content present Insight: Good insight present (Psych) Judgement: Good judgement present (Psych) Telehealth Telehealth Telehealth Platform: [facility] Location of provider rendering services: practice address Location of patient: address on file Patient Identification confirmed using: Name, : Yes Telehealth method: video Patient verbally consented to treatment: Yes Patient verbally consented to billing insurance company: Yes Patient informed of any privacy concerns related to visit: Yes Minutes spent on Phone/Video with Pt.: 5 Assessment and Plan Assessment & Plan (1) Dyslipidemia: Code(s): E78.5 - Hyperlipidemia, unspecified Plan: Continue statin Plan The patient agreed to the use of a certified medical records coder for this encounter. Scribed for MARCO A Ackerman-DEVONTE by Amara Calvo certified medical records coder, on 12/01/2023 at 07:10 EST. Coding Level of Care Code Tele Est Pt Level 3 (89552) Diagnoses Dyslipidemia E78.5
== END 2023-12-01 08:23 | disposition home or self-care (01) ==
LOC: HO.HMGC 07:06
PROVIDERS: PCP Nurse Practitioner Family; Visit Provider Nurse Practitioner Family
DX: E78.5 Hyperlipidemia, unspecified (principal)
CPT/HCPCS: 99213

== ENCOUNTER 2024-01-21 10:37 | Outpatient (AMB) | payer BC, SELFPAY ==
--- NOTE | 2024-01-21 10:37 | MHC.OFFVIS ---
Intake Visit Reasons: 6 month follow up/ PVR Intake Note: Patient presents today for follow up on: epididymal cyst, enlarged prostate, and nocturia Urology Medication: finasteride Antibiotic Allergies: None Blood Thinners: None PVR: 43ml's [employer] Required: No Accompanied by: Self / Same As Patient Allergies oxycodone [From PERCOCET] Adverse Reaction (Intermediate, Verified 01/21/24 11:06) NAUSEA & VOMITING Medication List - Last Reconciled 01/21/24 by MARCO A Min- albuterol sulfate 90 mcg/actuation (ProAir HFA) 2 puffs PO Q6H PRN 30 days atorvastatin 40 mg PO QPM 90 days blood sugar diagnostic (FreeStyle Test strips) bid for diabetes empagliflozin (Jardiance) 10 mg PO DAILY 90 days finasteride 5 mg PO DAILY fluticasone furoate 100 mcg/actuation (Arnuity Ellipta) 1 inh inhalation DAILY hydrochlorothiazide 12.5 mg PO DAILY lancets Check fasting blood sugar and a random blood sugar BID (freestyle) lisinopril 20 mg PO DAILY omeprazole magnesium (Prilosec OTC) 20 mg PO DAILY prednisone 40 mg (2 x 20 mg) PO DAILY 5 days psyllium husk (Metamucil) 1 tbsp PO DAILY Vascepa (icosapent ethyl) 1 g PO BID 90 days NS HPI Comments Details: Bj is a very pleasant 73-year-old male patient of . He has a past medical history of asthma, hypertension, and hyperlipidemia. He presents to the office today for follow-up of his enlarged prostate and lower urinary tract symptoms. In discussion with the patient today he reports to be doing and feeling well. He reports compliance with finasteride 3 times per week as prescribed. He does discuss noting episodes of urinary urgency and frequency as well as urinary dribbling however does not find these bothersome. We discussed pelvic floor exercises and information was provided. We discussed affects of diabetes on the bladder as well as overall health and well-being. In office urinalysis results reviewed with the patient today 3+ glucose however patient on Jardiance. Patient previously trialed Flomax however did not find this helpful and was experiencing retrograde ejaculation and did not wish to trial other alpha-alicia as he does not feel lower urinary tract symptoms are bothersome. PSA 06/18 1.6. Discussed in office cystoscopy for further assessment evaluation as patient does continue to report and endorse weak urinary stream. However, he discusses his reluctancy to further workup and or taking medications. He otherwise denies incontinence, hematuria, dysuria, foul smelling urine, flank pain, fever, and or chills. Of note, patient with a history of epididymal head cyst. However is not having any scrotal issues at this time will continue with surveillance monitoring. PVR 43 mLs. He otherwise offers no other issues or concerns at this time. [facility] Medical History Asthma Elevated cholesterol HTN (hypertension) Lipoma Surgical History Hx of excision of mass H/O right inguinal hernia repair H/O colonoscopy Family History Mother Mental health disorder Colon cancer Brother Prostate cancer Social History Housing: House Patient Tobacco Use Status: Former Tobacco user Tobacco use type: Cigarette Cigarette Packs Per Day: 1.5 Cigarettes Per Day: 30.0 Years Smoked: 40 e-Cigarette/Vaping Use: Never Used Advance Directives Date on File: 11/27/21 service: No Current occupational status: retired Cognitive needs: No Hearing needs: No Vision needs: No Review of Systems Const Reports as per HPI Eyes Reports no additional complaints ENT Reports no additional complaints Card Reports as per HPI Resp Reports as per HPI GI Reports no additional complaints Reports as per HPI Musc Reports no additional complaints Neuro Reports no additional complaints Psych Reports no additional complaints Endo Reports no additional complaints Rocky/Lymph Reports no additional complaints Aller/Immun Reports no additional complaints Physical Exam Const General: cooperative, healthy appearing, comfortable, no acute distress, well developed, alert and awake Orientation/consciousness: patient oriented x3 Limitations: no limitations HEENT Head: Yes normal to inspection, Yes normocephalic and Yes atraumatic Ears: hearing grossly normal bilaterally Eyes General: appearance normal, both eyes and all related structures Neck Neck: Yes normal visual inspection and Yes trachea midline Chest Chest palpation & inspection: normal inspection of the chest Resp Effort & Inspection: normal respiratory effort and able to speak in complete sentences Cardio Rate: regular rate GI Inspection: Yes normal to inspection General: Yes no CVA tenderness Back/Spine/Pelvis Back: no CVA tenderness Skin General skin exam: no rashes or lesions noted Neuro General: patient oriented x3 Extrem General: Yes normal to inspection Psych Appearance: grossly normal and well kempt Mental Status: mental status grossly normal Speech and movement: Normal speech and movement present and Clear speech present Affect: normal affect Attitude: cooperative Thought process: Normal thought process present Thought content: Normal thought content present Insight: Fair insight present (Psych) Judgement: Fair judgement present (Psych) Office Procedures Post Void Residual Post Residual Void Post Void Residual (PVR): 43 20375-Kcar Void Residual by ultrasound Results AMB Urinalysis, Automated UA Leukoctes 0 Zina/uL Last Edit by [employer] on 01/21/24 10:53 UA Nitrite Last Edit by [employer] on 01/21/24 10:53 UA Urobilinogen 0.2 mg/dL Last Edit by [employer] on 01/21/24 10:53 UA Protein 0 mg/dL Last Edit by [employer] on 01/21/24 10:53 UA pH 6.0 Last Edit by [employer] on 01/21/24 10:53 UA Blood 0 Jose/uL Last Edit by [employer] on 01/21/24 10:53 UA Specific [place] 1.015 Last Edit by [employer] on 01/21/24 10:53 UA Ketone Last Edit by [employer] on 01/21/24 10:53 UA Bilirubin 0 mg/dL Last Edit by [employer] on 01/21/24 10:53 UA Glucose 1000 mg/dL Last Edit by [employer] on 01/21/24 10:53 Results Reviewed Results Reviewed: Laboratory Last Values Urine pH (Auto) 6.0 01/21/24 10:44 Specific [place] (Auto) 1.015 01/21/24 10:44 Urine Protein (Auto) 0 mg/dL 01/21/24 10:44 Glucose (UA)(Auto) 1000 mg/dL 01/21/24 10:44 Urine Blood (Auto) 0 Jose/uL 01/21/24 10:44 Urine Bilirubin (Auto) 0 mg/dL 01/21/24 10:44 Urine Urobilinogen (Auto) 0.2 mg/dL 01/21/24 10:44 Leukocyte Esterase (Auto) 0 Zina/uL 01/21/24 10:44 Assessment & Plan Assessment & Plan (1) Enlarged prostate: Code(s): N40.0 - Benign prostatic hyperplasia without lower urinary tract symptoms Category: Medical (2) Epididymal cyst: Code(s): N50.3 - Cyst of epididymis Category: Medical (3) Weak urinary stream: Code(s): R39.12 - Poor urinary stream Category: Medical (4) Nocturia: Code(s): R35.1 - Nocturia Category: Medical Plan In office urinalysis results reviewed with the patient today; as noted above. PVR 43 mL. Discussed at length further treatment options for mildly enlarged prostate and lower urinary tract symptoms. Discussed at length side effects of medications prescribed such as alfuzosin, doxazosin, Flomax, and or finasteride. Continue finasteride every other day as discussed Discussed bladder triggers/irritants. Discussed lifestyle modifications to assist with nocturia Discussed pelvic floor therapy exercises Discussed bladder triggers/irritants Discussed affects of diabetes on the bladder as well as overall health and wellbeing. Will continue with surveillance monitoring of epididymal head cysts. He currently does not wish to undergo further treatment options as he does not feel urinary symptoms are bothersome. Will obtain PSA in 6 months Follow-up in 6 months with PSA and PVR; or sooner with any issues, concerns, and or questions. Orders: Orders AMB Urinalysis Automated Today Z13.9 - Encounter for screening, unspecified Prostate Specific Antigen 6 Months R39.12 - Poor urinary stream AMB Post Void Residual by ultrasound Today R35.1 - Nocturia Patient Instructions: The patient had an opportunity to ask questions regarding the treatment plan. All questions were answered. Physical exam, labs, and imaging were discussed and reviewed in detail. As well as risks, benefits, and discussion of treatment choices. No major barriers to understanding were identified. The patient expressed understanding and agreement with the above treatment plan. The patient was made aware they should contact our office by phone for worsening of their current condition, the appearance of new symptoms, or with any questions or concerns. Compliance is encouraged with any medications and follow up testing that is ordered. It is a privilege to be allowed the opportunity to participate in? your urological care.? Again, if you have any questions or concerns If you have any questions or concerns please do not hesitate to contact me. The office is [phone]. This note is constructed using voice recognition software. While every effort has been made to ensure accuracy bicycle courier errors may have been included. Yours sincerely, EDER Min Coding Level of Care Code Est Pt Level 3 (59898) Complex EM visit Add On G2211 Diagnoses Enlarged prostate N40.0 Epididymal cyst N50.3 Weak urinary stream R39.12 Nocturia R35.1 CPT Codes Post Residual Void - PVR CPT Code: 29682-Ryhi Void Residual by ultrasound ([id number])
== END 2024-01-21 11:09 | disposition home or self-care (01) ==
PROVIDERS: PCP Nurse Practitioner Family; Visit Provider Nurse Practitioner Family
DX: N40.0 Benign prostatic hyperplasia without lower urinary tract symptoms (principal); N50.3 Cyst of epididymis; R39.12 Poor urinary stream; R35.1 Nocturia; Z13.9 Encounter for screening, unspecified
CPT/HCPCS: 99213

== ENCOUNTER → 2024-01-21 10:37 | Outpatient (BNVA) | payer BC, SELFPAY | PROVIDERS: PCP Nurse Practitioner Family; Visit Provider Nurse Practitioner Family | DX: N40.1 Benign prostatic hyperplasia with lower urinary tract symptoms (principal); R39.12 Poor urinary stream; R35.1 Nocturia; N50.3 Cyst of epididymis | CPT/HCPCS: 51798; 81003 ==

== ENCOUNTER 2024-01-22 17:53 | Observation (INO) | payer MEDICARE, SELFPAY ==
--- NOTE | ~2024-01-22 | US_ITS ---
EXAMINATION: US ABDOMEN LIMITED CLINICAL INFORMATION: Right upper quadrant pain. COMPARISON: CT of 04/02/2023 TECHNIQUE: Real-time imaging of the right upper quadrant abdominal viscera. FINDINGS: PANCREAS: Normal. LIVER: Normal. The liver is normal in size. The liver contour is normal. Parenchymal echogenicity is normal. No focal hepatic lesion. There is no intrahepatic biliary duct dilatation seen. GALLBLADDER: There are layering shadowing calculi within the gallbladder. No wall thickening, pericholecystic fluid or Whitney sign is evident. COMMON BILE DUCT: Normal in caliber measuring 0.5 cm in diameter. RIGHT KIDNEY: Normal. No hydronephrosis. No renal calculi or focal parenchymal lesions. The kidney measures 10.0 cm in maximum dimension. FREE FLUID: None. US/US abdomen limited IMPRESSION: Cholelithiasis. Electronically signed by: Eric Dailey MD 01/22/2024 07:35 PM EDT
--- NOTE | ~2024-01-22 | CT_ITS ---
EXAMINATION: CT ABDOMEN AND PELVIS WITHOUT CONTRAST CLINICAL INFORMATION: Epigastric abdominal pain. COMPARISON: CT scan of the pelvis April 02, 2023 TECHNIQUE: Multidetector volumetric imaging was performed from the superior aspect of the liver through the pubic symphysis. Sagittal and coronal reformatted images were obtained on the technologist's workstation. This CT examination was performed using dose optimization techniques as appropriate, variously including the following: *Automated exposure control *Adjustment of mA and/or kV according to patient size (this includes techniques or standardized protocols for targeted exams where dose is matched to indication/reason for exam; i.e. extremities or head) *Use of iterative reconstruction technique DLP: 473. mGy-cm FINDINGS: LUNG BASES: The visualized lung bases are unremarkable. LIVER, GALLBLADDER, AND BILIARY TREE: The liver is normal in size, shape, and attenuation. No focal hepatic lesion or biliary ductal dilatation is present. Several tiny calcified gallstones in the gallbladder. No gallbladder wall thickening or pericholecystic fluid. No intrahepatic or extrahepatic bile duct dilatation. PANCREAS: Unremarkable. SPLEEN: Unremarkable. ADRENAL GLANDS: Unremarkable. KIDNEYS AND URETERS: The kidneys are normal in size, shape, and attenuation. No hydronephrosis, hydroureter, or calculi seen. No perinephric stranding. 0.2 cm exophytic cyst upper pole left kidney. No follow-up imaging is recommended for simple renal cyst. BLADDER: Unremarkable. GASTROINTESTINAL TRACT: There are scattered diverticula of the sigmoid colon. There is no diverticulitis. There is no bowel wall thickening /edema. There is no bowel obstruction. There is a moderate volume of stool in the colon. The appendix is normal . The small bowel loops are unremarkable. The stomach is normal. There is no hiatal hernia. ABDOMINAL WALL: No significant hernia is appreciated. LYMPH NODES: Several enlarged portacaval lymph node measuring 1.4 cm unchanged since CAT scan May 24, 2022. No new lymphadenopathy. VASCULAR: Vascular calcifications of the wall aorta and iliac arteries. There is no aneurysm. PELVIC VISCERA: Unremarkable. OSSEOUS STRUCTURES: Advanced multilevel degenerative spondylosis of the spine. Moderate degenerative joint disease of the hips bilateral. CT/CT abdomen pelvis wo IV con IMPRESSION: 1. No acute abnormality CT scan abdomen pelvis. 2. Cholelithiasis. 3. Diverticulosis of colon. No acute abnormality of the bowel. Fleischner guidelines were followed. Electronically signed by: Bj Mccauley MD 01/22/2024 09:11 PM EDT RP
[2024-01-22 18:05] VITALS: BP 176/119; PULSE 97; RESP 16; TEMP 36.6; O2SAT 98; BMI 25.8
[2024-01-22 18:24] LABS: MANUAL DIFF FLAG NO
[2024-01-22 18:26] LABS: Basophils Absolute Auto 0.1 X10*3/uL (0.0-0.2); Basophils Percent Auto 0.8 % (0-2); Eosinophils Absolute Auto 0.5 X10*3/uL (0.0-0.4); Eosinophils Percent Auto 3.7 % (0-4); Hematocrit 41.2 % (42.0-52.0); Hemoglobin 14.3 g/dl (14.0-18.0); Imm Gran Abs Auto 0.06 X10*3/uL (0.00-0.03); Imm Gran Pct Auto 0.4 % (0.0-0.4); Lymphocytes Absolute Auto 2.6 X10*3/uL (1.2-4.9); Lymphocytes Percent Auto 18.5 % (20-40); Mean Corpuscular HGB Conc 34.7 g/dl (31.0-36.0); Mean Corpuscular Hemoglobin 30.9 pg (27.0-33.0); Monocytes Absolute Auto 1.3 X10*3/uL (0.1-1.2); Monocytes Percent Auto 9.3 % (2-11); Neutrophils Absolute Auto 9.4 x10*3/uL (2.0-8.3); Neutrophils Percent Auto 67.3 % (45-73); Platelet Count 277 X10*3/uL (160-400); Red Blood Count 4.63 X10*6/uL (4.60-5.80); Red Cell Distribution Width 13.8 % (11.0-16.0)
[2024-01-22 18:30] LABS: Appearance Urine Clear; Color Urine Yellow; Glucose Urine UA 500 mg/dL (Negative); Leukocyte Esterase Urine Negative (Negative); Nitrite Urine Negative (Negative); Specific Gravity - Urine >= 1.030 (1.005-1.025); Urine Blood Negative (Negative); Urine Ketones Negative (Negative); Urine Protein Negative (Neg-Trace)
[2024-01-22 18:39] LABS: Alanine Aminotransferase 58 U/L (0-40); Albumin Level 4.4 g/dL (3.5-5.0); Alkaline Phosphatase 203 U/L (39-117); Anion Gap 14 (12-20); Aspartate Amino Transferase 53 U/L (5-37); Blood Urea Nitrogen 20 mg/dL (9-16); Calcium 10.4 mg/dL (8.4-10.2); Carbon Dioxide 32 mmol/L (22-29); Chloride 97 mmol/L (96-108); Creatinine Clr Calc Pharmacy 69.1; Estimated Glomerular Filt Rate > 60; Glucose Random 124 mg/dL (60-115); Lipase 24 U/L (8-78); Magnesium 1.9 mg/dL (1.6-2.6); Potassium 4.5 mmol/L (3.3-5.1); Sodium 138 mmol/L (135-145); Total Protein 7.3 g/dL (6.5-8.0)
--- NOTE | 2024-01-22 20:41 | ED.GENADULT ---
HPI - General Adult General Chief complaint: Abdominal Pain Stated complaint: severe stomach pain Time Seen by Provider: 01/22/24 20:40 Source: patient History of Present Illness ED Provider: Walter JUNIOR narrative: 73-year-old male with past medical history of diabetes, dyslipidemia, hypertension presenting for abdominal pain. Patient states symptoms began this morning after breakfast with sharp epigastric pain that lasted approximately 45 minutes. His symptoms reoccurred after eating dinner with sharp epigastric pain. Also endorses diaphoresis however denies chest pain, shortness of breath, nausea, vomiting, fevers, chills. He is currently not experiencing any pain. Related Data Home Medications ?Medication ?Instructions ?Recorded ?Confirmed omeprazole magnesium 20 mg 20 mg PO DAILY 11/16/20 09/24/23 tablet,delayed release (Prilosec OTC) psyllium husk 3.4 gram/5.4 gram 1 tbsp PO DAILY 11/18/22 09/24/23 oral powder (Metamucil) finasteride 5 mg tablet 5 mg PO DAILY 09/24/23 09/24/23 Previous Rx's ?Medication ?Instructions ?Recorded albuterol sulfate 90 mcg/actuation 2 puff PO Q6H PRN bronchospasm 30 04/09/23 aerosol inhaler (ProAir HFA) days #8.5 grams fluticasone furoate 100 1 inh inhalation DAILY #30 ea 06/12/23 mcg/actuation blister powder for inhalation (Arnuity Ellipta) Vascepa 1 gram capsule (icosapent 1 g PO BID 90 days #180 caps 07/16/23 ethyl) atorvastatin 40 mg tablet 40 mg PO QPM 90 days #90 tabs 09/24/23 lancets 30 gauge #100 ea 09/24/23 prednisone 20 mg tablet 40 mg (2 x 20 mg) PO DAILY 5 days 10/18/23 #10 tabs hydrochlorothiazide 12.5 mg tablet 12.5 mg PO DAILY #90 tabs 10/30/23 empagliflozin 10 mg tablet 10 mg PO DAILY 90 days #90 tabs 12/08/23 (Jardiance) lisinopril 20 mg tablet 20 mg PO DAILY #90 tabs 01/08/24 blood sugar diagnostic (FreeStyle #100 ea 01/16/24 Test strips) Allergies Allergy/AdvReac Type Severity Reaction Status Date / Time oxycodone [From PERCOCET] AdvReac Intermediate NAUSEA & Verified 01/22/24 18:06 VOMITING Review of Systems Review of Systems: Patient endorses abdominal pain and diaphoresis Patient denies fevers, chills, head pain, chest pain, shortness of breath, nausea, vomiting, urinary Yes all other systems are reviewed and are negative [facility] Past Medical History Medical History Asthma Elevated cholesterol HTN (hypertension) Lipoma Surgical History Hx of excision of mass H/O right inguinal hernia repair H/O colonoscopy Family History Family History Mother Mental health disorder Colon cancer Brother Prostate cancer Social History Social History Housing: House Patient Tobacco Use Status: Former Tobacco user Tobacco use type: Cigarette Cigarette Packs Per Day: 1.5 Cigarettes Per Day: 30.0 Years Smoked: 40 Smoked in Last 30 Days: No e-Cigarette/Vaping Use: Never Used Advance Directives: Yes Advance Directives on File: Yes Advance Directives Date on File: 11/27/21 service: No Current occupational status: retired Cognitive needs: No Hearing needs: No Vision needs: No Physical Exam ED Vital Signs: Vital Signs - 24 hr 01/22/24 18:05 01/22/24 20:54 Temperature 98 F 98.7 F Pulse Rate 97 83 Respiratory Rate 16 20 Blood Pressure 176/119 H 155/79 H Pulse Oximetry 98 99 Oxygen Delivery Method Room Air Room Air BMI result Body Mass Index 25.8 Lungs clear to auscultation bilaterally; normal S1-S2 regular rate rhythm Abdomen is soft, nondistended with mild epigastric tenderness to palpation No lower extremity edema appreciated Skin clear Medical Decision Making Medical Decision Making MDM Narrative: 73-year-old male presenting with abdominal pain I am concerned for the following; pancreatitis, biliary disease, GERD, gastritis, PUD Symptoms less likely secondary to cardiac etiology however will obtain an EKG and troponins --> flat troponin and no signs of ischemia seen on EKG Patient's CT abdomen and abdominal ultrasound showed cholelithiasis Attempting a p.o. trial and will re-evaluate I consulted Dr. Arambula who recommended keeping the patient in the ER for surgery evaluation in the a.m. I placed patient in ED observation and signed out to the night attending Differential Diagnosis Differential Diagnoses: The differential diagnosis associated with the presentation includes Pancreatitis, cholelithiasis, GERD, gastritis, PUD Lab Data MDM Lab Attestation statement: I reviewed the patient's lab results. Elevated LFTs, UA clean, 01/22/24 18:19 01/22/24 18:19 Labs: Lab Results 01/22/24 01/22/24 01/22/24 Range/Units 18:19 20:57 21:50 WBC 14.0 H (4.8-10.8) X10*3/uL RBC 4.63 (4.60-5.80) X10*6/uL Hgb 14.3 (14.0-18.0) g/dl Hct 41.2 L (42.0-52.0) % MCV 89.0 (80.0-98.0) fL MCH 30.9 (27.0-33.0) pg MCHC 34.7 (31.0-36.0) g/dl RDW 13.8 (11.0-16.0) % Plt Count 277 (160-400) X10*3/uL MPV 9.0 L (9.4-12.4) fL Immature Gran % (Auto) 0.4 (0.0-0.4) % Neut % (Auto) 67.3 (45-73) % Lymph % (Auto) 18.5 L (20-40) % [place] % (Auto) 9.3 (2-11) % Eos % (Auto) 3.7 (0-4) % Baso % (Auto) 0.8 (0-2) % Lymph # (Auto) 2.6 (1.2-4.9) X10*3/uL [place] # (Auto) 1.3 H (0.1-1.2) X10*3/uL Eos # (Auto) 0.5 H (0.0-0.4) X10*3/uL Baso # (Auto) 0.1 (0.0-0.2) X10*3/uL Abs Immat Gran (auto) 0.06 H (0.00-0.03) X10*3/uL Absolute Neuts (auto) 9.4 H (2.0-8.3) x10*3/uL Absolute Nucleated RBC 0.000 (0.0-0.012) X10*3/uL Nucleated RBC % (auto) 0.0 (0.0-0.2) /100WBC Sodium 138 (135-145) mmol/L Potassium 4.5 (3.3-5.1) mmol/L Chloride 97 (96-108) mmol/L Carbon Dioxide 32 H (22-29) mmol/L Anion Gap 14 (12-20) BUN 20 H (9-16) mg/dL Creatinine 0.98 (0.5-1.4) mg/dL Estim Creat Clear Calc 69.1 Estimated GFR > 60 Random Glucose 124 H (60-115) mg/dL Lactic Acid 0.8 (0.5-2.0) mmol/L Calcium 10.4 H (8.4-10.2) mg/dL Magnesium 1.9 (1.6-2.6) mg/dL Total Bilirubin 1.0 (0.0-1.0) mg/dL AST 53 H (5-37) U/L ALT 58 H (0-40) U/L Alkaline Phosphatase 203 H (39-117) U/L Troponin I High Sens 4.4 (<3.5-35.0) ng/L Total Protein 7.3 (6.5-8.0) g/dL Albumin 4.4 (3.5-5.0) g/dL Lipase 24 (8-78) U/L Urine Color Yellow Urine Appearance Clear Urine pH 7.0 (5.0-9.0) Ur Specific [place] >= 1.030 H (1.005-1.025) Urine Protein Negative (Neg-Trace) mg/dL Urine Glucose (UA) 500 H (Negative) mg/dL Urine Ketones Negative (Negative) mg/dL Urine Blood Negative (Negative) Urine Nitrite Negative (Negative) Ur Leukocyte Esterase Negative (Negative) 01/23/24 Range/Units 00:16 WBC (4.8-10.8) X10*3/uL RBC (4.60-5.80) X10*6/uL Hgb (14.0-18.0) g/dl Hct (42.0-52.0) % MCV (80.0-98.0) fL MCH (27.0-33.0) pg MCHC (31.0-36.0) g/dl RDW (11.0-16.0) % Plt Count (160-400) X10*3/uL MPV (9.4-12.4) fL Immature Gran % (Auto) (0.0-0.4) % Neut % (Auto) (45-73) % Lymph % (Auto) (20-40) % [place] % (Auto) (2-11) % Eos % (Auto) (0-4) % Baso % (Auto) (0-2) % Lymph # (Auto) (1.2-4.9) X10*3/uL [place] # (Auto) (0.1-1.2) X10*3/uL Eos # (Auto) (0.0-0.4) X10*3/uL Baso # (Auto) (0.0-0.2) X10*3/uL Abs Immat Gran (auto) (0.00-0.03) X10*3/uL Absolute Neuts (auto) (2.0-8.3) x10*3/uL Absolute Nucleated RBC (0.0-0.012) X10*3/uL Nucleated RBC % (auto) (0.0-0.2) /100WBC Sodium (135-145) mmol/L Potassium (3.3-5.1) mmol/L Chloride (96-108) mmol/L Carbon Dioxide (22-29) mmol/L Anion Gap (12-20) BUN (9-16) mg/dL Creatinine (0.5-1.4) mg/dL Estim Creat Clear Calc Estimated GFR Random Glucose (60-115) mg/dL Lactic Acid (0.5-2.0) mmol/L Calcium (8.4-10.2) mg/dL Magnesium (1.6-2.6) mg/dL Total Bilirubin (0.0-1.0) mg/dL AST (5-37) U/L ALT (0-40) U/L Alkaline Phosphatase (39-117) U/L Troponin I High Sens 4.8 (<3.5-35.0) ng/L Total Protein (6.5-8.0) g/dL Albumin (3.5-5.0) g/dL Lipase (8-78) U/L Urine Color Urine Appearance Urine pH (5.0-9.0) Ur Specific [place] (1.005-1.025) Urine Protein (Neg-Trace) mg/dL Urine Glucose (UA) (Negative) mg/dL Urine Ketones (Negative) mg/dL Urine Blood (Negative) Urine Nitrite (Negative) Ur Leukocyte Esterase (Negative) Independent Interpretation I performed an independent interpretation of an: EKG, Ultrasound and CT Scan Interpretation: No ischemic changes I did not appreciate a bowel obstruction on patient's CT I appreciated shadowing indicative of stones on patient's gallbladder ultrasound Radiology Impression Discussion of test interpretation with radiology: I have reviewed the radiologist's reading. Radiologist Impression: CT and ultrasound positive for cholelithiasis Discharge Plan Discharge Clinical Impression: Cholelithiasis Patient Disposition: Still a Patient Prescriptions: No Action albuterol sulfate [ProAir HFA] 90 mcg/actuation HFA aerosol inhaler 2 puff PO Q6H PRN (Reason: bronchospasm) 30 Days Qty: 8.5 3RF Arnuity Ellipta 100 mcg/actuation blister with device 1 inh inhalation DAILY Qty: 30 0RF icosapent ethyl [Vascepa] 1 gram capsule 1 g PO BID 90 Days Qty: 180 1RF hydrochlorothiazide 12.5 mg tablet 12.5 mg PO DAILY Qty: 90 1RF Jardiance 10 mg tablet 10 mg PO DAILY 90 Days Qty: 90 1RF lisinopril 20 mg tablet 20 mg PO DAILY Qty: 90 1RF (DME) FreeStyle Test Strip See Rx Instructions .Route Qty: 100 1RF Rx Instructions: bid for diabetes omeprazole magnesium [Prilosec OTC] 20 mg tablet,delayed release (DR/EC) 20 mg PO DAILY Metamucil 3.4 gram/5.4 gram powder 1 tbsp PO DAILY Rx Instructions: mix into at least 8 oz of water or juice before administering finasteride 5 mg tablet 5 mg PO DAILY (DME) lancets 30 gauge misc See Rx Instructions .Route Qty: 100 3RF Rx Instructions: Check fasting blood sugar and a random blood sugar BID (freestyle) atorvastatin 40 mg tablet 40 mg PO QPM 90 Days Qty: 90 1RF prednisone 20 mg tablet 40 mg PO DAILY 5 Days Qty: 10 0RF Print Language: Montserratian ED Observation ED Observation Admit Reason for Observation: Abdominal Pain Anticipated Goals: Other (Surgery recommendation) Diagnostic Studies: Other HPI and ROS: 73-year-old male presenting for postprandial abdominal pain with CT scan and ultrasound showing cholelithiasis. I consulted Dr. Arambula who recommended keeping the patient in the ED for a surgery eval in the morning. I ruled out cardiac etiology with 2 negative troponins and an EKG that did not show any ischemic changes MDM: Imaging results and lab work consistent with cholelithiasis
[2024-01-22 20:54] VITALS: BP 155/79; PULSE 83; RESP 20; TEMP 37.1; O2SAT 99
--- NOTE | 2024-01-22 21:14 | ECG_ITS ---
Test Reason : ABD PAIN Blood Pressure : / mmHG Vent. Rate : 076 BPM Atrial Rate : 076 BPM P-R Int : 198 ms QRS Dur : 090 ms QT Int : 380 ms P-R-T Axes : 072 061 064 degrees QTc Int : 427 ms Poor data quality, interpretation may be adversely affected Normal sinus rhythm Normal ECG When compared with ECG of 24-MAY-2022 19:45, Nonspecific T wave abnormality no longer evident in Anterior leads Referred By: Vladimir Watson Electronically Signed By:DASIA MEANS
[2024-01-22 21:19] LABS: Lactic Acid 0.8 mmol/L (0.5-2.0)
[2024-01-22 22:19] LABS: Troponin-I High Sensitivity 4.4 ng/L (<3.5-35.0)
[2024-01-23] VITALS (16 sets, daily range): BP systolic 123–204; BP diastolic 50–93; PULSE 73–97; RESP 14–20; TEMP 36.2–37.6; O2SAT 96–100; BMI 24.5
--- NOTE | 2024-01-23 00:18 | PC.NURSE ---
Patient completed PO trial per MD request. initially patient does not have any discomfort but will continue to monitor at this time.
[2024-01-23 00:43] LABS: Troponin-I High Sensitivity 4.8 ng/L (<3.5-35.0)
--- NOTE | 2024-01-23 06:39 | PC.NURSE ---
Report given to short stay surgery
--- NOTE | 2024-01-23 07:22 | P.HPGS_ITS ---
History of Present Illness History of Present Illness Date of Service: 01/23/24 Chief complaint: severe stomach pain Narrative: Bj Lara is a 73 year old male who presents with a proximally 1 day history of epigastric/right upper quadrant pain radiating around to his back. He has never had this before. Because of progression of symptoms, patient presents to the emergency department for further evaluation. He is at present has no nausea or vomiting. This pain is very modestly improved while in the ER overnight. Patient otherwise has regular bowel habits. He has never been jaundiced before. No fatty food intolerance per se. Chart was reviewed and patient evaluated. CT and ultrasound demonstrate cholelithiasis. WBC count 14,000. LFTs within normal limits PMFSH Past Medical History Medical History Asthma Elevated cholesterol HTN (hypertension) Lipoma Family History Family History Mother Mental health disorder Colon cancer Brother Prostate cancer Surgical History Surgical History Hx of excision of mass H/O right inguinal hernia repair H/O colonoscopy Social History Social History Housing: House Patient Tobacco Use Status: Former Tobacco user Tobacco use type: Cigarette Cigarette Packs Per Day: 1.5 Cigarettes Per Day: 30.0 Years Smoked: 40 Smoked in Last 30 Days: No e-Cigarette/Vaping Use: Never Used Advance Directives: Yes Advance Directives on File: Yes Advance Directives Date on File: 11/27/21 service: No Current occupational status: retired Cognitive needs: No Hearing needs: No Vision needs: No Meds Allergies Allergy/AdvReac Type Severity Reaction Status Date / Time oxycodone [From PERCOCET] AdvReac Intermediate NAUSEA & Verified 01/22/24 18:06 VOMITING Active Medications: Current Medications Cefazolin Sodium/Dextrose (Ancef) 2 gm in 50 mls @ 100 mls/hr IV PREOP ONE Stop: 01/23/24 07:48 Lactated Ringer's (Lr) 1,000 mls @ 999 mls/hr IV .Q1H1M JOSÉ MANUEL Stop: 01/23/24 08:30 Home Medications ?Medication ?Instructions ?Recorded ?Confirmed ?Last Taken ?Type omeprazole magnesium 20 mg 20 mg PO DAILY 11/16/20 09/24/23 Unknown History tablet,delayed release (Prilosec OTC) psyllium husk 3.4 gram/5.4 gram 1 tbsp PO DAILY 11/18/22 09/24/23 Unknown History oral powder (Metamucil) finasteride 5 mg tablet 5 mg PO DAILY 09/24/23 09/24/23 Unknown History Physical Exam Vital Signs: Vital Signs: Last Vital Signs Temp 97.7 F 01/23/24 06:00 Pulse 97 01/23/24 06:00 Resp 16 01/23/24 06:00 BP 139/66 01/23/24 06:00 Pulse Ox 98 01/23/24 06:00 O2 Del Method Room Air 01/23/24 06:00 BMI result Body Mass Index 25.8 Eyes: Other: Anicteric Chest: Other: Chest breath sounds bilaterally, HS 1 in 2 GI: Other: Mildly corpulent, soft. Right upper quadrant tenderness and positive Whitney sign. Results Results Labs: Short CBC 01/22/24 Range/Units 18:19 WBC 14.0 H (4.8-10.8) X10*3/uL Hgb 14.3 (14.0-18.0) g/dl Hct 41.2 L (42.0-52.0) % Plt Count 277 (160-400) X10*3/uL BMP 01/22/24 18:19 Sodium 138 Potassium 4.5 Chloride 97 Carbon Dioxide 32 H BUN 20 H Creatinine 0.98 Calcium 10.4 H Liver Function 01/22/24 Range/Units 18:19 Total Bilirubin 1.0 (0.0-1.0) mg/dL AST 53 H (5-37) U/L ALT 58 H (0-40) U/L Alkaline Phosphatase 203 H (39-117) U/L Albumin 4.4 (3.5-5.0) g/dL Urine 01/22/24 Range/Units 18:19 Urine Color Yellow Urine Appearance Clear Urine pH 7.0 (5.0-9.0) Ur Specific [place] >= 1.030 H (1.005-1.025) Urine Protein Negative (Neg-Trace) mg/dL Urine Glucose (UA) 500 H (Negative) mg/dL Assessment and Plan (1) Cholelithiasis: Status: Acute (2) Symptomatic cholelithiasis: Status: Acute Plan Patient has symptoms consistent with either acute cholecystitis or symptomatic biliary colic/cholelithiasis. Risks, benefits, and alternatives of laparoscopic possible open cholecystectomy reviewed the patient and included but not limited to bleeding, infection, recurrence of symptoms, numbness, pain, scarring, bowel or bile duct injury or leak and the patient wishes to proceed. All questions answered. Arrangements were made for this today. Quality Stroke Does the patient have a stroke diagnosis?: No VTE Prior VTE?: No VTE Risk Level:: Surgical - low VTE Device Contraindication: N/A - Device Ordered VTE Drug Contraindication: Treatment Not Indicated Procedures Date of Service Date of Service: 01/23/24
[2024-01-23] MEDS: ceFAZolin Sodium/Dextrose,Iso 2 GM/50 ML PIGGYBACK IV (07:31)
[2024-01-23] MEDS: Lactated Ringers 1,000 ML 999 ML IV (07:32)
--- NOTE | 2024-01-23 07:35 | PC.NURSE ---
Pt. medicated per JUL.
--- NOTE | 2024-01-23 08:31 | PHA.MEDREC ---
Addendum entered by Sherron Elliott RPh 01/23/24 08:43: reviewed by [facility]. Original Note: Pharmacy Consult ? Medication Reconciliation Pharmacy has completed the medication reconciliation. Spoke with patient at bedside, he was able to name all his medications and confirmed the doses with me. He no longer takes prednisone and stated he doesn't really take the psyllium husk anymore.
--- NOTE | 2024-01-23 10:00 | PC.NURSE ---
Pt. resting comfortably. Call light within reach.
--- NOTE | 2024-01-23 13:10 | PC.NURSE ---
Per pre-op., pt.'s approximate surgical time is 15:00.
[2024-01-23 15:39] LABS: Glucose, Whole Blood 68 mg/dL (60-115)
[2024-01-23] MEDS: Lactated Ringers 1,000 ML 80 ML IVCONT (15:40)
--- NOTE | 2024-01-23 15:41 | PC.NURSE ---
Patient arrived to [facility] with one PRN angio in, #20 left AC. Site asymptomatic, flushed well with no issues.
[2024-01-23] MEDS: Dextrose 5 % 250 ML 999 ML IV (15:48)
[2024-01-23] MEDS: Albuterol/Iprat 2.5/0.5MG 3 ML AMPUL.NEB INHALE (15:53)
--- NOTE | 2024-01-23 16:11 | P.CONAN_ITS ---
HPI - Anesthesia Eval Anesthesia Pre-Procedure Meds Is the patient on any of the following meds?: SGLT2 Inhib If yes to any meds - educate patient: Pt education - increased risk of aspiration and/or euvolemic DKA PMFSH Active Problems Active Problems: All Active Problems Symptomatic cholelithiasis (Acute) Cholelithiasis (Acute) Encounter for routine adult physical exam with abnormal findings (Acute) Dyslipidemia (Acute) Nocturia (Acute) Weak urinary stream (Acute) Acute bacterial bronchitis (Acute) Enlarged prostate (Acute) Arm numbness (Acute) Epididymal cyst (Acute) Right varicocele (Acute) Diabetes (Acute) Anterior to posterior tear of superior glenoid labrum of left shoulder (Acute) Lymphadenopathy (Acute) Hyperkalemia (Acute) Abnormal CT of the abdomen (Acute) Enteritis (Acute) Elevated fasting blood sugar (Acute) Laceration of head (Acute) Fall (Acute) Left knee pain (Acute) Tubular adenoma of colon (Acute) Family history of colon cancer in mother (Acute) Preop examination (Acute) Encounter for annual wellness visit (AWV) in Medicare patient (Acute) Left shoulder pain (Acute) Screening for colon cancer (Acute) High triglycerides (Acute) Screening PSA (prostate specific antigen) (Acute) HTN (hypertension) (Acute) Lumbar back pain (Acute) Somatic dysfunction of left sacroiliac joint (Acute) Essential hypertension (Acute) Tick bite (Acute) Past Medical History Medical History (Updated 01/23/24 @ 07:24 by Hiram Arambula MD) Asthma Elevated cholesterol HTN (hypertension) Lipoma Family History Family History Mother Mental health disorder Colon cancer Brother Prostate cancer Family history of problems with anesthesia: No Surgical History Surgical History (Updated 01/23/24 @ 15:25 by Kenia Rivera RN) Hx of excision of mass H/O right inguinal hernia repair H/O colonoscopy History of Problems with Anesthesia: No Social History Social History Housing: House Are you a primary home care and home health aides teacher to a significant other at home: No Do you presently have visiting nurse or other home services: No Patient Tobacco Use Status: Former Tobacco user Tobacco use type: Cigarette Cigarette Packs Per Day: 1.5 Cigarettes Per Day: 30.0 Years Smoked: 40 Smoked in Last 30 Days: No e-Cigarette/Vaping Use: Never Used Use of substances other than those prescribed or required for medical reasons: Yes Substance Use Type Other:: Edible Substance Use Frequency: Occasionally Have you been hit, kicked, punched, or otherwise hurt by someone within the past year? If so, by whom?: No Are you DNR?: No Advance Directives: Yes Advance Directives on File: Yes Advance Directives Date on File: 11/27/21 Recently lost weight without trying: No How much weight loss: Not applicable Eating poorly because of decreased appetite: No Nutrition screen score: 0 Nutrition Risks: No Nutritional Risk Poor oral hygiene: Yes (Upper and lower partial) service: No Current occupational status: retired Cognitive needs: No Hearing needs: No Vision needs: No Meds Allergies Allergy/AdvReac Type Severity Reaction Status Date / Time oxycodone [From PERCOCET] AdvReac Intermediate NAUSEA & Verified 01/23/24 15:23 VOMITING Active Medications: Current Medications Lactated Ringer's (Lr) 1,000 mls @ 80 mls/hr IVCONT .[id number] [facility] Last Admin: 01/23/24 15:40 Dose: 80 mls/hr Dextrose (D5w) 250 mls @ 0 mls/hr IV .Q0M [facility] Last Admin: 01/23/24 15:48 Dose: 999 mls/hr Cefazolin Sodium/Dextrose (Ancef) 2 gm in 50 mls @ 100 mls/hr IV PREOP ONE Stop: 01/23/24 16:34 Home Medications ?Medication ?Instructions ?Recorded ?Confirmed ?Last Taken ?Type omeprazole magnesium 20 mg 20 mg PO DAILY@0630 11/16/01/23/24 01/22/24 History tablet,delayed release (Prilosec OTC) finasteride 5 mg tablet 5 mg PO DAILY 09/24/23 01/23/24 01/22/24 History atorvastatin 40 mg tablet 40 mg PO BEDTIME 01/23/24 01/23/24 01/22/24 History Exam Height,Weight and Vital Signs: Height 5 ft 9 in Weight 79.379 kg Last Vital Signs Temp 98.2 F 01/23/24 15:26 Pulse 85 01/23/24 15:26 Resp 16 01/23/24 15:26 BP 160/72 H 01/23/24 15:26 Pulse Ox 97 01/23/24 15:26 O2 Del Method Room Air 01/23/24 15:26 Pertinent Lab Results Pertinent Lab Results: Laboratory Tests 01/22/24 01/22/24 01/22/24 18:19 20:57 21:50 WBC 14.0 H RBC 4.63 Hgb 14.3 Hct 41.2 L MCV 89.0 MCH 30.9 MCHC 34.7 RDW 13.8 Plt Count 277 MPV 9.0 L Immature Gran % (Auto) 0.4 Neut % (Auto) 67.3 Lymph % (Auto) 18.5 L [place] % (Auto) 9.3 Eos % (Auto) 3.7 Baso % (Auto) 0.8 Lymph # (Auto) 2.6 [place] # (Auto) 1.3 H Eos # (Auto) 0.5 H Baso # (Auto) 0.1 Abs Immat Gran (auto) 0.06 H Absolute Neuts (auto) 9.4 H Absolute Nucleated RBC 0.000 Nucleated RBC % (auto) 0.0 Sodium 138 Potassium 4.5 Chloride 97 Carbon Dioxide 32 H Anion Gap 14 BUN 20 H Creatinine 0.98 Estim Creat Clear Calc 69.1 Estimated GFR > 60 POC Glucose Random Glucose 124 H Lactic Acid 0.8 Calcium 10.4 H Magnesium 1.9 Total Bilirubin 1.0 AST 53 H ALT 58 H Alkaline Phosphatase 203 H Troponin I High Sens 4.4 Total Protein 7.3 Albumin 4.4 Lipase 24 Urine Color Yellow Urine Appearance Clear Urine pH 7.0 Ur Specific [place] >= 1.030 H Urine Protein Negative Urine Glucose (UA) 500 H Urine Ketones Negative Urine Blood Negative Urine Nitrite Negative Ur Leukocyte Esterase Negative 01/23/24 01/23/24 00:16 15:32 WBC RBC Hgb Hct MCV MCH MCHC RDW Plt Count MPV Immature Gran % (Auto) Neut % (Auto) Lymph % (Auto) [place] % (Auto) Eos % (Auto) Baso % (Auto) Lymph # (Auto) [place] # (Auto) Eos # (Auto) Baso # (Auto) Abs Immat Gran (auto) Absolute Neuts (auto) Absolute Nucleated RBC Nucleated RBC % (auto) Sodium Potassium Chloride Carbon Dioxide Anion Gap BUN Creatinine Estim Creat Clear Calc Estimated GFR POC Glucose 68 Random Glucose Lactic Acid Calcium Magnesium Total Bilirubin AST ALT Alkaline Phosphatase Troponin I High Sens 4.8 Total Protein Albumin Lipase Urine Color Urine Appearance Urine pH Ur Specific [place] Urine Protein Urine Glucose (UA) Urine Ketones Urine Blood Urine Nitrite Ur Leukocyte Esterase Airway Mallampati Class: I TM Dist: <=3cm Neck ROM: Full Partial: Upper and Lower Heart: ok Lungs: ok Assessment and Plan Assessment Anesthesia Assessment: Anesthesia Plan Discussed and Chart Reviewed Final Anesthetic Review Family History of Problems with Anesthesia: No History of Problems with Anesthesia: No NPO: Yes ASA Class: II and Emergency Final Preanesthetic Review: No Changes in Pt Med Stat, Meds/Allgs Chart Reviewed, Consent Obtained/Reviewed and Anes Risks/Benef Reviewed Patient Risk: Intermediate Procedure Risk: Intermediate Anesthetic Plan Anesthetic Plan: GA and Agree w/ Assess. and Plan Disposition: Standard PACU
--- NOTE | 2024-01-23 16:15 | PC.NURSE ---
Patient in SSS. Blood sugar 68, asymptomatic Dr. Pagan made aware. New order to hang D5W. See orders.
--- NOTE | 2024-01-23 17:34 | P.OP_ITS ---
Operative Note Operative Note Date of Service: 01/23/24 Narrative: Preoperative diagnosis: [] Acute cholecystitis Postop diagnosis: [] Acute phlegmonous cholecystitis/hydrops of gallbladder Procedure [] laparoscopic cholecystectomy Surgeon: [] Ralf Rerecording Mixer: [] Slime Type of Anesthesia: [] General Indication for surgery: [] Markedly edematous phlegmonous gallbladder with omental adhesions to it. Because of his turgidity, gallbladder was decompressed where hydrops was demonstrated. Intrahepatic gallbladder Findings: [] Patient brought to the operating room, placed on operative table supine position, after an adequate level of general anesthesia was induced, the patient's abdomen was prepped and draped in usual sterile fashion using a supraumbilical curvilinear incision, Cannon technique was used to insufflate abdominal cavity to 15 mm of CO2. Upper midline and right subcostal ports were placed under direct laparoscopic view, and the patient placed in reverse Trendelenburg position, and tilted to the left. Omental adhesions were swept off the gallbladder were with findings as noted above. Because of its marked turgidity, gallbladder was decompressed with aspiriant consistent with hydrops. Gallbladder was then grasped with laparoscopic graspers, and retracted superiorly and laterally. Hilum was approached with the cystic artery and cystic duct were each identified, circumferentially skeletonized, traced directly into the gallbladder, and critical view obtained. Cystic artery was clipped proximally x2, distally x1, and transected. Cystic duct was clipped proximally x3, distally x1, and transected gallbladder which was moderately intrahepatic was then cauterized in the gallbladder fossa using Bovie. Phlegmonous specimen was placed in an Endo-Catch bag, a retrieved through the umbilical port. Abdominal cavity was copiously irrigated and secured hemostasis. All ports removed under direct laparoscopic view. Wounds were closed in the following manner; umbilical wound is fascia reapproximated using interrupted 0 Vicryl sutures. Skin wounds were closed using subcuticular 4-0 Vicryl sutures followed by Steri-Strips and sterile dressings. Wounds were infiltrated 0.5% Marcaine at completion. Sponge, needle, and instrument counts reported correct. Patient tolerated the procedure well and emerged from anesthesia stable condition. EBL minimal
[2024-01-23 17:42] LABS: Glucose, Whole Blood 129 mg/dL (60-115)
[2024-01-23] MEDS: HYDROmorphone HCl 0.5 MG/0.5 ML SYRINGE IVPUSH (17:55)
[2024-01-23] MEDS: Piperacillin Sodium/Tazobactam 3.375 GM in 0.9 % Sodium Chloride 50 ML IV ×2 (18:40→23:37)
[2024-01-23 19:50] LABS: Glucose, Whole Blood 123 mg/dL (60-115)
[2024-01-23] MEDS: Atorvastatin Calcium 40 MG TABLET PO (20:12)
[2024-01-23] MEDS: Acetaminophen 325 MG TABLET 650 MG PO (20:12)
[2024-01-23] MEDS: Docusate Sodium 100 MG CAPSULE PO (20:13)
[2024-01-23] MEDS: ondansetron HCL 4 MG/2 ML VIAL IVPUSH (20:13)
[2024-01-23] MEDS: HYDROmorphone HCl 2 MG TABLET PO (22:18)
[2024-01-23] MEDS: 0.9 % Sodium Chloride Flush 3 ML SYRINGE IVFLUSH (23:42)
--- NOTE | 2024-01-24 02:43 | PC.NURSE ---
[id number]; Patient alert and orientated, SBA out of bed. [address] on abd- gauze, C/D/I. Pain mngnt continuing Kath Palencia notifed of patients BP- 176/58, one time of Hydralazine put in. BP re checked post pain meds- 123/64- provider Thai Vincent said to not give Hydralazine
[2024-01-24 03:35] VITALS: BP 142/67; PULSE 85; RESP 20; TEMP 37; O2SAT 93
--- NOTE | 2024-01-24 04:44 | PC.NURSE ---
0444 Lactic Acid resulted at 3.2, provider Climax aware. Patient has a productive cough-CXR and resp panel ordered
[2024-01-24] MEDS: Omeprazole 20 MG CAPSULE.DR PO (05:21)
[2024-01-24] MEDS: Piperacillin Sodium/Tazobactam 3.375 GM in 0.9 % Sodium Chloride 50 ML IV (05:25)
[2024-01-24] MEDS: HYDROmorphone HCl 2 MG TABLET PO ×2 (05:29→10:25)
[2024-01-24 06:50] VITALS: BP 139/64; PULSE 87; RESP 16; TEMP 36.6; O2SAT 94
[2024-01-24 07:06] LABS: Glucose, Whole Blood 121 mg/dL (60-115)
[2024-01-24] MEDS: Finasteride 5 MG TABLET PO (08:15)
[2024-01-24] MEDS: Docusate Sodium 100 MG CAPSULE PO (08:15)
[2024-01-24 08:19] VITALS: BP 116/62
[2024-01-24] MEDS: hydroCHLOROthiazide 12.5 MG TABLET PO (08:19)
[2024-01-24] MEDS: lisinopriL 20 MG TABLET PO (08:20)
--- NOTE | 2024-01-24 09:09 | P.PNGS_ITS ---
Subjective Subjective Date of Service: 01/24/24 Interval history: describes pain on incision tolerating diet well no events overnight Physical Exam 2 Vital Signs: Vital Signs: Last Vital Signs Temp 98 F 01/24/24 06:50 Pulse 87 01/24/24 06:50 Resp 16 01/24/24 06:50 BP 116/62 01/24/24 08:19 Pulse Ox 94 01/24/24 06:50 O2 Del Method Room Air 01/24/24 06:50 O2 Flow Rate 2 01/23/24 18:25 BMI result Body Mass Index 24.5 Const: Other: Looks well General: comfortable and no acute distress Eyes: Other: Anicteric Resp: Effort & Inspection: normal respiratory effort Cardio: Rate: regular rate GI: Other: Dressings clean and dry Palpation (GI): Soft to palpation and not firm Objective Data Active Medications Acetaminophen (Acetaminophen 325 Mg Tablet) 650 mg PO Q6H PRN PRN Reason: Pain, Mild (Pain Scale 1-3), fever or headache Last Admin: 01/23/24 20:12 Dose: 650 mg Documented By: NILS Al Hydroxide/Mg Hydroxide (Magnesium Hydrox/Alum Hydrox 30 Ml Oral.Susp) 30 ml PO Q4H PRN PRN Reason: Heartburn Albuterol Sulfate (Albuterol Sulfate 90 Mcg 8 Gm Inhaler) 2 puff INHALE Q4H PRN PRN Reason: Shortness of Breath/Wheezing Atorvastatin Calcium (Atorvastatin Calcium 40 Mg Tablet) 40 mg PO BEDTIME [facility] Last Admin: 01/23/24 20:12 Dose: 40 mg Documented By: NILS Calcium Carbonate (Calcium Carbonate 750 Mg Tab.Chew) 750 mg PO Q4H PRN PRN Reason: Heartburn Docusate Sodium (Docusate Sodium 100 Mg Capsule) 100 mg PO BID [facility] Last Admin: 01/24/24 08:15 Dose: 100 mg Documented By: EDER Finasteride (Finasteride 5 Mg Tablet) 5 mg PO DAILY [facility] Last Admin: 01/24/24 08:15 Dose: 5 mg Documented By: EDER Fluticasone Propionate (Fluticasone Propionate 100 Mcg Blst.W.Dev) 1 puff INHALE RDAILY [facility] Glucose (Glucose Gel 15 Gm Gel..Gram.) 15 gm PO Q15M PRN; Protocol PRN Reason: per Hypoglycemia Standing Ord. Hydrochlorothiazide (Hydrochlorothiazide 12.5 Mg Tablet) 12.5 mg PO DAILY [facility]; Protocol Last Admin: 01/24/24 08:19 Dose: 12.5 mg Documented By: EDER Hydromorphone HCl (Hydromorphone Hcl 2 Mg Tablet) 2 mg PO Q4H PRN PRN Reason: Pain, Moderate(Pain Scale 4-6) Last Admin: 01/24/24 05:29 Dose: 2 mg Documented By: NILS Hydromorphone HCl (Hydromorphone Hcl 0.5 Mg/0.5 Ml Syringe) 0.5 mg IVPUSH Q4H PRN; Protocol PRN Reason: Pain, Severe (Pain Scale 7-10) Lactated Ringer's (Lr) 1,000 mls @ 80 mls/hr IVCONT .[id number] [facility] Last Admin: 01/24/24 05:58 Dose: Not Given Documented By: NILS Non-Admin Reason: IV Running Piperacillin Sod/Tazobactam (Sod 3.375 gm/ Sodium Chloride) 50 mls @ 100 mls/hr IV Q6H [facility] Last Infusion: 01/24/24 05:50 Dose: Infused Documented By: NILS Dextrose (D10) 250 mls @ 750 mls/hr IV Q15M PRN; Protocol PRN Reason: per Hypoglycemia Standing Ord. Insulin Human Lispro (Insulin Lispro 100 Unit/Ml 3 Ml Vial) 0 unit SUBCUT QIDACHS [facility]; Protocol Last Admin: 01/24/24 07:52 Dose: Not Given Documented By: EDER Non-Admin Reason: No Insulin Coverage Lisinopril (Lisinopril 20 Mg Tablet) 20 mg PO DAILY [facility]; Protocol Last Admin: 01/24/24 08:20 Dose: 20 mg Documented By: EDER Magnesium Hydroxide (Milk Of Magnesia 30 Ml Oral.Susp) 30 ml PO DAILY PRN PRN Reason: Constipation Melatonin (Melatonin 3 Mg Tablet) 6 mg PO BEDTIME PRN PRN Reason: Insomnia Omeprazole (Omeprazole 20 Mg Capsule.Dr) 20 mg PO DAILY@0630 [facility] Last Admin: 01/24/24 05:21 Dose: 20 mg Documented By: NILS Ondansetron HCl (Ondansetron Hcl 4 Mg/2 Ml Vial) 4 mg IVPUSH Q8H PRN PRN Reason: Nausea and Vomiting Last Admin: 01/23/24 20:13 Dose: 4 mg Documented By: NILS Polyethylene Glycol (Polyethylene Glycol 3350 17 Gm Powd.Pack) 17 gm PO DAILY PRN PRN Reason: Constipation Sodium Chloride (0.9 % Sodium Chloride Flush 3 Ml Syringe) 3 ml IVFLUSH QSHIFT [facility] Last Admin: 01/24/24 08:22 Dose: Not Given Documented By: EDER Non-Admin Reason: IV Running Labs 01/22/24 18:19 01/22/24 18:19 Labs: Laboratory Results - last 24 hr 01/23/24 01/23/24 01/23/24 15:32 17:38 19:41 POC Glucose 68 129 H 123 H 01/24/24 06:49 POC Glucose 121 H Procedures Date of Service Date of Service: 01/24/24 Progress Note: A&P Assessment and plan (1) Symptomatic cholelithiasis: Status: Acute Assessment and Plan: Status post laparoscopic cholecystectomy for acute cholecystitis Doing well Abdomen is soft and benign Good GI functions Okay to DC home today Instructions reinforced with patient Follow up with Dr. Arambula Time Spent With Patient Time: Total time managing care of this patient today ____ minutes. Quality Stroke Does the patient have a stroke diagnosis?: No VTE Prior VTE?: No VTE Risk Level:: Surgical - low VTE Device Contraindication: N/A - Device Ordered VTE Drug Contraindication: Treatment Not Indicated
--- NOTE | 2024-01-24 10:30 | HO.POSTANES ---
Post Anesthesia Evaluation Post Anesthesia Evaluation Date of Service: 01/24/24 Vital Signs: Vital Signs Temp Pulse Resp BP Pulse Ox O2 Del Method 01/24/24 08:19 116/62 01/24/24 06:50 98 F 87 16 139/64 94 Room Air 01/24/24 03:35 98.6 F 85 20 142/67 H 93 Room Air 01/23/24 22:39 123/64 01/23/24 22:38 86 123/64 96 Room Air Anesthesia: General Endotracheal-GETA Mental Status: Awake Pain Control: Satisfactory Nausea/Vomiting: None Hydration: Adequate Anesthesia-Related Issues: No Anes. Related Issues
[2024-01-24 11:14] LABS: Glucose, Whole Blood 138 mg/dL (60-115)
--- NOTE | 2024-01-24 12:59 | P.DS_ITS ---
DS: Providers Provider Date of Service: 01/24/24 Date of admission: 01/23/24 18:27 Primary care physician: LATASHA Stacy DS: Diagnosis Discharge Diagnosis (1) Symptomatic cholelithiasis: Status: Acute DS: Summary Hospital Course Hospital Course: HPI AT ADMISSION: Bj Lara is a 73 year old male who presents with a proximally 1 day history of epigastric/right upper quadrant pain radiating around to his back. He has never had this before. Because of progression of symptoms, patient presents to the emergency department for further evaluation. He is at present has no nausea or vomiting. This pain is very modestly improved while in the ER overnight. Patient otherwise has regular bowel habits. He has never been jaundiced before. No fatty food intolerance per se. Chart was reviewed and patient evaluated. CT and ultrasound demonstrate cholelithiasis. WBC count 14,000. LFTs within normal limits HOSPITAL COURSE: The patient was admitted to the surgical service for further treatment of the acute cholecystitis. He elected to proceed with laparoscopic cholecystectomy, possible open. He was added onto the OR schedule for that day. On 01/23/24, a laparoscopic cholecystectomy was performed by Dr. Arambula without complication. The patient tolerated the procedure well. He had an uncomplicated recovery course. On POD #1, he felt well and was tolerating a solid diet without nausea or vomiting, had good pain control and was ambulating without difficulty. He was hemodynamically stable. His abdomen was benign with appropriate post op tenderness and clean and intact dressings. He felt ready for discharge. He was discharged to home on 01/24/24 in stable condition. He is to follow up in the office in 1 week. Status at Discharge Functional status at discharge: independent ambulation Overall status at discharge: patient is progressing back to baseline Time Attestation Discharge Coordination Time (in mins): 30 Quality: Safe Use of Opioids Does Pt have an Active Cancer Diagnosis on the Problem List?: No Quality: Stroke Does the patient have a stroke diagnosis?: No Physical Exam Vital Signs: Vital Signs: Last Vital Signs Temp 98 F 01/24/24 06:50 Pulse 87 01/24/24 06:50 Resp 16 01/24/24 06:50 BP 116/62 01/24/24 08:19 Pulse Ox 94 01/24/24 06:50 O2 Del Method Room Air 01/24/24 06:50 O2 Flow Rate 2 01/23/24 18:25 BMI result Body Mass Index 24.5 Const: General: comfortable, no acute distress and alert Resp: Effort & Inspection: normal respiratory effort GI: Inspection: Yes incision (dressings c/d/i) Palpation (GI): Soft to palpation and no guarding Skin: General skin exam: no rashes or lesions noted and no jaundice DS: Data Data Completed and Pending Pending studies at discharge: Pending at discharge 01/23/24 17:22 Surgical [PTH] Routine Discharge Plan Discharge Patient Disposition: Home, Self-Care Referrals: Nam Arguello FNP- [Primary Care Provider] - Hiram Arambula MD [Physician] - Discharge Medications: New docusate sodium [Colace] 100 mg capsule 100 mg PO BID Qty: 30 0RF oxycodone-acetaminophen [Percocet] 5-325 mg tablet 1 tab PO Q4-6H PRN (Reason: pain) Qty: 20 0RF Rx Instructions: Partial Fill upon patient request. Continued albuterol sulfate [ProAir HFA] 90 mcg/actuation HFA aerosol inhaler 2 puff PO Q6H PRN (Reason: bronchospasm) 30 Days Qty: 8.5 3RF Arnuity Ellipta 100 mcg/actuation blister with device 1 inh inhalation DAILY Qty: 30 0RF icosapent ethyl [Vascepa] 1 gram capsule 1 g PO BID 90 Days Qty: 180 1RF hydrochlorothiazide 12.5 mg tablet 12.5 mg PO DAILY Qty: 90 1RF Jardiance 10 mg tablet 10 mg PO DAILY 90 Days Qty: 90 1RF lisinopril 20 mg tablet 20 mg PO DAILY Qty: 90 1RF (DME) FreeStyle Test Strip See Rx Instructions .Route Qty: 100 1RF Rx Instructions: bid for diabetes atorvastatin 40 mg tablet 40 mg PO BEDTIME omeprazole magnesium [Prilosec OTC] 20 mg tablet,delayed release (DR/EC) 20 mg PO DAILY@0630 finasteride 5 mg tablet 5 mg PO DAILY (DME) lancets 30 gauge misc See Rx Instructions .Route Qty: 100 3RF Rx Instructions: Check fasting blood sugar and a random blood sugar BID (freestyle) No Action simethicone 125 mg capsule 250 mg PO BID PRN (Reason: gas pain) Qty: 30 0RF Discharge Orders: Discharge Order (Routine); Ordered 01/24/24 Ordered By: Thai Vincent Diet: Advance to usual diet Activity on Discharge: No heavy lifting Print Language: Greenlandic Activity Restrictions/Additional Instructions: Apply an ice pack for short intervals (20 minutes on, followed by at least 20 minutes off) for the first 2 days. Do not apply heat. Do not use creams, lotions, or topical antibiotics. These can cause infection or allergic reaction. Ok to shower 48 hours after your surgery. Remove dressings in 2 days and replace as needed. You have steri strips (small white cloth strips) covering your incision- these will fall off ~1 week. Follow up in office with Dr. Arambula in 1 week. ([phone]) No heavy lifting (>10lbs) or strenuous activity! Call Your Doctor If: -Your temperature exceeds 101.5? F -You experience excessive pain or swelling -You have an unexpected reaction to medication -You have excessive bleeding -You experience continued vomiting/nausea -Your incision begins to separate -Your incision shows signs of infection such as increased redness, swelling, excessive pain, drainage (light blood or clear fluid is normal) or heat Care Plan Goals: Returned to baseline Health Concerns: Postop pain Hypertension Plan of Treatment: Oral pain meds Office follow-up Assessment: Doing well postop Patient Instructions: Laparoscopic Cholecystectomy (DC) Discharge Date/Time: 01/24/24 11:59
== END 2024-01-24 11:59 | disposition home or self-care (01) ==
LOC: HO.ED 01-23 15:12 → HO.SSS 01-23 15:23 → HO.S3 01-23 17:59 → HO.SSS 01-23 18:28 → HO.S3 01-23 18:28
PROVIDERS: Physician Assistant Medical; Student in an Organized Health Care Education/Training Program; Surgery; Admitting Provider Physician Assistant Surgical; Emergency Provider Emergency Medicine; PCP Nurse Practitioner Family; Visit Provider Physician Assistant Surgical
PROC: 0FT44ZZ Resection of Gallbladder, Percutaneous Endoscopic Approach (ICD-10-PCS; CPT 47562; principal; 2024-01-23 15:20)
DX: K80.20 Calculus of gallbladder without cholecystitis without obstruction (principal); E11.9 Type 2 diabetes mellitus without complications; I10 Essential (primary) hypertension; E78.5 Hyperlipidemia, unspecified; L60.8 Other nail disorders; Z79.899 Other long term (current) drug therapy
CPT/HCPCS: 47562; 36415; 74176; 76705; 80053; 81003; 82947; 83605; 83690; 83735; 84484; 85025; 88304; 93005; 96361; 96365; 96366; 96367; 96375; 99221; 99285; J0690; J1170; J1885; J2405; J2543; J2704; J2795; J3010; J7120

== ENCOUNTER → 2024-01-22 20:31 | Outpatient (BNV) | payer BC, SELFPAY | PROVIDERS: Emergency Provider Emergency Medicine; PCP Nurse Practitioner Family; Visit Provider Surgery | DX: K80.20 Calculus of gallbladder without cholecystitis without obstruction (principal) | CPT/HCPCS: 47562; 99024; 99222 ==

== ENCOUNTER 2024-02-04 08:15 | Outpatient (AMB) | payer MEDICARE, SELFPAY ==
--- NOTE | 2024-02-04 08:25 | MHC.OFFVIS ---
Intake Visit Reasons: s/p Lap/Joleen Intake Note: Patient here s/p lap joleen on 01-23-2024. Reports incisions healing well. Patient c/o: reports RUQ with deep breath or when yawning, reports feels fatigued, reports no chest pains. Pathology Laboratory Aide Required: No Accompanied by: Self / Same As Patient Allergies oxycodone [From PERCOCET] Adverse Reaction (Intermediate, Verified 02/04/24 08:36) NAUSEA & VOMITING HPI Comments Details: Patient was status post laparoscopic cholecystectomy. He is doing quite well. Starting a diet. He is having regular bowel habits although he had some loose stool recently. No other wound issues or complaints. Minimal incisional discomfort. He is increasing his activity level. [facility] Medical History Asthma Elevated cholesterol HTN (hypertension) Lipoma Surgical History History of laparoscopic cholecystectomy (01/23/24) Hx of excision of mass H/O right inguinal hernia repair H/O colonoscopy Family History Mother Mental health disorder Colon cancer Brother Prostate cancer Social History Household Members: None Housing: House Are you a primary child care aide to a significant other at home: No Do you presently have visiting nurse or other home services: No Comment: ache Patient Tobacco Use Status: Former Tobacco user Tobacco use type: Cigarette Cigarette Packs Per Day: 1.5 Cigarettes Per Day: 30.0 Years Smoked: 40 e-Cigarette/Vaping Use: Never Used Advance Directives Date on File: 11/27/21 service: No Current occupational status: retired Cognitive needs: No Hearing needs: No Vision needs: No Physical Exam Eyes Other: Anicteric GI Other: Abdomen is soft and benign. All wounds clean dry and intact Assessment & Plan Assessment & Plan (1) Status post laparoscopic cholecystectomy: Code(s): Z90.49 - Acquired absence of other specified parts of digestive tract Category: Medical Plan Patient is doing well. He has been given local instructions including avoiding strenuous activities for next few weeks time we will otherwise follow-up p.r.n.. All questions answered Coding Level of Care Code Global (61556) Diagnoses Status post laparoscopic cholecystectomy Z90.49
== END 2024-02-04 08:44 | disposition home or self-care (01) ==
PROVIDERS: PCP Nurse Practitioner Family; Visit Provider Surgery
DX: Z90.49 Acquired absence of other specified parts of digestive tract (principal)
CPT/HCPCS: 99024

== ENCOUNTER → 2024-02-04 08:15 | Outpatient (BNVA) | payer MEDICARE, SELFPAY | PROVIDERS: PCP Nurse Practitioner Family; Visit Provider Surgery | DX: Z09 Encounter for follow-up examination after completed treatment for conditions other than malignant neoplasm (principal); Z90.49 Acquired absence of other specified parts of digestive tract | CPT/HCPCS: 99212 ==

== ENCOUNTER 2024-02-09 11:23 | Outpatient (AMB) | payer MEDICARE, SELFPAY ==
--- NOTE | 2024-02-09 11:28 | A.OFFPC_ITS ---
Vital Signs 02/09/24 11:29 Height 5 ft 9 in Weight 156 lb BMI 23.0 BP 118/64 Blood Pressure Location Rt brachial Position Sitting Pulse 86 Pulse Source Pulse Oximeter Pulse Oximetry (%) 96 Intake Visit Reasons: 4 mon f/u - DM Intake Note: pt is here for DM f/up Allergies oxycodone [From PERCOCET] Adverse Reaction (Intermediate, Verified 02/09/24 12:15) NAUSEA & VOMITING Medication List - Last Reconciled 02/09/24 by EDER Weiss albuterol sulfate 90 mcg/actuation (ProAir HFA) 2 puffs PO Q6H PRN 30 days atorvastatin 40 mg PO BEDTIME blood sugar diagnostic (FreeStyle Test strips) bid for diabetes docusate sodium (Colace) 100 mg PO BID empagliflozin (Jardiance) 10 mg PO DAILY 90 days finasteride 5 mg PO DAILY fluticasone furoate 100 mcg/actuation (Arnuity Ellipta) 1 inh inhalation DAILY hydrochlorothiazide 12.5 mg PO DAILY lancets Check fasting blood sugar and a random blood sugar BID (freestyle) lisinopril 20 mg PO DAILY omeprazole magnesium (Prilosec OTC) 20 mg PO DAILY@0630 Vascepa (icosapent ethyl) 1 g PO BID 90 days NS Tobacco use date assessed: 06/04/23 Fall risk assessment: No Falls in past year Last assessed Fall Risk: 02/09/24 Dental Screening Dental Screen Date: 07/02/23 HPI 4 mon f/u - DM HPI Details Pt is a diabetic, on an IBETH and a statin. A1C in office today is 6.2. Due for microalbumin next month, will order. Denies polyuria, polydipsia, does report neuropathy. Pt denies any signs and symptoms of hypoglycemia and does know how to correct it. Pt c/o increased fatigue. He also reports some shortness of breath with exertion. He does have a hx of asthma. Will do an EKG in office. Will also order stress test, echo, and labs. Denies any chest pain,wheezing, orthopnea, PND. [facility] Medical History Asthma Elevated cholesterol HTN (hypertension) Lipoma Surgical History History of laparoscopic cholecystectomy (01/23/24) Hx of excision of mass H/O right inguinal hernia repair H/O colonoscopy Family History Mother Mental health disorder Colon cancer Brother Prostate cancer Social History Household Members: None Housing: House Are you a primary care support representative to a significant other at home: No Do you presently have visiting nurse or other home services: No Comment: ache Patient Tobacco Use Status: Former Tobacco user Tobacco use type: Cigarette Cigarette Packs Per Day: 1.5 Cigarettes Per Day: 30.0 Years Smoked: 40 e-Cigarette/Vaping Use: Never Used Advance Directives Date on File: 11/27/21 service: No Current occupational status: retired Cognitive needs: No Hearing needs: No Vision needs: No Questionnaire PHQ-9 Over the last 2 weeks, how often have you been bothered by any of the following problems? 54125 - PHQ-9 Billing: Patient declined-do not bill Source: Developed by Drs. Kyle Bravo, Yareli Josue, Lucho Dhaliwal and colleagues, with an educational leyla from [employer]. Thrive Questionnaire Date Thrive assessed: 02/07/24 I am a: Patient What is your living situation today?: I have a steady place to live Within the past 12 months, did the food you bought not last and you didn't have the money to get more?: Never true Within the past 12 months, did you worry whether your food would run out before you got money to buy more?: Never true Do you have trouble paying for medicines?: No Do you have trouble getting transportation to medical appointments?: No Do you have trouble paying your heating and electricity bill?: No Do you have trouble with day-to-day activities such as bathing, preparing meals, shopping, managing finances, etc.?: No Are you interested in more education?: No Currently or been in a relationship where the following occur: No concerns reported THRIVE Score: 0 AUDIT C Alcohol Use Questionnaire (AUDIT-C) 1. How often do you have a drink containing alcohol?: 2-3 times a week 2. How many drinks containing alcohol do you have on a typical day when you are drinking?: 1 or 2 3. How often do you have six or more drinks on one occasion?: Never Total Score: 3 ANDRIY-7 AMB Questionnaire ANDRIY-7 Date ANDRIY - 7 assessed: 06/04/22 Feeling nervous, anxious, or on edge: 0 = Not at all Not being able to stop or control worryin = Not at all Worrying too much about different things: 0 = Not at all Trouble relaxin = Not at all Being so restless that it is hard to sit still: 0 = Not at all Becoming easily annoyed or irritable: 0 = Not at all Feeling afraid as if something awful might happen: 0 = Not at all Total ANDRIY-7 score (0-4 normal; 5-9 mild; 10-14 moderate; 15-21 severe): 0 Source: Developed by Drs. Kyle Bravo, Yareli Josue, Lucho Dhaliwal and colleagues, with an educational leyla from [employer]. ANDRIY-7 Assessment Billing ANDRIY-7 Assessment Tool: ANDRIY-7 Assessment 09513 Review of Systems Const Reports as per HPI Physical exam (Primary Care) Vital Signs: Last Vital Signs Pulse 86 02/09/24 11:29 BP 118/64 02/09/24 11:29 Pulse Ox 96 02/09/24 11:29 BMI result Body Mass Index 23.0 Tobacco/Smoking Status: Tobacco use Status Tobacco use date assessed 06/04/23 02/09/24 11:29 Patient Tobacco Use Status Former Tobacco user 02/09/24 11:29 Tobacco use type Cigarette 02/09/24 11:29 e-Cigarette/Vaping Use Never Used 02/09/24 11:29 Thrive Assessment: Date of Thrive Assessment Date Thrive assessed 02/07/24 02/09/24 11:29 Currently or been in a relationship where the following occur: No concerns reported Const General: cooperative Orientation/consciousness: patient oriented x3 Resp Effort & Inspection: normal respiratory effort Auscultation: clear to auscultation bilaterally Cardio Rate: regular rate Rhythm: regular rhythm Heart sounds: S1 normal heart sound present and S2 normal heart sound present Neuro General: patient oriented x3 Extrem Other: bilat feet: minimal sensation with use of monofilament, feet intact Psych Appearance: grossly normal Mental Status: mental status grossly normal Speech and movement: Normal speech and movement present Affect: normal affect Attitude: cooperative Thought process: Normal thought process present Thought content: Normal thought content present Insight: Good insight present (Psych) Judgement: Good judgement present (Psych) Results AMB Hemoglobin A1c AMB Hemoglobin A1c 6.2 % Last Edit by Marco Cotton CMA on 02/09/24 11: 47 Results Reviewed Results Reviewed: Laboratory Last Values Hgb A1c (Clinic) 6.2 % (4.0-6.0) H 02/09/24 11:43 Assessment and Plan Assessment & Plan (1) Diabetes: Code(s): E11.9 - Type 2 diabetes mellitus without complications Plan: Labs ordered, recommended alpha lipoic acid for neuropathy symptoms (2) Fatigue: Code(s): R53.83 - Other fatigue Plan: EKG, stress test, and echo ordered, labs (3) SOB (shortness of breath) on exertion: Code(s): R06.02 - Shortness of breath Plan: pft, echo, stress tests (4) Smoker: Code(s): F17.200 - Nicotine dependence, unspecified, uncomplicated Plan The patient agreed to the use of a medical sales specialist for this encounter. Scribed for EDER Ackerman by Amara Calvo medical sales specialist, on 02/09/2024 at 11:45 EST. Orders: Orders Complete Blood Count Auto Diff Today E11.9 - Type 2 diabetes mellitus without complications Microalbumin, Random (w Creat) Today E11.9 - Type 2 diabetes mellitus without complications CA stress test Today R53.83 - Other fatigue CA echo transthoracic complete Today R53.83 - Other fatigue Tick-borne Disease Molecular Today R53.83 - Other fatigue Comprehensive [place]. Panel Fast Today E11.9 - Type 2 diabetes mellitus without complications TSH reflex Free T4 Today E11.9 - Type 2 diabetes mellitus without complications UA CC w/rflx Micro + Cult Today E11.9 - Type 2 diabetes mellitus without complications Lipid Panel Today E11.9 - Type 2 diabetes mellitus without complications AMB Hemoglobin A1c Today Z13.9 - Encounter for screening, unspecified AMB EKG-In Office Today R53.83 - Other fatigue NM cardiolite stress test Today R53.83 - Other fatigue PFT pulmonary function test Today R06.02 - Shortness of breath, R53.83 - Other fatigue IRON PROFILE Today R53.83 - Other fatigue Ferritin Today R53.83 - Other fatigue Lyme IgG/IgM w/reflex to WB Today R53.83 - Other fatigue Vitamin B12 and Folate Today R53.83 - Other fatigue Hemoglobin Electrophoresis Today R53.83 - Other fatigue Referrals Lung Cancer Screening Referral F17.200 - Nicotine dependence, unspecified, uncomplicated Coding Level of Care Code Est Pt Level 3 (37565) Diagnoses Diabetes E11.9 Fatigue R53.83 SOB (shortness of breath) on exertion R06.02 Smoker F17.200 Additional Codes ANDRIY-7 Assessment Billing - ANDRIY-7 Assessment Tool: ANDRIY-7 Assessment 82812 ([id number])
[2024-02-09 11:29] VITALS: BP 118/64; PULSE 86; O2SAT 96; BMI 23.0
== END 2024-02-09 13:00 | disposition home or self-care (01) ==
PROVIDERS: PCP Nurse Practitioner Family; Visit Provider Nurse Practitioner Family
DX: E11.9 Type 2 diabetes mellitus without complications (principal); R53.83 Other fatigue; R06.02 Shortness of breath; F17.200 Nicotine dependence, unspecified, uncomplicated; Z13.9 Encounter for screening, unspecified

== ENCOUNTER → 2024-02-09 11:23 | Outpatient (BNVA) | payer MEDICARE, SELFPAY | PROVIDERS: PCP Nurse Practitioner Family; Visit Provider Nurse Practitioner Family | DX: E11.9 Type 2 diabetes mellitus without complications (principal); R53.83 Other fatigue; R06.02 Shortness of breath; F17.200 Nicotine dependence, unspecified, uncomplicated | CPT/HCPCS: 83036; 96127; 99212 ==

== ENCOUNTER 2024-02-25 09:53 | Outpatient (AMB) | payer MEDICARE, SELFPAY ==
--- NOTE | 2024-02-25 10:03 | MHC.OFFWIV ---
Intake Vital Signs 02/25/24 10:04 Height 5 ft 9 in Weight 157 lb BMI 23.2 BP 126/80 Blood Pressure Location Lt brachial Position Sitting Pulse 84 Pulse Source Pulse Oximeter Pulse Oximetry (%) 96 Oxygen Delivery Method Room Air Intake Visit Reasons: EP-rt ear infection Intake Note: Patient here for right ear pain that has been present for about 1 week but recently has worsened. Patient Tobacco Use Status: Former Tobacco user Allergies oxycodone [From PERCOCET] Adverse Reaction (Intermediate, Verified 02/25/24 10:05) NAUSEA & VOMITING Do you need a note to return to daycare/school/sports/work: No HPI EP-rt ear infection HPI Details This note is constructed using voice recognition software. While every effort has been made to ensure accuracy, impregnator and drier helper errors may have been included. The patient is a 73 year old male who presents to the clinic today with right ear pain for the last week, with some worsening in the past 24 hours. He denies fever, chills, cough, shortness of breath, and body aches. He denies sinus congestion. [facility] Medical History Asthma Elevated cholesterol HTN (hypertension) Lipoma Surgical History History of laparoscopic cholecystectomy (01/23/24) Hx of excision of mass H/O right inguinal hernia repair H/O colonoscopy Family History Mother Mental health disorder Colon cancer Brother Prostate cancer Social History Household Members: None Housing: House Are you a primary post anesthesia care unit nurse to a significant other at home: No Do you presently have visiting nurse or other home services: No Comment: ache Patient Tobacco Use Status: Former Tobacco user Tobacco use type: Cigarette Cigarette Packs Per Day: 1.5 Cigarettes Per Day: 30.0 Years Smoked: 40 e-Cigarette/Vaping Use: Never Used Advance Directives Date on File: 11/27/21 service: No Current occupational status: retired Cognitive needs: No Hearing needs: No Vision needs: No Review of Systems Const All systems reviewed & are unremarkable except as noted in HPI and below Physical Exam Vital Signs: Last Vital Signs Pulse 84 02/25/24 10:04 BP 126/80 02/25/24 10:04 Pulse Ox 96 02/25/24 10:04 Oxygen Delivery Method Room Air 02/25/24 10:04 BMI result Body Mass Index 23.2 Const General: cooperative, healthy appearing, comfortable and no acute distress Orientation/consciousness: patient oriented x3 Limitations: no limitations HEENT Head: Yes normal to inspection Ears: hearing grossly normal bilaterally, external ears normal and TM abnormal retracted General nose exam: Normal external nose present, No nasal discharge present and Abnormal mucous membranes and turbinates present boggy and pale Face and sinus: Yes normal facial exam and Yes sinuses nontender Mouth: Normal oral and palatal mucosa present and moist mucous membranes Throat: Yes tonsils normal, Yes uvula midline, Yes posterior oropharynx abnormal (Erythema), Yes postnasal drainage and Yes cobblestoning Eyes General: appearance normal, both eyes and all related structures Neck Neck: Yes normal visual inspection Resp Effort & Inspection: normal respiratory effort, able to speak in complete sentences, Actively coughing, no respiratory distress, not tachypneic, no tripod positioning and no use of accessory muscles Auscultation: clear to auscultation bilaterally Cardio Rate: regular rate Rhythm: regular rhythm Heart sounds: normal S1 and S2 Skin General skin exam: no rashes or lesions noted Neuro General: patient oriented x3 Extrem General: Yes normal to inspection and Yes no clubbing, cyanosis or edema Assessment & Plan Assessment & Plan (1) Allergic rhinitis: Code(s): J30.9 - Allergic rhinitis, unspecified Qualifiers: Allergic rhinitis trigger: unspecified Allergic rhinitis seasonality: unspecified Qualified Code(s): J30.9 - Allergic rhinitis, unspecified Plan: Supportive measures encouraged and reviewed. Advised patient to try a Flonase nasal spray and second-generation antihistamine such as Zyrtec, Claritin, Evonne or similar. Advised consideration of sinus rinse if needed. Advised patient to follow up with primary care provider with worsening or failure to resolve. Plan See above for full details and plan. Coding Level of Care Code Est Pt Level 3 (23095) Diagnoses Allergic rhinitis, unspecified seasonality, unspecified trigger J30.9 Allergic rhinitis trigger: unspecified Allergic rhinitis seasonality: unspecified
[2024-02-25 10:04] VITALS: BP 126/80; PULSE 84; O2SAT 96; BMI 23.2
== END 2024-02-25 10:29 | disposition home or self-care (01) ==
PROVIDERS: PCP Nurse Practitioner Family; Visit Provider Registered Nurse
DX: J30.9 Allergic rhinitis, unspecified (principal)

== ENCOUNTER → 2024-02-25 09:53 | Outpatient (BNVA) | payer MEDICARE, SELFPAY | PROVIDERS: PCP Nurse Practitioner Family | DX: J30.9 Allergic rhinitis, unspecified (principal) | CPT/HCPCS: 99212 ==

== ENCOUNTER → 2024-03-09 13:49 | Outpatient (REF) | payer MEDICARE, SELFPAY ==
--- NOTE | 2024-03-09 13:52 | CA_ITS ---
Transthoracic Echocardiogram Patient (Last, First, Middle): Bj Lara N Gender: Male Date of : 1950 Age: 73 Procedure Date: 03/09/2024 Procedure Type: Transthoracic Echocardiogram Location: OP Height: 175.26 cm Weight: 71.22 kg BSA: 1.86 m2 Heart Rate: bpm BP: 110 / 64 mmHg Director Property: KEVIN Referring MD: Nam Arguello [facility] Symptoms: R53.83 - Other fatigue Study Quality: Fair ECG Rhythm: Sinus Conclusions: - The left ventricular systolic function is normal. The calculated ejection fraction is 66% by biplane method. - No obvious valvular pathology seen on this study. Findings Left Ventricle Normal left ventricular cavity size. The left ventricular systolic function is normal. The calculated ejection fraction is 66% by biplane method. There is no evidence of regional wall motion abnormalities. Diastolic function is normal for age. There is mild septal asymmetric hypertrophy. Right Ventricle Normal right ventricular cavity size and systolic function. Atria Both atria are normal in size. Aortic Valve There is a normal trileaflet aortic valve. There is mild calcification of the aortic valve. There is no aortic valve stenosis. There is no aortic valve regurgitation. Mitral Valve The mitral valve appears normal. There is no mitral valve regurgitation. There is no mitral valve stenosis. Pulmonic Valve The pulmonic valve is likely normal. Tricuspid Valve There is trace tricuspid valve regurgitation. Tricuspid regurgitation envelope is inadequate for calculation of right ventricular systolic pressure. There is no evidence of pulmonary hypertension. Great Vessels The asc aorta is normal in size. Venous The inferior vena cava is normal in size and collapses greater than 50% with inspiration. Pericardium/Pleural There is no evidence of pericardial effusion. Prior Study Comparison No prior study available for comparison. Recommendations, Care & Conclusions No obvious valvular pathology seen on this study. Measurements 2D Linear Measurements IVSd: 1.19 0.6-0.9/0.6-1.0 cm LVIDd: 4.14 3.9-5.3/4.2-5.9 cm LVIDd Index: 2.23 2.4-3.2/2.2-3.1 cm/m2 LVIDs: 3.00 2.0-3.6 cm LVPWd: 0.91 0.7-1.1 cm LA Diam: 2.80 2.7-3.8/3.0-4.0 cm LAIDs Index: 1.51 1.5-2.3 cm/m2 LV Mass: 179.26 67-162/88-224 g LV Mass Index: 96.38 43-95/49-115 g/m2 LVOT Diam: 2.10 3.0+(-)1.3 cm 2D Systolic Function EF 4C: 64.60 >55% EF 2C: 67.30 >55% EF BiP: 66.00 >55% Mitral Valve MV Pk E: 0.74 MV PK A: 0.74 MV Decel Time: 353.00 E/A: 1.00 E'Lateral: 9.36 E'Medial: 7.07 E/E' Med: 10.40 E/E' Lat: 7.90 PHT: 103.00 MVA PHT: 2.14 Decel [place]: 2.09 Aortic Valve AoV Pk Mark: 1.16 AoV Mn Mark: 0.85 AoV VTI: 0.27 AoV Pk Grad: 5.00 Aov Mn Grad: 3.00 ALEE Cont.VTI: 2.59 LVOT LVOT Pk Mark: 0.89 LVOT Mn Mark: 0.65 LVOT VTI: 0.20 LVOT Pk Grad: 3.00 LVOT Mn Grad: 2.00 LVOT Diam: 2.10 LVOT Area: 3.46 Diastolic Function MV Pk E: 0.74 MV Pk A: 0.74 E/A: 1.00 E'Medial: 7.07 E/E' Med: 10.40 E' Laterial: 9.36 E/E' Lat: 7.90 Right Ventricle TAPSE (mm): 28.20 TVS' Mark: 13.40 Tricuspid Valve RA Press: 3.00 Great Vessels Aorta Sinus of Valsalva: 3.37 2.0-3.[address] [place]: 2.34 1.7-3.4 cm Ao Asc: 3.30 2.1-3.4 cm Updated in Other Vendor System with Status of Final Simone Fernandez MD electronically signed on 03/09/2024 4:10:14 PM with status of Final
== END ==
LOC: HO.CARD 13:49
PROVIDERS: PCP Nurse Practitioner Family; Visit Provider Nurse Practitioner Family
DX: R53.83 Other fatigue (principal); R06.02 Shortness of breath
CPT/HCPCS: 93306

== ENCOUNTER → 2024-03-09 13:52 | Outpatient (BNV) | payer MEDICARE, SELFPAY | PROVIDERS: PCP Nurse Practitioner Family; Visit Provider Internal Medicine | DX: I42.2 Other hypertrophic cardiomyopathy (principal); I35.8 Other nonrheumatic aortic valve disorders | CPT/HCPCS: 93306 ==

== ENCOUNTER 2024-04-20 07:43 | Outpatient (REF) | payer MEDICARE, SELFPAY ==
--- NOTE | 2024-04-20 07:54 | PFT_ITS ---
Flows: FEV1: 77 % of predicted at 2.19 L FVC: 112 % of predicted at 4.38 L FEV1/FVC: 50 % Bronchodilator response: Present Volumes: Total lung capacity: 104 % of predicted at 6.73 L Residual volume: 113 % of predicted at 2.63 L Slow vital capacity: 101 % of predicted at 4.09 L Expiratory reserve volume: 48 % of predicted at 0.52 L Diffusion capacity: Normal Impression: Mild obstructive ventilatory defect with positive bronchodilator response. MTDD
[2024-04-20 10:14] VITALS: PULSE 77; O2SAT 99
== END 2024-04-20 07:44 | disposition home or self-care (01) ==
LOC: HO.RESP 07:43
PROVIDERS: PCP Nurse Practitioner Family; Visit Provider Nurse Practitioner Family
DX: R53.83 Other fatigue (principal); R06.02 Shortness of breath
CPT/HCPCS: 94010; 94640; 94727; 94729

== ENCOUNTER → 2024-04-20 07:54 | Outpatient (BNV) | payer MEDICARE, SELFPAY | PROVIDERS: PCP Nurse Practitioner Family; Visit Provider Internal Medicine Pulmonary Disease | DX: R06.02 Shortness of breath (principal) | CPT/HCPCS: 94060; 94727; 94729 ==

== ENCOUNTER 2024-04-30 09:22 | Outpatient (AMB) | payer MEDICARE, SELFPAY ==
--- NOTE | 2024-04-30 07:47 | MHC.OFFVIS ---
Intake Visit Reasons: Former Smoker Allergies oxycodone [From PERCOCET] Adverse Reaction (Intermediate, Verified 02/25/24 10:05) NAUSEA & VOMITING HPI HPI Former Smoker: Details: Initial visit for this 74yo former smoker with a 50PYH. Patient started smoking at age 20 for 51 years at 1ppd. He quit 13 years ago in 2010. . Denies marijuana use. Denies second hand smoke exposure. Denies exposure to chemicals or substances like asbestos. . Reports family history of lung cancer. Mother at 75. Denies personal history of cancers. Denies chest CT in last year. . Denies recent travel outside the [place]. Denies recent respiratory illness or recent hospitalization for respiratory issues. Reports testing positive for COVID prior. Admits receiving COVID Vaccine. . Denies fever, chills, new/worsening cough, hemoptysis, hoarseness or dysphagia. Denies significant chest pain, significant dyspnea or unintentional weight loss. Patient Lung Cancer Screening Questionnaire reviewed with patient by provider. . Shared Decision Making Completed. Patient meets criteria. Discussed in detail with patient, the risk vs benefit of LDCT screening. Patient consents to proceed with scan. Discussed smoking cessation. [facility] Medical History (Updated 04/30/24 @ 09:44 by Falguni Eisenberg PA-C) HTN (hypertension) Dyslipidemia Asthma Personal history of nicotine dependence Tubular adenoma of colon Lipoma Surgical History (Updated 03/22/24 @ 15:45 by Falguni Eisenberg PA-C) History of colonoscopy History of laparoscopic cholecystectomy (01/23/24) History of right inguinal hernia repair Hx of excision of mass Family History Mother Mental health disorder Colon cancer Brother Prostate cancer Social History (Updated 04/30/24 @ 09:44 by Falguni Eisenberg PA-C) Household Members: None Housing: House Are you a primary school child care attendant to a significant other at home: No Do you presently have visiting nurse or other home services: No Comment: ache Patient Tobacco Use Status: Former Tobacco user Tobacco use type: Cigarette Years Smoked: (onset 20yo, 1ppd x 51yrs, 50pyh - quit 2010) e-Cigarette/Vaping Use: Never Used Advance Directives Date on File: 11/27/21 service: No Current occupational status: retired Cognitive needs: No Hearing needs: No Vision needs: No Assessment & Plan Assessment & Plan (1) Personal history of nicotine dependence: Comment: (former smoker- onset 20yo, 1ppd x 51yrs, 50pyh - quit 2010) Code(s): Z87.891 - Personal history of nicotine dependence Category: Medical Plan: - SDM visit completed today in office. - Patient meets criteria for LDCT for lung cancer screening purposes and is asymptomatic. - Smoking cessation counseling offered. Patients can always call [phone]. - Will arrange for a LDCT scan of the chest for screening purposes at [facility]. - Risks, benefits, and alternatives were discussed in detail and the patient agrees to proceed. - Risks discussed include but are not limited to: radiation exposure, anxiety during testing and while awaiting results, false negatives, false positives and possibility of additional intervention such as further imaging or surgical procedures for benign disease. - Benefits are obviously detection of lung cancer at an early stage which can lead to improved outcomes. - Discussed the importance of screening program compliance with adherence to yearly LDCT scan as scheduled - or sooner interval scans for personalized screening regimen. - Discussed follow up plan. Our office will send a letter discussing results and if needed set up phone call and office visit based on CT findings. - Patient educated on results categorization and the management decisions for suspicious findings potentially found on the screening LDCT scan. Any patient with a Lung RADS score of 3 or 4 will be reviewed by a multidisciplinary team at [facility] to form a plan of action in regards to scan findings. - If further work up is warranted for a suspicious lung finding this will be followed by the Lung Cancer Screening program in conjunction with the Thoracic Surgery Department at [facility]. - A copy of the office note and LDCT will be sent to the patient's PCP - as well as documentation on any associated further plans of care. - Incidental findings on LDCT are the PCP's responsibility. These findings are indicated with an S finding on the LDCT Assessment. A note discussing the findings will be sent to the PCP who is then responsible for further management. - All questions answered.? Coding Level of Care Code Lung Cancer Screening G0296 Diagnoses Personal history of nicotine dependence Z87.891
== END 2024-04-30 13:27 | disposition home or self-care (01) ==
PROVIDERS: PCP Nurse Practitioner Family; Visit Provider Physician Assistant Medical
DX: Z87.891 Personal history of nicotine dependence (principal)
CPT/HCPCS: G0296

== ENCOUNTER 2024-04-30 09:46 | Outpatient (REF) | payer MEDICARE, SELFPAY ==
--- NOTE | ~2024-04-30 | CT_ITS ---
EXAMINATION: CT LOW-DOSE SCREENING CHEST WITHOUT CONTRAST CLINICAL INFORMATION: Personal history of nicotine dependence. The patient has a 82 pack-year history of smoking, having quit 13 years ago. COMPARISON: None available. TECHNIQUE: Multidetector volumetric CT imaging of the chest is performed on a Siemens SOMATOM Definition scanner without contrast using low dose technique. Additional 2D coronal and sagittal reformatted images and axial 3D maximum intensity projection (MIP) images are generated on the CT workstation. This CT examination was performed using dose optimization techniques as appropriate, variously including the following: *Automated exposure control *Adjustment of mA and/or kV according to patient size (this includes techniques or standardized protocols for targeted exams where dose is matched to indication/reason for exam; i.e. extremities or head) *Use of iterative reconstruction technique TOTAL EXAM DLP: 81 mGy-cm. CTDIvol: 2.20 mGy. FINDINGS: PULMONARY NODULES: No suspicious pulmonary nodule appreciated. LUNGS: Approximately 5.5 cm, spiculated right upper lobe mass with tendrils radiating in all directions. The mass includes some segmental and subsegmental right upper lobe bronchi. The mass appears to invade the mediastinum. MEDIASTINUM: 1.6 cm and 1.4 cm pretracheal nodes (images 14 and 20, series 3). 1.1 cm subcarinal lymph node (image 26, series 3). No obvious hilar adenopathy on this noncontrast study. CORONARY ARTERY CALCIFICATION: Present. THYROID GLAND: Unremarkable to the extent seen. CARDIOVASCULAR STRUCTURES: Aorta and heart size normal. No pericardial effusion. CHEST WALL/AXILLA: Unremarkable. No evidence of axillary adenopathy by size criteria. UPPER ABDOMEN: 2.5 x 1.3 cm, homogeneous, right adrenal nodule demonstrating Hounsfield unit density of approximately 26 (image 59, series 3). This finding was not evident on CT scan of the abdomen from January 22, 2024. Approximately 1.5 cm benign left upper pole simple renal cyst for which no further dedicated follow-up imaging as indicated. Status post cholecystectomy. OSSEOUS STRUCTURES: Borderline mildly decreased bone mineral density. Mild degenerative changes of the spine. Osteoarthritis of the shoulders. No lytic or sclerotic bony lesion identified. CT/CT lung screening IMPRESSION: Approximately 5.5 cm spiculated right upper lobe lung mass as above, consistent with malignancy. Mediastinal adenopathy. 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 MELODIE Arguello was directly informed of the findings by telephone at approximately 3:53 PM on June 02, 2024. ASSESSMENT: 1. Lung-RADS Category 4B: Suspicious findings. N/A 2. Lung-RADS Category S: Negative. There are no clinically significant or potentially clinically significant findings not related to the lungs requiring urgent additional evaluation. RECOMMENDATION: Tissue sampling is recommended depending on the probability of malignancy and comorbidities. Electronically signed by: Bryan Beard MD 06/02/2024 03:53 PM [facility]
== END 2024-04-30 09:47 | disposition home or self-care (01) ==
LOC: HO.CT 09:46
PROVIDERS: PCP Nurse Practitioner Family; Visit Provider Physician Assistant Medical
DX: Z12.2 Encounter for screening for malignant neoplasm of respiratory organs (principal); Z87.891 Personal history of nicotine dependence
CPT/HCPCS: 71271; G0296

== ENCOUNTER → 2024-05-03 07:56 | Outpatient (REF) | payer MEDICARE, SELFPAY ==
--- NOTE | ~2024-05-03 | NM_ITS ---
EXERCISE MYOCARDIAL PERFUSION STUDY INDICATION: Fatigue to evaluate for myocardial ischemia TECHNIQUE: The patient was brought in for an exercise perfusion study on 05/03/2024. Patient performed exercise as per Bj protocol and was injected 25 mCi of sestamibi once target heart rate was achieved. Images were obtained using the SPECT gamma camera interlaced with the gating device. Images were obtained in supine position. Resting perfusion study was performed on 05/04/2024. Patient was administered 25 mCi of sestamibi intravenously at rest. Images were then obtained in supine position. Images were processed with the software and compared side to side in short axis, horizontal long axis and vertical long axis views. FINDINGS: Raw images were reviewed. Resting perfusion study was suboptimal due to intense subdiaphragmatic uptake interfering with inferior wall uptake The stress perfusion study showed both attenuated as well as nonattenuated corrected images show normal uptake of radiotracer in all segments of the LV myocardium. The gated study shows normal LV systolic function with calculated LVEF of 72%. LV cavity is normal in in size. The gated study shows normal systolic wall thickening and contraction of segments. Resting study shows overall normal perfusion all segments of the LV myocardium. Gating at rest reveals normal systolic wall motion with ejection fraction at 75%. The findings are consistent with normal myocardial perfusion. NM/NM cardiolite stress test IMPRESSION: 1. Myocardial perfusion imaging study shows normal myocardial perfusion. 2. Gated LVEF is 72%. 3. Transient ischemic dilatation not present. EKG revealed negative for ischemia. Electronically signed by: Heath Lopez MD 05/04/2024 03:52 PM [facility]
--- NOTE | 2024-05-03 07:58 | CA_ITS ---
Acquisition Time: 2024-05-03 08:13:51 Total Exercise Time: 00:08:34 Test Indications: SOB Medications: SEE H Protocol: DIMA Max HR: 133 BPM 89% of Pred: 148 BPM Max BP: 166/070 mmHG Max Work Load: 10.1 METS Exercise Stress Test with exercise 8 mins 34 secs of Dima Protocol, 88% MPHR, with moderate SOB, no chest discomfort, with frequent PACs, run of wide QRS run ( accelerated idioventricular), with normotensive response to exercise, without EKG changes meeting criteria for ischemia. During recovery, pt's HR maintained in the 120s, tried vagal manuever with minimal response, gradual slowing when laid supine. Breathing back to baseline. Nuclear images pending. Test reviewed with Dr Lopez. Referred By: Nam Arguello Overread By: LICHA CENTENO
== END ==
LOC: HO.CARD 07:56
PROVIDERS: PCP Nurse Practitioner Family; Visit Provider Nurse Practitioner Family
DX: R53.83 Other fatigue (principal)
CPT/HCPCS: 78452; 93017; A9500

== ENCOUNTER → 2024-05-03 08:18 | Outpatient (BNV) | payer MEDICARE, SELFPAY | PROVIDERS: PCP Nurse Practitioner Family; Visit Provider Internal Medicine Cardiovascular Disease | DX: I49.1 Atrial premature depolarization (principal); R06.02 Shortness of breath | CPT/HCPCS: 78452; 93016; 93018 ==

== ENCOUNTER 2024-06-02 08:02 | Outpatient (REF) | payer MEDICARE, SELFPAY ==
[2024-06-02 11:16] LABS: Influenza A PCR POSITIVE (Negative); Influenza B PCR NEGATIVE (Negative); Resp Syncy Virus RNA Qual PCR NEGATIVE (Negative); SARS COV2 PCR INHOUSE NEGATIVE (Negative)
== END 2024-06-02 08:03 | disposition home or self-care (01) ==
LOC: HO.LAB 08:02
PROVIDERS: PCP Nurse Practitioner Family; Visit Provider Physician Assistant
DX: Z13.89 Encounter for screening for other disorder (principal)
CPT/HCPCS: 0241U; 99212

== ENCOUNTER 2024-06-02 08:02 | Outpatient (AMB) | payer MEDICARE, SELFPAY ==
--- NOTE | 2024-06-02 08:13 | AM.OFFWIN_ITS ---
Intake Vital Signs 06/02/24 08:14 Weight 161 lb BP 118/72 Blood Pressure Location Rt brachial Position Sitting Temp 98.3 F Temp Source Oral Pulse Oximetry (%) 95 Oxygen Delivery Method Room Air Intake Visit Reasons: EP-asthma, cough Intake Note: Patient here for cough, body aches, head congestion that has been present since Friday. Patient Tobacco Use Status: Former Tobacco user Allergies oxycodone [From PERCOCET] Adverse Reaction (Intermediate, Verified 06/02/24 08:15) NAUSEA & VOMITING Do you need a note to return to daycare/school/sports/work: No HPI HPI Comments History of Present Illness Details History - The patient is a 74-year-old male pres enting with severe cold symptoms, expressing concern over potential progression to a bronchial infection. - Symptoms commenced four days ago and h ave progressively worsened, culminating in the previous night's symptom severity. - Asthma is a pre-existing condition, wi th a notable increase in albuterol use to manage symptoms. - Patient reports difficulty breathing, productive cough with darker sputum, body aches, and congestion, along with nighttime chills. - Patient has not been exposed to others with similar symptoms, and self-reports a slight rise in body temperature. - Breo Ellipta and albuterol are ongoing medications, along with Robitussin and Benadryl to mitigate symptoms. - Negative COVID-19 rapid test was condu cted by the patient earlier on the same day. Physical Exam General: Cooperative, healthy appearing, comfortable and no acute distress Orientation/consciousness: Patient oriented x3 Limitations: No limitations Head: Normal to inspection Ears: Hearing grossly normal bilaterally, external ears normal and left TM with fluid and erythema but no infection, right TM normal Nose: Normal external nose present, Normal nares present and No nasal discharge present Face and sinus: Normal facial exam and Yes sinuses nontender Mouth: Normal oral and palatal mucosa present and moist mucous membranes Throat: Yes tonsils normal, Yes uvula midline. Posterior oropharynx erythema Eyes: Appearance normal, both eyes and all related structures Neck: Normal visual inspection Respiratory: vesicular sounds bilaterally, no wheeze. Normal respiratory effort, able to speak in complete sentences, Actively coughing, no respiratory distress, not tachypneic, no tripod positioning and no use of accessory muscles. Hearing some different sounds in the lungs, not just pure, good air movement. Cardiovascular: Regular rate and rhythm. Normal S1 and S2 Skin: No rashes or lesions noted Neuro: Patient oriented x3 Extremities: Normal to inspection and Yes no clubbing, cyanosis or edema [facility] Medical History (Updated 06/02/24 @ 08:44 by Raeann Castano PA-C) HTN (hypertension) Dyslipidemia Asthma Personal history of nicotine dependence Tubular adenoma of colon Lipoma Surgical History (Updated 03/22/24 @ 15:45 by Falguni Eisenberg PA-C) History of colonoscopy History of laparoscopic cholecystectomy (01/23/24) History of right inguinal hernia repair Hx of excision of mass Family History Mother Mental health disorder Colon cancer Brother Prostate cancer Social History (Updated 04/30/24 @ 09:44 by Falguni Eisenberg PA-C) Household Members: None Housing: House Are you a primary care management associate to a significant other at home: No Do you presently have visiting nurse or other home services: No Comment: ache Patient Tobacco Use Status: Former Tobacco user Tobacco use type: Cigarette Years Smoked: (onset 20yo, 1ppd x 51yrs, 50pyh - quit 2010) e-Cigarette/Vaping Use: Never Used Advance Directives Date on File: 11/27/21 service: No Current occupational status: retired Cognitive needs: No Hearing needs: No Vision needs: No Review of Systems Const All systems reviewed & are unremarkable except as noted in HPI and below Physical Exam Vital Signs: Last Vital Signs Temp 98.3 F 06/02/24 08:14 BP 118/72 06/02/24 08:14 Assessment & Plan Assessment & Plan (1) Lower respiratory infection (e.g., bronchitis, pneumonia, pneumonitis, pulmonitis): Code(s): J22 - Unspecified acute lower respiratory infection Plan: Plan The patient was evaluated for severe cold symptoms suspected to be associated with an acute upper respiratory tract infection, with asthma serving as an underlying condition. Given his symptoms and history, testing for influenza, COVID-19, and RSV was conducted with results pending for RSV and influenza. A chest X-ray was ordered to check for any underlying bacterial pneumonia due to abnormal lung sounds during the exam. The patient was started on Solu-Medrol to mitigate airway inflammation and facilitate easier respiration. Tessalon Perles were prescribed to assist with nocturnal cough suppression, providing better rest. Continued use of Breo Ellipta and as-needed albuterol was advised to maintain asthma management. Antibiotic therapy would be initiated if pneumonia is confirmed via imaging. The treatment strategy focused on symptomatic relief and managing any potential complications of the respiratory infection. Worsening symptoms, pt shoud go to the ED. Patient was informed and verbally consented to the use of an ambient scribe for clinic note documentation during this visit Orders: Orders SARS-CoV2/FLU/RSV Today J22 - Unspecified acute lower respiratory infection XR chest 2V Today R05.9 - Cough, unspecified Medications: New benzonatate 200 mg PO TID PRN 10 caps 0RF cough methylprednisolone PO PER PKG DIR for 6 days 21 ea 0RF Coding Level of Care Code Est Pt Level 4 (23269) Diagnoses Lower respiratory infection (e.g., bronchitis, pneumonia, pneumonitis, pulmonitis) J22
[2024-06-02 08:14] VITALS: BP 118/72; TEMP 36.8; O2SAT 95
== END 2024-06-02 08:57 | disposition home or self-care (01) ==
PROVIDERS: PCP Nurse Practitioner Family; Visit Provider Physician Assistant
DX: J22 Unspecified acute lower respiratory infection (principal)

== ENCOUNTER 2024-06-02 08:48 | Outpatient (REF) | payer MEDICARE, SELFPAY ==
--- NOTE | ~2024-06-02 | XR_ITS ---
EXAMINATION: XR CHEST CLINICAL INFORMATION: R05.9 - Cough, unspecified COMPARISON: X-ray dated May 24, 2022 TECHNIQUE: 2 views of the chest were obtained. FINDINGS: Irregular shaped masslike opacity right upper hemithorax, medial aspect and adjacent to the ascending thoracic aorta. No pleural effusion. No pneumothorax. Calcified plaque thoracic aortic arch. Multilevel thoracic spondylosis. 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 Electronically signed by: Ananth Dominique MD 06/02/2024 11:44 AM [facility]
== END 2024-06-02 08:49 | disposition home or self-care (01) ==
LOC: HO.HMGCX 08:48
PROVIDERS: PCP Nurse Practitioner Family; Visit Provider Physician Assistant
DX: R91.8 Other nonspecific abnormal finding of lung field (principal); J22 Unspecified acute lower respiratory infection; R05.9 Cough, unspecified
CPT/HCPCS: 0241U; 71046; 99212

== ENCOUNTER → 2024-06-02 08:51 | Outpatient (BNV) | payer MEDICARE, SELFPAY | PROVIDERS: PCP Nurse Practitioner Family; Visit Provider Radiology Diagnostic Radiology | DX: R05.9 Cough, unspecified (principal) | CPT/HCPCS: 71046 ==

== ENCOUNTER 2024-06-08 06:23 | Outpatient (REF) | payer MEDICARE, SELFPAY ==
[2024-06-08 09:59] LABS: Appearance Urine Cloudy; Color Urine Yellow; Glucose Urine UA >=1000 mg/dL (Negative); Leukocyte Esterase Urine Negative (Negative); Nitrite Urine Negative (Negative); PH 5.5 (5.0-9.0); Specific Gravity - Urine >= 1.030 (1.005-1.025); UMIC TRIGGER UACC YES; Urine Blood Negative (Negative); Urine Ketones Negative (Negative); Urine Protein Trace mg/dL (Neg-Trace)
[2024-06-08 10:00] LABS: MANUAL DIFF FLAG NO
[2024-06-08 10:04] LABS: Basophils Absolute Auto 0.1 X10*3/uL (0.0-0.2); Basophils Percent Auto 0.4 % (0-2); Eosinophils Absolute Auto 0.5 X10*3/uL (0.0-0.4); Eosinophils Percent Auto 3.9 % (0-4); Hematocrit 40.8 % (42.0-52.0); Hemoglobin 14.1 g/dl (14.0-18.0); Imm Gran Abs Auto 0.18 X10*3/uL (0.00-0.03); Imm Gran Pct Auto 1.6 % (0.0-0.4); Lymphocytes Absolute Auto 2.9 X10*3/uL (1.2-4.9); Mean Corpuscular HGB Conc 34.6 g/dl (31.0-36.0); Mean Corpuscular Hemoglobin 29.3 pg (27.0-33.0); Mean Corpuscular Volume 84.8 fL (80.0-98.0); Mean Platelet Volume 9.2 fL (9.4-12.4); Monocytes Absolute Auto 0.9 X10*3/uL (0.1-1.2); Monocytes Percent Auto 8.2 % (2-11); Neutrophils Percent Auto 60.9 % (45-73); Platelet Count 314 X10*3/uL (160-400); Red Blood Count 4.81 X10*6/uL (4.60-5.80); Red Cell Distribution Width 14.2 % (11.0-16.0); White Blood Count 11.4 X10*3/uL (4.8-10.8)
[2024-06-08 10:09] LABS: Bacteria Urine None Seen (None Seen); Hyaline Casts Urine 0-2 /LPF (0-2); RBC Urine 0-2 /HPF (0-2); Squamous Epithelial Cell Urine 0-2 /HPF (0-2); WBC Urine 0-5 /HPF (0-5)
[2024-06-08 10:32] LABS: Creatinine Urine 172.16 mg/dL; Microalbum/Creatinine Ratio Ur 12.1 ug/mg cr (<30)
[2024-06-08 10:49] LABS: Alanine Aminotransferase 35 U/L (0-40); Albumin Level 4.1 g/dL (3.5-5.0); Alkaline Phosphatase 132 U/L (39-117); Anion Gap 9 (12-20); Aspartate Amino Transferase 30 U/L (5-37); Bilirubin Total 0.6 mg/dL (0.0-1.0); Blood Urea Nitrogen 27 mg/dL (9-16); Calcium 9.4 mg/dL (8.4-10.2); Carbon Dioxide 30 mmol/L (22-29); Chloride 102 mmol/L (96-108); Cholesterol 136 mg/dL (<200); Estimated Glomerular Filt Rate > 60; Ferritin 405 ng/mL (20-250); Glucose Fasting 106 mg/dL (60-99); HDL Cholesterol 42 mg/dL (>40); Iron 63 mcg/dL (45-160); LDL Cholesterol Calculated 69 mg/dL (<100); Percent Iron Saturation 26 % (15-50); Sodium 137 mmol/L (135-145); TSH reflex Free T4 1.54 uIU/mL (0.32-4.0); Total Iron Binding Capacity 239 mcg/dL (228-428); Total Protein 7.5 g/dL (6.5-8.0); Triglycerides 128 mg/dL (<150); Unsaturated Iron Binding 176 ug/dL
[2024-06-08 11:00] LABS: Vitamin B12 500 pg/mL (200-900)
[2024-06-09 22:33] LABS: Lyme Abs Screen <0.90 index
[2024-06-10 00:29] LABS: A. Phagocytphilium DNA,RT-PCR NOT DETECTED (NOT DETECTED); Babesia Microti DNA, RT-PCR NOT DETECTED (NOT DETECTED); Borrelia Miyamotoi,DNA RT-PCR NOT DETECTED (NOT DETECTED); E.Chaffeensis DNA RT-PCR NOT DETECTED (NOT DETECTED); Lyme(Borrelia ssp)DNA RT-PCR NOT DETECTED (NOT DETECTED)
[2024-06-10 14:13] LABS: MCH 28.8 pg (27.0-33.0); MCV 84.4 fL (80.0-100.0); RBC 4.86 Million/uL (4.20-5.80); RDW 14.2 % (11.0-15.0)
== END 2024-06-08 06:24 | disposition home or self-care (01) ==
LOC: HO.HMGCLDS 06:23
PROVIDERS: PCP Nurse Practitioner Family; Visit Provider Nurse Practitioner Family
DX: E11.9 Type 2 diabetes mellitus without complications (principal); R53.83 Other fatigue; C34.91 Malignant neoplasm of unspecified part of right bronchus or lung; R06.02 Shortness of breath; Z87.891 Personal history of nicotine dependence; Z87.09 Personal history of other diseases of the respiratory system; R91.8 Other nonspecific abnormal finding of lung field
CPT/HCPCS: 36415; 80053; 80061; 81001; 81003; 82043; 82570; 82607; 82728; 82746; 83020; 83540; 84443; 85014; 85018; 85025; 85041; 86617; 86618; 87468; 87469; 87478; 87484; 87798; 99212

== ENCOUNTER 2024-06-08 13:14 | Outpatient (AMB) | payer MEDICARE, SELFPAY ==
--- NOTE | 2024-06-08 13:16 | MHC.OFFVIS ---
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 Patient c/o: SOB. Diagnosed with Flu 1wk ago. Hx of asthma. Lung CT: 04-30-2025 Salesforce Administrator Required: No Accompanied by: Yaneli daughter Allergies oxycodone [From PERCOCET] Adverse Reaction (Intermediate, Verified 06/08/24 13:16) NAUSEA & VOMITING Medication List - Last Reconciled 06/08/24 by Hiram Arambula MD albuterol sulfate 90 mcg/actuation 2 puffs PO Q6H PRN 30 days atorvastatin 40 mg PO QPM benzonatate 200 mg PO TID PRN blood sugar diagnostic (FreeStyle Test strips) bid for diabetes empagliflozin (Jardiance) 10 mg PO DAILY 90 days finasteride 5 mg PO DAILY fluticasone furoate 100 mcg/actuation (Arnuity Ellipta) 1 inh inhalation DAILY hydrochlorothiazide 12.5 mg PO DAILY lancets Check fasting blood sugar and a random blood sugar BID (freestyle) lisinopril 20 mg PO DAILY methylprednisolone PO PER PKG DIR for 6 days omeprazole magnesium (Prilosec OTC) 20 mg PO DAILY@0630 Vascepa (icosapent ethyl) 1 g PO BID 90 days NS HPI Comments Details: Patient presents with his daughter. He underwent a chest x-ray because of respiratory issues from the flu, and this was followed by CT scan because of a suspicious right lung mass. He is now presents here for further evaluation. Patient was also presented at the multidisciplinary thoracic conference this past Friday. Patient was a longstanding history of 1-2 packs per day for over 45+ years. Over the last few weeks he has noticed a cough but is nonproductive. No history of hemoptysis. No chest pain. Occasionally wheezes. His energy, weight, and appetite are diminished. He is unsure of the weight loss which he has been a 6 lb is because of the flu or other issues. Chart was reviewed and patient evaluated. Patient had a laparoscopic cholecystectomy by me several months ago. At that time he had a CT scan of the abdomen which did not evaluate his lungs. The only thing visible on CT scan were the lung bases. This was explained to him because there was a concern that this lesion may have been missed on the prior abdominal CT scan from the fall. [facility] Medical History HTN (hypertension) Dyslipidemia Asthma Personal history of nicotine dependence Tubular adenoma of colon Lipoma Surgical History History of colonoscopy History of laparoscopic cholecystectomy (01/23/24) History of right inguinal hernia repair Hx of excision of mass Family History Mother Mental health disorder Colon cancer Brother Prostate cancer Social History Household Members: None Housing: House Are you a primary home care chaplain to a significant other at home: No Do you presently have visiting nurse or other home services: No Comment: ache Patient Tobacco Use Status: Former Tobacco user Tobacco use type: Cigarette Years Smoked: (onset 20yo, 1ppd x 51yrs, 50pyh - quit 2010) e-Cigarette/Vaping Use: Never Used Advance Directives Date on File: 11/27/21 service: No Current occupational status: retired Cognitive needs: No Hearing needs: No Vision needs: No Physical Exam Vital Signs: Last Vital Signs Pulse 70 06/08/24 13:18 BP 130/79 06/08/24 13:18 BMI result Body Mass Index 22.7 Chest Other: Chest breath sounds bilaterally, HS 1 in 2. No obvious cervical periclavicular or axillary adenopathy bilaterally. GI Other: Abdomen is soft, benign Assessment & Plan Assessment & Plan (1) Mass of right lung: Code(s): R91.8 - Other nonspecific abnormal finding of lung field Category: Medical Plan: I discussed with the patient and his daughter the CT scan findings which although not diagnostic are concerning for a possible neoplastic process involving the right lung, along with findings of mediastinal adenopathy and an adrenal mass. My current recommendation is to arrange for a PET scan as well as consider CT scan IR guided biopsy of the right lung mass. If this is not amenable, patient can undergo bronchoscopy with EBUS for biopsy of either mediastinal lymph nodes were of the lung mass or possible adrenal biopsy by IR, again all depending on PET scan findings. Patient will see me after these studies and interventions. All questions answered. Orders: Orders PET CT fusion skull to thigh 06/08/24 R91.8 - Other nonspecific abnormal finding of lung field CT biopsy lung RT 06/08/24 R91.8 - Other nonspecific abnormal finding of lung field Coding Level of Care Code Est Pt Level 4 (81235) Diagnoses Mass of right lung R91.8
[2024-06-08 13:18] VITALS: BP 130/79; PULSE 70; BMI 22.7
== END 2024-06-08 14:21 | disposition home or self-care (01) ==
LOC: HO.HGS 13:14
PROVIDERS: PCP Nurse Practitioner Family; Referring Provider Nurse Practitioner Family; Visit Provider Surgery
DX: R91.8 Other nonspecific abnormal finding of lung field (principal)
CPT/HCPCS: 99214

== ENCOUNTER 2024-06-10 14:29 | Outpatient (AMB) | payer MEDICARE, SELFPAY ==
[2024-06-10 14:31] VITALS: BP 122/66; PULSE 97; O2SAT 98; BMI 23.0
--- NOTE | 2024-06-10 14:31 | MHC.OFFVIS ---
Vital Signs 06/10/24 14:31 Height 5 ft 9 in Weight 156 lb BMI 23.0 BP 122/66 Blood Pressure Location Lt brachial Position Sitting Pulse 97 Pulse Source Doppler Pulse Oximetry (%) 98 Oxygen Delivery Method Room Air Intake Visit Reasons: Abnormal CT scan Allergies oxycodone [From PERCOCET] Adverse Reaction (Intermediate, Verified 06/10/24 14:35) NAUSEA & VOMITING HPI HPI Abnormal CT scan: Details: 74-year-old gentleman, former 30+ pack-year smoker, quit 2009 with underlying asthma/COPD overlap syndrome with symptoms well controlled on Arnuity and albuterol MDI, followed by lung cancer screening program, who had abnormal CT chest demonstrating right paratracheal mass, now referred for possible EBUS biopsies. Patient states that his respiratory symptoms IHD controlled. He did have recent influenza from which has recovered almost to baseline. [facility] Medical History HTN (hypertension) Dyslipidemia Asthma Personal history of nicotine dependence Tubular adenoma of colon Lipoma Surgical History History of colonoscopy History of laparoscopic cholecystectomy (01/23/24) History of right inguinal hernia repair Hx of excision of mass Family History Mother Mental health disorder Colon cancer Brother Prostate cancer Social History Household Members: None Housing: House Are you a primary animal care service worker to a significant other at home: No Do you presently have visiting nurse or other home services: No Comment: ache Patient Tobacco Use Status: Former Tobacco user Tobacco use type: Cigarette Years Smoked: (onset 20yo, 1ppd x 51yrs, 50pyh - quit 2010) e-Cigarette/Vaping Use: Never Used Advance Directives Date on File: 11/27/21 service: No Current occupational status: retired Cognitive needs: No Hearing needs: No Vision needs: No Review of Systems Const Denies daytime sleepiness, Denies excessive sweating, Denies fatigue, Denies fever(s), Denies lethargy, Denies malaise, Denies night sweats, Denies snoring and Denies weight loss Eyes Denies blurry vision and Denies itchy eyes ENT Denies nasal congestion, Denies post nasal drip, Denies sinus pain, Denies sinus pressure and Denies other ( Thrush) Card Denies chest pain, Denies pedal edema, Denies dyspnea, Denies orthopnea and Denies paroxysmal nocturnal dyspnea Resp Denies cough, Denies hemoptysis, Denies excessive phlegm production, Denies dyspnea, Denies snoring and Denies wheezing GI Denies abdominal pain and Denies heartburn Musc Denies myalgias, Denies arthralgias and Denies joint swelling Skin/Breast Denies rash Neuro Denies memory loss and Denies seizure-like activity Psych Denies abnormal sleep pattern, Denies anxiety and Denies memory loss Endo Denies excessive sweating, Denies fatigue and Denies heat intolerance Rocky/Lymph Denies easy bruising Aller/Immun Denies itchy eyes, Denies seasonal rhinorrhea and Denies wheezing Physical Exam Vital Signs: Last Vital Signs Pulse 97 06/10/24 14:31 BP 122/66 06/10/24 14:31 Pulse Ox 98 06/10/24 14:31 Oxygen Delivery Method Room Air 06/10/24 14:31 BMI result Body Mass Index 23.0 Const General: no acute distress and alert Nutritional Appearance: not obese Orientation/consciousness: Other orientation findings ( oriented) HEENT Head: Yes atraumatic Eyes General: appearance normal, both eyes and all related structures Sclerae: sclerae normal EOM: EOMs intact bilaterally Neck Neck: Yes supple Lymphatic: no lymphadenopathy noted Resp Effort & Inspection: normal respiratory effort and no use of accessory muscles Auscultation: clear to auscultation bilaterally Cardio Rate: regular rate Rhythm: regular rhythm Heart sounds: no gallops, no murmurs and no rubs Skin General skin exam: other ( warm) Extrem General: No clubbing, No cyanosis and No edema Assessment & Plan Assessment & Plan (1) Asthma-COPD overlap syndrome: Code(s): J44.89 - Other specified chronic obstructive pulmonary disease Category: Medical Plan: Well controlled on Arnuity and albuterol MDI. Continue regimen. Pulmonary function test reviewed. (2) Mass of right lung: Code(s): R91.8 - Other nonspecific abnormal finding of lung field Category: Medical Plan: PET-CT is pending. Will review results and consider EBUS biopsy. Coding Level of Care Code New Pt Level 4 (38579) Diagnoses Asthma-COPD overlap syndrome J44.89 Mass of right lung R91.8
== END 2024-06-10 14:58 | disposition home or self-care (01) ==
PROVIDERS: PCP Nurse Practitioner Family; Referring Provider Nurse Practitioner Family; Visit Provider Internal Medicine Pulmonary Disease
DX: J44.89 Other specified chronic obstructive pulmonary disease (principal); R91.8 Other nonspecific abnormal finding of lung field
CPT/HCPCS: 99214

== ENCOUNTER → 2024-06-10 14:29 | Outpatient (BNVA) | payer MEDICARE, SELFPAY | PROVIDERS: PCP Nurse Practitioner Family; Referring Provider Nurse Practitioner Family; Visit Provider Internal Medicine Pulmonary Disease | DX: J44.89 Other specified chronic obstructive pulmonary disease (principal); R91.8 Other nonspecific abnormal finding of lung field; Z87.891 Personal history of nicotine dependence; Z79.899 Other long term (current) drug therapy | CPT/HCPCS: 99212 ==

== ENCOUNTER 2024-06-15 09:20 | Outpatient (AMB) | payer MEDICARE, SELFPAY ==
[2024-06-15 09:56] VITALS: BP 126/66; PULSE 88; O2SAT 97; BMI 23.0
--- NOTE | 2024-06-15 09:56 | A.OFFPC_ITS ---
Vital Signs 06/15/24 09:56 Height 5 ft 9 in Weight 156 lb BMI 23.0 BP 126/66 Blood Pressure Location Rt brachial Position Sitting Pulse 88 Pulse Source Pulse Oximeter Pulse Oximetry (%) 97 Intake Visit Reasons: 4m follow up Allergies oxycodone [From PERCOCET] Adverse Reaction (Intermediate, Verified 06/15/24 09:56) NAUSEA & VOMITING Tobacco use date assessed: 06/15/24 Fall risk assessment: No Falls in past year Last assessed Fall Risk: 06/15/24 Dental Screening Dental Screen Date: 06/15/24 Did you have a dental visit in the last 12 months?: Yes Did you have a dental problem in the last 6 months where you did not have access to dental care?: No Was dental information given to patient?: Patient has dentist HPI 4m follow up HPI Details Chief Complaint The patient presents for follow-up related to lung carcinoma diagnosis with additional concerns about insomnia. History of Present Illness The patient is a 74-year-old male presenting with a recent diagnosis of lung carcinoma, identified in the right upper lobe on a recent low-dose CAT scan. 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 He has already been evaluated by thoracic surgery, and a biopsy is planned for further confirmation. Additionally, a PET scan has been ordered and scheduled for this coming Friday, with a follow-up appointment in oncology and hematology next week. The patient also has an appointment with a manager maritime following oncology. Recently, he experienced an influenza infection, which has resulted in persistent cough and intermittent wheezing. He denies any current increase in s hortness of breath and notes that his symptoms are improving. The patient is in good spirits but reports significant insomnia. A treatment plan, including a possible second opinion and consideration for referral to [facility], will be pursued following the completion and evaluation of all diagnostic imaging and results. Social History Health Maintenance - Influenza vaccination status not direc tly discussed, though presence of recent influenza infection noted. - Low-dose CAT scan program participatio n for lung cancer screening. - Treatment for insomnia with trazodone discussed. Review of Systems - Respiratory: Denies increased shortnes s of breath; Reports intermittent wheezing, improving over time. - Neurological/Psychiatric: Reports sign ificant insomnia. Physical Exam General: Cooperative, healthy appearing, comfortable, no acute distress and well developed Orientation: Patient oriented x3 Limitations: No limitations Head: Normal to inspection Ears: Hearing grossly normal bilaterally Nose: Normal external nose present Face and sinus: Normal facial exam Eyes: Appearance normal, both eyes and all related structures Neck: Normal visual inspection and Yes full ROM Respiratory: Normal respiratory effort and able to speak in complete sentences. Scattered wheezes on the left side, otherwise moving air Cardiovascular: Regular rate and rhythm. Slightly diminished S1 and S2 GI: Normal to inspection. Soft to palpation and nontender Skin: No rashes or lesions noted Neuro: Patient oriented x3 Extremities: Normal to inspection Results Plan - Schedule and complete biopsy to confir m the lung carcinoma and assess further the extent of mediastinal adenopathy and adrenal gland metastasis. - Proceed with PET scan as ordered for f urther evaluation of metastasis. - Continue to monitor recovery from rece nt influenza infection, acknowledging improvement in respiratory symptoms. - Manage insomnia with trazodone and con tinue assessing effectiveness. - [facility] for comprehensive cancer treatment once all test results are available. - Provide follow-up with oncology/hemato logy and pulmonology as scheduled. Patient was informed and verbally consented to the use of an ambient scribe for clinic note documentation during this visit. Discussion Notes Patient Instructions - Attend scheduled PET scan appointment on Friday for further evaluation of metastatic disease. - Follow up with oncology/hematology and pulmonology as per the scheduled appointments next week. - Begin trazodone medication as prescrib ed to manage insomnia, and report any side effects or improvement in sleep. - Monitor for changes in respiratory sym ptoms or worsening and report promptly. - Remain in contact for updates on diagn ostic results and potential further instructions regarding treatment options. [facility] Medical History Osteoarthritis of shoulders, bilateral HTN (hypertension) Dyslipidemia Asthma Personal history of nicotine dependence Tubular adenoma of colon Lipoma Surgical History History of colonoscopy History of laparoscopic cholecystectomy (01/23/24) History of right inguinal hernia repair Hx of excision of mass Family History Mother Mental health disorder Colon cancer Brother Prostate cancer Social History Household Members: None Housing: House Are you a primary care trainer to a significant other at home: No Do you presently have visiting nurse or other home services: No Comment: ache Patient Tobacco Use Status: Former Tobacco user Tobacco use type: Cigarette Years Smoked: (onset 20yo, 1ppd x 51yrs, 50pyh - quit 2010) e-Cigarette/Vaping Use: Never Used Advance Directives Date on File: 11/27/21 service: No Current occupational status: retired Cognitive needs: No Hearing needs: No Vision needs: No Questionnaire PHQ-9 Over the last 2 weeks, how often have you been bothered by any of the following problems? 1. Little interest or pleasure in doing things: more than half the days 2. Feeling down, depressed, or hopeless: several days 3. Trouble falling or staying asleep, or sleeping too much: more than half the days 4. Feeling tired or having little energy: more than half the days 5. Poor appetite or overeating: more than half the days 6. Feeling bad about yourself - or that you are a failure or have let yourself or your family down: several days 7. Trouble concentrating on things, such as reading the newspaper or watching television: several days 8. Moving or speaking so slowly that other people could have noticed. Or the opposite - being so fidgety or restless that you have been moving around a lot more than usual: not at all 9. Thoughts that you would be better off or of hurting yourself in some way: not at all Total score: 11 Depression Screening Interpretation: Positive (denies any si or hi) Depression S creening Follow-up: Existing condition Depression Screening Done: Yes 77238 - PHQ-9 Billing: Yes Source: Developed by Drs. Kyle Bravo, Yareli Josue, Lucho Dhaliwal and colleagues, with an educational leyla from [employer] (deja mi). Thrive Questionnaire Date Thrive assessed: 06/15/24 I am a: Patient What is your living situation today?: I have a steady place to live Within the past 12 months, did the food you bought not last and you didn't have the money to get more?: Never true Within the past 12 months, did you worry whether your food would run out before you got money to buy more?: Never true Do you have trouble paying for medicines?: No Do you have trouble getting transportation to medical appointments?: No Do you have trouble paying your heating and electricity bill?: No Do you have trouble taking care of your child, family member or friend?: No Do you have trouble with day-to-day activities such as bathing, preparing meals, shopping, managing finances, etc.?: No Are you currently unemployed and looking for a job?: No Are you interested in more education?: No Please select the resources that you would like help with: None Currently or been in a relationship where the following occur: No concerns reported THRIVE Score: 0 AUDIT C Alcohol Use Questionnaire (AUDIT-C) 1. How often do you have a drink containing alcohol?: 2-3 times a week 2. How many drinks containing alcohol do you have on a typical day when you are drinking?: 1 or 2 3. How often do you have six or more drinks on one occasion?: Never Total Score: 3 Score Reviewed/Action Taken: Yes ANDRIY-7 AMB Questionnaire ANDRIY-7 Date ANDRIY - 7 assessed: 06/15/24 Feeling nervous, anxious, or on edge: 0 = Not at all Not being able to stop or control worryin = Not at all Worrying too much about different things: 0 = Not at all Trouble relaxin = Several days Being so restless that it is hard to sit still: 0 = Not at all Becoming easily annoyed or irritable: 0 = Not at all Feeling afraid as if something awful might happen: 0 = Not at all Total ANDRIY-7 score (0-4 normal; 5-9 mild; 10-14 moderate; 15-21 severe): 1 Source: Developed by Drs. Kyle Bravo, Yareli Josue, Lucho Dhaliwal and colleagues, with an educational leyla from [employer] (deja [employer]). ANDRIY-7 Assessment Billing ANDRIY-7 Assessment Tool: ANDRIY-7 Assessment 43056 Physical exam (Primary Care) Vital Signs: Last Vital Signs Pulse 88 06/15/24 09:56 BP 126/66 06/15/24 09:56 Pulse Ox 97 06/15/24 09:56 BMI result Body Mass Index 23.0 Tobacco/Smoking Status: Tobacco use Status Tobacco use date assessed 06/15/24 06/15/24 09:58 Patient Tobacco Use Status Former Tobacco user 06/15/24 09:58 Tobacco use type Cigarette 06/15/24 09:58 e-Cigarette/Vaping Use Never Used 06/15/24 09:58 PHQ-9: PHQ-9 Score PHQ-9: Total score 11 06/15/24 11:06 Depression Screening Interpretation: Positive (denies any si or hi) Depression Screening Follow-up: Existing condition Thrive Assessment: Date of Thrive Assessment Date Thrive assessed 06/15/24 06/15/24 09:58 Currently or been in a relationship where the following occur: No concerns reported Results AMB Hemoglobin A1c AMB Hemoglobin A1c 6.4 % Last Edit by Marco Cotton CMA on 06/15/24 10: 14 Results Reviewed Results Reviewed: Laboratory Last Values Hgb A1c (Clinic) 6.4 % (4.0-6.0) H 06/15/24 10:03 Coding Level of Care Code Est Pt Level 3 (22311) Diagnoses Mass of right lung R91.8 Adrenal carcinoma C74.90 Insomnia G47.00 Additional Codes ANDRIY-7 Assessment Billing - ANDRIY-7 Assessment Tool: ANDRIY-7 Assessment 54537 ([id number]) PHQ-9 - 48930 - PHQ-9 Billing: Yes ([id number]) Assessment & Plan Assessment & Plan (1) Mass of right lung: Code(s): R91.8 - Other nonspecific abnormal finding of lung field Category: Medical (2) Adrenal carcinoma: Code(s): C74.90 - Malignant neoplasm of unspecified part of unspecified adrenal gland Category: Medical (3) Insomnia: Code(s): G47.00 - Insomnia, unspecified Category: Medical Plan . Orders: Orders AMB Hemoglobin A1c Today Z13.9 - Encounter for screening, unspecified Medications: New trazodone 50 mg PO BEDTIME PRN 30 tabs 0RF sleep 30 days
== END 2024-06-15 11:20 | disposition home or self-care (01) ==
PROVIDERS: PCP Nurse Practitioner Family; Visit Provider Nurse Practitioner Family
DX: R91.8 Other nonspecific abnormal finding of lung field (principal); C74.90 Malignant neoplasm of unspecified part of unspecified adrenal gland; G47.00 Insomnia, unspecified; Z13.9 Encounter for screening, unspecified

== ENCOUNTER → 2024-06-15 09:20 | Outpatient (BNVA) | payer MEDICARE, SELFPAY | PROVIDERS: PCP Nurse Practitioner Family; Visit Provider Nurse Practitioner Family | DX: R91.8 Other nonspecific abnormal finding of lung field (principal); C74.90 Malignant neoplasm of unspecified part of unspecified adrenal gland; G47.00 Insomnia, unspecified; Z13.1 Encounter for screening for diabetes mellitus | CPT/HCPCS: 83036; 96127; 99212 ==

== ENCOUNTER 2024-06-24 13:39 | Outpatient (AMB) | payer MEDICARE, SELFPAY ==
[2024-06-24 13:40] VITALS: BMI 23.4
--- NOTE | 2024-06-24 13:40 | A.OFFVIS_ITS ---
Vital Signs 06/24/24 13:40 Height 5 ft 8 in Weight 154 lb BMI 23.4 Intake Visit Reasons: Abnormal CT scan Stucco Plasterer Required: No Allergies oxycodone [From PERCOCET] Adverse Reaction (Intermediate, Verified 06/24/24 13:41) NAUSEA & VOMITING HPI HPI Abnormal CT scan: Details: 74-year-old gentleman, former 30+ pack-year smoker, quit 2009 with underlying asthma/COPD overlap syndrome with symptoms well controlled on Arnuity and albuterol MDI, followed by lung cancer screening program, who had abnormal CT chest demonstrating right paratracheal mass, now referred for possible EBUS biopsies. After the last office visit patient had PET-CT shows activity in the primary paratracheal lesion, liver lesions, and cervical lymph nodes. Patient is planned for liver biopsy. [facility] Medical History Osteoarthritis of shoulders, bilateral HTN (hypertension) Dyslipidemia Asthma Personal history of nicotine dependence Tubular adenoma of colon Lipoma Surgical History History of colonoscopy History of laparoscopic cholecystectomy (01/23/24) History of right inguinal hernia repair Hx of excision of mass Family History Mother Mental health disorder Colon cancer Brother Prostate cancer Social History Household Members: None Housing: House Are you a primary rn wound care to a significant other at home: No Do you presently have visiting nurse or other home services: No Comment: ache Patient Tobacco Use Status: Former Tobacco user Tobacco use type: Cigarette Years Smoked: (onset 20yo, 1ppd x 51yrs, 50pyh - quit 2010) e-Cigarette/Vaping Use: Never Used Advance Directives Date on File: 11/27/21 service: No Current occupational status: retired Cognitive needs: No Hearing needs: No Vision needs: No Review of Systems Const Denies daytime sleepiness, Denies excessive sweating, Denies fatigue, Denies fev er(s), Denies lethargy, Denies malaise, Denies night sweats, Denies snoring and Reports weight loss Eyes Denies blurry vision and Denies itchy eyes ENT Denies nasal congestion, Denies post nasal drip, Denies sinus pain, Denies sinus pressure and Denies other ( Thrush) Card Denies chest pain, Denies pedal edema, Denies dyspnea, Denies orthopnea and Denies paroxysmal nocturnal dyspnea Resp Denies cough, Denies hemoptysis, Denies excessive phlegm production, Denies dyspnea, Denies snoring and Denies wheezing GI Denies abdominal pain and Denies heartburn Musc Denies myalgias, Denies arthralgias and Denies joint swelling Skin/Breast Denies rash Neuro Denies memory loss and Denies seizure-like activity Psych Denies abnormal sleep pattern, Denies anxiety and Denies memory loss Endo Denies excessive sweating, Denies fatigue and Denies heat intolerance Rocky/Lymph Denies easy bruising Aller/Immun Denies itchy eyes, Denies seasonal rhinorrhea and Denies wheezing Physical Exam Vital Signs: BMI result Body Mass Index 23.4 Telehealth Telehealth Telehealth Platform: Telephone Location of provider rendering services: practice address Location of patient: address on file Patient Identification confirmed using: Name, : Yes Telehealth method: voice only Patient verbally consented to treatment: Yes Patient verbally consented to billing insurance company: Yes Patient informed of any privacy concerns related to visit: Yes Assessment & Plan Assessment & Plan (1) Asthma-COPD overlap syndrome: Code(s): J44.89 - Other specified chronic obstructive pulmonary disease Category: Medical Plan: Controlled on current regimen of Arnuity and albuterol MDI. Continue current regimen. (2) Mass of right lung: Code(s): R91.8 - Other nonspecific abnormal finding of lung field Category: Medical Plan: Results of PET scan discussed with patient's oncologist and the plan is to proceed with liver biopsy, if nondiagnostic, will reconsider EBUS. Coding Level of Care Code Tele Est Pt Level 4 (69018) Diagnoses Asthma-COPD overlap syndrome J44.89 Mass of right lung R91.8 Time Spent (min) 20
--- OUTSIDE RECORDS SUMMARY | 2024-06-24 17:32 | XMS_ITS | Data Portability ---
Author Organization [facility], [facility] Address [address] [place] [address] Care Team Providers Care Barytes Grinder Name Role Phone CHERYL GUEVARA Primary Care Provider Assessment No assessment recorded. Plan of Treatment Reminders Order Date Submit Date Provider Last Modified By Organization Details Last Modified Time Details Appointments RECHECK 15 2024 08:30A M Cornelio torres PA-C Not available Not available Not available Lab None recorded . Referral None recorded . Procedures None recorded . Surgeries None recorded . Imaging None recorded . Medication Orders None recorded . Patient TargetsNo targets recorded. Patient InstructionsNo instructions recorded. Reason for Referral None Reported. Results Created Date Observation Date Name Description Value Unit Range Abnormal Flag Note LastModifiedBy Organization Detail LastModifiedTime 01/23/20 24 09/12/2022 gregoryi ng/gage luong tic resul t No observ ation record ed. [email or web address] Not Available 12/26 06:44:53 Result Notes None recorded. Procedures Surgical History Date Name Laterality Status Provider Name and Address Organization Details Recorded Time 06/11/19 25 Shoulder Depo 1cc Injection, Bilateral completed Cornelio Herr PA-C [address], [place], [address], [facility] 06/11/2024 08:26:50 03/05/20 24 Sports Shoulder Bilateral completed Cornelio Herr PA-C [address], [place], [address], [place] [facility] 03/05/2024 08:30:30 12/05/19 24 Sports Shoulder Bilateral completed Cornelio Herr PA-C [address], [place], [address], [facility] 12/05/2023 08:40:55 08/29/19 24 Sports Shoulder Bilateral completed SHAYNA Field-Jak [address], [place], [address], [facility] 08/29/2023 08:33:59 01/22/20 04 Gastrointestinal Surgery completed Sandra Can [facility] 03/05/2024 08:21:20 Imaging Results Imaging Date Name Status LastModified by Organiz ation Details LastModified Time 09/12/2022 imaging/diag nostic result completed [email or web address] Information not available 01/23/2024 06:44:53 Procedure Notes None recorded. Medical Equipment None Reported. Allergies Allergen ID Allergen Name Allergen Category Reaction Reaction Severity Criticality Documentation Date Start Date Code Code System Note Provider Name and Address Organization Details Recorded Time 676029 acetamino phen / oxycodone medicatio n Not available Not available Not available 07/28/20232022 99565 3 RxNorm Not Available [facility] 16:12:52 Medications Name Sig Start Date Stop Date Status Note LastModified by Organization Details LastModified Time amoxicillin 500 mg capsule TAKE 2 TABLETS BY MOUTH RIGTH AWAY THEN 1 TABLET 3 TIMES A DAY UNTIL FINISHED 08/26 completed Not Available Not Available Not Available atorvastati n 40 mg tablet TAKE 1 TABLET EVERY EVENING active Not Available Not Available No t Available buspirone 5 mg tablet active Not Available Not Available No t Available atorvastati n 20 mg tablet TAKE 1 TABLET BY MOUTH EVERY DAY IN THE EVENING 11/30 completed Not Available Not Available Not Available atorvastati n 10 mg tablet TAKE 1 TABLET BY MOUTH EVERY EVENING 08/26 completed Not Available Not Available Not Available azithromyci n 250 mg tablet TAKE 1 TABLET BY MOUTH DAILY FOR 6 DAYS START ON DAY 2 OF THERAPY 08/26 completed Not Available Not Available Not Available benzonatate 200 mg capsule TAKE 1 CAPSULE BY MOUTH 3 TIMES A DAY NEEDED FOR COUGH active Not Available Not Available No t Available FreeStyle Test strips TWICE A DAY FOR DIABETES active Not Available Not Available No t Available FreeStyle Lancets 28 gauge active Not Available Not Available Not Available lisinopril 20 mg tablet TAKE 1 TABLET DAILY active Not Available Not Available No t Available prednisone 20 mg tablet TAKE 2 TABLETS BY MOUTH ONCE DAILY FOR 5 DAYS 03/02 completed Not Available Not Available Not Available oxycodone-a cetaminophe n 5 mg-325 mg tablet TAKE 1 TABLET BY MOUTH EVERY 4 TO 6 HOURS NEEDED FOR PAIN 03/05 completed Not Available Not Available Not Available tamsulosin 0.4 mg capsule 08/28 completed Not Available Not Available Not Available benzonatate 100 mg capsule TAKE 1 CAP (100 MG) ORALLY 2 TO 3 TIMES A DAY NEEDED FOR COUGH 08/26 completed Not Available Not Available Not Available docusate sodium 100 mg capsule TAKE 1 CAPSULE BY MOUTH TWICE A DAY active Not Available Not Available No t Available methylpredn isolone 4 mg tablets in a dose pack TAKE 6 TABLETS ON DAY 1 DIRECTED ON PACKAGE AND DECREASE BY 1 TAB EACH DAY FOR A TOTAL OF 6 DAYS active Not Available Not Available No t Available albuterol sulfate HFA 90 mcg/actuati on aerosol inhaler USE 2 INHALATIO NS ORALLY EVERY 6 HOURS NEEDED FORBRONCH OSPASM active Not Available Not Available No t Available metformin ER 500 mg tablet,exte nded release 24 hr TAKE 1 TABLET BY MOUTH EVERY DAY 08/28 completed Not Available Not Available Not Available doxycycline hyclate 100 mg tablet TAKE 1 TABLET BY MOUTH TWICE A DAY FOR 1 DAY 08/26 completed Not Available Not Available Not Available finasteride 5 mg tablet active Not Available Not Available Not Available amoxicillin 875 mg-potcorbiniu m clavulanate 125 mg tablet TAKE 1 TABLET BY MOUTH TWICE A DAY 08/26 completed Not Available Not Available Not Available Flovent HFA 110 mcg/actuati on aerosol inhaler 08/26 completed Not Available Not Available Not Available hydrochloro thiazide 12.5 mg tablet TAKE 1 TABLET DAILY active Not Available Not Available No t Available FreeStyle Lite Meter kit TWICE A DAY TESTING FOR DIABETES active Not Available Not Available No t Available Vascepa 1 gram capsule TAKE 1 CAPSULE TWICE DAILY active Not Available Not Available No t Available Jardiance 10 mg tablet TAKE 1 TABLET DAILY active Not Available Not Available No t Available Arnuity Ellipta 100 mcg/actuati on powder for inhalation USE 1 INHALATIO N ORALLY DAILY active Not Available Not Available No t Available omeprazole 20 mg delayed release,dis integrating tablet Take by oral route. active Not Available Not Available No t Available OneTouch Delica Plus Lancet 30 gauge active Not Available Not Available Not Available Paxlovid 300 mg (150 mg x 2)-100 mg tablets in a dose pack TAKE 2 TABLETS (NIRMATRE LVIR) AND TAKE 1 TABLET (RITONAVI R) BY MOUTH TWICE A DAY FOR 5 DAYS 03/02 completed Not Available Not Available Not Available Vitals Date Recorded Body height Body mass index (BMI) Body weight Provider Name and Address Organization Details Last Updated DateTime 08/29/2023 175.26 cm 25.8 kg/m2 48058.66 g AGUSTO HECTOR [facility] 08/29/2023 08:25:02 Date Recorded Body height Body mass index (BMI) Body weight Provider Name and Address Organization Details Last Updated DateTime 12/05/2023 175.26 cm 25.8 kg/m2 48911.66 g Cornelio Herr PA-C [address] [place] [address] [address], [place], [address], [facility] 12/05/2023 08:32:08 Date Recorded Body height Body mass index (BMI) Body weight Provider Name and Address Organization Details Last Updated DateTime 03/05/2024 175.26 cm 25.8 kg/m2 22663.66 g Sandra Can [facility] 03/05/2024 08:23:05 Date Recorded Body height Body mass index (BMI) Body weight Provider Name and Address Organization Details Last Updated DateTime 06/11/2024 175.26 cm 25.8 kg/m2 68005.66 g Sandra Can [facility] 06/11/2024 08:22:49 Social History None recorded. Functional Status None recorded. Mental Status None recorded. Family History Nothing Reported. Medical History Condition Response Coronary Artery Disease N Anxiety/Depression N Emphysema N COPD N Pacemaker N Vascular Disease N Gastrointestinal Disease Y Autoimmune disease N Orthotics N Arthritis Y Blood Clot N Acid Reflux (GERD) N Cancer N Stroke N Rheumatoid Arthritis N Arrhythmia N Fibromyalgia N Allergies/Hayfever N Thyroid Problems N Kidney/Bladder Problems N Anemia N Heart Attack ([place]) N Diabetes Y Bleeding Disorder N Seizures/Epilepsy N AIDS/HIV N Congestive Heart Failure (CHF) N Asthma Y Peripheral Vascular Disease N Sleep Apnea N Hepatitis N Heart Disease N Pulmonary Embolism N Hypertension Y Osteoporosis N Past Encounters Encounter ID Performer Location Encounter Start Date Encounter Closed Date Diagnosis/Indication Diagnosis SNOMED-CT Code Diagnosis ICD10 Code Diagnosis Note [id number] [facility] [address] [place] [address] 08/29/2023 08:20:43 09/18/2023 11:58:44 Osteoarthritis of left glenohumeral joint 0176806391 853976 M19.012 Osteoarthr itis of right glenohumeral joint 7471857442 677866 M19.935 [id number] [facility] [address] [place] [address] 12/05/2023 08:23:37 01/02/2024 10:37:31 Osteoarthritis of left glenohumeral joint 0651366504 981251 M19.012 Osteoarthr itis of right glenohumeral joint 2689331750 811936 M19.821 [id number] [facility] [address] [place] [address] 03/05/2024 08:18:56 03/31/2024 10:29:40 Osteoarthritis of left glenohumeral joint [id number] 846479 M19.012 Osteoarthr itis of right glenohumeral joint 7384383200 118521 M19.580 [id number] [facility] [address] [place] [address] 06/11/2024 08:19:16 06/11/2024 08:27:23 Osteoarthritis of bilateral glenohumeral joints 7231963404 001875 M19.011 M19.012 Health Concerns Section Related Observation LastModified by Organization Detai ls LastModified Time None Recorded Concern Status LastModified by Organization Details LastModified Time None Recorded Advance Directives Directive None Recorded Payers Encounter Date Sequence Insurance Name Policy Number Policy Almodovar Covered Member ID Almodovar Member ID Guarantor Name 08/29/2023 1 [place]MEDICARE [place]PLAC[place] PPO) [id number] Bj [facility] [id number] [address] [facility] 12/05/2023 1 [place] PPO) [id number] Bj [facility] [id number] [facility] 03/05/2024 1 [place] PPO) [id number] Bj [facility] [id number] [address] [facility] 06/11/2024 1 [place] PPO) [id number] Bj [facility] [id number] [address] [facility] Notes Date Note Type Note Provider Name and Address Organization Details Recorded Time 4 text/html I am seeing the patient today under the supervision of Dr. Frazier who was available but who did not see the patient. REASON FOR VISIT Patient comes to the office with known glenohumeral joint arthritis of the {{left Right Bilateral*} } shoulder. The patient has done well with conservative management for their shoulder pain. Recently reports increasing discomfort over the past several weeks without injury. Pain is generalized about the shoulder and discomfort is noted at night. PAST MEDICAL/SURGICAL HISTORY Current medications per intake sheet. PHYSICAL FINDINGS The patient is well appearing, in no apparent distress, alert and oriented to person, place and time. Gait is symmetric. No significant swelling, warmth or erythema about either shoulder. There is mild tenderness to palpation about the shoulder. Active range of motion of the shoulder is {{full restricted*}} with moderate pain through mid range manipulations. 4/5 strength of the shoulder. Good stability of the shoulder. Peripheral, vascular, lymphatic examination, skin, neurologic coordination, reflexes, sensation are within normal limits. ASSESSMENT bilateral glenohumeral joint arthritis PLAN The patient has done well with conservative management in regards to the shoulder. Continued conservative management recommended. Moderating activities with the upper extremity recommended also. See procedure note. Follow up as needed. Cornelio Herr PA-C [address], [place], [address], [facility] 08/29/2023 08:35:07 4 text/html I am seeing the patient today under the supervision of Dr. Oconnor who was available but who did not see the patient.REASON FOR VISITPatient comes to the office with known glenohumeral joint arthritis of the Bilateral shoulder. The patient has done well with conservative management for their shoulder pain. Recently reports increasing discomfort over the past several weeks without injury. Pain is generalized about the shoulder and discomfort is noted at night.PAST MEDICAL/SURGICAL HISTORYCurrent medications per intake sheet.PHYSICAL FINDINGSThe patient is well appearing, in no apparent distress, alert and oriented to person, place and time. Gait is symmetric. No significant swelling, warmth or erythema about either shoulder.There is mild tenderness to palpation about the shoulder. Active range of motion of the shoulder is restricted with moderate pain through mid range manipulations. 4/5 strength of the shoulder. Good stability of the shoulder.Peripheral, vascular, lymphatic examination, skin, neurologic coordination, reflexes, sensation are within normal limits.[facility] glenohumeral joint arthritisPLANThe patient has done well with conservative management in regards to the shoulder. Continued conservative management recommended. Moderating activities with the upper extremity recommended also. See procedure note. Follow up as needed. Cornelio Herr PA-C [address], [place], [address], [facility] 12/05/2023 08:41:44 4 text/html I am seeing the patient today under the supervision of Dr. Oconnor who was available but who did not see the patient.REASON FOR VISITPatient comes to the office with known glenohumeral joint arthritis of the Bilateral shoulder. The patient has done well with conservative management for their shoulder pain. Recently reports increasing discomfort over the past several weeks without injury. Pain is generalized about the shoulder and discomfort is noted at night.PAST MEDICAL/SURGICAL HISTORYCurrent medications per intake sheet.PHYSICAL FINDINGSThe patient is well appearing, in no apparent distress, alert and oriented to person, place and time. Gait is symmetric. No significant swelling, warmth or erythema about either shoulder.There is mild tenderness to palpation about the shoulder. Active range of motion of the shoulder is restricted with moderate pain through mid range manipulations. 4/5 strength of the shoulder. Good stability of the shoulder.Peripheral, vascular, lymphatic examination, skin, neurologic coordination, reflexes, sensation are within normal limits.[facility] glenohumeral joint arthritisPLANThe patient has done well with conservative management in regards to the shoulder. Continued conservative management recommended. Moderating activities with the upper extremity recommended also. See procedure note. Follow up as needed. Cornelio Herr PA-C [address], [place], [address], [facility] 03/05/2024 08:31:17 5 text/html I am seeing the patient today under the supervision of Dr. Oconnor who was available but who did not see the patient.REASON FOR VISITPatient comes to the office with known glenohumeral joint arthritis of the Bilateral shoulder. The patient has done well with conservative management for their shoulder pain. Recently reports increasing discomfort over the past several weeks without injury. Pain is generalized about the shoulder and discomfort is noted at night.PAST MEDICAL/SURGICAL HISTORYCurrent medications per intake sheet.PHYSICAL FINDINGSThe patient is well appearing, in no apparent distress, alert and oriented to person, place and time. Gait is symmetric. No significant swelling, warmth or erythema about either shoulder.There is mild tenderness to palpation about the shoulder. Active range of motion of the shoulder is restricted with moderate pain through mid range manipulations. 4/5 strength of the shoulder. Good stability of the shoulder.Peripheral, vascular, lymphatic examination, skin, neurologic coordination, reflexes, sensation are within normal limits.ASSESSMENTbilater al glenohumeral joint arthritisPLANThe patient has done well with conservative management in regards to the shoulder. Continued conservative management recommended. Moderating activities with the upper extremity recommended also. See procedure note. Follow up as needed. Cornelio Herr PA-C [address], [place], [address], [facility] 06/11/2024 08:27:21
--- OUTSIDE RECORDS SUMMARY | 2024-06-24 17:32 | XMS_ITS | Continuity of Care Document ---
Author Organization [facility], [place] [facility] Address [address] [place] [address] Care Team Providers Care Mononitrotoluene Operator Name Role Phone CHERYL GUEVARA Primary Care Provider [phone] Assessment No assessment recorded. Plan of Treatment [...] instructions recorded. Reason for Referral None Reported. Procedures Surgical History Date Name Laterality Status Provider Name and Address Organization Details Recorded Time 06/11/19 25 Shoulder Depo 1cc Injection, Bilateral completed Cornelio Herr PA-C [address] [facility], [place], [address], [facility] 06/11/2024 08:26:50 03/05/20 24 Sports Shoulder Bilateral completed Cornelio Herr PA-C [address], [place], [address], [facility] 03/05/2024 08:30:30 12/05/19 24 Sports Shoulder Bilateral completed SHAYNA Field-Jak [address], [place], [address], [facility] 12/05/2023 08:40:55 08/29/19 24 Sports Shoulder Bilateral completed Cornelio Herr PA-C [address], [place], [address], [facility] 08/29/2023 08:33:59 01/22/20 04 Gastrointestinal Surgery completed Sandra Can [place] - [facility] 03/05/2024 08:21:20 Imaging Results None recorded. Procedure Notes None recorded. Medical Equipment None Reported. Allergies Allergen ID Allergen Name Allergen Category Reaction Reaction Severity Criticality Documentation Date Start Date Code Code System Note Provider Name and Address Organization Details Recorded Time 356614 acetamino phen / oxycodone medicatio n Not available Not available Not available 07/28/20232022 53896 3 RxNorm Not Available [facility] 16:12:52 Medications Name Sig Start Date Stop [...] Available Not Available Not Available amoxicillin 875 mg-potassiu m clavulanate 125 mg tablet TAKE 1 [...] Updated DateTime 06/11/2024 175.26 cm 25.8 kg/m2 13986.66 g Sandra Can [place] - [facility] 06/11/2024 08:22:49 Social History None recorded. Functional Status None recorded. Mental Status None recorded. Family History Nothing Reported. Medical History Condition Response Allergies/Hayfever N Coronary Artery Disease N Anxiety/Depression N Emphysema N Thyroid Problems N COPD N Pacemaker N Anemia N Kidney/Bladder Problems N Vascular Disease N Heart Attack ([place]) N Gastrointestinal Disease Y Diabetes Y Autoimmune disease N Bleeding Disorder N Orthotics N Arthritis Y Seizures/Epilepsy N Blood Clot N AIDS/HIV N Congestive Heart Failure (CHF) N Acid Reflux (GERD) N Cancer N Stroke N Asthma Y Peripheral Vascular Disease N Sleep Apnea N Hepatitis N Heart Disease N Rheumatoid Arthritis N Arrhythmia N Pulmonary Embolism N Fibromyalgia N Hypertension Y Osteoporosis N Past Encounters Encounter ID Performer Location Encounter Start Date Encounter Closed Date Diagnosis/Indication Diagnosis SNOMED-CT Code Diagnosis ICD10 Code Diagnosis Note [id number] [facility] [address] [place] [address] 06/11/2024 08:19:16 06/11/2024 08:27:23 Osteoarthritis of bilateral glenohumeral joints [id number] 679813 M19.011 M19.012 Health Concerns Section Related Observation LastModified by Organization Detai ls LastModified Time None Recorded Concern Status LastModified by Organization Details LastModified Time None Recorded Payers Encounter Date Sequence Insurance Name Policy Number Policy Almodovar Covered Member ID Almodovar Member ID Guarantor Name 06/11/2024 1 [facility] (MEDICARE REPLACEMENT PPO) [id number] [facility] [id number] [facility] Notes Date Note Type Note Provider Name and Address Organization Details Recorded Time 5 text/html I am seeing the patient [...] up as needed. Cornelio Herr PA-C [address] [facility] [address], [place], [address], [facility] 06/11/2024 08:27:21
== END 2024-06-24 13:51 | disposition home or self-care (01) ==
LOC: HO.HPS 13:39
PROVIDERS: PCP Nurse Practitioner Family; Visit Provider Internal Medicine Pulmonary Disease
DX: R91.8 Other nonspecific abnormal finding of lung field (principal); J44.89 Other specified chronic obstructive pulmonary disease
CPT/HCPCS: 99213

== ENCOUNTER → 2024-06-29 08:24 | Outpatient (BNV) | payer MEDICARE, SELFPAY | PROVIDERS: PCP Nurse Practitioner Family; Visit Provider Radiology Diagnostic Radiology | DX: R60.0 Localized edema (principal) | CPT/HCPCS: 93971 ==

== ENCOUNTER 2024-07-02 16:05 | Outpatient (REF) | payer MEDICARE, SELFPAY | END 2024-07-02 16:06 | disposition home or self-care (01) | LOC: HO.US 16:05 | PROVIDERS: PCP Nurse Practitioner Family; Visit Provider Internal Medicine Medical Oncology | DX: I82.402 Acute embolism and thrombosis of unspecified deep veins of left lower extremity (principal) | CPT/HCPCS: 93971 ==

== ENCOUNTER → 2024-07-02 16:06 | Outpatient (BNV) | payer MEDICARE, SELFPAY | PROVIDERS: PCP Nurse Practitioner Family; Visit Provider Nuclear Medicine | DX: R22.42 Localized swelling, mass and lump, left lower limb (principal) | CPT/HCPCS: 93971 ==

== ENCOUNTER 2024-07-06 09:26 | Day surgery (SDC) | payer MEDICARE, SELFPAY ==
[2024-07-06] VITALS (15 sets, daily range): BP systolic 97–123; BP diastolic 54–69; PULSE 75–93; RESP 15–24; TEMP 36.2–36.4; O2SAT 96–100; BMI 22.9
--- NOTE | ~2024-07-06 | US_ITS ---
Lung mass with PET avid liver lesions concerning for metastases. PROCEDURES: 1. Limited preprocedure ultrasound of the abdomen. Permanent images saved in PACS. 2. Ultrasound-guided biopsy of the right lobe liver mass. 3. Limited preprocedure ultrasound of the abdomen. Permanent images saved in PACS. CLINICIANS: Domingo Frazier PA-C MEDICATIONS: -Versed 1 mg, Fentanyl 50 mcg, and lidocaine 1% 10 mL SQ -Antibiotics: None -For additional details, please see nursing flowsheet. COMPLICATIONS: None ESTIMATED BLOOD LOSS: < 5 ml CONTRAST: None SPECIMENS: 5 x 20 g cores were sent to pathology MODERATE SEDATION TIME: 15 min PROCEDURE NOTE: The procedure, risks, benefits, and alternatives were carefully explained to the patient and written informed consent was obtained. The patient was placed supine on the exam table. A timeout was performed. A limited ultrasound of the abdomen was performed to localize the right lobe liver lesion and choose appropriate needle entry and trajectory. The patient was prepped and draped in usual sterile fashion. The skin and deeper soft tissues were anesthetized with lidocaine. Under ultrasound guidance, a 19 gauge trocar needle was advanced to the liver lesion. A 20 gauge biopsy device was inserted through the trocar needle advanced into the liver lesion. A total of 5, 20 gauge cores were performed. The specimens were placed in formalin. A total of 2 Gelfoam torpedoes were then administered through the trocar needle into the biopsy tract and at the level of the liver capsule. The needle was removed. A limited post procedure ultrasound was then performed. Images were saved in PACS. A dry dressing was applied and secured with Tegaderm. There were no immediate complications. The patient was stable after the procedure and was transferred to the post anesthesia care unit. The procedure was done under moderate sedation with a dedicated nurse for monitoring of vital signs. US/US biopsy liver Impression: Ultrasound-guided biopsy of a right lobe liver mass. This procedure was performed by Domingo Frazier PA-C and supervised by Dr. Rosales. Electronically signed by: Daniel Rosales MD 07/19/2024 04:17 PM [facility] [place]
[2024-07-06 10:47] LABS: Glucose, Whole Blood 111 mg/dL (60-115)
--- NOTE | 2024-07-06 11:29 | MHC.SHP ---
Pre-Procedural Eval Section A - 24 Hr Update-Section A only Date of Service: 07/06/24 Section B - Complete if H&P > 30 days Chief Complaint: liver bx, liver mets (abd ultrasound also) Details of Present Illness: 74 y/o man with a lung mass and pet avid liver lesions concerning for metastases Relevant Family History (Specify if Yes): No Relevant Social History: Tobacco Use Present Medications: see Short Stay Collaborative assessment Medical History: Significant History History of Previous Operations: Relevant previous surgery/procedure and date(s) Allergies: Allergies Allergy/AdvReac Type Severity Reaction Status Date / Time No Known Allergies Allergy Verified 07/06/24 10:13 Exam Surgical H&P Exam: Normal: Heart, Normal: Lungs, Normal: Abdomen, Normal: Skin and Normal: Neurological Plan 74 y/o man with lung mass and PET avid liver masses -Liver mass biopsy Time Spent With Patient Time: Total time managing care of this patient today ____ minutes.
[2024-07-06] MEDS: Midazolam HCl 5 MG/ML VIAL 1 MG IVPUSH (11:50)
[2024-07-06] MEDS: fentaNYL citrate/PF 100 MCG/2 ML VIAL 50 MCG IVPUSH (11:50)
[2024-07-06] MEDS: Lidocaine HCl 1 % MPF 5 ML VIAL 10 ML SUBCUT (12:14)
== END 2024-07-06 15:04 | disposition home or self-care (01) ==
PROVIDERS: Physician Assistant Surgical; PCP Nurse Practitioner Family; Visit Provider Internal Medicine Medical Oncology
DX: C78.7 Secondary malignant neoplasm of liver and intrahepatic bile duct (principal); C34.91 Malignant neoplasm of unspecified part of right bronchus or lung; E27.9 Disorder of adrenal gland, unspecified; R59.0 Localized enlarged lymph nodes; J44.9 Chronic obstructive pulmonary disease, unspecified; I10 Essential (primary) hypertension; E78.5 Hyperlipidemia, unspecified; Z79.899 Other long term (current) drug therapy; Z88.5 Allergy status to narcotic agent; Z87.891 Personal history of nicotine dependence
CPT/HCPCS: 47000; 76942; 82947; 86850; 86870; 86880; 86885; 86900; 86901; 86920; 86922; 88307; 88313; 88341; 88342; 99152; J2003; J2250; J2310; J3010

== ENCOUNTER → 2024-07-06 11:17 | Outpatient (BNV) | payer MEDICARE, SELFPAY | PROVIDERS: PCP Nurse Practitioner Family; Visit Provider Physician Assistant Surgical | DX: R16.0 Hepatomegaly, not elsewhere classified (principal) | CPT/HCPCS: 47000; 76942 ==

== ENCOUNTER 2024-07-09 13:56 | Outpatient (REF) | payer MEDICARE, SELFPAY ==
--- OUTSIDE RECORDS SUMMARY | 2024-07-09 13:58 | XMS_ITS | Continuity of Care Document ---
Author Organization [facility] [place] [facility] Address [address] [place] [address] Care Team Providers Care Credit Rating Checker Name Role Phone CHERYL GUEVARA Primary Care [...] Address Organization Details Recorded Time 06/11/19 25 Sports Shoulder Bilateral completed Cornelio Herr PA-C [address] [facility] [place], [place], [address], [facility] 06/25/2024 08:24:45 03/05/20 24 Sports Shoulder Bilateral completed Cornelio Herr PA-C [address], [place], [address], [facility] 03/05/2024 08:30:30 12/05/19 24 Sports Shoulder Bilateral completed Cornelio Herr PA-C [address], [place], [address], [facility] 12/05/2023 08:40:55 08/29/19 24 Sports Shoulder Bilateral completed Cornelio Herr PA-C [address], [place], [address], [facility] 08/29/2023 08:33:59 01/22/20 04 Gastrointestinal Surgery completed Sandra Can [facility] 03/05/2024 08:21:20 Imaging Results None recorded. Procedure Notes None recorded. Medical Equipment None Reported. Allergies Allergen ID Allergen Name Allergen Category Reaction Reaction Severity Criticality Documentation Date Start Date Code Code System Note Provider Name and Address Organization Details Recorded Time 242206 acetamino phen / oxycodone medicatio n Not available Not available Not available 07/28/20232022 55386 3 RxNorm Not Available [facility] 16:12:52 Medications Name Sig Start Date [...] Updated DateTime 06/11/2024 175.26 cm 25.8 kg/m2 01986.66 g Sandra Can [place] [facility] [place] [facility] 06/11/2024 08:22:49 Social History None recorded. Functional Status None recorded. Mental Status None recorded. Family History Nothing Reported. Medical History Condition Response Allergies/Hayfever N Coronary Artery Disease N Anxiety/Depression N Emphysema N Thyroid Problems N COPD N Pacemaker N Anemia N Kidney/Bladder Problems N Vascular Disease N Heart Attack ([place]) N Gastrointestinal Disease Y Diabetes Y Autoimmune [...] SNOMED-CT Code Diagnosis ICD10 Code Diagnosis Note [id number] [facility] [address] [place] [address] 06/11/2024 08:19:16 06/11/2024 08:27:23 Osteoarthritis of bilateral glenohumeral joints 7036010572 568445 M19.011 M19.012 Health Concerns Section Related Observation LastModified by Organization Detai ls LastModified Time None Recorded Concern Status LastModified by Organization Details LastModified Time None Recorded Payers Encounter Date Sequence Insurance Name Policy Number Policy Almodovar Covered Member ID Almodovar Member ID Guarantor Name 06/11/2024 1 [facility]: [place]UE (MEDICARE REPLACEMENT PPO) [id number] [facility] [id number] [facility] Notes Date Note Type Note Provider Name [...] up as needed. Cornelio Herr PA-C [address] [facility] [address], [place], [address], [facility] [place] [facility] 06/25/2024 08:24:47
--- OUTSIDE RECORDS SUMMARY | 2024-07-09 13:59 | XMS_ITS | Data Portability ---
Author Organization [facility] Address [address] [place] [address] Care Team Providers Care Mathematics Education Professor Name Role Phone CHERYL GUEVARA Primary Care Provider [phone] Assessment No assessment recorded. Plan of Treatment [...] Herr PA-C [address], [place], [address], [facility] 06/25/2024 08:24:45 03/05/20 24 Sports Shoulder Bilateral completed Cornelio Herr PA-C [address], [place], [address], [facility] 03/05/2024 08:30:30 12/05/19 24 Sports Shoulder Bilateral completed Cornelio Herr PA-C [address], [place], [address], [facility] 12/05/2023 08:40:55 08/29/19 24 Sports Shoulder Bilateral completed [address], [place], [address], [facility] 08/29/2023 08:33:59 01/22/20 04 Gastrointestinal Surgery completed Sandra Can [facility] 03/05/2024 08:21:20 Imaging Results Imaging Date Name Status LastModified by Organiz ation Details LastModified Time 09/12/2022 imaging/diag nostic result completed [email or web address] Information not available 01/23/2024 06:44:53 Procedure Notes None recorded. Medical Equipment None Reported. Allergies Allergen ID Allergen Name Allergen Category Reaction Reaction Severity Criticality Documentation Date Start Date Code Code System Note Provider Name and Address Organization Details Recorded Time 978365 acetamino phen / oxycodone medicatio n Not available Not available Not available 07/28/20232022 22153 3 RxNorm Not Available [facility] 16:12:52 Medications Name Sig Start Date [...] Updated DateTime 08/29/2023 175.26 cm 25.8 kg/m2 99423.66 g AGUSTO HECTOR [facility] 08/29/2023 08:25:02 Date Recorded Body height Body mass index (BMI) Body weight Provider Name and Address Organization Details Last Updated DateTime 12/05/2023 175.26 cm 25.8 kg/m2 91996.66 g Cornelio Herr PA-C [address] [place] [address] [address], [address], [facility] 12/05/2023 08:32:08 Date Recorded Body height Body mass index (BMI) Body weight Provider Name and Address Organization Details Last Updated DateTime 03/05/2024 175.26 cm 25.8 kg/m2 09798.66 g Sandra Can [facility] 03/05/2024 08:23:05 Date Recorded Body height Body mass index (BMI) Body weight Provider Name and Address Organization Details Last Updated DateTime 06/11/2024 175.26 cm 25.8 kg/m2 27806.66 g Sandra Can [facility] 06/11/2024 08:22:49 Social History None recorded. Functional Status None recorded. Mental Status None recorded. Family History Nothing Reported. Medical History Condition Response Allergies/Hayfever N Coronary Artery Disease N Anxiety/Depression N Emphysema N Thyroid Problems N COPD N Pacemaker N Kidney/Bladder Problems N Anemia N Vascular Disease N Gastrointestinal Disease Y Heart Attack ([place]) N Diabetes Y Autoimmune disease N Bleeding Disorder [...] SNOMED-CT Code Diagnosis ICD10 Code Diagnosis Note [id number] [facility] [address] [place] [address] 08/29/2023 08:20:43 09/18/2023 11:58:44 Osteoarthritis of left glenohumeral joint 5831199789 451486 M19.012 Osteoarthr itis of right glenohumeral joint 7335855850 066223 M19.257 [id number] [facility] [address] [place] [address] 12/05/2023 08:23:37 01/02/2024 10:37:31 Osteoarthritis of left glenohumeral joint 9669685431 726009 M19.012 Osteoarthr itis of right glenohumeral joint 9310426143 480839 M19.635 [id number] [facility] [address] [place] [address] 03/05/2024 08:18:56 03/31/2024 10:29:40 Osteoarthritis of left glenohumeral joint 5320569409 575926 M19.012 Osteoarthr itis of right glenohumeral joint 8840093945 790089 M19.976 [id number] [facility] [address] [place] [address] 06/11/2024 08:19:16 06/11/2024 08:27:23 Osteoarthritis of bilateral glenohumeral joints 4619053112 313451 M19.011 M19.012 Health Concerns Section Related Observation LastModified by Organization Detai ls LastModified Time None Recorded Concern Status LastModified by Organization Details LastModified Time None Recorded Advance Directives Directive None Recorded Payers Encounter Date Sequence Insurance Name Policy Number Policy Almodovar Covered Member ID Almodovar Member ID Guarantor Name 08/29/2023 1 [facility]UE (MEDICARE REPLACEMENT PPO) [id number] [facility] [id number] [facility] 12/05/2023 1 [employer]MEDIC[place]AC[place] PPO) [id number] [facility] [id number] [facility] 03/05/2024 1 [employer]MED[place] PPO) [id number] [facility] [id number] [facility] 06/11/2024 1 [employer] (MEDIC[place]ACEMENT PPO) [id number] [facility] [id number] [facility] Notes Date Note Type Note Provider Name [...] up as needed. Cornelio Herr PA-C [address] [facility] [address], [place], [address], [facility] [place] [facility] 08/29/2023 08:35:07 4 text/html I am seeing [...] neurologic coordination, reflexes, sensation are within normal limits.[facility] arthritisPLANThe patient has done well with conservative management in regards to the shoulder. Continued conservative management recommended. Moderating activities with the upper extremity recommended also. See procedure note. Follow up as needed. Cornelio Herr PA-C [address] [facility] [address], [place], [address], [facility] [place] [facility] 12/05/2023 08:41:44 4 text/html I am [...] neurologic coordination, reflexes, sensation are within normal limits.[facility] glenohumeral joint arthritisPLANThe patient has done well with conservative management in regards to the shoulder. Continued conservative management recommended. Moderating activities with the upper extremity recommended also. See procedure note. Follow up as needed. Cornelio Herr PA-C [address], [place], [address], [facility] 03/05/2024 08:31:17 5 text/html I am seeing [...] Herr PA-C [address], [place], [address], [facility] 06/25/2024 08:24:47
[2024-07-09 17:01] LABS: Prostate Specific Antigen 0.44 ng/mL (<0.05-4.0)
== END 2024-07-09 13:57 | disposition home or self-care (01) ==
LOC: HO.HMGCLDS 13:56
PROVIDERS: Nurse Practitioner Family; PCP Nurse Practitioner Family; Visit Provider Internal Medicine Medical Oncology
DX: R39.12 Poor urinary stream (principal); Z12.5 Encounter for screening for malignant neoplasm of prostate
CPT/HCPCS: 36415; 84153

== ENCOUNTER 2024-07-16 08:59 | Outpatient (AMB) | payer MEDICARE, SELFPAY ==
--- NOTE | 2024-07-16 09:11 | AM.OFFWIN_ITS ---
Intake Vital Signs 07/16/24 09:17 Weight 152 lb BP 112/70 Blood Pressure Location Rt brachial Position Sitting Pulse 100 Pulse Source Pulse Oximeter Pulse Oximetry (%) 93 Oxygen Delivery Method Room Air Intake Visit Reasons: EP irritation and rash on both feet Intake Note: Patient here for rash on bilat feet that has been present for about 4 days. Patient Tobacco Use Status: Former Tobacco user Allergies No Known Allergies Allergy (Verified 07/16/24 09:17) HPI HPI Comments History of Present Illness Details History of Present Illness - The patient is a 74-year-old male pres enting with foot irritation of both feet, L>R. - Presented with irritation on both feet for a few days, with a past history of cracked and dry feet. - Describes irritation as sore, not itch y, and recent, unlike previous episodes. - Recorded history of eczema on his legs due to dryness, treated with working hands cream. - Recently started using new sneakers, l eading to potentially increased abrasion and redness but has not worn them exclusively. 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 - On medications including Lovenox for c lotting, magnesium for cramping, and alpha-lipoic acid for lower extremity numbness. - Has not noticed any new symptoms corre lated with these medications. Physical Exam General: Cooperative, healthy appearing, comfortable, no acute distress and well developed Orientation: Patient oriented x3 Limitations: No limitations Head: Normal to inspection Ears: Hearing grossly normal bilaterally Nose: Normal external nose present Face and sinus: Normal facial exam Eyes: Appearance normal, both eyes and all related structures Neck: Normal visual inspection and Yes full ROM Respiratory: Normal respiratory effort and able to speak in complete sentences. Skin: dorsal aspect of bilateral feet, L>R cracked and dry with some scabbed abrasions, no signs of infection noted, no warmth. Neuro: Patient oriented x3, gait normal Extremities: Normal to inspection, moving all extremities [facility] Medical History (Updated 07/16/24 @ 09:50 by Raeann Castano PA-C) GERD (gastroesophageal reflux disease) Diabetes Lung cancer Osteoarthritis of shoulders, bilateral Personal history of nicotine dependence Dyslipidemia Asthma HTN (hypertension) Tubular adenoma of colon Lipoma Surgical History History of right inguinal hernia repair History of colonoscopy History of laparoscopic cholecystectomy (01/23/24) Hx of excision of mass Family History Mother Mental health disorder Colon cancer Brother Prostate cancer Social History Household Members: None Housing: House Are you a primary personal care home administrator to a significant other at home: No Do you presently have visiting nurse or other home services: No Comment: ache Patient Tobacco Use Status: Former Tobacco user Tobacco use type: Cigarette Years Smoked: (onset 20yo, 1ppd x 51yrs, 50pyh - quit 2010) e-Cigarette/Vaping Use: Never Used Advance Directives Date on File: 11/27/21 service: No Current occupational status: retired Cognitive needs: No Hearing needs: No Vision needs: No Review of Systems Const All systems reviewed & are unremarkable except as noted in HPI and below Physical Exam Vital Signs: Last Vital Signs Pulse 100 07/16/24 09:17 BP 112/70 07/16/24 09:17 Pulse Ox 93 07/16/24 09:17 Oxygen Delivery Method Room Air 07/16/24 09:17 Assessment & Plan Assessment & Plan (1) Eczema of foot: Code(s): L30.9 - Dermatitis, unspecified Plan: The irritation on the patient's feet is suspected to be eczema, potentially exacerbated by new footwear. A mid-grade topical corticosteroid, triamcinolone, is prescribed for application twice daily to the affected areas. The patient should continue this treatment for several days while monitoring for improvement. If symptoms persist, consultation with his primary care physician is advised to rule out any reactions related to his cancer treatment. Adjunctive use of Aquaphor is encouraged to maintain skin hydration. The patient's current cancer regimen and medications were reviewed with no direct link to current symptoms, though any progression should be reassessed with attention to systemic reactions. Patient was informed and verbally consented to the use of an ambient scribe for clinic note documentation during this visit. Medications: New triamcinolone acetonide 0.1% 1 appl topical BID 30 grams 0RF Coding Level of Care Code Est Pt Level 3 (96960) Diagnoses Eczema of foot L30.9
[2024-07-16 09:17] VITALS: BP 112/70; PULSE 100; O2SAT 93
--- OUTSIDE RECORDS SUMMARY | 2024-07-16 09:24 | XMS_ITS | Data Portability ---
Author Organization [facility], [facility] Address [address] [place] [address] Care Team Providers Care Case Fitter Name Role Phone CHERYL GUEVARA Primary Care [...] LastModifiedBy Organization Detail LastModifiedTime 01/23/20 24 09/12/2022 letitia ng/gage luong tic resul t No observ ation record ed. [email or web address] Not Available 12/26 06:44:53 Result Notes None recorded. Procedures Surgical History Date Name Laterality Status Provider Name and Address Organization Details Recorded Time 06/11/19 25 Sports Shoulder Bilateral completed Cornelio Herr PA-C [address], [place], [address], [facility] 06/25/2024 08:24:45 03/05/20 24 Sports Shoulder Bilateral completed Cornelio Herr PA-C [address], [place], [address], [facility] 03/05/2024 08:30:30 12/05/19 24 Sports Shoulder Bilateral completed Cornelio Herr PA-C [address], [place], [address], [facility] 12/05/2023 08:40:55 08/29/19 24 Sports Shoulder Bilateral completed [address], [place], [address], [facility] 08/29/2023 08:33:59 01/22/20 04 Gastrointestinal Surgery completed Sandra Can [facility] 03/05/2024 08:21:20 Imaging Results Imaging Date Name Status LastModified by Organiz ation Details LastModified Time 09/12/2022 imaging/diag nostic result completed [email or web address] Information not available 01/23/2024 06:44:53 Procedure Notes None recorded. Medical Equipment None Reported. Allergies Allergen ID Allergen Name Allergen Category Reaction Reaction Severity Criticality Documentation Date Start Date Code Code System Note Provider Name and Address Organization Details Recorded Time 917653 acetamino phen / oxycodone medicatio n Not available Not available Not available 07/28/20232022 84755 3 RxNorm Not Available [facility] 16:12:52 Medications Name Sig Start Date [...] Updated DateTime 08/29/2023 175.26 cm 25.8 kg/m2 49859.66 g AGUSTO HECTOR [facility] 08/29/2023 08:25:02 Date Recorded Body height Body mass index (BMI) Body weight Provider Name and Address Organization Details Last Updated DateTime 12/05/2023 175.26 cm 25.8 kg/m2 62622.66 g Cornelio Herr PA-C [address] [place] [address] [address], [place], [address], [facility] 12/05/2023 08:32:08 Date Recorded Body height Body mass index (BMI) Body weight Provider Name and Address Organization Details Last Updated DateTime 03/05/2024 175.26 cm 25.8 kg/m2 78541.66 g Sandra Can [facility] 03/05/2024 08:23:05 Date Recorded Body height Body mass index (BMI) Body weight Provider Name and Address Organization Details Last Updated DateTime 06/11/2024 175.26 cm 25.8 kg/m2 69226.66 g Sandra Can [facility] 06/11/2024 08:22:49 Social History None recorded. Functional Status None recorded. Mental Status None recorded. Family History Nothing Reported. Medical History Condition Response Allergies/Hayfever N Coronary Artery Disease N Anxiety/Depression N Emphysema N Thyroid Problems N COPD N Pacemaker N Kidney/Bladder Problems N Anemia N Vascular Disease N Gastrointestinal Disease Y Heart Attack ([place]) N Diabetes Y Autoimmune disease N Bleeding [...] SNOMED-CT Code Diagnosis ICD10 Code Diagnosis Note [id number] [facility] [address] [place] [address] 08/29/2023 08:20:43 09/18/2023 11:58:44 Osteoarthritis of left glenohumeral joint 5129716139 176586 M19.012 Osteoarthr itis of right glenohumeral joint 3554386081 154871 M19.791 [id number] [facility] [address] [place] [address] 12/05/2023 08:23:37 01/02/2024 10:37:31 Osteoarthritis of left glenohumeral joint 4199557554 133978 M19.012 Osteoarthr itis of right glenohumeral joint 3224183424 478467 M19.939 [id number] [facility] [address] [place] [address] 03/05/2024 08:18:56 03/31/2024 10:29:40 Osteoarthritis of left glenohumeral joint 0544377243 423774 M19.012 Osteoarthr itis of right glenohumeral joint 2840509174 463246 M19.190 [id number] [facility] [address] [place] [address] 06/11/2024 08:19:16 07/12/2024 13:53:12 Osteoarthritis of bilateral glenohumeral joints 8785006277 250052 M19.011 M19.012 Health Concerns Section Related Observation LastModified by Organization Detai ls LastModified Time None Recorded Concern Status LastModified by Organization Details LastModified Time None Recorded Advance Directives Directive None Recorded Payers Encounter Date Sequence Insurance Name Policy Number Policy Almodovar Covered Member ID Almodovar Member ID Guarantor Name 08/29/2023 1 [facility] (MEDICARE REPLACEMENT PPO) [id number] Bj [facility] [id number] [facility] 12/05/2023 1 [place] PPO) [id number] Bj Capellan [facility] [id number] [facility] 03/05/2024 1 [place]MEDIC[place] PPO) [id number] [facility] [id number] [facility] 06/11/2024 1 [place] ([place] PPO) [id number] [facility] [id number] 689 [facility] Notes Date Note Type Note [...] up as needed. Cornelio Herr PA-C [address], [place], [address], [facility] [place] [facility] 08/29/2023 08:35:07 4 text/html [...] neurologic coordination, reflexes, sensation are within normal limits.[facility] glenohumeral joint arthritisPLANThe patient has done well with conservative management in regards to the shoulder. Continued conservative management recommended. Moderating activities with the upper extremity recommended also. See procedure note. Follow up as needed. Cornelio Herr PA-C [address], [place], [address], [facility] [place] [facility] 12/05/2023 08:41:44 4 text/html I am [...] neurologic coordination, reflexes, sensation are within normal limits.[facility] glenohumeral joint arthritisPLANThe patient has done well with conservative management in regards to the shoulder. Continued conservative management recommended. Moderating activities with the upper extremity recommended also. See procedure note. Follow up as needed. Cornelio Herr PA-C [address], [place], [address], [facility] 03/05/2024 08:31:17 5 text/html I am [...] Herr PA-C [address], [place], [address], [facility] 06/25/2024 08:24:47
== END 2024-07-16 10:15 | disposition home or self-care (01) ==
PROVIDERS: PCP Nurse Practitioner Family; Visit Provider Physician Assistant
DX: L30.9 Dermatitis, unspecified (principal)

== ENCOUNTER → 2024-07-16 08:59 | Outpatient (BNVA) | payer MEDICARE, SELFPAY | PROVIDERS: PCP Nurse Practitioner Family | DX: L30.9 Dermatitis, unspecified (principal) | CPT/HCPCS: 99212 ==

== ENCOUNTER 2024-07-22 08:25 | Outpatient (AMB) | payer MEDICARE, SELFPAY ==
--- NOTE | 2024-07-22 08:29 | MHC.OFFVIS ---
Intake Visit Reasons: 6m/PSA/PVR(set) Intake Note: Patient presents today for follow up on: epididymal cyst, enlarged prostate, and nocturia Urology Medication: finasteride Antibiotic Allergies: None Blood Thinners: None PVR: 30ml's Market Research Interviewer Required: No Accompanied by: Self / Same As Patient Allergies No Known Allergies Allergy (Verified 07/22/24 09:11) Medication List - Last Reconciled 07/22/24 by ROSA MinP- albuterol sulfate 90 mcg/actuation 2 puffs PO Q6H PRN 30 days [alpha lipoic acid 10 mg PO 2XD] apixaban (Eliquis DVT-PE Treat 30D Start) 5 mg PO BID atorvastatin 40 mg PO QPM blood sugar diagnostic (FreeStyle Test strips) bid for diabetes empagliflozin (Jardiance) 10 mg PO DAILY 90 days finasteride 5 mg PO DAILY 90 days fluticasone furoate 100 mcg/actuation (Arnuity Ellipta) 1 inh inhalation DAILY folic acid 1 mg PO DAILY hydrochlorothiazide 12.5 mg PO DAILY lancets Check fasting blood sugar and a random blood sugar BID (freestyle) lisinopril 20 mg PO DAILY [Magnesia 250 mg PO DAILY] omeprazole magnesium (Prilosec OTC) 20 mg PO DAILY@0630 triamcinolone acetonide 0.1% 1 appl topical BID Vascepa (icosapent ethyl) 1 g PO BID 90 days NS HPI Comments Details: Bj is a very pleasant 74 year-old male patient of . He has a past medical history of asthma, hypertension, and hyperlipidemia. He presents to the office today for follow-up of his enlarged prostate and lower urinary tract symptoms. In discussion with the patient today he discusses at length his new diagnosis of stage IV cancer. He reports recently having liver biopsy and is due to follow-up with Dr. Meyers tomorrow for further treatment options and to review results. He discusses urologically he has not experienced any issues or concerns since his last office visit here. He reports compliance with finasteride 3 times per week as prescribed. He currently denies any bothersome urinary issues or concerns. He denies urinary urgency, urinary frequency, incontinence, nocturia, hematuria, dysuria, foul smelling urine, changes to urinary stream, flank pain, fever, and or chills. He is happy with his current voiding parameters. In office urinalysis results reviewed with the patient today 3+ glucose however patient on Jardiance. Patient previously trialed Flomax however did not find this helpful and was experiencing retrograde ejaculation and did not wish to trial other alpha-alicia as he does not feel lower urinary tract symptoms are bothersome. PSA 06/18 1.6, 07/20 0.4 He otherwise offers no other issues or concerns at this time. [facility], [facility] Medical History GERD (gastroesophageal reflux disease) Diabetes Lung cancer Osteoarthritis of shoulders, bilateral Personal history of nicotine dependence Dyslipidemia Asthma HTN (hypertension) Tubular adenoma of colon Lipoma Surgical History History of right inguinal hernia repair History of colonoscopy History of laparoscopic cholecystectomy (01/23/24) Hx of excision of mass Family History Mother Mental health disorder Colon cancer Brother Prostate cancer Social History Household Members: None Housing: House Are you a primary complex care nurse practitioner to a significant other at home: No Do you presently have visiting nurse or other home services: No Comment: ache Patient Tobacco Use Status: Former Tobacco user Tobacco use type: Cigarette Years Smoked: (onset 20yo, 1ppd x 51yrs, 50pyh - quit 2010) e-Cigarette/Vaping Use: Never Used Advance Directives Date on File: 11/27/21 service: No Current occupational status: retired Cognitive needs: No Hearing needs: No Vision needs: No Review of Systems Const Reports as per HPI Eyes Reports no additional complaints ENT Reports no additional complaints Card Reports as per HPI Resp Reports as per HPI GI Reports no additional complaints Reports as per HPI Musc Reports no additional complaints Neuro Reports no additional complaints Psych Reports no additional complaints Endo Reports no additional complaints Rocky/Lymph Reports as per HPI Aller/Immun Reports no additional complaints Physical Exam Const General: cooperative, healthy appearing, comfortable, no acute distress, well developed, alert and awake Orientation/consciousness: patient oriented x3 Limitations: no limitations HEENT Head: Yes normal to inspection, Yes normocephalic and Yes atraumatic Ears: hearing grossly normal bilaterally Eyes General: appearance normal, both eyes and all related structures Neck Neck: Yes normal visual inspection and Yes trachea midline Chest Chest palpation & inspection: normal inspection of the chest Resp Effort & Inspection: normal respiratory effort and able to speak in complete sentences Cardio Rate: regular rate GI Inspection: Yes normal to inspection General: Yes no CVA tenderness Back/Spine/Pelvis Back: no CVA tenderness Skin General skin exam: no rashes or lesions noted Neuro General: patient oriented x3 Extrem General: Yes normal to inspection Psych Appearance: grossly normal and well kempt Mental Status: mental status grossly normal Speech and movement: Normal speech and movement present and Clear speech present Affect: normal affect Attitude: cooperative Thought process: Normal thought process present Thought content: Normal thought content present Insight: Fair insight present (Psych) Judgement: Fair judgement present (Psych) Office Procedures Post Void Residual Post Residual Void Post Void Residual (PVR): 30 97445-Bafd Void Residual by ultrasound Results AMB Urinalysis, Automated UA Leukoctes 0 Zina/uL Last Edit by [employer] on 07/22/24 08:49 UA Nitrite Last Edit by [employer] on 07/22/24 08:49 UA Urobilinogen 0.2 mg/dL Last Edit by [employer] on 07/22/24 08:49 UA Protein 0 mg/dL Last Edit by SimonKelly [employer] on 07/22/24 08:49 UA pH 5.5 Last Edit by [employer] on 07/22/24 08:49 UA Blood 0 Jose/uL Last Edit by [employer] on 07/22/24 08:49 UA Specific [place] 1.015 Last Edit by [employer] on 07/22/24 08:49 UA Ketone Negative Last Edit by [employer] on 07/22/24 08:49 UA Bilirubin 0 mg/dL Last Edit by [employer] on 07/22/24 08:49 UA Glucose 1000 mg/dL Last Edit by [employer] on 07/22/24 08:49 Results Reviewed Results Reviewed: Laboratory Last Values Urine pH (Auto) 5.5 07/22/24 08:48 Specific [place] (Auto) 1.015 07/22/24 08:48 Urine Protein (Auto) 0 mg/dL 07/22/24 08:48 Glucose (UA)(Auto) 1000 mg/dL 07/22/24 08:48 Urine Ketones (Auto) Negative 07/22/24 08:48 Urine Blood (Auto) 0 Jose/uL 07/22/24 08:48 Urine Bilirubin (Auto) 0 mg/dL 07/22/24 08:48 Urine Urobilinogen (Auto) 0.2 mg/dL 07/22/24 08:48 Leukocyte Esterase (Auto) 0 Zina/uL 07/22/24 08:48 Assessment & Plan Assessment & Plan (1) Nocturia: Code(s): R35.1 - Nocturia Category: Medical (2) Weak urinary stream: Code(s): R39.12 - Poor urinary stream Category: Medical (3) Enlarged prostate: Code(s): N40.0 - Benign prostatic hyperplasia without lower urinary tract symptoms Category: Medical Plan In office urinalysis results with the patient today; as noted above. PVR 30 mL Recent PSA results reviewed the patient today; as noted above. Patient currently denies any bothersome urinary issues or concerns. He reports be happy with current voiding parameters. Continue finasteride as discussed and prescribed. Will obtain PSA in 1 year. Follow-up in 1 year with PSA and PVR; or sooner with any issues, concerns, and or questions. Orders: Orders AMB Post Void Residual by ultrasound Today R39.12 - Poor urinary stream Prostate Specific Antigen 1 Year N40.0 - Benign prostatic hyperplasia without lower urinary tract symptoms AMB Urinalysis Automated Today Z13.9 - Encounter for screening, unspecified Patient Instructions: The patient had an opportunity to ask questions regarding the treatment plan. All questions were answered. Physical exam, labs, and imaging were discussed and reviewed in detail. As well as risks, benefits, and discussion of treatment choices. No major barriers to understanding were identified. The patient expressed understanding and agreement with the above treatment plan. The patient was made aware they should contact our office by phone for worsening of their current condition, the appearance of new symptoms, or with any questions or concerns. Compliance is encouraged with any medications and follow up testing that is ordered. It is a privilege to be allowed the opportunity to participate in? your urological care.? Again, if you have any questions or concerns If you have any questions or concerns please do not hesitate to contact me. The office is [phone]. This note is constructed using voice recognition software. While every effort has been made to ensure accuracy airplane pilot supervisor errors may have been included. Yours sincerely, MARCO A Min-DEVONTE Coding Level of Care Code Est Pt Level 3 (15080) Complex EM visit Add On G2211 Diagnoses Nocturia R35.1 Weak urinary stream R39.12 Enlarged prostate N40.0 CPT Codes Post Residual Void - PVR CPT Code: 01915-Icif Void Residual by ultrasound ([id number])
== END 2024-07-22 09:02 | disposition home or self-care (01) ==
PROVIDERS: PCP Nurse Practitioner Family; Visit Provider Nurse Practitioner Family
DX: R35.1 Nocturia (principal); R39.12 Poor urinary stream; N40.0 Benign prostatic hyperplasia without lower urinary tract symptoms; Z13.9 Encounter for screening, unspecified
CPT/HCPCS: 99213; G2211

== ENCOUNTER → 2024-07-22 08:25 | Outpatient (BNVA) | payer MEDICARE, SELFPAY | PROVIDERS: PCP Nurse Practitioner Family; Visit Provider Nurse Practitioner Family | DX: N40.1 Benign prostatic hyperplasia with lower urinary tract symptoms (principal); R35.1 Nocturia; R39.12 Poor urinary stream | CPT/HCPCS: 51798; 81003; 99212 ==

== ENCOUNTER 2024-08-02 13:31 | Outpatient (REF) | payer MEDICARE, SELFPAY ==
--- NOTE | ~2024-08-02 | XR_ITS ---
EXAMINATION: XR CHEST 2 VIEWS HISTORY: Shortness of breath COMPARISON: Comparison is made with the prior examination dated 06/02/2024. FINDINGS: PA and lateral views of the chest are submitted. Again seen is a mass in the right upper lobe abutting the mediastinum. The remainder of the lungs are clear. There is no pleural effusion, pneumothorax, or pulmonary vascular congestion. The heart is normal in size. There is mild degenerative disc disease of the spine. XR/XR chest 2V IMPRESSION: Right upper lobe mass abutting the mediastinum as seen previously. Electronically signed by: Kyle Nova MD 08/03/2024 10:50 AM EDT
--- OUTSIDE RECORDS SUMMARY | 2024-08-02 15:19 | XMS_ITS | Data Portability ---
Author Organization [facility], [facility] Address [address] [place] [address] Care Team Providers Care Clay Artist Name Role Phone CHERYL GUEVARA Primary Care [...] Herr PA-C [address], [place], [address], [facility] 06/25/2024 08:24:45 03/05/20 24 Sports Shoulder Bilateral completed Cornelio Herr PA-C [address], [place], [address], [facility] 03/05/2024 08:30:30 12/05/19 24 Sports Shoulder Bilateral completed Cornelio Herr PA-C [address], [place], [address], [facility] 12/05/2023 08:40:55 08/29/19 24 Sports Shoulder Bilateral completed [address], [place], [address], [facility] 08/29/2023 08:33:59 01/22/20 04 Gastrointestinal Surgery completed Sandra Can [facility] 03/05/2024 08:21:20 Imaging Results Imaging Date Name Status LastModified by Organiz ation Details LastModified Time 09/12/2022 imaging/diag nostic result completed [email or web address] Information not available 01/23/2024 06:44:53 Procedure Notes None recorded. Medical Equipment None Reported. Allergies Allergen ID Allergen Name Allergen Category Reaction Reaction Severity Criticality Documentation Date Start Date Code Code System Note Provider Name and Address Organization Details Recorded Time 172678 acetamino phen / oxycodone medicatio n Not available Not available Not available 07/28/20232022 38729 3 RxNorm Not Available [facility] 16:12:52 Medications Name Sig Start Date Stop [...] Updated DateTime 08/29/2023 175.26 cm 25.8 kg/m2 55111.66 g AGUSTO HECTOR [facility] 08/29/2023 08:25:02 Date Recorded Body height Body mass index (BMI) Body weight Provider Name and Address Organization Details Last Updated DateTime 12/05/2023 175.26 cm 25.8 kg/m2 82882.66 g Cornelio Herr PA-C [address] [place] [address] [address], [address], [facility] 12/05/2023 08:32:08 Date Recorded Body height Body mass index (BMI) Body weight Provider Name and Address Organization Details Last Updated DateTime 03/05/2024 175.26 cm 25.8 kg/m2 74170.66 g Sandra Can [facility] 03/05/2024 08:23:05 Date Recorded Body height Body mass index (BMI) Body weight Provider Name and Address Organization Details Last Updated DateTime 06/11/2024 175.26 cm 25.8 kg/m2 21300.66 g Sandra Can [facility] 06/11/2024 08:22:49 Social History None recorded. Functional Status None recorded. Mental Status None recorded. Family History Nothing Reported. Medical History Condition Response Allergies/Hayfever N Coronary Artery Disease N Anxiety/Depression N Emphysema N Thyroid Problems N COPD N Pacemaker N Anemia N Kidney/Bladder Problems N Vascular Disease N Heart Attack ([place]) N Gastrointestinal Disease Y Diabetes Y Autoimmune [...] SNOMED-CT Code Diagnosis ICD10 Code Diagnosis Note [id number] [facility] [address] [place] [address] 08/29/2023 08:20:43 09/18/2023 11:58:44 Osteoarthritis of left glenohumeral joint 8679621322 253998 M19.012 Osteoarthr itis of right glenohumeral joint 6346696171 323389 M19.648 [id number] [facility] [address] [place] [address] 12/05/2023 08:23:37 01/02/2024 10:37:31 Osteoarthritis of left glenohumeral joint 0165585942 800950 M19.012 Osteoarthr itis of right glenohumeral joint 3182226224 499182 M19.001 [id number] [facility] [address] [place] [address] 03/05/2024 08:18:56 03/31/2024 10:29:40 Osteoarthritis of left glenohumeral joint 3042203500 752484 M19.012 Osteoarthr itis of right glenohumeral joint 4124176464 129287 M19.356 [id number] [facility] [address] [place] [address] 06/11/2024 08:19:16 07/12/2024 13:53:12 Osteoarthritis of bilateral glenohumeral joints 6566674034 734353 M19.011 M19.012 Health Concerns Section Related Observation LastModified by Organization Detai ls LastModified Time None Recorded Concern Status LastModified by Organization Details LastModified Time None Recorded Advance Directives Directive None Recorded Payers Encounter Date Sequence Insurance Name Policy Number Policy Almodovar Covered Member ID Almodovar Member ID Guarantor Name 08/29/2023 1 [facility] (MEDICARE REPLACEMENT PPO) [id number] Bj [facility] [id number] [facility] 12/05/2023 1 [place]MED[place]AC[place] PPO) [id number] Bj Capellan [facility] [id number] Bj [facility] 03/05/2024 1 [place]MEDICARE [place]PLACEMENT PPO) [id number] [facility] [id number] [facility] 06/11/2024 1 [place] (MEDIC[place]PLACEMENT PPO) [id number] [facility] [id number] 689 [facility] Notes Date Note [...] up as needed. Cornelio Herr PA-C [address], [place], [address], [facility] [place] [facility] 08/29/2023 08:35:07 4 text/html [...] neurologic coordination, reflexes, sensation are within normal limits.[facility] glenohumeral joint arthritisPLANThe patient has done well with conservative management in regards to the shoulder. Continued conservative management recommended. Moderating activities with the upper extremity recommended also. See procedure note. Follow up as needed. Cornelio Herr PA-C [address] [facility], [place], [address], [facility] [place] [facility] 12/05/2023 08:41:44 4 text/html I am [...] neurologic coordination, reflexes, sensation are within normal limits.[facility] glenohumeral joint arthritisPLANThe patient has done well with conservative management in regards to the shoulder. Continued conservative management recommended. Moderating activities with the upper extremity recommended also. See procedure note. Follow up as needed. Cornelio Herr PA-C [address], [place], [address], [facility] 03/05/2024 08:31:17 5 text/html I am [...] Herr PA-C [address], [place], [address], [facility] 06/25/2024 08:24:47
== END 2024-08-02 13:32 | disposition home or self-care (01) ==
LOC: HO.XRAY 13:31
PROVIDERS: Visit Provider Internal Medicine Medical Oncology
DX: C34.90 Malignant neoplasm of unspecified part of unspecified bronchus or lung (principal)
CPT/HCPCS: 71046

== ENCOUNTER → 2024-08-02 13:52 | Outpatient (BNV) | payer MEDICARE, SELFPAY | PROVIDERS: Visit Provider Radiology Diagnostic Radiology | DX: R91.8 Other nonspecific abnormal finding of lung field (principal) | CPT/HCPCS: 71046 ==

== ENCOUNTER → 2024-08-09 14:54 | Outpatient (BNV) | payer MEDICARE, SELFPAY | PROVIDERS: PCP Nurse Practitioner Family; Visit Provider Radiology Diagnostic Radiology | DX: I63.81 Other cerebral infarction due to occlusion or stenosis of small artery (principal); C34.11 Malignant neoplasm of upper lobe, right bronchus or lung | CPT/HCPCS: 70553 ==

== ENCOUNTER 2024-08-09 15:04 | Outpatient (REF) | payer MEDICARE, SELFPAY ==
--- NOTE | ~2024-08-09 | MR_ITS ---
CLINICAL HISTORY: Staging [id number] lung carcinoma, blurring MRI brain with and without contrast Comparison: CT/SR - CT HEAD/BRAIN WO IV CON - 05/24/22 18:33 EST Findings: There is no abnormal diffusion restriction. There is no evidence of hemorrhage. Ventricles are of normal size and shape. There is no evidence of a mass or midline shift. There is no abnormal enhancement. There are scattered small T2/FLAIR hyperintensities within the cerebral white matter consistent with mild chronic small-vessel ischemic disease. There is in unchanged chronic lacunar infarct within the left cerebellar hemisphere. Normal arterial flow voids are seen. The visualized portions of the orbits, mastoids, and paranasal sinuses are unremarkable. IMPRESSION: 1. No evidence of metastases. 2. Unchanged chronic lacunar infarct in the left cerebellar hemisphere. 3. Small T2/FLAIR hyperintensities in the cerebral white matter consistent with mild chronic small-vessel ischemic disease. This document has been electronically signed by: Mariano Noble MD on 08/09/2024 17:06:00
[2024-08-09] MEDS: gadobutroL 7.5 ML VIAL 6.5 ML IVPUSH (15:54)
--- OUTSIDE RECORDS SUMMARY | 2024-08-09 17:37 | XMS_ITS | Data Portability ---
Author Organization [facility], [facility] Address [address] [place] [address] Care Team Providers Care Associate Professor Of Art History Name Role Phone CHERYL GUEVARA Primary Care [...] Herr PA-C [address], [place], [address], [facility] 06/25/2024 08:24:45 03/05/20 24 Sports Shoulder Bilateral completed Cornelio Herr PA-C [address], [place], [address], [facility] 03/05/2024 08:30:30 12/05/19 24 Sports Shoulder Bilateral completed Cornelio Herr PA-C [address], [place], [address], [facility] 12/05/2023 08:40:55 08/29/19 24 Sports Shoulder Bilateral completed [address], [place], [address], [facility] 08/29/2023 08:33:59 01/22/20 04 Gastrointestinal Surgery completed Sandra Can [facility] 03/05/2024 08:21:20 Imaging Results Imaging Date Name Status LastModified by Organiz ation Details LastModified Time 09/12/2022 imaging/diag nostic result completed [id number] Information not available 01/23/2024 06:44:53 Procedure Notes None recorded. Medical Equipment None Reported. Allergies Allergen ID Allergen Name Allergen Category Reaction Reaction Severity Criticality Documentation Date Start Date Code Code System Note Provider Name and Address Organization Details Recorded Time 858516 acetamino phen / oxycodone medicatio n Not available Not available Not available 07/28/20232022 06122 3 RxNorm Not Available [facility] 16:12:52 Medications Name Sig Start Date Stop [...] Updated DateTime 08/29/2023 175.26 cm 25.8 kg/m2 30387.66 g AGUSTO HECTOR [facility] 08/29/2023 08:25:02 Date Recorded Body height Body mass index (BMI) Body weight Provider Name and Address Organization Details Last Updated DateTime 12/05/2023 175.26 cm 25.8 kg/m2 62687.66 g Cornelio Herr PA-C [address] [place] [address] [address], [address], [facility] 12/05/2023 08:32:08 Date Recorded Body height Body mass index (BMI) Body weight Provider Name and Address Organization Details Last Updated DateTime 03/05/2024 175.26 cm 25.8 kg/m2 97447.66 g Sandra Can [facility] 03/05/2024 08:23:05 Date Recorded Body height Body mass index (BMI) Body weight Provider Name and Address Organization Details Last Updated DateTime 06/11/2024 175.26 cm 25.8 kg/m2 51658.66 g Sandra Can [facility] 06/11/2024 08:22:49 Social History None recorded. [...] Kidney/Bladder Problems N Anemia N Heart Attack (DC) N Diabetes Y Bleeding Disorder N Seizures/Epilepsy N AIDS/HIV N Congestive Heart Failure (CHF) N Asthma Y Peripheral Vascular Disease N Sleep Apnea N Hepatitis N Heart Disease N Pulmonary Embolism N Hypertension Y Osteoporosis N Past Encounters Encounter ID Performer Location Encounter Start Date Encounter Closed Date Diagnosis/Indication Diagnosis SNOMED-CT Code Diagnosis ICD10 Code Diagnosis Note [id number] [facility] [address] [place] [id number] 08/29/2023 08:20:43 09/18/2023 11:58:44 Osteoarthritis of left glenohumeral joint 6030795141 620340 M19.012 Osteoarthr itis of right glenohumeral joint 8077570874 712966 M19.210 [id number] [facility] [address] [place] [address] 12/05/2023 08:23:37 01/02/2024 10:37:31 Osteoarthritis of left glenohumeral joint 4671409390 714638 M19.012 Osteoarthr itis of right glenohumeral joint 8592221122 191585 M19.509 [id number] [facility] [address] [place] [address] 03/05/2024 08:18:56 03/31/2024 10:29:40 Osteoarthritis of left glenohumeral joint 1785642746 017929 M19.012 Osteoarthr itis of right glenohumeral joint 3966658000 422302 M19.493 [id number] [facility] [address] [place] [address] 06/11/2024 08:19:16 07/12/2024 13:53:12 Osteoarthritis of bilateral glenohumeral joints 1029894990 753111 M19.011 M19.012 Health Concerns Section Related Observation LastModified by Organization Detai ls LastModified Time None Recorded Concern Status LastModified by Organization Details LastModified Time None Recorded Advance Directives Directive None Recorded Payers Encounter Date Sequence Insurance Name Policy Number Policy Almodovar Covered Member ID Almodovar Member ID Guarantor Name 08/29/2023 1 [facility]: [place] (MEDICARE REPLACEMENT PPO) [id number] [facility] [id number] [facility] 12/05/2023 1 [place]ARE [place] PPO) [id number] Bj [facility] [id number] [facility] 03/05/2024 1 [place]MEDICARE [place] PPO) [id number] [facility] [id number] [facility] 06/11/2024 1 [place] (MEDICARE [place]AC[place] PPO) [id number] [facility] [id number] [facility] Notes Date Note Type Note Provider [...] up as needed. Cornelio Herr PA-C [address], [place], [address], [facility] 08/29/2023 08:35:07 4 text/html [...] neurologic coordination, reflexes, sensation are within normal limits.[facility] arthritisPLANThe patient has done well with conservative management in regards to the shoulder. Continued conservative management recommended. Moderating activities with the upper extremity recommended also. See procedure note. Follow up as needed. Cornelio Herr PA-C [address], [place], [address], [facility] 12/05/2023 08:41:44 4 text/html I am [...] neurologic coordination, reflexes, sensation are within normal limits.ASSESSMENTbilnyu [facility] glenohumeral joint arthritisPLANThe patient has done well with conservative management in regards to the shoulder. Continued conservative management recommended. Moderating activities with the upper extremity recommended also. See procedure note. Follow up as needed. Cornelio Herr PA-C [address], [place], [address], [facility] 03/05/2024 08:31:17 5 text/html I am [...] Herr PA-C [address], [place], [address], [facility] 06/25/2024 08:24:47
== END 2024-08-09 15:05 | disposition home or self-care (01) ==
LOC: HO.MRI 15:04
PROVIDERS: PCP Nurse Practitioner Family; Visit Provider Internal Medicine Medical Oncology
DX: C34.90 Malignant neoplasm of unspecified part of unspecified bronchus or lung (principal)
CPT/HCPCS: 70553; A9585

== ENCOUNTER 2024-08-16 13:04 | Outpatient (REF) | payer MEDICARE, SELFPAY ==
--- NOTE | ~2024-08-16 | CT_ITS ---
EXAMINATION: CT ANGIOGRAM CHEST CLINICAL INFORMATION: DVT. Rule out PE. Lung cancer. COMPARISON: PET CT from outside institution 06/21/2024. CT lung screening 04/30/2024. TECHNIQUE: Multiple axial images were obtained through the chest after the administration of 65 mL of Omnipaque 350 intravenous contrast. Extensive vascular post-processing including two-dimensional and three-dimensional reformatted images were created and reviewed on an independent workstation. This CT examination was performed using dose optimization techniques as appropriate, variously including the following: *Automated exposure control *Adjustment of mA and/or kV according to patient size (this includes techniques or standardized protocols for targeted exams where dose is matched to indication/reason for exam; i.e. extremities or head) *Use of iterative reconstruction technique FINDINGS: VASCULAR: Bolus quality is adequate. There is mild respiratory motion degradation, particularly involving the left lower lobe region. There is no definitive pulmonary embolus identified. The main pulmonary artery is normal in caliber. Aorta is normal in caliber and course, without evidence of acute aortic syndrome. There is moderate soft and calcific atheromatous plaque present. There is no aneurysm. The heart size is normal. There is no pericardial effusion. There is mild irregularity of the right main pulmonary artery, related to partial vascular encasement from tumor. There is moderate to severe narrowing of the mid SVC, in the region of tumor involvement, from encasement with tumor. LUNGS: The infiltrative neoplasm abutting the superior right mediastinum and hilum is again demonstrated, slightly smaller in appearance when compared with the PET CT 06/21/2024. This again partially encases the right main pulmonary artery, right upper lobe segmental bronchi, and mid SVC. Redemonstration of numerous small pulmonary micronodules in both lungs, most notably involving the right upper lobe, and superior segment right lower lobe. Several of these appear calcified. In the lingula, there is a 1.0 cm irregular nodule, previously 0.7 cm. This is suspicious. 4. mm nodule right lower lobe, new, nonspecific (series 9, image 76). Pleural-based diaphragmatic 1.1 cm nodule, previously 7 mm (series 9, image 95).. The previously seen inflammatory tree-in-bud type nodules in the right lower lobe have resolved and were presumably infectious/inflammatory. Mild diffuse small airway thickening present. PLEURA: There is no pleural effusion. No pleural mass or thickening. MEDIASTINUM: 1.3 cm right paratracheal lymph node abutting the superior margin of the infiltrative right paramediastinal mass. This previously measured 1.7 cm (when measured similarly). Slightly smaller appearing infiltrative right paramediastinal mass, described above. Mediastinal structures otherwise stable. AXILLA/CHEST WALL: No lymphadenopathy. No masses. UPPER ABDOMEN: Right hepatic lobe liver metastasis measuring up to 2.4 cm, previously 2.1 cm. Right adrenal metastasis currently measures 3.0 x 1.7 cm, previously 2.7 x 1.5 cm. Similar mild thickening left adrenal gland. OSSEOUS STRUCTURES: No lytic or blastic bone lesions. Mild spinal degenerative arthritis, and more significant bilateral shoulder degenerative arthritis. CT/CT angio chest PE protocol IMPRESSION: 1. Examination is negative for pulmonary embolus. No evidence of acute aortic syndrome. 2. The infiltrative right superior paramediastinal mass is slightly smaller when compared with the PET CT of 06/21/2024. The right paratracheal lymph node abutting the mass is also slightly smaller as detailed. 3. Similar-appearing pulmonary micronodules, most numerous right upper lobe. These remain nonspecific. A 4 mm nodule right middle lobe was not previously noted. 4. Lingular irregular nodule measuring up to 1.0 cm, suspicious. This previously measured up to 0.7 cm. 5. Tree in bud nodularity in the right lower lobe has resolved. This was presumably infectious/inflammatory. 6. Pleural-based 1.1 cm nodule abutting the right hemidiaphragm, slightly larger and suspicious. 7. Right hepatic lobe liver metastasis measuring up to 2.4 cm, previously 2.1 cm. 8. Right adrenal metastasis, slightly larger. Electronically signed by: Gino Basurto MD 08/16/2024 02:43 PM EDT
[2024-08-16] MEDS: iohexoL 350 MG/ML 100 ML INFUS..BTL IV (13:42)
== END 2024-08-16 13:05 | disposition home or self-care (01) ==
LOC: HO.CT 13:04
PROVIDERS: PCP Nurse Practitioner Family; Visit Provider Internal Medicine Medical Oncology
DX: R06.02 Shortness of breath (principal)
CPT/HCPCS: 71275; Q9967

== ENCOUNTER → 2024-08-16 13:08 | Outpatient (BNV) | payer MEDICARE, SELFPAY | PROVIDERS: PCP Nurse Practitioner Family; Visit Provider Radiology Diagnostic Radiology | DX: I82.409 Acute embolism and thrombosis of unspecified deep veins of unspecified lower extremity (principal) | CPT/HCPCS: 71275 ==

== ENCOUNTER 2024-08-17 09:48 | Outpatient (AMB) | payer MEDICARE, SELFPAY ==
[2024-08-17 09:51] VITALS: BP 142/64; PULSE 85; O2SAT 98; BMI 23.3
--- NOTE | 2024-08-17 09:51 | A.OFFVIS_ITS ---
Vital Signs 08/17/24 09:51 Height 5 ft 8 in Weight 153 lb 3.54 oz BMI 23.3 BP 142/64 H Blood Pressure Location Lt brachial Position Sitting Pulse 85 Pulse Source Doppler Pulse Oximetry (%) 98 Oxygen Delivery Method Room Air Intake Visit Reasons: dyspnea with exertion Allergies No Known Allergies Allergy (Verified 08/17/24 09:57) HPI HPI dyspnea with exertion : Details: 74-year-old gentleman, former 30+ pack-year smoker, quit 2009 with underlying asthma/COPD overlap syndrome and recent diagnosis of metastatic lung cancer, currently on chemo/immunotherapy under oncology care. Patient states that over the last few months his dyspnea has slowly worsened, though he denies acute exacerbations. [facility] Medical History GERD (gastroesophageal reflux disease) Diabetes Lung cancer Osteoarthritis of shoulders, bilateral Personal history of nicotine dependence Dyslipidemia Asthma HTN (hypertension) Tubular adenoma of colon Lipoma Surgical History History of right inguinal hernia repair History of colonoscopy History of laparoscopic cholecystectomy (01/23/24) Hx of excision of mass Family History Mother Mental health disorder Colon cancer Brother Prostate cancer Social History Household Members: None Housing: House Are you a primary nurse healthcare manager to a significant other at home: No Do you presently have visiting nurse or other home services: No Comment: ache Patient Tobacco Use Status: Former Tobacco user Tobacco use type: Cigarette Years Smoked: (onset 20yo, 1ppd x 51yrs, 50pyh - quit 2010) e-Cigarette/Vaping Use: Never Used Advance Directives Date on File: 11/27/21 service: No Current occupational status: retired Cognitive needs: No Hearing needs: No Vision needs: No Review of Systems Const Denies daytime sleepiness, Denies excessive sweating, Denies fatigue, Denies fever(s), Denies lethargy, Denies malaise, Denies night sweats, Denies snoring and Denies weight loss Eyes Denies blurry vision and Denies itchy eyes ENT Denies nasal congestion, Denies post nasal drip, Denies sinus pain, Denies sinus pressure and Denies other ( Thrush) Card Denies chest pain, Denies pedal edema, Denies dyspnea, Reports dyspnea on exertion, Denies orthopnea and Denies paroxysmal nocturnal dyspnea Resp Denies cough, Denies hemoptysis, Denies excessive phlegm production, Denies dyspnea, Reports dyspnea on exertion, Denies snoring and Denies wheezing GI Denies abdominal pain and Denies heartburn Musc Denies myalgias, Denies arthralgias and Denies joint swelling Skin/Breast Denies rash Neuro Denies memory loss and Denies seizure-like activity Psych Denies abnormal sleep pattern, Denies anxiety and Denies memory loss Endo Denies excessive sweating, Denies fatigue and Denies heat intolerance Rocky/Lymph Denies easy bruising Aller/Immun Denies itchy eyes, Denies seasonal rhinorrhea and Denies wheezing Physical Exam Vital Signs: Last Vital Signs Pulse 85 08/17/24 09:51 BP 142/64 H 08/17/24 09:51 Pulse Ox 98 08/17/24 09:51 Oxygen Delivery Method Room Air 08/17/24 09:51 BMI result Body Mass Index 23.3 Const General: no acute distress and alert Nutritional Appearance: not obese Orientation/consciousness: Other orientation findings ( oriented) HEENT Head: Yes atraumatic Eyes General: appearance normal, both eyes and all related structures Sclerae: sclerae normal EOM: EOMs intact bilaterally Neck Neck: Yes supple Lymphatic: no lymphadenopathy noted Resp Effort & Inspection: normal respiratory effort and no use of accessory muscles Auscultation: clear to auscultation bilaterally Cardio Rate: regular rate Rhythm: regular rhythm Heart sounds: no gallops, no murmurs and no rubs Skin General skin exam: other ( warm) Extrem General: No clubbing, No cyanosis and No edema Assessment & Plan Assessment & Plan (1) Asthma-COPD overlap syndrome: Code(s): J44.89 - Other specified chronic obstructive pulmonary disease Category: Medical Plan: At this time with worsening control on Arnuity and albuterol MDI. Will switch Arnuity to Trelegy and add duo nebs. (2) Metastatic lung cancer (metastasis from lung to other site): Code(s): C34.90 - Malignant neoplasm of unspecified part of unspecified bronchus or lung Category: Medical Plan: Metastatic lung cancer currently on immunosuppressed chemotherapy under oncology care. Results of CTA chest reviewed, no evidence of pulmonary emboli, some pulmonary nodules worsening, and some getting smaller. Medications: New koyhjwojamj-vlpwouuth-ydkojhjp 100-62.5-25 mcg (Trelegy Ellipta) 1 inh inhalation DAILY 1 ea 6RF ipratropium-albuterol 0.5 mg-3 mg(2.5 mg base)/3 mL 3 mL inhalation Q4-6H PRN 180 mL 6RF wheezing Discontinued fluticasone furoate 100 mcg/actuation (Arnuity Ellipta) Discontinued Reason: Doctor's Order 1 inh inhalation DAILY 90 ea 1RF Coding Level of Care Code Est Pt Level 4 (26058) Diagnoses Asthma-COPD overlap syndrome J44.89 Metastatic lung cancer (metastasis from lung to other site) C34.90
== END 2024-08-17 10:12 | disposition home or self-care (01) ==
LOC: HO.HPS 09:48
PROVIDERS: PCP Nurse Practitioner Family; Visit Provider Internal Medicine Pulmonary Disease
DX: J44.89 Other specified chronic obstructive pulmonary disease (principal); C34.90 Malignant neoplasm of unspecified part of unspecified bronchus or lung
CPT/HCPCS: 99214

== ENCOUNTER → 2024-08-17 09:48 | Outpatient (BNVA) | payer MEDICARE, SELFPAY | PROVIDERS: PCP Nurse Practitioner Family; Visit Provider Internal Medicine Pulmonary Disease | DX: J44.89 Other specified chronic obstructive pulmonary disease (principal); C34.90 Malignant neoplasm of unspecified part of unspecified bronchus or lung; Z87.891 Personal history of nicotine dependence | CPT/HCPCS: 99212 ==

== ENCOUNTER 2024-08-27 11:11 | Outpatient (REF) | payer MEDICARE, SELFPAY ==
--- NOTE | ~2024-08-27 | US_ITS ---
EXAMINATION: US TRIPLEX UPPER EXTREMITY, RIGHT CLINICAL INFORMATION: Acute thrombus in the left brachial vein. Pain in the right elbow region. COMPARISON: None available. TECHNIQUE: Color-flow triplex imaging with spectral analysis and compression Doppler was performed on the right upper extremity. FINDINGS: The right internal jugular, subclavian, and axillary veins are patent demonstrated normal spectral Doppler waveforms. There is normal compressibility or normal spectral Doppler waveforms the cephalic vein at the antecubital fossa. The brachial, basilic, radial, and ulnar veins are patent and compressible. US/US venous duplex UE RT IMPRESSION: Occlusive thrombus, cephalic vein at the antecubital fossa. Electronically signed by: Ananth Dominique MD 08/27/2024 12:53 PM EDT
== END 2024-08-27 11:12 | disposition home or self-care (01) ==
LOC: HO.US 11:11
PROVIDERS: PCP Nurse Practitioner Family; Visit Provider Nurse Practitioner Family
DX: R60.0 Localized edema (principal)
CPT/HCPCS: 93971

== ENCOUNTER → 2024-08-27 11:16 | Outpatient (BNV) | payer MEDICARE, SELFPAY | PROVIDERS: PCP Nurse Practitioner Family; Visit Provider Radiology Diagnostic Radiology | DX: I82.611 Acute embolism and thrombosis of superficial veins of right upper extremity (principal) | CPT/HCPCS: 93971 ==

== ENCOUNTER 2024-09-13 09:17 | Outpatient (REF) | payer MEDICARE, SELFPAY | END 2024-09-13 09:18 | disposition home or self-care (01) | LOC: HO.LAB 09:17 | PROVIDERS: PCP Nurse Practitioner Family | DX: N30.00 Acute cystitis without hematuria (principal) | CPT/HCPCS: 81003; 99212 ==

== ENCOUNTER 2024-09-13 09:17 | Outpatient (AMB) | payer MEDICARE, SELFPAY ==
--- NOTE | 2024-09-13 09:28 | AM.OFFWIN_ITS ---
Intake Vital Signs 09/13/24 09:33 Weight 151 lb BP 114/60 Blood Pressure Location Rt brachial Position Sitting Temp 97.6 F Temp Source Oral Intake Visit Reasons: EP UTI?? Intake Note: Patient here for burning sensation, weak flow, fatigue and frequent urination that has been present for almost 2 weeks. Patient Tobacco Use Status: Former Tobacco user Allergies No Known Allergies Allergy (Verified 09/13/24 09:32) Do you need a note to return to daycare/school/sports/work: No HPI HPI Comments History of Present Illness Details History of Present Illness - The patient is a 74-year-old male pres enting with urinary symptoms. - He reports frequent urination, increas ed predominantly at night, with a current weak stream and burning sensation. - Fatigue is significant, especially aft er the most recent chemotherapy treatment received for Stage 4 Lung Cancer. - Initial chemotherapy was poorly tolera carmen, but second was manageable, with current side effects being predominantly fatigue. - Notably, despite urinary complaints, t here is an absence of fever, no change in pt's chronic back pain. Physical Exam General: Cooperative, healthy appearing, comfortable, no acute distress and well developed Orientation: Patient oriented x3 Limitations: No limitations Head: Normal to inspection Ears: Hearing grossly normal bilaterally Nose: Normal External nose present Face and sinus: Normal facial exam Eyes: Appearance normal, both eyes and all related structures Neck: Normal visual inspection and Yes full ROM Respiratory: Normal respiratory effort and able to speak in complete sentences. Skin: No rashes or lesions noted Neuro: Patient oriented x3 Extremities: Normal to inspection PFSH Medical History GERD (gastroesophageal reflux disease) Diabetes Lung cancer Osteoarthritis of shoulders, bilateral Personal history of nicotine dependence Dyslipidemia Asthma HTN (hypertension) Tubular adenoma of colon Lipoma Surgical History History of right inguinal hernia repair History of colonoscopy History of laparoscopic cholecystectomy (01/23/24) Hx of excision of mass Family History Mother Mental health disorder Colon cancer Brother Prostate cancer Social History Household Members: None Housing: House Are you a primary child care attendant to a significant other at home: No Do you presently have visiting nurse or other home services: No Comment: ache Patient Tobacco Use Status: Former Tobacco user Tobacco use type: Cigarette Years Smoked: (onset 20yo, 1ppd x 51yrs, 50pyh - quit 2010) e-Cigarette/Vaping Use: Never Used Advance Directives Date on File: 11/27/21 service: No Current occupational status: retired Cognitive needs: No Hearing needs: No Vision needs: No Review of Systems Const All systems reviewed & are unremarkable except as noted in HPI and below Physical Exam Vital Signs: Last Vital Signs Temp 97.6 F 09/13/24 09:33 BP 114/60 09/13/24 09:33 Results AMB Urinalysis, Automated UA Leukoctes 0 Zina/uL Last Edit by Marvin Herrera CCM on 09/13/24 09:43 UA Nitrite Negative Last Edit by Marvin Herrera [facility] on 09/13/24 09:43 UA Urobilinogen 0.2 mg/dL Last Edit by Marvin Herrera CCM on 09/13/24 09:43 UA Protein 0 mg/dL Last Edit by Marvin Herrera [facility] on 09/13/24 09:43 UA pH 7.0 Last Edit by Marvin Herrera [facility] on 09/13/24 09:43 UA Blood 0 Jose/uL Last Edit by Marvin Herrera [facility] on 09/13/24 09:43 UA Specific Harbert 1.010 Last Edit by Marvin Herrera CCM on 09/13/24 09:43 UA Ketone Negative Last Edit by Marvin Herrera [facility] on 09/13/24 09:43 UA Bilirubin 0 mg/dL Last Edit by Marvin Herrera [facility] on 09/13/24 09:43 UA Glucose 1000 mg/dL Last Edit by Marvin Herrera [facility] on 09/13/24 09:43 Assessment & Plan Assessment & Plan (1) UTI (urinary tract infection): Code(s): N39.0 - Urinary tract infection, site not specified Qualifiers: Urinary tract infection type: acute cystitis Hematuria presence: without hematuria Qualified Code(s): N30.00 - Acute cystitis without hematuria Plan: VSS, pt well appearing, UA neg for infection, blood but 3+glucose however pt is on jardiance. The patient will be treated for a suspected urinary tract infection with cefuroxime, dosed every 12 hours for five days, given the immunocompromised state due to chemotherapy for Stage 4 Lung Cancer. A urine culture is requested to confirm any specific pathogen presence. Considering potential absorption issues with omeprazole, the patient is advised to adjust his GERD management temporarily, exploring alternatives like TUMS, if needed. Should intractable symptoms or culture results necessitate, antibiotic therapy will be adjusted. Close monitoring is required to promptly address any escalation of symptoms due to immune compromise. Patient was informed and verbally consented to the use of an ambient scribe for clinic note documentation during this visit. Orders: Orders AMB Urinalysis Automated Today Z13.9 - Encounter for screening, unspecified Urine Culture Today N39.0 - Urinary tract infection, site not specified Medications: New cefuroxime axetil 500 mg PO Q12H 10 tabs 0RF Coding Level of Care Code Est Pt Level 3 (40623) Diagnoses Acute cystitis without hematuria N30.00 Urinary tract infection type: acute cystitis Hematuria presence: without hematuria
[2024-09-13 09:33] VITALS: BP 114/60; TEMP 36.4
== END 2024-09-13 10:20 | disposition home or self-care (01) ==
PROVIDERS: PCP Nurse Practitioner Family; Visit Provider Physician Assistant
DX: N30.00 Acute cystitis without hematuria (principal); Z13.9 Encounter for screening, unspecified

== ENCOUNTER 2024-10-14 08:26 | Outpatient (AMB) | payer MEDICARE, SELFPAY ==
--- OUTSIDE RECORDS SUMMARY | 2024-10-14 08:39 | XMS_ITS | Data Portability ---
Author Organization [facility], [facility] Address [address] [place] [address] Care Team Providers Care Printing Engineer Name Role Phone CHERYL GUEVARA Primary Care Provider [phone] Assessment No assessment recorded. Plan of Treatment [...] LastModifiedBy Organization Detail LastModifiedTime 01/23/20 24 09/12/2022 imagi ng/di agnos tic resul t No observ ation record ed. [email or web address] Not Available 12/26 06:44:53 Result Notes None recorded. 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 Procedures Surgical History Date Name Laterality Status Provider Name and Address Organization Details Recorded Time 09/10/19 25 Sports Shoulder Bilateral 4 & 1 w/US completed Cornelio Herr PA-C [address], [place], [address], [facility] 09/09/2024 08:41:18 06/11/19 25 Sports Shoulder Bilateral completed Cornelio Herr PA-C [address], [place], [address], [facility] 06/25/2024 08:24:45 03/05/20 24 Sports Shoulder Bilateral completed Cornelio Herr PA-C [address], [place], [address], [facility] 03/05/2024 08:30:30 12/05/19 24 Sports Shoulder Bilateral completed Cornelio Herr PA-C [address] Formerly named [facility], [place], [address], [facility] 12/05/2023 08:40:55 08/29/19 24 Sports Shoulder Bilateral completed Cornelio Herr PA-C [address] Formerly named [facility], [place], [address], [facility] 08/29/2023 08:33:59 01/22/20 04 Gastrointestinal Surgery completed Sandra Can [facility] 03/05/2024 08:21:20 Imaging Results Imaging Date Name Status LastModified by Organiz ation Details LastModified Time 09/12/2022 imaging/diag nostic result completed [email or web address] Information not available 01/23/2024 06:44:53 Procedure Notes None recorded. Medical Equipment None Reported. Allergies Allergen ID Allergen Name Allergen Category Reaction Reaction Severity Criticality Documentation Date Start Date Code Code System Note Provider Name and Address Organization Details Recorded Time 168899 acetamino phen / oxycodone medicatio n Not available Not available Not available 07/28/20232022 65058 3 RxNorm Not Available [facility] 16:12:52 Medications Name Sig Start Date Stop [...] No t Available buspirone 5 mg tablet TAKE 1 TABLET BY MOUTH TWICE A DAY active Not Available Not Available No t Available atorvastati n 20 mg tablet TAKE 1 TABLET BY MOUTH EVERY DAY IN THE EVENING 11/30 completed Not Available Not Available Not Available ipratropium 0.5 mg-albutero l 3 mg (2.5 mg base)/3 mL nebulizatio n soln 3 ML INHALED EVERY 4 TO 6 HOURS NEEDED FOR WHEEZING active Not Available Not Available No t Available trazodone 50 mg tablet TAKE 1 TABLET BY MOUTH AT BEDTIME NEEDED FOR SLEEP active Not Available Not Available No t Available atorvastati n 10 mg tablet TAKE [...] completed Not Available Not Available Not Available triamcinolo ne acetonide 0.1 % topical cream APPLY TO AFFECTED AREA TWICE A DAY active Not Available Not Available No t Available ondansetron 8 mg disintegrat ing tablet DISSOLVE 1 TAB BY MOUTH EVERY 8 HOURS active Not Available Not Available No t Available oxycodone-a cetaminophe n 5 mg-325 mg [...] completed Not Available Not Available Not Available dexamethaso ne 4 mg tablet TAKE 1 TAB BY MOUTH 2 TIMES DAILY THE DAY BEFORE, DAY OF AND DAY AFTER CHEMOTHER APY active Not Available Not Available No t Available docusate sodium 100 mg capsule TAKE 1 CAPSULE BY MOUTH TWICE A DAY active Not Available Not Available No t Available folic acid 1 mg tablet TAKE 1 TABLET BY MOUTH EVERY DAY active Not Available Not Available No t Available lorazepam 1 mg tablet TAKE 1 TABLET BY MOUTH TWICE A DAY NEEDED FOR ANXIETY. TAKE 1 TABLET 1 HOUR PRIOR TO MRI SCAN active Not Available Not Available No t Available methylpredn isolone 4 mg tablets in a dose pack TAKE 6 TABLETS ON DAY 1 DIRECTED ON PACKAGE AND DECREASE BY 1 TAB EACH DAY FOR A TOTAL OF 6 DAYS 09/09 completed Not Available Not Available Not Available albuterol sulfate HFA 90 mcg/actuati on [...] Available Not Available finasteride 5 mg tablet TAKE 1 TABLET DAILY active Not Available Not Available No t Available amoxicillin 875 mg-potassiu m clavulanate 125 mg tablet TAKE 1 TABLET BY MOUTH TWICE A DAY 08/26 completed Not Available Not Available Not Available enoxaparin 80 mg/0.8 mL subcutaneou s syringe INJECT 70 MG (0.7 ML) SUBCUTANE OUSLY EVERY 12 HOURS active Not Available Not Available No t Available Flovent HFA 110 mcg/actuati on aerosol [...] Not Available Not Available No t Available Eliquis 5 mg tablet TAKE 1 TABLET TWICE A DAY 09/09 completed Not Available Not Available Not Available Jardiance 10 mg tablet TAKE 1 TABLET DAILY active Not Available Not Available No t Available Arnuity Ellipta 100 mcg/actuati on powder for inhalation USE 1 INHALATIO N ORALLY DAILY active Not Available Not Available No t Available Trelegy Ellipta 100 mcg-62.5 mcg-25 mcg powder for inhalation INHALE 1 PUFF DAILY active Not Available Not Available No t Available Eliquis DVT-PE Treatment 30-Day Starter 5 mg (74 tablets) in dose pack TAKE 10 MG BY MOUTH TWICE A DAY FOR 7 DAYS THEN DECREASE TO 5 MG TWICE A DAY active Not Available Not [...] Updated DateTime 08/29/2023 175.26 cm 25.8 kg/m2 72330.66 g AGUSTO HECTOR [facility] 08/29/2023 08:25:02 Date Recorded Body height Body mass index (BMI) Body weight Provider Name and Address Organization Details Last Updated DateTime 12/05/2023 175.26 cm 25.8 kg/m2 61619.66 g Cornelio Herr PA-C [address] [place] [address] [address], [address], [facility] 12/05/2023 08:32:08 Date Recorded Body height Body mass index (BMI) Body weight Provider Name and Address Organization Details Last Updated DateTime 03/05/2024 175.26 cm 25.8 kg/m2 07345.66 g Sandra Can [facility] 03/05/2024 08:23:05 Date Recorded Body height Body mass index (BMI) Body weight Provider Name and Address Organization Details Last Updated DateTime 06/11/2024 175.26 cm 25.8 kg/m2 24723.66 g Sandra Can [facility] 06/11/2024 08:22:49 Date Recorded Body height Body mass index (BMI) Body weight Provider Name and Address Organization Details Last Updated DateTime 09/09/2024 175.26 cm 25.8 kg/m2 03149.66 iván Can [facility] 09/09/2024 08:25:11 Social History None recorded. Functional Status None recorded. Mental Status None recorded. Family History Nothing Reported. Medical History Condition Response Allergies/Hayfever N Coronary Artery Disease N Anxiety/Depression N Emphysema N Thyroid Problems N COPD N Pacemaker N Kidney/Bladder Problems N Anemia N Vascular Disease N Gastrointestinal Disease Y Heart Attack ([place]) N Diabetes Y Autoimmune disease N Bleeding Disorder N Orthotics N Arthritis Y Seizures/Epilepsy N Blood Clot N AIDS/HIV N Congestive Heart Failure (CHF) N Acid Reflux (GERD) N Cancer Y Stroke N Asthma Y Peripheral Vascular Disease N Sleep Apnea N Hepatitis N Heart Disease N Rheumatoid Arthritis N Arrhythmia N Pulmonary Embolism N Fibromyalgia N Hypertension Y Osteoporosis N Past Encounters Encounter ID Performer Location Encounter Start Date Encounter Closed Date Diagnosis/Indication Diagnosis SNOMED-CT Code Diagnosis ICD10 Code Diagnosis Note [id number] [facility] [address] [place] [address] 08/29/2023 08:20:43 09/18/2023 11:58:44 Osteoarthritis of left glenohumeral joint 2767821924 680291 M19.012 Osteoarthr itis of right glenohumeral joint 3290595626 031472 M19.630 [id number] [facility] [address] [place] [address] 12/05/2023 08:23:37 01/02/2024 10:37:31 Osteoarthritis of left glenohumeral joint 0564985610 754057 M19.012 Osteoarthr itis of right glenohumeral joint 4886730865 503431 M19.142 [id number] [facility] [address] [place] [address] 03/05/2024 08:18:56 03/31/2024 10:29:40 Osteoarthritis of left glenohumeral joint 7562229070 259036 M19.012 Osteoarthr itis of right glenohumeral joint 2732817312 169328 M19.050 [id number] [facility] [address] [place] [address] 06/11/2024 08:19:16 07/12/2024 13:53:12 Osteoarthritis of bilateral glenohumeral joints 8524546889 155220 M19.011 M19.311 [id number] [facility] [address] [id number] 09/09/2024 08:19:59 09/28/2024 14:05:58 Osteoarthritis of bilateral glenohumeral joints 1067944062 170117 M19.011 M19.012 Health Concerns Section Related Observation LastModified by Organization Detai ls LastModified Time None Recorded Concern Status LastModified by Organization Details LastModified Time None Recorded Advance Directives Directive None Recorded Payers Encounter Date Sequence Insurance Name Policy Number Policy Almodovar Covered Member ID Almodovar Member ID Guarantor Name 08/29/2023 1 [facility] BLUE (MEDICARE REPLACEMENT PPO) [id number] [facility] [id number] [facility] 12/05/2023 1 [facility]: [place] (MEDICARE REPLACEMENT PPO) [id number] [facility] [id number] [facility] 03/05/2024 1 [facility] (MEDICARE REPLACEMENT PPO) [id number] [facility] [id number] [facility] 06/11/2024 1 [facility] (MEDICARE REPLACEMENT PPO) [id number] [facility] [id number] [facility] 09/09/2024 1 [facility] (MEDICARE REPLACEMENT PPO) [id number] [facility] [id number] [facility] Notes Date Note Type Note [...] up as needed. Cornelio Herr PA-C [address], [place], [address], [facility] 08/29/2023 08:35:07 4 text/html I am [...] up as needed. Cornelio Herr PA-C [address], [place], [address], [facility] 12/05/2023 08:41:44 4 text/html I [...] up as needed. Cornelio Herr PA-C [address], [place], [address], [facility] 03/05/2024 08:31:17 5 text/html I [...] up as needed. Cornelio Herr PA-C [address], [place], [address], [facility] 06/25/2024 08:24:47 5 text/html I am seeing the patient [...] up as needed. Cornelio Herr PA-C [address], [place], [address], [facility] 09/09/2024 08:42:13
--- NOTE | 2024-10-14 10:35 | MHC.OFFWIV ---
Intake Vital Signs 10/14/24 10:44 Weight 145 lb BP 108/66 Blood Pressure Location Rt brachial Position Sitting Pulse 57 Pulse Source Pulse Oximeter Pulse Oximetry (%) 99 Oxygen Delivery Method Room Air Intake Visit Reasons: EP rash Intake Note: Patient here for rash on arms that he notice a couple of days ago. Patient Tobacco Use Status: Former Tobacco user Allergies No Known Allergies Allergy (Verified 10/14/24 10:45) Do you need a note to return to daycare/school/sports/work: No HPI HPI Comments History of Present Illness Details 74 y/o Male patient who presents to the [facility] in clinic with c/o Very Itchy Rash on Torso, back and upper extremities for few days now. He is currently going through Chemotherapy for Lung CA. He does get treatments every 3 weeks. Does report noticing the rash after his last Chemo Session. He had 4 treatments with no problems. He does have an appointment with Oncology Tomorrow. COUNTS INCLUDE 234 BEDS AT THE [facility] Medical History (Updated 10/14/24 @ 11:46 by Kristal Link NP) Rash and nonspecific skin eruption GERD (gastroesophageal reflux disease) Diabetes Lung cancer Osteoarthritis of shoulders, bilateral Personal history of nicotine dependence Dyslipidemia Asthma HTN (hypertension) Tubular adenoma of colon Lipoma Surgical History History of right inguinal hernia repair History of colonoscopy History of laparoscopic cholecystectomy (01/23/24) Hx of excision of mass Family History Mother Mental health disorder Colon cancer Brother Prostate cancer Social History Household Members: None Housing: House Are you a primary acute care registered nurse to a significant other at home: No Do you presently have visiting nurse or other home services: No Comment: ache Patient Tobacco Use Status: Former Tobacco user Tobacco use type: Cigarette Years Smoked: (onset 20yo, 1ppd x 51yrs, 50pyh - quit 2010) e-Cigarette/Vaping Use: Never Used Advance Directives Date on File: 11/27/21 service: No Current occupational status: retired Cognitive needs: No Hearing needs: No Vision needs: No Review of Systems Const All systems reviewed & are unremarkable except as noted in HPI and below Physical Exam Vital Signs: Last Vital Signs Pulse 57 10/14/24 10:44 BP 108/66 10/14/24 10:44 Pulse Ox 99 10/14/24 10:44 Oxygen Delivery Method Room Air 10/14/24 10:44 Const General: no acute distress Nutritional Appearance: well nourished Orientation/consciousness: patient oriented x3 Skin Other: Macular papular Erythematous Rash covering back, Torso and B/L upper extremities. Neuro General: patient oriented x3, gait normal and moves all extremities Psych Speech and movement: Normal speech and movement present Assessment & Plan Assessment & Plan (1) Rash and nonspecific skin eruption: Code(s): R21 - Rash and other nonspecific skin eruption Plan: DDx's: Drug Induced reaction Eczema or Dermatitis. Ordered Topical Steroid cream F/U with Oncology. Medications: Changed From triamcinolone acetonide 0.1% 1 appl topical BID 30 grams 0RF R21 - Rash and other nonspecific skin eruption To triamcinolone acetonide 0.1% APPLY TO THE AFFECTED AREAS OF SKIN TWICE A DAY 1 appl topical BID 454 grams 0RF R21 - Rash and other nonspecific skin eruption Coding Level of Care Code Est Pt Level 4 (86435) Diagnoses Rash and nonspecific skin eruption R21 Time Spent (min) 20
[2024-10-14 10:44] VITALS: BP 108/66; PULSE 57; O2SAT 99
== END 2024-10-14 11:26 | disposition home or self-care (01) ==
PROVIDERS: PCP Nurse Practitioner Family; Visit Provider Nurse Practitioner Family
DX: R21 Rash and other nonspecific skin eruption (principal)

== ENCOUNTER → 2024-10-14 08:26 | Outpatient (BNVA) | payer MEDICARE, SELFPAY | PROVIDERS: PCP Nurse Practitioner Family; Visit Provider Nurse Practitioner Family | DX: R21 Rash and other nonspecific skin eruption (principal) | CPT/HCPCS: 99212 ==

== ENCOUNTER 2024-10-15 07:23 | Outpatient (REF) | payer MEDICARE, SELFPAY ==
--- NOTE | ~2024-10-15 | CT_ITS ---
EXAMINATION: CT CHEST WITHOUT IV CONTRAST INDICATION: Follow up for non small cell lung cancer COMPARISON: Comparison is made with the prior examination dated 08/16/2024. TECHNIQUE: Helical CT scan of the chest was performed without intravenous contrast. Coronal and sagittal reformatted images were generated and reviewed. This CT exam was performed with one or more of the following dose reduction techniques: automated exposure control, adjustment of the mA and/or kV according to patient size, use of iterative reconstruction technique. DLP: 132 mGy-cm CHEST: THYROID: The thyroid is unremarkable. LUNGS: Again seen is an irregular soft tissue mass in the right upper lobe infiltrating the right superior mediastinum measuring at least 5.8 x 4.2 x 2.0 cm. Exact measurement is difficult due to lack of IV contrast material. This is contiguous with soft tissue abutting the ascending aorta and right mainstem bronchus. The previously seen 4 mm right lower lobe nodule now measures 1.4 cm in size and is irregular in outline (series 4, image 68). Again seen is a slightly irregular lingular nodule (series 4, image 100) which is slightly smaller in size measuring 7 mm (previously 10 mm). There is a new 5 mm nodule in the left upper lobe (series 4, image 73). MEDIASTINUM: There is a 1.3 cm AP window node, similar in size to the prior study. A 2.4 x 1.4 cm subcarinal node is slightly smaller in size (previously 2.3 x 1.8 cm). KALI: Evaluation of the hilar regions is limited by lack of intravenous contrast material. CARDIOVASCULATURE: The heart is normal in size. There is no pericardial effusion. The thoracic aorta is normal in caliber. DEGREE OF CORONARY CALCIFICATION: severe PLEURA: There is no pleural effusion. No pneumothorax. MAIN AIRWAYS: The mainstem bronchi and proximal branches are patent. AXILLA: There is no axillary lymphadenopathy. BONES AND SOFT TISSUES: Unremarkable UPPER ABDOMEN: There is an ill-defined 1.4 cm hypodensity in the right hepatic lobe which appears slightly smaller. Evaluation is limited without IV contrast material. The visualized portions of the spleen and left adrenal gland have an unremarkable unenhanced appearance. Again seen is a 2.5 x 1.3 cm right adrenal mass which was not present on 01/22/2024, highly suspicious for metastatic deposit. CT/CT chest wo IV con IMPRESSION: 1. Irregular soft tissue mass in the right upper lobe/superior mediastinum as described, difficult to accurately measure without IV contrast. 2. Enlargement of a right lower lobe irregular nodule, now measuring 1.4 cm in size. 3. New 5 mm left upper lobe nodule. A lingular nodule is slightly smaller. 4. Mediastinal lymphadenopathy as described. 5. Possible decrease in size of a hepatic metastasis, although evaluation is limited by lack of intravenous contrast. 6. 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 Electronically signed by: Kyle Nova MD 10/15/2024 08:27 AM EDT
== END 2024-10-15 07:24 | disposition home or self-care (01) ==
LOC: HO.CT 07:23
PROVIDERS: PCP Nurse Practitioner Family; Visit Provider Internal Medicine Medical Oncology
DX: C34.90 Malignant neoplasm of unspecified part of unspecified bronchus or lung (principal)
CPT/HCPCS: 71250

== ENCOUNTER → 2024-10-15 07:28 | Outpatient (BNV) | payer MEDICARE, SELFPAY | PROVIDERS: PCP Nurse Practitioner Family; Visit Provider Radiology Diagnostic Radiology | DX: R91.8 Other nonspecific abnormal finding of lung field (principal) | CPT/HCPCS: 71250 ==

== ENCOUNTER 2024-10-28 14:02 | Outpatient (AMB) | payer MEDICARE, SELFPAY ==
--- NOTE | 2024-10-28 14:04 | A.OFFPC_ITS ---
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 Required: No Accompanied by: Self / Same As Patient Allergies No Known Allergies Allergy (Verified 10/28/24 14:09) Tobacco use date assessed: 10/28/24 Fall risk assessment: No Falls in past year Last assessed Fall Risk: 10/28/24 Dental Screening Dental Screen Date: 10/28/24 Did you have a dental visit in the last 12 months?: Yes Did you have a dental problem in the last 6 months where you did not have access to dental care?: No Was dental information given to patient?: Patient has dentist HPI Annual PE HPI Details History of Present Illness The patient is a 74-year-old male presenting for a physical examination amidst ongoing care for pulmonary carcinoma with liver metastases and prostate disorder. He is continuing treatment through oncology services at [facility]. His cancer treatments appear well-tolerated, and he manages occasional challenges with support from his family and has access to a therapist, denying any suicidal thoughts. Additionally, the patient reports an unresolved rash following discontinuation of Buspiron. The rash manifests as dry, macular red patches on the scapular and trapezius regions, with some relief with topical treatment from 0.1% to 0.5% for management. He also mentions a painful corn at the distal plantar surface of the left foot, which requires podiatry evaluation. Fairly controlled diabetic, will check A1c with blood wook The patient denies symptoms including chest pain, shortness of breath, constipation, diarrhea, or blood in stool, and confirms his colon screening remains current. Health Maintenance - Colon screening is up to date. Social History - The patient has access to a personal s upport network, including therapists. Review of Systems - Skin: Reports dry, macular rash with s light erythema in scapular and mid-trape zius regions bilaterally. - Neurological: Denies suicidal ideation . - Respiratory: Denies chest pain and ina rtness of breath. - Gastrointestinal: Denies abdominal deonte n, constipation, diarrhea, or blood in stool. -denies any fevers or chills, si or hi Physical Exam General: Cooperative, healthy appearing, comfortable, no acute distress and well developed Orientation: Patient oriented x3 Limitations: No limitations Head: Normal to inspection Ears: Hearing grossly normal bilaterally Nose: Normal external nose present Face and sinus: Normal facial exam Eyes: Appearance normal, both eyes and all related structures Neck: Normal visual inspection and Yes full ROM Respiratory: Diminished bilaterally, though moving air, able to speak in complete sentences Cardiovascular: Regular rate and rhythm. Normal S1 and S2, very faint carotid left bruit GI: Normal to inspection. Soft to palpation and nontender Skin: Dry macular appearing areas with slight erythema to upper scapular regions and mid trap regions bilaterally. [place] on the bottom of the left foot, distal plantar aspect, no surrounding erythema Neuro: Patient oriented x3 Extremities: Normal to inspection, + sensation to bilat feet Results - Colon screening results: Up to date. Plan Ongoing oncology follow-up for pulmonary carcinoma with liver metastases is to be adhered to, with the current treatment plan showing good tolerance. I have advised increasing strength in the topical treatment for the patient's ongoing rash, and will perform an ultrasound of the faint carotid bruit detected on the left side. The corn on the left foot, while bothersome, does not show surrounding erythema and will be managed with a podiatry consultation. The patient should maintain scheduled urology follow-up, seek support from therapists as needed, and immediately report any emerging symptoms or concerns. Discussion Notes I discussed the patient's ongoing cancer management with the oncology teams at [place] and [facility]. The rash, likely linked to previous medication use, requires increased strength of topical therapy from 0.1% to 0.5%. The carotid bruit on the left prompted a decision for ultrasound imaging to evaluate possible stenosis. Addressed discomfort due to a foot corn by suggesting podiatry consultation for mechanical support to reduce pressure. Reaffirmed the importance of continued urology management, and encouraged contact with his therapist network for psychological support. Agreed on following up promptly with healthcare providers for any new symptoms or relevant changes to his health status. Patient Instructions - Continue following up with oncology an d urology as scheduled. - Use the increased strength topical cre am (0.5%) for the rash as directed. - Schedule an ultrasound for the left ca rotid bruit. - Contact podiatry for evaluation of the left foot corn. - Reach out to therapists for ongoing hester pport if needed. - Report any new symptoms or concerns im mediately. [facility] Medical History Rash and nonspecific skin eruption GERD (gastroesophageal reflux disease) Diabetes Lung cancer Osteoarthritis of shoulders, bilateral Personal history of nicotine dependence Dyslipidemia Asthma HTN (hypertension) Tubular adenoma of colon Lipoma Surgical History History of right inguinal hernia repair History of colonoscopy History of laparoscopic cholecystectomy (01/23/24) Hx of excision of mass Family History Mother Mental health disorder Colon cancer Brother Prostate cancer Social History Household Members: None Housing: House Are you a primary reservoir caretaker to a significant other at home: No Do you presently have visiting nurse or other home services: No Comment: ache Patient Tobacco Use Status: Former Tobacco user Tobacco use type: Cigarette Years Smoked: (onset 20yo, 1ppd x 51yrs, 50pyh - quit 2010) e-Cigarette/Vaping Use: Never Used Advance Directives Date on File: 11/27/21 service: No Current occupational status: retired Cognitive needs: No Hearing needs: No Vision needs: No Questionnaire Thrive Questionnaire Date Thrive assessed: 10/28/24 I am a: Patient What is your living situation today?: I have a steady place to live Within the past 12 months, did the food you bought not last and you didn't have the money to get more?: Never true Within the past 12 months, did you worry whether your food would run out before you got money to buy more?: Never true Do you have trouble paying for medicines?: No Do you have trouble getting transportation to medical appointments?: No Do you have trouble paying your heating and electricity bill?: No Do you have trouble taking care of your child, family member or friend?: No Do you have trouble with day-to-day activities such as bathing, preparing meals, shopping, managing finances, etc.?: No Are you currently unemployed and looking for a job?: No Are you interested in more education?: No Please select the resources that you would like help with: None Currently or been in a relationship where the following occur: No concerns reported THRIVE Score: 0 ANDRIY-7 AMB Questionnaire ANDRIY-7 Date ANDRIY - 7 assessed: 10/28/24 Source: Developed by Drs. Kyle Bravo, Yareli Josue, Lucho Dhaliwal and colleagues, with an educational leyla from [employer]. Physical exam (Primary Care) Vital Signs: Last Vital Signs Temp 98.3 F 10/28/24 14:06 Pulse 69 10/28/24 14:06 Resp 18 10/28/24 14:06 BP 114/82 10/28/24 14:06 Pulse Ox 96 10/28/24 14:06 Oxygen Delivery Method Room Air 10/28/24 14:06 BMI result Body Mass Index 22.4 Tobacco/Smoking Status: Tobacco use Status Tobacco use date assessed 10/28/24 10/28/24 14:06 Patient Tobacco Use Status Former Tobacco user 10/28/24 14:06 Tobacco use type Cigarette 10/28/24 14:06 e-Cigarette/Vaping Use Never Used 10/28/24 14:06 Thrive Assessment: Date of Thrive Assessment Date Thrive assessed 10/28/24 10/28/24 14:06 Currently or been in a relationship where the following occur: No concerns reported Coding Level of Care Code Est Pt Prev Care >65y(54283) Diagnoses Encounter for routine adult physical exam with abnormal findings Z00. Carotid artery bruit R09.89 Diabetes E11.9 [place]ren of foot L84 Assessment & Plan Assessment & Plan (1) Encounter for routine adult physical exam with abnormal findings: Code(s): Z00.01 - Encounter for general adult medical examination with abnormal findings Category: Medical (2) Carotid artery bruit: Code(s): R09.89 - Other specified symptoms and signs involving the circulatory and respiratory systems Category: Medical (3) Diabetes: Code(s): E11.9 - Type 2 diabetes mellitus without complications Category: Medical (4) [place] of foot: Code(s): L84 - Corns and callosities Category: Medical Plan . Orders: Orders Complete Blood Count Auto Diff Today Z00.01 - Encounter for general adult medical examination with abnormal findings Comprehensive [place]. Panel Fast Today Z00.01 - Encounter for general adult medical examination with abnormal findings TSH reflex Free T4 Today Z00.01 - Encounter for general adult medical examination with abnormal findings UA CC w/rflx Micro + Cult Today Z00.01 - Encounter for general adult medical examination with abnormal findings Lipid Panel Today Z00.01 - Encounter for general adult medical examination with abnormal findings Hemoglobin A1c Today E11.9 - Type 2 diabetes mellitus without complications US carotid duplex BI Today R09.89 - Other specified symptoms and signs involving the circulatory and respiratory systems Microalbumin, Random (w Creat) Today E11.9 - Type 2 diabetes mellitus without complications Referrals Podiatry Referral L84 - Corns and callosities Medications: Changed From triamcinolone acetonide 0.1% APPLY TO THE AFFECTED AREAS OF SKIN TWICE A DAY 1 appl topical BID 454 grams 0RF R21 - Rash and other nonspecific skin eruption To triamcinolone acetonide 0.5% APPLY TO THE AFFECTED AREAS OF SKIN TWICE A DAY 1 appl topical BID 15 grams 0RF R21 - Rash and other nonspecific skin eruption
[2024-10-28 14:06] VITALS: BP 114/82; PULSE 69; RESP 18; TEMP 36.8; O2SAT 96; BMI 22.4
--- OUTSIDE RECORDS SUMMARY | 2024-10-28 16:41 | XMS_ITS | Data Portability ---
Author Organization [facility], [facility] Address [address] [place] [address] Care Team Providers Care Bank Secrecy Act Officer Name Role Phone CHERYL GUEVARA Primary Care [...] Osteoarthri tis of bilateral glenohumera l joints [id number] 105 Active 2024 Cornelio torres PA-C [address], [place], [address], [facility] 08:41:29 Problem Notes None recorded. Procedures Surgical History Date Name Laterality Status Provider Name and Address Organization Details Recorded Time 09/10/19 25 Sports Shoulder Bilateral 4 & 1 w/US completed Cornelio Herr PA-C [address], [place], [address], [facility] 09/09/2024 08:41:18 06/11/19 25 Sports Shoulder Bilateral completed Cornelio Herr PA-C [address], [place], [address], [facility] 06/25/2024 08:24:45 03/05/20 24 Sports Shoulder Bilateral completed SHAYNA Field-Jak [address], [place], [address], [facility] 03/05/2024 08:30:30 12/05/19 24 Sports Shoulder Bilateral completed SHAYNA Field-Jak [address], [place], [address], [facility] 12/05/2023 08:40:55 08/29/19 24 Sports Shoulder Bilateral completed Cornelio Herr PA-C [address], [place], [address], [facility] 08/29/2023 08:33:59 01/22/20 04 Gastrointestinal Surgery completed Sandra Can [facility] 03/05/2024 08:21:20 Imaging Results None recorded. Procedure Notes None recorded. Medical Equipment None Reported. Allergies Allergen ID Allergen Name Allergen Category Reaction Reaction Severity Criticality Documentation Date Start Date Code Code System Note Provider Name and Address Organization Details Recorded Time 469382 acetamino phen / oxycodone medicatio n Not available Not available Not available 07/28/20232022 83810 3 [facility] Updated DateTime 06/11/2024 175.26 cm 25.8 kg/m2 35250.66 g Sandra Can [facility] 06/11/2024 08:22:49 Date Recorded Body height Body mass index (BMI) Body weight Provider Name and Address Organization Details Last Updated DateTime 08/29/2023 175.26 cm 25.8 kg/m2 53990.66 g AGUSTO HECTOR [facility] 08/29/2023 08:25:02 Date Recorded Body height Body mass index (BMI) Body weight Provider Name and Address Organization Details Last Updated DateTime 09/09/2024 175.26 cm 25.8 kg/m2 25297.66 g Sandra Can [facility] 09/09/2024 08:25:11 Date Recorded Body height Body mass index (BMI) Body weight Provider Name and Address Organization Details Last Updated DateTime 12/05/2023 175.26 cm 25.8 kg/m2 24678.66 g Cornelio Herr PA-C [address] [facility] [address], [place], [address], [facility] 12/05/2023 08:32:08 Date Recorded Body height Body mass index (BMI) Body weight Provider Name and Address Organization Details Last Updated DateTime 03/05/2024 175.26 cm 25.8 kg/m2 54085.66 g Sandra Can [facility] 03/05/2024 08:23:05 Social History None recorded. Functional Status None recorded. Mental Status None recorded. Family History Nothing Reported. Medical History Condition Response Allergies/Hayfever N Coronary Artery Disease N Anxiety/Depression N Emphysema N Thyroid Problems N COPD N Pacemaker N Anemia N Kidney/Bladder Problems N Vascular Disease N Heart Attack (HI) N Gastrointestinal Disease Y Diabetes Y Autoimmune [...] SNOMED-CT Code Diagnosis ICD10 Code Diagnosis Note [id number] [facility] [address] [place] [address] 08/29/2023 08:20:43 09/18/2023 11:58:44 Osteoarthritis of left glenohumeral joint 6762302872 004858 M19.012 Osteoarthr itis of right glenohumeral joint 9213906589 023796 M19.798 [id number] [facility] [address] [place] [address] 12/05/2023 08:23:37 01/02/2024 10:37:31 Osteoarthritis of left glenohumeral joint 0621284015 919557 M19.012 Osteoarthr itis of right glenohumeral joint 1535394457 491918 M19.463 [id number] [facility] [address] [place] [address] 03/05/2024 08:18:56 03/31/2024 10:29:40 Osteoarthritis of left glenohumeral joint 6142211506 748098 M19.012 Osteoarthr itis of right glenohumeral joint 0250676425 014518 M19.561 [id number] [facility] [address] [place] [address] 06/11/2024 08:19:16 07/12/2024 13:53:12 Osteoarthritis of bilateral glenohumeral joints 9220263206 300164 M19.011 M19.445 [id number] [facility] [address] [place] [address] 09/09/2024 08:19:59 09/28/2024 14:05:58 Osteoarthritis of bilateral glenohumeral joints 8621136765 985609 M19.011 M19.012 Health Concerns Section Related Observation LastModified by Organization Detai ls LastModified Time None Recorded Concern Status LastModified by Organization Details LastModified Time None Recorded Advance Directives Directive None Recorded Payers Encounter Date Sequence Insurance Name Policy Number Policy Almodovar Covered Member ID Almodovar Member ID Guarantor Name 08/29/2023 1 [place] PPO) [id number] [facility] [id number] [facility] 12/05/2023 1 [place] PPO) [id number] [facility] [id number] [facility] 03/05/2024 1 [place]PO) [id number] [facility] [id number] [facility] 06/11/2024 1 [place] PPO) [id number] [facility] [id number] [facility] 09/09/2024 1 [place] PPO) [id number] [facility] [id number] [facility] Notes Date Note Type Note Provider Name [...] up as needed. Cornelio Herr PA-C [address], [place], [address], [facility] 08/29/2023 08:35:07 4 text/html I am [...] up as needed. Cornelio Herr PA-C [address], [place], [address], [facility] 12/05/2023 08:41:44 4 text/html I am seeing [...] neurologic coordination, reflexes, sensation are within normal limits.[facility] glenohumeral joint arthritisPLANThe patient has done well with conservative management in regards to the shoulder. Continued conservative management recommended. Moderating activities with the upper extremity recommended also. See procedure note. Follow up as needed. Cornelio Herr PA-C [address] [facility] [address] [place] [address], [address], [facility] 03/05/2024 08:31:17 5 [...] Herr PA-C [address], [place], [address], [facility] 06/25/2024 08:24:47 5 text/html I am seeing [...] Herr PA-C [address], [place], [address], [facility] 09/09/2024 08:42:13
== END 2024-10-28 15:20 | disposition home or self-care (01) ==
LOC: HO.HMCC 14:03
PROVIDERS: PCP Nurse Practitioner Family; Visit Provider Nurse Practitioner Family
DX: Z00.01 Encounter for general adult medical examination with abnormal findings (principal); R09.89 Other specified symptoms and signs involving the circulatory and respiratory systems; E11.9 Type 2 diabetes mellitus without complications; L84 Corns and callosities

== ENCOUNTER → 2024-10-28 14:02 | Outpatient (BNVA) | payer MEDICARE, SELFPAY | PROVIDERS: PCP Nurse Practitioner Family; Visit Provider Nurse Practitioner Family | DX: Z00.01 Encounter for general adult medical examination with abnormal findings (principal); R09.89 Other specified symptoms and signs involving the circulatory and respiratory systems; L84 Corns and callosities; E11.9 Type 2 diabetes mellitus without complications; R21 Rash and other nonspecific skin eruption | CPT/HCPCS: 96127; 99397 ==

== ENCOUNTER 2024-11-10 07:50 | Outpatient (AMB) | payer MEDICARE, SELFPAY ==
--- NOTE | 2024-11-10 07:51 | A.OFFVIS_ITS ---
Intake Visit Reasons: follow up Intake Note: Patient presents today for follow up on: epididymal cyst, enlarged prostate, and nocturia Urology Medication: finasteride Antibiotic Allergies: None Blood Thinners: None PVR: 32ml's Diamond Sizer And Grader Required: No Accompanied by: Self / Same As Patient Allergies No Known Allergies Allergy (Verified 11/10/24 08:43) Medication List - Last Reconciled 11/10/24 by ROSA MinP- albuterol sulfate 90 mcg/actuation 2 puffs PO Q6H PRN 30 days [alpha lipoic acid 10 mg PO 2XD] atorvastatin 40 mg PO QPM blood sugar diagnostic (FreeStyle Test strips) bid for diabetes buspirone 5 mg PO BID PRN dexamethasone 4 mg PO BID empagliflozin (Jardiance) 10 mg PO DAILY 90 days enoxaparin (Lovenox) 70 mg (0.7 mL) subcut Q12H 30 days finasteride 5 mg PO DAILY 90 days vceootnamds-rbyfgmguy-qykgxwtq 100-62.5-25 mcg (Trelegy Ellipta) 1 inh inhalation DAILY folic acid 1 mg PO DAILY ipratropium-albuterol 0.5 mg-3 mg(2.5 mg base)/3 mL 3 mL inhalation Q4-6H PRN lisinopril 10 mg PO DAILY lorazepam 1 mg PO BEDTIME PRN [Magnesia 250 mg PO DAILY] mirabegron ER (Myrbetriq) 25 mg PO DAILY 30 days ondansetron 8 mg PO Q8H prednisone 40 mg (2 x 20 mg) PO DAILY triamcinolone acetonide 0.5% 1 appl topical BID Vascepa (icosapent ethyl) 1 g PO BID 90 days NS HPI Comments Details: Bj is a very pleasant 74 year-old male patient of . He has a past medical history of asthma, hypertension, and hyperlipidemia. He presents to the office today for follow-up of his enlarged prostate and lower urinary tract symptoms. In discussion with the patient today he reports having called the office a few weeks ago for a sooner appointment as he has been experiencing issues of urinary urgency, urinary frequency, and nocturia up to 6 times per night. He does report having completed treatment for his metastatic lung cancer however continues to undergo maintenance dosing. He reports having increased his finasteride back to daily dosing and does not feel this has been helpful. In office urinalysis results reviewed with the patient today. 3+ glucosuria otherwise within normal limits. He is on Jardiance. PVR 32 mL. We did discussed potential causes of lower urinary tract symptoms patient is experiencing as well as further treatment options and risks and benefits of these treatment options. We also discussed the importance of management and diabetes for improvement in lower urinary tract symptoms as well as overall health and well-being. We discussed bladder triggers and irritants. He denies incontinence, hematuria, dysuria, foul smelling urine, changes to urinary stream, flank pain, fever, and or chills. He is happy with his current voiding parameters. Patient previously trialed Flomax however did not find this helpful and was experiencing retrograde ejaculation and did not wish to trial different alpha-alicia. PSA 06/18 1.6, 07/20 0.4 Patient with previous abdominal ultrasound noting 04/17 bilateral tiny cysts that require no follow-up imaging per radiology report. Symmetrical nephrograms. No nephrolithiasis or hydronephrosis. The bladder is unremarkable. All questions were answered. He otherwise offers no other issues or concerns at this time. [facility] Medical History Rash and nonspecific skin eruption GERD (gastroesophageal reflux disease) Diabetes Lung cancer Osteoarthritis of shoulders, bilateral Personal history of nicotine dependence Dyslipidemia Asthma HTN (hypertension) Tubular adenoma of colon Lipoma Surgical History History of right inguinal hernia repair History of colonoscopy History of laparoscopic cholecystectomy (01/23/24) Hx of excision of mass Family History Mother Mental health disorder Colon cancer Brother Prostate cancer Social History Household Members: None Housing: House Are you a primary ocular care aide to a significant other at home: No Do you presently have visiting nurse or other home services: No Comment: ache Patient Tobacco Use Status: Former Tobacco user Tobacco use type: Cigarette Years Smoked: (onset 20yo, 1ppd x 51yrs, 50pyh - quit 2010) e-Cigarette/Vaping Use: Never Used Advance Directives Date on File: 11/27/21 service: No Current occupational status: retired Cognitive needs: No Hearing needs: No Vision needs: No Review of Systems Const Reports as per HPI Eyes Reports no additional complaints ENT Reports no additional complaints Card Reports as per HPI Resp Reports as per HPI GI Reports no additional complaints Reports as per HPI Musc Reports no additional complaints Neuro Reports no additional complaints Psych Reports no additional complaints Endo Reports no additional complaints Rocky/Lymph Reports as per HPI Aller/Immun Reports no additional complaints Physical Exam Const General: cooperative, healthy appearing, comfortable, no acute distress, well developed, alert and awake Orientation/consciousness: patient oriented x3 Limitations: no limitations HEENT Head: Yes normal to inspection, Yes normocephalic and Yes atraumatic Ears: hearing grossly normal bilaterally Eyes General: appearance normal, both eyes and all related structures Neck Neck: Yes normal visual inspection and Yes trachea midline Chest Chest palpation & inspection: normal inspection of the chest Resp Effort & Inspection: normal respiratory effort and able to speak in complete sentences Cardio Rate: regular rate GI Inspection: Yes normal to inspection General: Yes no CVA tenderness Back/Spine/Pelvis Back: no CVA tenderness Skin General skin exam: no rashes or lesions noted Neuro General: patient oriented x3 Extrem General: Yes normal to inspection Psych Appearance: grossly normal and well kempt Mental Status: mental status grossly normal Speech and movement: Normal speech and movement present and Clear speech present Affect: normal affect Attitude: cooperative Thought process: Normal thought process present Thought content: Normal thought content present Insight: Fair insight present (Psych) Judgement: Fair judgement present (Psych) Office Procedures Post Void Residual Post Residual Void Post Void Residual (PVR): 32 50429-Iqcs Void Residual by ultrasound Results AMB Urinalysis, Automated UA Leukoctes 0 Zina/uL Last Edit by Eri Vanegas MA on 11/10/24 08:11 UA Nitrite Negative Last Edit by Eri Vanegas MA on 11/10/24 08:11 UA Urobilinogen 0.2 mg/dL Last Edit by Eri Vanegas MA on 11/10/24 08:11 UA Protein 0 mg/dL Last Edit by Eri Vanegas MA on 11/10/24 08:11 UA pH 6.0 Last Edit by Eri Vanegas MA on 11/10/24 08:11 UA Blood 0 Jose/uL Last Edit by Erimarielena Vanegas MA on 11/10/24 08:11 UA Specific Shedd 1.010 Last Edit by Erimarielena Vanegas MA on 11/10/24 08:11 UA Ketone Negative Last Edit by Eri VanegasPATRICE on 11/10/24 08:11 UA Bilirubin 0 mg/dL Last Edit by Eri VanegasPATRICE on 11/10/24 08:11 UA Glucose 1000 mg/dL Last Edit by Erimarielena Vanegas MA on 11/10/24 08:11 Results Reviewed Results Reviewed: Laboratory Last Values Urine pH (Auto) 6.0 11/10/24 07:57 Specific Shedd (Auto) 1.010 11/10/24 07:57 Urine Protein (Auto) 0 mg/dL 11/10/24 07:57 Glucose (UA)(Auto) 1000 mg/dL 11/10/24 07:57 Urine Ketones (Auto) Negative 11/10/24 07:57 Urine Blood (Auto) 0 Jose/uL 11/10/24 07:57 Urine Nitrite (Auto) Negative 11/10/24 07:57 Urine Bilirubin (Auto) 0 mg/dL 11/10/24 07:57 Urine Urobilinogen (Auto) 0.2 mg/dL 11/10/24 07:57 Leukocyte Esterase (Auto) 0 Zina/uL 11/10/24 07:57 Assessment & Plan Assessment & Plan (1) Lower urinary tract symptoms: Code(s): R39.9 - Unspecified symptoms and signs involving the genitourinary system Category: Medical Plan In office urinalysis results reviewed with the patient today; as noted above. PVR 32 mL. We did discussed potential causes of lower urinary tract symptoms patient is ex periencing as well as further treatment options and risks and benefits of these treatment options. We discussed the importance of management and diabetes for improvement overall health and well-being. We discussed bladder triggers/irritants. We discussed the importance of limiting fluids 2-3 hours prior to bed to decrease episodes of nocturia. Start Myrbetriq as discussed. Continue finasteride Follow-up in 1-3 months with PVR; or sooner with any issues, concerns, and or questions. Orders: Orders AMB Urinalysis Automated Today EDER Min Z13.9 - Encounter for screening, unspecified AMB Post Void Residual by ultrasound Today LATASHA Min N30.00 - Acute cystitis without hematuria Medications: New mirabegron ER (Myrbetriq) 25 mg PO DAILY 30 tabs 3RF 30 days LATASHA Min N32.81 - Overactive bladder, R35.1 - Nocturia, R39.15 - Urgency of urination Changed From buspirone 5 mg PO BID 30 days 60 tabs 2RF To buspirone 5 mg PO BID PRN Nam Arguello [facility] Patient Instructions: The patient had an opportunity to ask questions regarding the treatment plan. All questions were answered. Physical exam, labs, and imaging were discussed and reviewed in detail. As well as risks, benefits, and discussion of treatment choices. No major barriers to understanding were identified. The patient expressed understanding and agreement with the above treatment plan. The patient was made aware they should contact our office by phone for worsening of their current condition, the appearance of new symptoms, or with any questions or concerns. Compliance is encouraged with any medications and follow up testing that is ordered. It is a privilege to be allowed the opportunity to participate in? your urological care.? Again, if you have any questions or concerns If you have any questions or concerns please do not hesitate to contact me. The office is [phone]. This note is constructed using voice recognition software. While every effort has been made to ensure accuracy shirt maker errors may have been included. Yours sincerely, LATASHA Min Coding Level of Care Code Est Pt Level 4 (76740) Complex EM visit Add On G2211 Diagnoses Lower urinary tract symptoms R39.9 CPT Codes Post Residual Void - PVR CPT Code: 03755-Dwdw Void Residual by ultrasound ([id number])
--- OUTSIDE RECORDS SUMMARY | 2024-11-10 07:56 | XMS_ITS | Data Portability ---
Author Organization [facility], [facility] Address [address] [place] [address] Care Team Providers Care Outbound Sales Professional Name Role Phone CHERYL GUEVARA Primary Care Provider [phone] Assessment No assessment recorded. Plan of Treatment [...] Osteoarthri tis of bilateral glenohumera l joints [id number] 105 Active 2024 Cornelio torres PA-C [address], [place], [address], [facility] 08:41:29 Problem Notes None recorded. Procedures Surgical History Date Name Laterality Status Provider Name and Address Organization Details Recorded Time 09/10/19 25 Sports Shoulder Bilateral 4 & 1 w/US completed Cornelio Herr PA-C [address], [place], [address], [facility] 09/09/2024 08:41:18 06/11/19 25 Sports Shoulder Bilateral completed Cornelio Herr PA-C [address], [place], [address], [facility] 06/25/2024 08:24:45 03/05/20 24 Sports Shoulder Bilateral completed SHAYNA Field-Jak [address], [place], [address], [facility] 03/05/2024 08:30:30 12/05/19 24 Sports Shoulder Bilateral completed SHAYNA Field-Jak [address], [place], [address], [facility] 12/05/2023 08:40:55 08/29/19 24 Sports Shoulder Bilateral completed Cornelio Herr PA-C [address], [place], [address], [facility] 08/29/2023 08:33:59 01/22/20 04 Gastrointestinal Surgery completed Sandra Can [facility] 03/05/2024 08:21:20 Imaging Results None recorded. Procedure Notes None recorded. Medical Equipment None Reported. Allergies Allergen ID Allergen Name Allergen Category Reaction Reaction Severity Criticality Documentation Date Start Date Code Code System Note Provider Name and Address Organization Details Recorded Time 095164 acetamino phen / oxycodone medicatio n Not available Not available Not available 07/28/20232022 66893 3 RxNorm Not Available [facility] 16:12[facility] Medications Name Sig Start Date [...] Updated DateTime 06/11/2024 175.26 cm 25.8 kg/m2 55207.66 g Sandra Can [facility] 06/11/2024 08:22:49 Date Recorded Body height Body mass index (BMI) Body weight Provider Name and Address Organization Details Last Updated DateTime 08/29/2023 175.26 cm 25.8 kg/m2 06586.66 g AGUSTO HECTOR [facility] 08/29/2023 08:25:02 Date Recorded Body height Body mass index (BMI) Body weight Provider Name and Address Organization Details Last Updated DateTime 09/09/2024 175.26 cm 25.8 kg/m2 44406.66 g Sandra Can [facility] 09/09/2024 08:25:11 Date Recorded Body height Body mass index (BMI) Body weight Provider Name and Address Organization Details Last Updated DateTime 12/05/2023 175.26 cm 25.8 kg/m2 28832.66 g Cornelio Herr PA-C [address], [place], [address], [facility] 12/05/2023 08:32:08 Date Recorded Body height Body mass index (BMI) Body weight Provider Name and Address Organization Details Last Updated DateTime 03/05/2024 175.26 cm 25.8 kg/m2 61678.66 g Sandra Can [facility] 03/05/2024 08:23:05 Social History None recorded. Functional Status None recorded. Mental Status None recorded. Family History Nothing Reported. Medical History Condition Response Allergies/Hayfever N Coronary Artery Disease N Anxiety/Depression N Emphysema N Thyroid Problems N COPD N Pacemaker N Kidney/Bladder Problems N Anemia N Vascular Disease N Gastrointestinal Disease Y Heart Attack (ID) N Diabetes Y Autoimmune disease N Bleeding [...] SNOMED-CT Code Diagnosis ICD10 Code Diagnosis Note [id number] [facility] [address] [place] [address] 08/29/2023 08:20:43 09/18/2023 11:58:44 Osteoarthritis of left glenohumeral joint 4027135733 552177 M19.012 Osteoarthr itis of right glenohumeral joint 5485740661 543443 M19.761 [id number] [facility] [address] [place] [address] 12/05/2023 08:23:37 01/02/2024 10:37:31 Osteoarthritis of left glenohumeral joint 5764229541 813906 M19.012 Osteoarthr itis of right glenohumeral joint 1206642423 546719 M19.165 [id number] [facility] [address] [place] [address] 03/05/2024 08:18:56 03/31/2024 10:29:40 Osteoarthritis of left glenohumeral joint 2565014069 592247 M19.012 Osteoarthr itis of right glenohumeral joint 2051135050 820066 M19.607 [id number] [facility] [address] [place] [address] 06/11/2024 08:19:16 07/12/2024 13:53:12 Osteoarthritis of bilateral glenohumeral joints 9781516485 141755 M19.011 M19.164 [id number] [facility] [address] [place] [address] 09/09/2024 08:19:59 09/28/2024 14:05:58 Osteoarthritis of bilateral glenohumeral joints 4723841722 017397 M19.011 M19.012 Health Concerns Section Related Observation LastModified by Organization Detai ls LastModified Time None Recorded Concern Status LastModified by Organization Details LastModified Time None Recorded Advance Directives Directive None Recorded Payers Insurance Date Sequence Insurance Name Policy Number Policy Almodovar Covered Member ID Almodovar Member ID Guarantor Name 09/28/2024 1 [facility]: MEDICARE PPO BLUE (MEDICARE REPLACEMENT PPO) [id number] Bj Capellan [facility] [id number] [facility] Notes Date Note Type Note Provider Name [...] up as needed. Cornelio Herr PA-C [address], [place], [address], [facility] 08/29/2023 08:35:07 4 text/html [...] up as needed. Cornelio Herr PA-C [address], [place], [address], [facility] [place] [facility] 12/05/2023 08:41:44 4 text/html I am [...] up as needed. Cornelio Herr PA-C [address], [place], [address], [facility] 03/05/2024 08:31:17 5 text/html I am [...] neurologic coordination, reflexes, sensation are within normal limits.[facility] glenohumeral joint arthritisPLANThe patient has done well with conservative management in regards to the shoulder. Continued conservative management recommended. Moderating activities with the upper extremity recommended also. See procedure note. Follow up as needed. Cornelio Herr PA-C [address], [place], [address], [facility] 06/25/2024 08:24:47 5 text/html I am [...] up as needed. Cornelio Herr PA-C [address], [place], [address], [facility] 09/09/2024 08:42:13
== END 2024-11-10 08:38 | disposition home or self-care (01) ==
LOC: HO.HUSH 07:51
PROVIDERS: PCP Nurse Practitioner Family; Visit Provider Nurse Practitioner Family
DX: Z13.9 Encounter for screening, unspecified (principal); R39.9 Unspecified symptoms and signs involving the genitourinary system
CPT/HCPCS: 99214; G2211

== ENCOUNTER → 2024-11-10 07:50 | Outpatient (BNVA) | payer MEDICARE, SELFPAY | PROVIDERS: PCP Nurse Practitioner Family; Visit Provider Nurse Practitioner Family | DX: N40.1 Benign prostatic hyperplasia with lower urinary tract symptoms (principal); N13.8 Other obstructive and reflux uropathy; R35.1 Nocturia; N50.3 Cyst of epididymis; R39.9 Unspecified symptoms and signs involving the genitourinary system | CPT/HCPCS: 51798; 81003; 99212 ==

== ENCOUNTER 2024-11-16 12:48 | Outpatient (AMB) | payer MEDICARE, SELFPAY ==
[2024-11-16 13:01] VITALS: BP 111/58; PULSE 98; O2SAT 98; BMI 21.9
--- NOTE | 2024-11-16 13:01 | A.OFFVIS_ITS ---
Vital Signs 11/16/24 13:01 Height 5 ft 8 in Weight 144 lb BMI 21.9 BP 111/58 L Blood Pressure Location Rt brachial Position Sitting Pulse 98 Pulse Source Pulse Oximeter Pulse Oximetry (%) 98 Oxygen Delivery Method Room Air Intake Visit Reasons: dyspnea Allergies No Known Allergies Allergy (Verified 11/10/24 08:43) HPI HPI dyspnea: Details: 74-year-old gentleman, former 30+ pack-year smoker, quit 2009 with underlying asthma/COPD overlap syndrome and recent diagnosis of metastatic lung cancer, currently on chemo/immunotherapy under oncology care. At the last office visit he was switched from Arnuity to Trelegy with improved symptom control. He denies recent exacerbations. [facility] Medical History Rash and nonspecific skin eruption GERD (gastroesophageal reflux disease) Diabetes Lung cancer Osteoarthritis of shoulders, bilateral Personal history of nicotine dependence Dyslipidemia Asthma HTN (hypertension) Tubular adenoma of colon Lipoma Surgical History History of right inguinal hernia repair History of colonoscopy History of laparoscopic cholecystectomy (01/23/24) Hx of excision of mass Family History Mother Mental health disorder Colon cancer Brother Prostate cancer Social History Household Members: None Housing: House Are you a primary medical care manager to a significant other at home: No Do you presently have visiting nurse or other home services: No Comment: ache Patient Tobacco Use Status: Former Tobacco user Tobacco use type: Cigarette Years Smoked: (onset 20yo, 1ppd x 51yrs, 50pyh - quit 2010) e-Cigarette/Vaping Use: Never Used Advance Directives Date on File: 11/27/21 service: No Current occupational status: retired Cognitive needs: No Hearing needs: No Vision needs: No Review of Systems Const Denies daytime sleepiness, Denies excessive sweating, Denies fatigue, Denies fever(s), Denies lethargy, Denies malaise, Denies night sweats, Denies snoring and Denies weight loss Eyes Denies blurry vision and Denies itchy eyes ENT Denies nasal congestion, Denies post nasal drip, Denies sinus pain, Denies sinus pressure and Denies other ( Thrush) Card Denies chest pain, Denies pedal edema, Denies dyspnea, Denies orthopnea and Denies paroxysmal nocturnal dyspnea Resp Denies cough, Denies hemoptysis, Denies excessive phlegm production, Denies dyspnea, Denies snoring and Denies wheezing GI Denies abdominal pain and Denies heartburn Musc Denies myalgias, Denies arthralgias and Denies joint swelling Skin/Breast Denies rash Neuro Denies memory loss and Denies seizure-like activity Psych Denies abnormal sleep pattern, Denies anxiety and Denies memory loss Endo Denies excessive sweating, Denies fatigue and Denies heat intolerance Rocky/Lymph Denies easy bruising Aller/Immun Denies itchy eyes, Denies seasonal rhinorrhea and Denies wheezing Physical Exam Vital Signs: Last Vital Signs Pulse 98 11/16/24 13:01 BP 111/58 L 11/16/24 13:01 Pulse Ox 98 11/16/24 13:01 Oxygen Delivery Method Room Air 11/16/24 13:01 BMI result Body Mass Index 21.9 Const General: no acute distress and alert Nutritional Appearance: not obese Orientation/consciousness: Other orientation findings ( oriented) HEENT Head: Yes atraumatic Eyes General: appearance normal, both eyes and all related structures Sclerae: sclerae normal EOM: EOMs intact bilaterally Neck Neck: Yes supple Lymphatic: no lymphadenopathy noted Resp Effort & Inspection: normal respiratory effort and no use of accessory muscles Auscultation: clear to auscultation bilaterally Cardio Rate: regular rate Rhythm: regular rhythm Heart sounds: no gallops, no murmurs and no rubs Skin General skin exam: other ( warm) Extrem General: No clubbing, No cyanosis and No edema Assessment & Plan Assessment & Plan (1) Asthma-COPD overlap syndrome: Code(s): J44.89 - Other specified chronic obstructive pulmonary disease Category: Medical Plan: Well controlled on Trelegy, duo nebs, and albuterol MDI. Continue current regimen. (2) Metastatic lung cancer (metastasis from lung to other site): Code(s): C34.90 - Malignant neoplasm of unspecified part of unspecified bronchus or lung Category: Medical Plan: Results of CAT scan from May of 2025 reviewed, some metastatic sites are worsening, and some are getting better. Contrast enhanced scan is pending. Coding Level of Care Code Est Pt Level 4 (31559) Diagnoses Asthma-COPD overlap syndrome J44.89 Metastatic lung cancer (metastasis from lung to other site) C34.90
--- OUTSIDE RECORDS SUMMARY | 2024-11-16 14:23 | XMS_ITS | Data Portability ---
Author Organization [place] - [facility], [facility] Address [address] [place] [address] Care Team Providers Care Public Health Staff Nurse Name Role Phone CHERYL GUEVARA Primary Care Provider Assessment No assessment recorded. 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 Procedures Surgical History Date Name Laterality Status Provider Name and Address Organization Details Recorded Time 09/10/19 25 Sports Shoulder Bilateral 4 & 1 w/US completed Cornelio Herr PA-C [address], [place], [address], [facility] 09/09/2024 08:41:18 06/11/19 25 Sports Shoulder Bilateral completed Cornelio Herr PA-C [address], [place], [address], [facility] 06/25/2024 08:24:45 03/05/20 24 Sports Shoulder Bilateral completed Cornelio Herr PA-C [address], [place], [address], [facility] 03/05/2024 08:30:30 12/05/19 24 Sports Shoulder Bilateral completed Cornelio Herr PA-C [address], [place], [address], [facility] 12/05/2023 08:40:55 08/29/19 24 Sports Shoulder Bilateral completed Cornelio Herr PA-C [address], [place], [address], [facility] 08/29/2023 08:33:59 01/22/20 04 Gastrointestinal Surgery completed Sandra Can [facility] 03/05/2024 08:21:20 Imaging Results None recorded. Procedure Notes None recorded. Medical Equipment None Reported. Allergies Allergen ID Allergen Name Allergen Category Reaction Reaction Severity Criticality Documentation Date Start Date Code Code System Note Provider Name and Address Organization Details Recorded Time 906953 acetamino phen / oxycodone medicatio n Not available Not available Not available 07/28/20232022 11243 3 RxNorm Not Available [facility] 16:12:52 Medications Name Sig Start Date [...] Updated DateTime 06/11/2024 175.26 cm 25.8 kg/m2 93561.66 g Sandra Can [facility] 06/11/2024 08:22:49 Date Recorded Body height Body mass index (BMI) Body weight Provider Name and Address Organization Details Last Updated DateTime 08/29/2023 175.26 cm 25.8 kg/m2 49387.66 g AGUSTO HECTOR [facility] 08/29/2023 08:25:02 Date Recorded Body height Body mass index (BMI) Body weight Provider Name and Address Organization Details Last Updated DateTime 09/09/2024 175.26 cm 25.8 kg/m2 01008.66 iván Sandra Can [facility] 09/09/2024 08:25:11 Date Recorded Body height Body mass index (BMI) Body weight Provider Name and Address Organization Details Last Updated DateTime 12/05/2023 175.26 cm 25.8 kg/m2 69045.66 g Cornelio Herr PA-C [address] [facility] [address], [place], [address], [facility] 12/05/2023 08:32:08 Date Recorded Body height Body mass index (BMI) Body weight Provider Name and Address Organization Details Last Updated DateTime 03/05/2024 175.26 cm 25.8 kg/m2 40287.66 g Sandra Can [facility] 03/05/2024 08:23:05 Social History None recorded. Functional Status None recorded. Mental Status None recorded. Family History Nothing Reported. Medical History Condition Response Allergies/Hayfever N Coronary Artery Disease N Anxiety/Depression N Emphysema N Thyroid Problems N COPD N Pacemaker N Anemia N Kidney/Bladder Problems N Vascular Disease N Heart Attack (PR) N Gastrointestinal Disease Y Diabetes Y Autoimmune [...] SNOMED-CT Code Diagnosis ICD10 Code Diagnosis Note [id number] [facility] [address] [place] [address] 08/29/2023 08:20:43 09/18/2023 11:58:44 Osteoarthritis of left glenohumeral joint 1957994215 045649 M19.012 Osteoarthr itis of right glenohumeral joint 9875190604 291454 M19.119 [id number] [facility] [address] [place] [address] 12/05/2023 08:23:37 01/02/2024 10:37:31 Osteoarthritis of left glenohumeral joint 7197638519 554800 M19.012 Osteoarthr itis of right glenohumeral joint 1935621030 176416 M19.391 [id number] [facility] [address] [place] [address] 03/05/2024 08:18:56 03/31/2024 10:29:40 Osteoarthritis of left glenohumeral joint 7089903132 047893 M19.012 Osteoarthr itis of right glenohumeral joint 5391342720 796001 M19.867 [id number] [facility] [address] [place] [address] 06/11/2024 08:19:16 07/12/2024 13:53:12 Osteoarthritis of bilateral glenohumeral joints 7264056204 105457 M19.011 M19.989 [id number] [facility] [address] [place] [address] 09/09/2024 08:19:59 09/28/2024 14:05:58 Osteoarthritis of bilateral glenohumeral joints 8546274363 835508 M19.011 M19.012 Health Concerns Section Related Observation LastModified by Organization Detai ls LastModified Time None Recorded Concern Status LastModified by Organization Details LastModified Time None Recorded Advance Directives Directive None Recorded Payers Insurance Date Sequence Insurance Name Policy Number Policy Almodovar Covered Member ID Almodovar Member ID Guarantor Name 09/28/2024 1 [facility]: MEDICARE PPO BLUE (MEDICARE REPLACEMENT PPO) [id number] Bj Capellan [employer] [id number] Bj [employer] [facility] [place] Notes Date Note Type Note Provider Name [...] up as needed. Cornelio Herr PA-C [address] [facility] [address] [facility] [address], [place], [address], [facility] 08/29/2023 08:35:07 4 text/html [...] up as needed. Cornelio Herr PA-C [address] [facility] [address] [facility], [place], [address], [facility] 12/05/2023 08:41:44 4 text/html I am seeing [...] up as needed. Cornelio Herr PA-C [address], [place], [address], [facility] 03/05/2024 08:31:17 5 text/html I am seeing [...] coordination, reflexes, sensation are within normal limits.ASSESSMENTbilater nj glenohumeral joint arthritisPLANThe patient has done well with conservative management in regards to the shoulder. Continued conservative management recommended. Moderating activities with the upper extremity recommended also. See procedure note. Follow up as needed. Cornelio Herr PA-C [address], [place], [address], [facility] 06/25/2024 08:24:47 5 text/html I am seeing [...] up as needed. Cornelio Herr PA-C [address], [place], [address], [facility] 09/09/2024 08:42:13
== END 2024-11-16 13:15 | disposition home or self-care (01) ==
LOC: HO.HPS 12:49
PROVIDERS: PCP Nurse Practitioner Family; Visit Provider Internal Medicine Pulmonary Disease
DX: J44.89 Other specified chronic obstructive pulmonary disease (principal); C34.90 Malignant neoplasm of unspecified part of unspecified bronchus or lung
CPT/HCPCS: 99214

== ENCOUNTER → 2024-11-16 12:48 | Outpatient (BNVA) | payer MEDICARE, SELFPAY | PROVIDERS: PCP Nurse Practitioner Family; Visit Provider Internal Medicine Pulmonary Disease | DX: Z87.891 Personal history of nicotine dependence (principal); C34.90 Malignant neoplasm of unspecified part of unspecified bronchus or lung; J44.89 Other specified chronic obstructive pulmonary disease; J45.909 Unspecified asthma, uncomplicated | CPT/HCPCS: 99212 ==

== ENCOUNTER 2024-11-22 07:00 | Outpatient (REF) | payer MEDICARE, SELFPAY ==
--- NOTE | ~2024-11-22 | CT_ITS ---
EXAMINATION: CT CHEST ABDOMEN PELVIS WITH CONTRAST CLINICAL INFORMATION: Restaging COMPARISON: CT chest October 15, [address] June 21, 2024. TECHNIQUE: Multidetector volumetric CT imaging of the chest, abdomen, and pelvis was obtained after the administration of 85 mL of Omnipaque 350 intravenous contrast without immediate adverse reactions. Axial MIP volume rendering provided. Sagittal and coronal reformatted images were obtained. This CT examination was performed using dose optimization techniques as appropriate, variously including the following: *Automated exposure control *Adjustment of mA and/or kV according to patient size (this includes techniques or standardized protocols for targeted exams where dose is matched to indication/reason for exam; i.e. extremities or head) *Use of iterative reconstruction technique DLP: 700 mGY*cm FINDINGS: LUNGS: Medial right upper lobe mass contacting the adjacent mediastinum and trachea appear subjectively similar in size. For example, on series 3 axial images /, it measures 2.1 x 5.4 cm, previously 2.0 x 5.5 cm (transverse by AP). Pulmonary nodules are measured on axial series 4 85/180: Anterior segment right lower lobe nodule measures 2 x 6 mm, previously 14 mm. Decreased. 117/180: Inferior lingular segment nodule measures 6 mm, previously 7 mm. Probably unchanged. 90/180: Anterior segment left upper lobe nodule has nearly resolved. 2 mm, previously 5 mm. No new nodules are evident. Chronic septal lines are present in the right apex. There is new vague groundglass opacity in the inferior lingular segment along the major fissure. MEDIASTINUM: Series 3 /72: AP window node short axis 11 mm, unchanged. 33/72: Subcarinal nodule appears less bulky measuring 13 mm short axis, previously 18. No new adenopathy. Coronary artery calcium is present. PLEURA: There is no pleural effusion. No pleural mass or thickening. AXILLA: Shotty nodes without adenopathy. LUNG BASES: The visualized lung bases are unremarkable. LIVER, GALLBLADDER, AND BILIARY TREE: Mild diffuse fatty changes are present. Segment 8 hypodensity measures 14 mm, previously 21 mm. Segment 6 inferior tip: 6 mm, not as well demonstrated previously but probably slightly decreased. The gallbladder is unremarkable with no evidence of radiopaque gallstones, gallbladder wall thickening, or obvious pericholecystic inflammatory changes. PANCREAS: Unremarkable. SPLEEN: In the medial superior spleen, there is a new hypodensity measuring 11 x 14 mm. This is not visualized on the prior examination, however the prior study was performed without IV contrast and so it may have been present but not visualized. ADRENAL GLANDS: Right adrenal gland nodule is 11 x 25 mm and was 15 x 27 mm. Unremarkable left adrenal gland. KIDNEYS AND URETERS: Aside from simple renal cysts, unremarkable. BLADDER: Unremarkable. GASTROINTESTINAL TRACT: The small and large bowel are unremarkable aside from changes of diverticulosis.. The appendix is unremarkable. ABDOMINAL WALL: No significant hernia is appreciated. LYMPH NODES: No adenopathy VASCULAR: Vascular calcifications are moderate PELVIC VISCERA: Unremarkable. OSSEOUS STRUCTURES: Patchy sclerosis is noted in the L5 vertebral body and there is a new superior endplate fracture with 10% loss of height. CT/CT abdomen pelvis w IV con IMPRESSION: There is a new L5 vertebral body fracture, likely pathologic in nature. There is 10% loss of height. Overall improvement of pulmonary metastases and subcarinal lymph node. Stable medial right upper lobe mass abutting the mediastinum. Improved right adrenal gland mass. Improved liver metastases. Newly visualized hypodensity in the spleen was not demonstrated on the prior unenhanced study. It is uncertain if this is a new lesion or lesion was occult previously. Electronically signed by: Pee Andrade MD 11/22/2024 05:42 PM EDT
--- OUTSIDE RECORDS SUMMARY | 2024-11-22 07:03 | XMS_ITS | Data Portability ---
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 Procedures Surgical History Date Name Laterality Status Provider Name and Address Organization Details Recorded Time 09/10/19 25 Sports Shoulder Bilateral 4 & 1 w/US completed Cornelio Herr PA-C [address], [place], [address], [facility] 09/09/2024 08:41:18 06/11/19 25 Sports Shoulder Bilateral completed Cornelio Herr PA-C [address], [place], [address], [facility] 06/25/2024 08:24:45 03/05/20 24 Sports Shoulder Bilateral completed Cornelio Herr PA-C [address], [place], [address], [facility] 03/05/2024 08:30:30 12/05/19 24 Sports Shoulder Bilateral completed Cornelio Herr PA-C [address], [place], [address], [facility] 12/05/2023 08:40:55 08/29/19 24 Sports Shoulder Bilateral completed Cornelio Herr PA-C [address], [place], [address], [facility] 08/29/2023 08:33:59 01/22/20 04 Gastrointestinal Surgery completed Sandra Can [facility] 03/05/2024 08:21:20 Imaging Results None recorded. Procedure Notes None recorded. Medical Equipment None Reported. Allergies Allergen ID Allergen Name Allergen Category Reaction Reaction Severity Criticality Documentation Date Start Date Code Code System Note Provider Name and Address Organization Details Recorded Time 335886 acetamino phen / oxycodone medicatio n Not available Not available Not available 07/28/20232022 23488 3 RxNorm Not Available [facility] 16:12:52 Medications Name Sig Start Date [...] Updated DateTime 06/11/2024 175.26 cm 25.8 kg/m2 59833.66 g Sandra Can [facility] 06/11/2024 08:22:49 Date Recorded Body height Body mass index (BMI) Body weight Provider Name and Address Organization Details Last Updated DateTime 08/29/2023 175.26 cm 25.8 kg/m2 12356.66 g AGUSTO HECTOR [facility] 08/29/2023 08:25:02 Date Recorded Body height Body mass index (BMI) Body weight Provider Name and Address Organization Details Last Updated DateTime 09/09/2024 175.26 cm 25.8 kg/m2 62016.66 iván Sandra Can [facility] 09/09/2024 08:25:11 Date Recorded Body height Body mass index (BMI) Body weight Provider Name and Address Organization Details Last Updated DateTime 12/05/2023 175.26 cm 25.8 kg/m2 02171.66 g Cornelio Herr PA-C [address] [facility] [address], [place], [address], [facility] 12/05/2023 08:32:08 Date Recorded Body height Body mass index (BMI) Body weight Provider Name and Address Organization Details Last Updated DateTime 03/05/2024 175.26 cm 25.8 kg/m2 72034.66 g Sandra Can [facility] 03/05/2024 08:23:05 Social History None recorded. Functional Status None recorded. Mental Status None recorded. Family History Nothing Reported. Medical History Condition Response Allergies/Hayfever N Coronary Artery Disease N Anxiety/Depression N Emphysema N Thyroid Problems N COPD N Pacemaker N Anemia N Kidney/Bladder Problems N Vascular Disease N Heart Attack (CT) N Gastrointestinal Disease Y Diabetes Y Autoimmune [...] SNOMED-CT Code Diagnosis ICD10 Code Diagnosis Note [id number] [facility] [address] [place] [address] 08/29/2023 08:20:43 09/18/2023 11:58:44 Osteoarthritis of left glenohumeral joint 7596473831 050545 M19.012 Osteoarthr itis of right glenohumeral joint 0932466996 144213 M19.949 [id number] [facility] [address] [place] [address] 12/05/2023 08:23:37 01/02/2024 10:37:31 Osteoarthritis of left glenohumeral joint 2239691297 064070 M19.012 Osteoarthr itis of right glenohumeral joint 7884806405 189776 M19.692 [id number] [facility] [address] [place] [address] 03/05/2024 08:18:56 03/31/2024 10:29:40 Osteoarthritis of left glenohumeral joint 9836542956 931390 M19.012 Osteoarthr itis of right glenohumeral joint 5535234930 841853 M19.228 [id number] [facility] [address] [place] [address] 06/11/2024 08:19:16 07/12/2024 13:53:12 Osteoarthritis of bilateral glenohumeral joints 1810200790 288352 M19.011 M19.130 [id number] [facility] [address] [place] [address] 09/09/2024 08:19:59 09/28/2024 14:05:58 Osteoarthritis of bilateral glenohumeral joints 6099406056 234678 M19.011 M19.012 Health Concerns Section Related Observation LastModified by Organization Detai ls LastModified Time None Recorded Concern Status LastModified by Organization Details LastModified Time None Recorded Advance Directives Directive None Recorded Payers Insurance Date Sequence Insurance Name Policy Number Policy Almodovar Covered Member ID Almodovar Member ID Guarantor Name 09/28/2024 1 [facility]: MEDICARE PPO BLUE (MEDICARE REPLACEMENT PPO) [id number] Bj Capellan [employer] [id number] [facility] Notes Date Note Type Note Provider Name [...] up as needed. Cornelio Herr PA-C [address] [facility] [facility] [address], [place], [address], [facility] 08/29/2023 08:35:07 4 text/html [...] up as needed. Cornelio Herr PA-C [address] [facility] [address] [facility], [place], [address], [facility] 12/05/2023 08:41:44 4 text/html I am seeing [...] up as needed. Cornelio Herr PA-C [address], [place], [address], [facility] 03/05/2024 08:31:17 5 text/html I am seeing [...] coordination, reflexes, sensation are within normal limits.ASSESSMENTbilater ny glenohumeral joint arthritisPLANThe patient has done well with conservative management in regards to the shoulder. Continued conservative management recommended. Moderating activities with the upper extremity recommended also. See procedure note. Follow up as needed. Cornelio Herr PA-C [address], [place], [address], [facility] 06/25/2024 08:24:47 5 text/html I am seeing [...] up as needed. Cornelio Herr PA-C [address] [facility] [address], [place], [address], [facility] 09/09/2024 08:42:13
[2024-11-22 10:13] LABS: MANUAL DIFF FLAG NO
[2024-11-22 10:21] LABS: Appearance Urine Clear; Color Urine Yellow; Glucose Urine UA >=1000 mg/dL (Negative); Leukocyte Esterase Urine Negative (Negative); Nitrite Urine Negative (Negative); PH 6.5 (5.0-9.0); Specific Gravity - Urine 1.025 (1.005-1.025); UMIC TRIGGER UACC YES; Urine Blood Negative (Negative); Urine Ketones Negative (Negative); Urine Protein Trace mg/dL (Neg-Trace)
[2024-11-22 10:27] LABS: Bacteria Urine None Seen (None Seen); Hyaline Casts Urine 0-2 /LPF (0-2); RBC Urine 0-2 /HPF (0-2); Squamous Epithelial Cell Urine 0-2 /HPF (0-2); WBC Urine 0-5 /HPF (0-5)
[2024-11-22 10:31] LABS: Basophils Percent Auto 0.7 % (0-2); Eosinophils Absolute Auto 0.1 X10*3/uL (0.0-0.4); Eosinophils Percent Auto 2.3 % (0-4); Estimated Average Glucose 140 mg/dL; Hematocrit 33.3 % (42.0-52.0); Hemoglobin 11.1 g/dl (14.0-18.0); Hemoglobin A1c % 6.5 % (<6.0); Imm Gran Abs Auto 0.16 X10*3/uL (0.00-0.03); Imm Gran Pct Auto 2.8 % (0.0-0.4); Lymphocytes Percent Auto 18.5 % (20-40); Mean Corpuscular HGB Conc 33.3 g/dl (31.0-36.0); Mean Corpuscular Hemoglobin 31.8 pg (27.0-33.0); Mean Corpuscular Volume 95.4 fL (80.0-98.0); Mean Platelet Volume 8.8 fL (9.4-12.4); Monocytes Absolute Auto 0.9 X10*3/uL (0.1-1.2); Monocytes Percent Auto 15.3 % (2-11); Neutrophils Absolute Auto 3.4 x10*3/uL (2.0-8.3); Neutrophils Percent Auto 60.4 % (45-73); Platelet Count 163 X10*3/uL (160-400); Red Blood Count 3.49 X10*6/uL (4.60-5.80); Red Cell Distribution Width 18.4 % (11.0-16.0); White Blood Count 5.6 X10*3/uL (4.8-10.8)
[2024-11-22 10:46] LABS: Alanine Aminotransferase 47 U/L (0-40); Alkaline Phosphatase 83 U/L (39-117); Anion Gap 12 (12-20); Aspartate Amino Transferase 30 U/L (5-37); Bilirubin Total 0.6 mg/dL (0.0-1.0); Blood Urea Nitrogen 12 mg/dL (9-16); Calcium 8.8 mg/dL (8.4-10.2); Carbon Dioxide 26 mmol/L (22-29); Chloride 100 mmol/L (96-108); Cholesterol 143 mg/dL (<200); Estimated Glomerular Filt Rate > 60; Glucose Fasting 112 mg/dL (60-99); HDL Cholesterol 51 mg/dL (>40); LDL Cholesterol Calculated 74 mg/dL (<100); Potassium 3.9 mmol/L (3.3-5.1); Sodium 134 mmol/L (135-145); Total Protein 6.3 g/dL (6.5-8.0); Triglycerides 92 mg/dL (<150)
[2024-11-22 11:03] LABS: Creatinine Urine 81.74 mg/dL; Microalbum/Creatinine Ratio Ur 25.6 ug/mg cr (<30)
[2024-11-22 11:05] LABS: TSH reflex Free T4 1.52 uIU/mL (0.32-4.0)
[2024-11-22] MEDS: iohexoL 350 MG/ML 100 ML INFUS..BTL 85 ML IV (16:28)
[2024-11-22] MEDS: Barium Sulfate Oral (Berry) 450 ML ORAL.SUSP 900 ML PO (16:28)
== END 2024-11-22 07:01 | disposition home or self-care (01) ==
LOC: HO.CT 07:00
PROVIDERS: PCP Nurse Practitioner Family; Referring Provider Nurse Practitioner Family; Visit Provider Internal Medicine Medical Oncology
DX: R91.8 Other nonspecific abnormal finding of lung field (principal); C34.90 Malignant neoplasm of unspecified part of unspecified bronchus or lung; E11.9 Type 2 diabetes mellitus without complications; Z00.01 Encounter for general adult medical examination with abnormal findings
CPT/HCPCS: 36415; 71260; 74177; 80053; 80061; 81001; 82043; 82570; 83036; 84443; 85025; Q9967

== ENCOUNTER → 2024-11-22 13:50 | Outpatient (BNV) | payer MEDICARE, SELFPAY | PROVIDERS: PCP Nurse Practitioner Family; Referring Provider Nurse Practitioner Family; Visit Provider Radiology Diagnostic Radiology | DX: E27.8 Other specified disorders of adrenal gland (principal); R91.1 Solitary pulmonary nodule; D73.89 Other diseases of spleen; C78.7 Secondary malignant neoplasm of liver and intrahepatic bile duct | CPT/HCPCS: 71260; 74177 ==

== ENCOUNTER 2024-11-30 10:27 | Outpatient (REF) | payer MEDICARE, SELFPAY ==
--- NOTE | ~2024-11-30 | US_ITS ---
CLINICAL HISTORY: R09.89 - BRUIT US Bilateral Carotid Duplex Comparison: None provided Findings: Bilateral carotid intimal thickening and scattered plaques. Peak systolic velocities: Right CCA: 123 cm/s. Right ICA: 90 cm/s. ICA/CCA ratio: 0.7. Right ECA: Patent. Right vertebral artery flow antegrade. Left CCA: 114 cm/s. Left ICA: 101 cm/s. ICA/CCA ratio: 0.9. Left ECA: Patent. Left vertebral artery flow and query. IMPRESSION: No significant carotid stenosis (0-49% stenosis). This document has been electronically signed by: Brianna Sorensen MD on 11/30/2024 12:27:10
--- OUTSIDE RECORDS SUMMARY | 2024-11-30 11:19 | XMS_ITS | Data Portability ---
Author Organization [place] 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 Procedures Surgical History Date Name Laterality Status Provider Name and Address Organization Details Recorded Time 09/10/19 25 Sports Shoulder Bilateral 4 & 1 w/US completed Cornelio Herr PA-C [address], [place], [address], [facility] 09/09/2024 08:41:18 06/11/19 25 Sports Shoulder Bilateral completed Cornelio Herr PA-C [address], [place], [address], [facility] 06/25/2024 08:24:45 03/05/20 24 Sports Shoulder Bilateral completed Cornelio Herr PA-C [address], [place], [address], [facility] 03/05/2024 08:30:30 12/05/19 24 Sports Shoulder Bilateral completed Cornelio Herr PA-C [address], [place], [address], [facility] 12/05/2023 08:40:55 08/29/19 24 Sports Shoulder Bilateral completed Cornelio Herr PA-C [address], [place], [address], [facility] 08/29/2023 08:33:59 01/22/20 04 Gastrointestinal Surgery completed Sandra Can [facility] 03/05/2024 08:21:20 Imaging Results None recorded. Procedure Notes None recorded. Medical Equipment None Reported. Allergies Allergen ID Allergen Name Allergen Category Reaction Reaction Severity Criticality Documentation Date Start Date Code Code System Note Provider Name and Address Organization Details Recorded Time 801695 acetamino phen / oxycodone medicatio n Not available Not available Not available 07/28/20232022 54536 3 RxNorm Not Available [facility] 16:12:52 Medications Name Sig Start [...] Updated DateTime 06/11/2024 175.26 cm 25.8 kg/m2 57505.66 g Sandra Can [facility] 06/11/2024 08:22:49 Date Recorded Body height Body mass index (BMI) Body weight Provider Name and Address Organization Details Last Updated DateTime 08/29/2023 175.26 cm 25.8 kg/m2 16615.66 g AGUSTO HECTOR [facility] 08/29/2023 08:25:02 Date Recorded Body height Body mass index (BMI) Body weight Provider Name and Address Organization Details Last Updated DateTime 09/09/2024 175.26 cm 25.8 kg/m2 30177.66 iván Sandra Can [facility] 09/09/2024 08:25:11 Date Recorded Body height Body mass index (BMI) Body weight Provider Name and Address Organization Details Last Updated DateTime 12/05/2023 175.26 cm 25.8 kg/m2 10138.66 g Cornelio Herr PA-C [address] [facility] [address], [place], [address], [facility] 12/05/2023 08:32:08 Date Recorded Body height Body mass index (BMI) Body weight Provider Name and Address Organization Details Last Updated DateTime 03/05/2024 175.26 cm 25.8 kg/m2 78687.66 g Sandra Can [facility] 03/05/2024 08:23:05 Social History None recorded. Functional Status None recorded. Mental Status None recorded. Family History Nothing Reported. Medical History Condition Response Allergies/Hayfever N Coronary Artery Disease N Anxiety/Depression N Emphysema N Thyroid Problems N COPD N Pacemaker N Anemia N Kidney/Bladder Problems N Vascular Disease N Heart Attack ([place]) N Gastrointestinal Disease Y Diabetes Y Autoimmune [...] SNOMED-CT Code Diagnosis ICD10 Code Diagnosis Note [id number] [facility] [address] [place] [address] 08/29/2023 08:20:43 09/18/2023 11:58:44 Osteoarthritis of left glenohumeral joint 5448229163 651153 M19.012 Osteoarthr itis of right glenohumeral joint 1407355086 846159 M19.613 [id number] [facility] [address] [place] [address] 12/05/2023 08:23:37 01/02/2024 10:37:31 Osteoarthritis of left glenohumeral joint 7461351047 019054 M19.012 Osteoarthr itis of right glenohumeral joint 1418705944 023109 M19.994 [id number] [facility] [address] [place] [address] 03/05/2024 08:18:56 03/31/2024 10:29:40 Osteoarthritis of left glenohumeral joint 5051215480 626079 M19.012 Osteoarthr itis of right glenohumeral joint 0673046470 730357 M19.421 [id number] [facility] [address] [place] [address] 06/11/2024 08:19:16 07/12/2024 13:53:12 Osteoarthritis of bilateral glenohumeral joints 6670955073 561831 M19.011 M19.950 [id number] [facility] [address] [place] [address] 09/09/2024 08:19:59 09/28/2024 14:05:58 Osteoarthritis of bilateral glenohumeral joints 5129690001 698930 M19.011 M19.012 Health Concerns Section Related Observation LastModified by Organization Detai ls LastModified Time None Recorded Concern Status LastModified by Organization Details LastModified Time None Recorded Advance Directives Directive None Recorded Payers Insurance Date Sequence Insurance Name Policy Number Policy Almodovar Covered Member ID Almodovar Member ID Guarantor Name 09/28/2024 1 [facility]: MEDICARE PPO BLUE (MEDICARE REPLACEMENT PPO) [id number] Bj [facility] [id number] [facility] Notes Date Note Type Note Provider [...] up as needed. Cornelio Herr PA-C [address] [facility] [address], [place], [address], [facility] 08/29/2023 08:35:07 4 text/html [...] up as needed. Cornelio Herr PA-C [address] [facility] [address] [facility], [place], [address], [facility] [place] [facility] 12/05/2023 08:41:44 4 text/html I am [...] up as needed. Cornelio Herr PA-C [address], [place], [address], [facility] 03/05/2024 08:31:17 5 text/html I am [...] coordination, reflexes, sensation are within normal limits.ASSESSMENTbilater mt glenohumeral joint arthritisPLANThe patient has done well with conservative management in regards to the shoulder. Continued conservative management recommended. Moderating activities with the upper extremity recommended also. See procedure note. Follow up as needed. Cornelio Herr PA-C [address], [place], [address], [facility] 06/25/2024 08:24:47 5 text/html I am [...] up as needed. Cornelio Herr PA-C [address] [facility] [address], [place], [address], [facility] [place] [facility] 09/09/2024 08:42:13
== END 2024-11-30 10:28 | disposition home or self-care (01) ==
LOC: HO.HMGCX 10:27
PROVIDERS: PCP Nurse Practitioner Family; Visit Provider Nurse Practitioner Family
DX: R09.89 Other specified symptoms and signs involving the circulatory and respiratory systems (principal)
CPT/HCPCS: 93880

== ENCOUNTER → 2024-11-30 10:32 | Outpatient (BNV) | payer MEDICARE, SELFPAY | PROVIDERS: PCP Nurse Practitioner Family; Visit Provider Radiology Diagnostic Radiology | DX: R09.89 Other specified symptoms and signs involving the circulatory and respiratory systems (principal) | CPT/HCPCS: 93880 ==

== ENCOUNTER 2024-12-02 09:09 | Outpatient (REF) | payer MEDICARE, SELFPAY ==
--- NOTE | ~2024-12-02 | MR_ITS ---
EXAMINATION: MR BRAIN WITHOUT AND WITH CONTRAST CLINICAL INFORMATION: Blurred vision. Lung cancer. COMPARISON: Contrast-enhanced MRI of brain dated August 09, 2024. TECHNIQUE: Multiplanar, multisequence MRI of the brain was obtained before and after the intravenous administration of 6.5 mL (Gadavist) without reported immediate complications. FINDINGS: Patient's motion artifact. No abnormal enhancement within the intra-axial or the extra-axial compartment of the cranium. No restricted diffusion. No acute intracranial hemorrhage, mass effect, midline shift, hydrocephalus or herniation. Darby-white matter differentiation is normal. Bilateral multifocal, patchy and punctate nonenhancing no restricted diffusion subcortical deep white matter hyperintense T2 FLAIR signal involving centrum semiovale and chester radiata. Old lacunar infarct, left cerebellum. Flow-void signal within the main vessels is normal. Normal enhancement pattern of the main cerebral venous sinuses. Sellar/suprasellar region demonstrated no masses or signal abnormality. Craniocervical junction demonstrates normal position of the cerebellar tonsils. MR/MR head/brain wo/w con IMPRESSION: No intracranial metastasis. No acute brain abnormality. Old lacunar infarct, left cerebellum. Stable morphology, number and distribution pattern of the nonenhancing T2 FLAIR white matter signal. Electronically signed by: Ananth Dominique MD 12/02/2024 10:52 AM EDT
--- OUTSIDE RECORDS SUMMARY | 2024-12-02 09:40 | XMS_ITS | Data Portability ---
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 Procedures Surgical History Date Name Laterality Status Provider Name and Address Organization Details Recorded Time 09/10/19 25 Sports Shoulder Bilateral 4 & 1 w/US completed Cornelio Herr PA-C [address], [place], [address], [facility] 09/09/2024 08:41:18 06/11/19 25 Sports Shoulder Bilateral completed Cornelio Herr PA-C [address], [place], [address], [facility] 06/25/2024 08:24:45 03/05/20 24 Sports Shoulder Bilateral completed Cornelio Herr PA-C [address], [place], [address], [facility] 03/05/2024 08:30:30 12/05/19 24 Sports Shoulder Bilateral completed Cornelio Herr PA-C [address], [place], [address], [facility] 12/05/2023 08:40:55 08/29/19 24 Sports Shoulder Bilateral completed Cornelio Herr PA-C [address], [place], [address], [facility] 08/29/2023 08:33:59 01/22/20 04 Gastrointestinal Surgery completed Sandra Can [facility] 03/05/2024 08:21:20 Imaging Results None recorded. Procedure Notes None recorded. Medical Equipment None Reported. Allergies Allergen ID Allergen Name Allergen Category Reaction Reaction Severity Criticality Documentation Date Start Date Code Code System Note Provider Name and Address Organization Details Recorded Time 630504 acetamino phen / oxycodone medicatio n Not available Not available Not available 07/28/20232022 63171 3 RxNorm Not Available [facility] 16:12:52 Medications Name Sig Start Date Stop [...] Updated DateTime 06/11/2024 175.26 cm 25.8 kg/m2 22553.66 g Sandra Can [facility] 06/11/2024 08:22:49 Date Recorded Body height Body mass index (BMI) Body weight Provider Name and Address Organization Details Last Updated DateTime 08/29/2023 175.26 cm 25.8 kg/m2 60758.66 g AGUSTO HECTOR [facility] 08/29/2023 08:25:02 Date Recorded Body height Body mass index (BMI) Body weight Provider Name and Address Organization Details Last Updated DateTime 09/09/2024 175.26 cm 25.8 kg/m2 45201.66 iván Sandra Can [facility] 09/09/2024 08:25:11 Date Recorded Body height Body mass index (BMI) Body weight Provider Name and Address Organization Details Last Updated DateTime 12/05/2023 175.26 cm 25.8 kg/m2 24791.66 g Cornelio Herr PA-C [address] [facility] [address], [place], [address], [facility] 12/05/2023 08:32:08 Date Recorded Body height Body mass index (BMI) Body weight Provider Name and Address Organization Details Last Updated DateTime 03/05/2024 175.26 cm 25.8 kg/m2 53222.66 g Sandra Can [facility] 03/05/2024 08:23:05 Social History None recorded. Functional Status None recorded. Mental Status None recorded. Family History Nothing Reported. Medical History Condition Response Coronary Artery Disease N Anxiety/Depression N Emphysema N COPD N Pacemaker N Vascular Disease N Gastrointestinal Disease Y Autoimmune disease N Orthotics N Arthritis Y Blood Clot N Acid Reflux (GERD) N Cancer Y Stroke N Rheumatoid Arthritis N Arrhythmia N Fibromyalgia N Allergies/Hayfever N Thyroid Problems N Kidney/Bladder Problems N Anemia N Heart Attack ([place]) N Diabetes Y Bleeding Disorder N Seizures/Epilepsy N AIDS/HIV N Congestive Heart Failure (CHF) N Asthma Y Peripheral Vascular Disease N Sleep Apnea N Hepatitis N Heart Disease N Pulmonary Embolism N Hypertension Y Osteoporosis N Past Encounters Encounter ID Performer Location Encounter Start Date Encounter Closed Date Diagnosis/Indication Diagnosis SNOMED-CT Code Diagnosis ICD10 Code Diagnosis Note [id number] [facility] [address] [place] [address] 08/29/2023 08:20:43 09/18/2023 11:58:44 Osteoarthritis of left glenohumeral joint 9258821843 548942 M19.012 Osteoarthr itis of right glenohumeral joint 3428241095 693576 M19.271 [id number] [facility] [address] [place] [address] 12/05/2023 08:23:37 01/02/2024 10:37:31 Osteoarthritis of left glenohumeral joint 8657444232 231720 M19.012 Osteoarthr itis of right glenohumeral joint 1673156990 064057 M19.392 [id number] [facility] [address] [place] [address] 03/05/2024 08:18:56 03/31/2024 10:29:40 Osteoarthritis of left glenohumeral joint 3559702264 184165 M19.012 Osteoarthr itis of right glenohumeral joint 7536868841 266096 M19.958 [id number] [facility] [address] [place] [address] 06/11/2024 08:19:16 07/12/2024 13:53:12 Osteoarthritis of bilateral glenohumeral joints 7409854960 129601 M19.011 M19.407 [id number] [facility] [address] [place] [address] 09/09/2024 08:19:59 09/28/2024 14:05:58 Osteoarthritis of bilateral glenohumeral joints 1667960442 294376 M19.011 M19.012 Health Concerns Section Related Observation LastModified by Organization Detai ls LastModified Time None Recorded Concern Status LastModified by Organization Details LastModified Time None Recorded Advance Directives Directive None Recorded Payers Insurance Date Sequence Insurance Name Policy Number Policy Almodovar Covered Member ID Almodovar Member ID Guarantor Name 09/28/2024 1 [facility]: MEDICARE PPO BLUE (MEDICARE REPLACEMENT PPO) [id number] Bj [facility] [id number] [facility] Notes Date Note Type Note Provider Name [...] up as needed. Cornelio Herr PA-C [address], [place], [address], [facility] 08/29/2023 08:35:07 4 text/html [...] up as needed. Cornelio Herr PA-C [address] [facility], [place], [address], [facility] [place] [facility] 12/05/2023 08:41:44 4 text/html I [...] up as needed. Cornelio Herr PA-C [address], [place], [address], [facility] 03/05/2024 08:31:17 5 text/html I [...] coordination, reflexes, sensation are within normal limits.ASSESSMENTbilater sc glenohumeral joint arthritisPLANThe patient has done well with conservative management in regards to the shoulder. Continued conservative management recommended. Moderating activities with the upper extremity recommended also. See procedure note. Follow up as needed. Cornelio Herr PA-C [address], [place], [address], [facility] 06/25/2024 08:24:47 5 text/html I am [...] up as needed. Cornelio Herr PA-C [address] [facility] [address], [place], [address], [facility] [place] [facility] 09/09/2024 08:42:13
== END 2024-12-02 09:10 | disposition home or self-care (01) ==
LOC: HO.MRI 09:09
PROVIDERS: PCP Nurse Practitioner Family; Visit Provider Nurse Practitioner Family
DX: C34.90 Malignant neoplasm of unspecified part of unspecified bronchus or lung (principal); H53.8 Other visual disturbances
CPT/HCPCS: 70553; A9585

== ENCOUNTER → 2024-12-02 09:17 | Outpatient (BNV) | payer MEDICARE, SELFPAY | PROVIDERS: PCP Nurse Practitioner Family; Visit Provider Radiology Diagnostic Radiology | DX: I63.89 Other cerebral infarction (principal) | CPT/HCPCS: 70553 ==

== ENCOUNTER 2025-02-08 13:49 | Outpatient (REF) | payer MEDICARE, SELFPAY ==
--- NOTE | ~2025-02-08 | CT_ITS ---
CLINICAL HISTORY: Pathologic fracture of lumbar spine --- Additional Notes or Special Instructions: CC results to Gavin Seymour MD at [facility] [place]. CT lumbar spine without contrast Comparison: None available Findings: Mild levocurvature with the apex L3/L4. Mild multilevel retrolisthesis, degenerative. Sclerosis in the L5 vertebral body secondary to metastatic disease. The L5 vertebral body demonstrates mild height loss and contour abnormality with a fracture line near the superior endplate. No retropulsion of fracture fragments or involvement of the posterior elements. 1.9 cm mixed lytic and sclerotic lesion in L2, metastatic disease. There other smaller sclerotic lesions, presumably also metastatic disease.Multilevel degenerative endplate sclerosis. No severe central spinal canal stenosis. No epidural hematoma. No acute soft tissue abnormality or acute findings within the abdomen and pelvis. Severe calcified atherosclerotic disease. Status post cholecystectomy. Thickened adrenal glands, [id number]. Colonic diverticulosis. Impression: Osseous metastatic disease. Pathologic fracture of L5 with mild height loss. No retropulsion of fracture fragments or involvement of the posterior elements. This document has been electronically signed by: Day Cantu MD on 02/09/2025 15:44:21
== END 2025-02-08 13:50 | disposition home or self-care (01) ==
LOC: HO.CT 13:49
PROVIDERS: PCP Nurse Practitioner Family; Visit Provider Internal Medicine Medical Oncology
DX: M84.48XA Pathological fracture, other site, initial encounter for fracture (principal); C34.90 Malignant neoplasm of unspecified part of unspecified bronchus or lung
CPT/HCPCS: 72131

== ENCOUNTER → 2025-02-08 13:51 | Outpatient (BNV) | payer MEDICARE, SELFPAY | PROVIDERS: PCP Nurse Practitioner Family; Visit Provider Radiology Diagnostic Radiology | DX: M80.08XA Age-related osteoporosis with current pathological fracture, vertebra(e), initial encounter for fracture (principal) | CPT/HCPCS: 72131 ==

== ENCOUNTER 2025-02-15 07:36 | Outpatient (AMB) | payer MEDICARE, SELFPAY ==
--- OUTSIDE RECORDS SUMMARY | 2025-02-15 07:40 | XMS_ITS | Encounter Summary ---
Author Organization [facility] Address [address] [place] [address] [place] [address] Phone Care Team Providers Care Summer Child Caregiver Name Role Phone Nam Arguello NP Primary Care Provider + Self-Referred, Patient Unavailable Unavailab Mckay Fabian MD Unavailable Encounter Details Date Type Department Care Team (Late st Contact Info) Description 12/17/2024 Procedure Pass [facility] - MRI, [facility] [address] [place] [address] Social History Tobacco Use Types Packs/Day Years Used Date Smoking Tobacco: Former Cigarettes Comments:Smoked from age 19 to 2011. Alcohol Use Standard Drinks/Week Comments Not Currently 0 (1 standard drink = 0.6 oz pur e alcohol) Child or Family Care Answer Date Record ed Do you have problems with on e of the following making it difficult for you to work, study, or receive health care? No 07/30/2024 Education Answer Date Recorded Are you interested in more education? Not on keisha e 07/26/2024 Are you concerned about learning? Not on file 07/26/2024 No 07/26/2024 No 07/26/2024 Food Answer Date Recorded Within the past 6 months we worried whether our food would run out before we got money to buy more. Never True 12/18/2024 Within the past 6 months the food we bought just didn't last and we didn't have enough money to get more. Never True Residential Stability Answer Date Recor ded What is your housing situation today? I have arianna sing 12/18/2024 How many times have you move d in the past 12 months? Zero (I did not move) 12/18/2024 Paying for Meds Answer Date Recorded Do you have trouble paying for medicines? No 12/18/2024 Paying Utility Bills Answer Date Record ed Do you have trouble paying y our heating or electricity bill? I choose not to answer 12/18/2024 Transportation Answer Date Recorded Has the lack of transportati on kept you from medical appointments or from getting medications? No 12/18/2024 Digital Access Answer Date Recorded No 12/18/2024 Yes 12/18/2024 Do you have reliable internet access at home? Ye s 12/18/2024 Do you have a device (e.g., phone, tablet, computer) with a working camera? Yes 12/18/2024 Intimate Partner Violence Answer Date R ecorded Are you denied basic needs s uch as food, clothing, or medical care? No 12/17/2024 In the past 12 months have y ou been in a relationship with a person who hurts, threatens, or tries to control you? No 12/17/2024 Are you denied basic needs s uch as food, clothing, or medical care? No 12/17/2024 In the past 12 months have y ou been in a relationship with a person who hurts, threatens, or tries to control you? No 12/17/2024 Sex and Gender Information Value Date Recorded Sex Assigned at Male 07/26/2024 12:38 PM EST Legal Sex Male 12:37 PM EST Gender Identity Male 07/26/2024 12:38 PM EST Sexual Orientation Straight 07/26/2024 12 :38 PM EST documented as of this encounter Last Filed Vital Signs Vital Sign Reading Time Taken Comments Blood Pressure - - Pulse - - Temperature - - Respiratory Rate - - Oxygen Saturation - - Inhaled Oxygen Concentration - - Weight 65.8 kg (145 lb) 12/17/2024 6:20 PM EDT Height 172.7 cm (5' 8 ) 12/17/2024 6:20 PM EDT Body Mass Index 22.05 12/17/2024 6:20 PM EDT documented in this encounter Functional Status * Calculated C-SSRS Risk Score (Lifetime/Recent) Answer Date of Assessment Author Low Risk 12/18/2024 4:00 AM Alexi Rae RN * [place] Suicide Severity Rating Scale (Screener/Recent Self-Report) Question Answer Date of Assessment Author 1. Wish to be (Past 1 Month) No 025 4:00 AM Ivory Rae RN 2. Non-Specific Active Suici jaimie Thoughts (Past 1 Month) Yes 12/18/2024 4:00 AM Ivory Rae RN 3. Active Suicidal Ideation with any Methods (Not Plan) Without Intent to Act (Past 1 Month) No 12/18/2024 4:00 AM Luis Eduardo Rae RN 4. Active Suicidal Ideation with Some Intent to Act, Without Specific Plan (Past 1 Month) No 12/18/2024 4:00 AM Luis Eduardo Rae RN 5. Active Suicidal Ideation with Specific Plan and Intent (Past 1 Month) No 12/18/2024 4:00 AM Ivory Rae RN 6. Suicidal Behavior (Lifetime) No 4:00 AM Ivory Rae RN documented as of this encounter Plan of Treatment Not on file documented as of this encounter Visit Diagnoses Not on filedocumented in this encounter Care Teams Summer Child Caregiver Relationship Specialty Start Date End Date Nam Arguello NP [address] [place] [address] PCP - General Nurse Practitioner 07/26/24 Self-Referred, Patient 07/26/24 Mckay Meyers MD [address] [place] [address] 08/06/24 documented as of this encounter Additional Source Comments The information contained in this document represents components of the legal health record. It is not the complete legal health record.[facility]
--- OUTSIDE RECORDS SUMMARY | 2025-02-15 07:40 | XMS_ITS | Encounter Summary ---
Author Organization [facility] Address [address] [place] [address] [place] [phone] Phone Care Team Providers Care Hand Tennis Ball Coverer Name Role Phone Nam Arguello NP Primary Care Provider + Self-Referred, Patient Unavailable Unavailab cMkay Fabian MD Unavailable Encounter Details Date Type Department Care Team ([facility] st Contact Info) Description 12/17/2024 Ophth Exam [facility] Emergency Department [address] [place] [address] Josep Tanner MD [address] [place] [address] [email or web address] Social History Tobacco Use Types Packs/Day Years [...] your housing situation today? I have arianna brennan 12/18/2024 How many times have you move [...] PM EST documented as of this encounter Functional Status * Calculated C-SSRS Risk Score (Lifetime/Recent) Answer Date of Assessment Author Low Risk 12/18/2024 4:00 AM Alexi Rae RN * [place] Suicide Severity Rating Scale (Screener/Recent Self-Report) Question Answer Date of Assessment Author 1. Wish to be (Past 1 Month) No 025 4:00 AM Ivory Rae RN 2. Non-Specific Active Suici jaimie Thoughts (Past 1 Month) Yes 12/18/2024 4:00 AM MARCELT Ivory Reid RN 3. Active Suicidal Ideation with any [...] on filedocumented in this encounter Care Teams Hand Tennis Ball Coverer Relationship Specialty Start Date End Date Nam Arguello NP [address] [facility] [place] [address] PCP - General Nurse Practitioner 07/26/24 Self-Referred, Patient 07/26/24 Mckay Meyers MD [address] [place] [address] 08/06/24 documented as of this encounter Additional Source Comments The information contained in this document represents components of the legal health record. It is not the complete legal health record.[facility]
--- OUTSIDE RECORDS SUMMARY | 2025-02-15 07:40 | XMS_ITS | Encounter Summary ---
Author Organization [facility] Address [address] [place] [phone] Phone Care Team Providers Care Foundry Worker General Name Role Phone Nam Arguello NP Primary Care Provider + Self-Referred, Patient Unavailable Unavailab Mckay Fabian MD Unavailable Encounter Details Date Type Department Care Team (Late st Contact Info) Description 02/03/2025 Orders Only [facility], [address] [place] [address] Gavin Seymour MD [address] [place] [id number] [email or web address] Social History Tobacco Use Types Packs/Day [...] PM EST documented as of this encounter Plan of Treatment Not on file documented as of this encounter Visit Diagnoses Not on filedocumented in this encounter Care Teams Foundry Worker General Relationship Specialty Start Date End Date Nam Arguello NP [facility] [place] [address] PCP - General Nurse Practitioner 07/26/24 Self-Referred, Patient 07/26/24 Mckay Meyers MD [address] [place] [address] 08/06/24 documented as of this encounter Additional Source Comments The information contained in this document represents components of the legal health record. It is not the complete legal health record.[facility]
--- OUTSIDE RECORDS SUMMARY | 2025-02-15 07:40 | XMS_ITS | Clinical Summary ---
Author Organization [facility] Address [address] [place] [phone] Phone Care Team Providers Care Traffic Workforce Representative Name Role Phone Nam Arguello NP Primary Care Provider + Self-Referred, Patient Unavailable Unavailab Mckay Fabian MD Unavailable Allergies No known active allergies Medications atorvastatin (LIPITOR) 40 MG tablet 40 mg nightly at bedtime. Active busPIRone (BUSPAR) 5 MG tablet Take 5 mg by mouth 2 (two) times a day. Active JARDIANCE 10 mg tablet Take 10 mg by mouth daily. Active finasteride (PROSCAR) 5 mg tablet Take 5 mg by mouth daily. Active lisinopril (PRINIVIL,ZESTRIL) 10 MG tablet Take 10 mg by mouth daily. 08/26/19 25 Active VASCEPA 1 gram capsule Take 2 g by mouth 2 (two) times a day. Active albuterol 90 mcg/actuation inhaler Inhale 1 puff into the lungs every 4 (four) hours as needed for shortness of breath/dyspne a. Active TRELEGY ELLIPTA 100-62.5-25 mcg inhalation powder Inhale 1 puff into the lungs daily. Active fluticasone/umecli din/vilanter (TRELEGY ELLIPTA INHL) 09/16/19 25 Active omeprazole 20 mg TbLD Take by oral route. Active traZODone (DESYREL) 50 MG tablet Take 50 mg by mouth nightly at bedtime as needed. Active LORazepam (ATIVAN) 1 MG tablet Take 0.5 mg by mouth. Active enoxaparin (LOVENOX) 80 mg/0.8 mL Syrg subcutaneous injection syringe every 12 (twelve) hours. Active triamcinolone acetonide 0.1 % cream Apply topically 2 (two) times a day. APPLY TO AFFECTED AREA Active PEMETREXED IV Inject into the vein. Active ondansetron (ZOFRAN-ODT) 8 MG disintegrating tablet Take 1 tablet (8 mg total) by mouth daily as needed for nausea. Prior to chemo 12/20/19 25 Active predniSONE (DELTASONE) 20 MG tablet Take 1 tablet (20 mg total) by mouth daily. Taking prior to chemo 12/20/19 25 Active triamcinolone acetonide 0.5 % cream Apply topically. 10/29/19 25 025 Discontin ued(No longer taking) Active Problems Problem Noted Date Diagnosed Date Optic neuritis 12/18/2024 Primary lung adenocarcinoma 08/06/2024 Light headedness 05/12/2024 Overview (08/06/2024): Had mild cases before, but since having the flu in April has increased in frequency. Asthma 05/12/2024 Overview (08/06/2024): Have been having labored breathing that started, more than typical, mid April when I had the Flu. Difficulty under mild exertion perform mundane activities. Asthenia 05/12/2024 Overview (08/06/2024): Have been having extreme fatigue that started, more than typical, mid April when I had the Flu Encounters Date Type Department Care Team Description 02/03/2025 Orders Only [facility], [facility] [place] [address] [place] [address] Gavin Seymour MD 01/26/2025 8:12 AM EDT - 01/26/2025 11:59 PM EDT Hospital Encounter [facility] EKG [address] [place] [address] Terri Frausto MD, MSc Discharge Disposition: Home or Self Care 01/21/2025 Social Work Social Work Department, [facility] [address] [place] [address] Araceli Campos LCSW 01/18/2025 8:00 AM EDT Telemedicine [facility] Department of Neurology [address] [place] [address] Terri Frausto MD, MSc Cerebellar stroke (Primary Dx) 01/18/2025 Procedure Pass [facility] EKG [address] [place] [address] 01/17/2025 10:00 AM EDT Telemedicine [facility], [facility] [address]th [place] [address] Gavin Seymour MD Malignant neoplasm of lung, unspecified laterality, unspecified part of lung (Primary Dx) 01/11/2025 Telephone [facility], [facility] [address] [place] [address] Lisa Solomon, RN Patient Education; Care Coordination 01/05/2025 2:30 PM EDT Telemedicine Toxicities Program, [address] [place] [address] Sonny Nash MD, MPH Optic neuritis (Primary Dx); Primary adenocarcinoma of lung, unspecified laterality 01/03/2025 Orders Only [facility], [facility] at [address] [place] [address] Rosamaria Bolton, KEVIN 01/03/2025 Telephone [facility] Thoracic Oncology, [facility] at [address] [address] Rosamaria Bolton, CAT CRACKER OPERATOR Care Coordination 12/31/2024 Telephone [facility] Department of Neurology [address], 8th [address], [address] [place] [address] Jackie Montalvo MD 12/28/2024 Orders Only [facility] Center for Thoracic Oncology, [facility] [place] [address], [address] [place] [address] Gavin Seymour MD 12/20/2024 Orders Only [facility] [address] [address] Tapan Silva MD 12/17/2024 11:14 PM EDT - 12/19/2024 3:08 PM EDT Hospital Encounter [facility] Timothy [address] [place] [address] Daniel Leung MD, KRISTI Rosa Price MD Discharge Disposition: Home or Self Care 12/17/2024 12:36 PM EDT - 12/17/2024 10:11 PM EDT Emergency [facility] [address] [place] [address] Josep Roberts MD Discharge Disposition: Another Health Care Institution Not Defined 12/17/2024 Procedure Pass [facility] - MRI, [address] [address] 12/17/2024 Procedure Pass [facility] - MRI, [address] [address] 12/17/2024 Ophth Exam [facility] [address] [place] [address] Josep Roberts MD 11/29/2024 4:30 PM EDT Telemedicine [facility]acic Oncology, [facility] [place] [address], [address] [place] [address] Gavin Seymour MD Malignant neoplasm of lung, unspecified laterality, unspecified part of lung (Primary Dx) 11/29/2024 Ancillary Orders [facility] OUTSIDE IMG [address] [place] [address] Gavin Seymour MD 11/29/2024 Ancillary Orders [facility] OUTSIDE IMG [address] [place] [address] Gavin Seymour MD 11/29/2024 Ancillary Orders [facility] OUTSIDE IMG [address] [place] [address] Gavin Seymour MD 11/22/2024 12:05 AM EDT Ancillary Procedure [facility] OUTSIDE IMG [address] [place] [address] Gavin Seymour MD 11/22/2024 Ancillary Procedure [facility] OUTSIDE IMG [address] [place] [address] Gavin Seymour MD from Last 3 Months Family History Medical History Relation Comments Prostate cancer Brother Colon cancer Mother Relation Status Comments Brother Alive Mother (Age 78) Social History Tobacco Use Types Packs/Day Years Used Date Smoking Tobacco: Former Cigarettes Tobacco Cessation:Counseling Given: Not Answered Comments:Smoked from age 19 to 2011. Alcohol [...] Orientation Straight 07/26/2024 12 :38 PM EST Last Filed Vital Signs Vital Sign Reading Time Taken Comments Blood Pressure 119/69 12/19/2024 11:06 AM EDT Pulse 102 12/19/2024 11:06 AM EDT Temperature 36.4 C (97.5 F) 12/19/2024 11:06 AM EDT Respiratory Rate 20 12/18/2024 11:15 PM EDT Oxygen Saturation 98% 12/19/2024 11:06 AM EDT Inhaled Oxygen Concentration - - Weight 65.1 kg (143 lb 8.3 oz) 12/18/2024 4:09 A M EDT Height 172.7 cm (5' 8 ) 12/18/2024 4:09 AM EDT Body Mass Index 21.82 12/18/2024 4:09 AM EDT Plan of Treatment Health Maintenance Due Date Last Done Comments SMOKING Hx and SMOKELESS TOBACCO SCREENING 1965 HEPATITIS C SCREENING 1970 COLOGUARD 1997 COLONOSCOPY 1997 COLORECTAL CANCER SCREENING 1997 FIT TEST 1997 FOBT 1997 SIGMOIDOSCOPY 1997 VIRTUAL COLONOSCOPY 1997 ABDOMINAL AORTIC ANEURYSM (AAA) SCREENING 2017 INFLUENZA VACCINE (#1) 2024 , 02/12/2023, 02/21/2022, Additional history exists COVID-19 VACCINE ( season) 2025 02/11/2024, 05/17/2023, 02/21/2022, Additional history exists CREATININE LEVEL 12/19/2025 12/19/2024, , 12/18/2024, Additional history exists POTASSIUM LEVEL 12/19/2025 12/19/2024, 11/24, 12/18/2024 DEPRESSION SCREENING 01/16/2026 01/16/2025 Adult Td,Tdap Booster 05/24/2032 05/24/2022 , 02/20/2015, 05/28/2013 PNEUMOCOCCAL VACCINES (50+ years) Completed 11/19/2021, 04/24/2018 RSV VACCINE Completed 05/13/2023 ZOSTER VACCINES Completed 05/12/2024, 02/11/2024 HEPATITIS A VACCINES Aged Out No long er eligible based on patient's age to complete this topic HIB VACCINES Aged Out No longer eligi ble based on patient's age to complete this topic MENINGOCOCCAL VACCINES (ACWY) Aged Out No longer eligible based on patient's age to complete this topic MENINGOCOCCAL VACCINES (B) Aged Out N o longer eligible based on patient's age to complete this topic Medical Devices Not on file Procedures Procedure Name Priority Date/Time Associated Diagnosis Comments POCT GLUCOSE Routine 12/19/2024 11:58 AM EDT POCT GLUCOSE Routine 12/19/2024 8:25 AM EDT FREE LIGHT CHAINS, SERUM Routine 025 5:40 AM EDT SEDIMENTATION RATE (ESR) Routine 025 5:40 AM EDT CBC Routine 12/19/2024 5:40 AM EDT PHOSPHORUS Routine 12/19/2024 5:40 AM EDT MAGNESIUM Routine 12/19/2024 5:40 AM EDT LFTS (HEPATIC PANEL) Routine 12/19/2024 5:40 AM EDT BASIC METABOLIC PANEL Routine 12/19/2024 5:40 AM EDT POCT GLUCOSE Routine 12/18/2024 5:39 PM EDT INTERPRETIVE LAB REPORT Routine 12/19/19 5:35 PM EDT SPEP PANEL Routine 12/18/2024 5:35 PM EDT ANTI-NEUTROPHIL CYTOPLASMIC ANTIBODY (ANCA) Routine 12/18/2024 5:35 PM EDT VITAMIN B12 Routine 12/18/2024 5:35 PM EDT SYPHILIS ANTIBODY SCREEN ASSAY Routine 12/18/2024 5:35 PM EDT ANTINUCLEAR ANTIBODY (MILADIS) Routine 12/18/2024 5:35 PM EDT HEMATOLOGY COMMENT Routine 12/18/2024 4: 28 PM EDT CHEMISTRY COMMENT Routine 12/18/2024 4:2 8 PM EDT NMO/AQP4-IgG antibody, CSF Routine 12/18/2024 4:28 PM EDT MULTIPLE SCLEROSIS (MS) PROFILE, SERUM AND CSF Routine 12/18/2024 4:28 PM EDT GLUCOSE, CSF Routine 12/18/2024 4:28 PM EDT TOTAL PROTEIN, CSF Routine 12/18/2024 4: 28 PM EDT Cell count/differential, CSF Routine 12/18/2024 4:28 PM EDT Syphilis antibody, CSF (VDRL) Routine 12/18/2024 4:28 PM EDT CREAT. COMMENT Timed 12/18/2024 4:25 PM EDT BASIC METABOLIC PANEL Timed 12/18/2024 4:25 PM EDT HEMATOLOGY COMMENT Routine 12/18/2024 4: 20 PM EDT Cell count/differential, CSF Routine 12/18/2024 4:20 PM EDT NMO/AQP4-IgG antibody, CSF Routine 12/18/2024 4:20 PM EDT MULTIPLE SCLEROSIS (MS) PROFILE, SERUM AND CSF Routine 12/18/2024 4:20 PM EDT TOTAL PROTEIN, CSF Routine 12/18/2024 4: 20 PM EDT GLUCOSE, CSF Routine 12/18/2024 4:20 PM EDT CHEMISTRY COMMENT Routine 12/18/2024 4:2 0 PM EDT Syphilis antibody, CSF (VDRL) Routine 12/18/2024 4:20 PM EDT LUMBAR PUNCTURE Routine 12/18/2024 2:40 PM EDT Optic neuritis HEMATOLOGY COMMENT Routine 12/18/2024 2: 36 PM EDT CELL COUNT & DIFFERENTIAL, TUBE 4 Routine 12/18/2024 2:36 PM EDT SEROLOGY SAVED SPECIMEN Routine 12/19/19 2:36 PM EDT LYME DISEASE PCR, NON BLOOD Routine 12/18/2024 2:36 PM EDT CULTURE/SMEAR, CSF Routine 12/18/2024 2: 36 PM EDT POCT GLUCOSE Routine 12/18/2024 12:10 PM EDT BARTONELLA SEROLOGY Routine 12/18/2024 1 0:45 AM EDT CREATININE (RANDOM URINE) Routine 12/18/2024 7:39 AM EDT OSMOLALITY (URINE, RANDOM) Routine 12/18/2024 7:39 AM EDT SODIUM, RANDOM URINE Routine 12/18/2024 7:39 AM EDT POCT GLUCOSE Routine 12/18/2024 7:34 AM EDT OSMOLALITY, SERUM Routine 12/18/2024 5:4 5 AM EDT LAB ADD ON Routine 12/18/2024 5:45 AM EDT SEDIMENTATION RATE (ESR) Routine 025 5:45 AM EDT C-REACTIVE PROTEIN Routine 12/18/2024 5: 45 AM EDT PTT Timed 12/18/2024 5:45 AM EDT PT-INR Routine 12/18/2024 5:45 AM EDT CBC Routine 12/18/2024 5:45 AM EDT PHOSPHORUS Routine 12/18/2024 5:45 AM EDT MAGNESIUM Routine 12/18/2024 5:45 AM EDT LFTS (HEPATIC PANEL) Routine 12/18/2024 5:45 AM EDT BASIC METABOLIC PANEL Routine 12/18/2024 5:45 AM EDT MYELIN OLIGODENDROCYTE GLYCOPROTEIN, SERUM STAT 12/18/2024 12:39 AM EDT NMO EVALUATION, SERUM STAT 12/18/2024 12:39 AM EDT CBC AND DIFFERENTIAL STAT 12/18/2024 12:39 AM EDT C-REACTIVE PROTEIN STAT 12/18/2024 12 :39 AM EDT SEDIMENTATION RATE (ESR) STAT 025 12:39 AM EDT CBC AND DIFFERENTIAL STAT 12/17/2024 9:55 PM EDT C-REACTIVE PROTEIN STAT 12/17/2024 9: 55 PM EDT SEDIMENTATION RATE (ESR) STAT 025 9:55 PM EDT MRI BRAIN WITH AND WITHOUT CONTRAST Routine 12/17/2024 8:00 PM EDT MRI FACE (ORBITS) WITH AND WITHOUT CONTRAST Routine 12/17/2024 8:00 PM EDT JACKSON VISUAL FIELD - OU - BOTH EYES STAT 12/17/2024 5:50 PM EDT OCT, RETINA - OU - BOTH EYES STAT 12/17/2024 5:23 PM EDT Decreased vision in both eyes OCT, OPTIC NERVE - OU - BOTH EYES STAT 12/17/2024 5:23 PM EDT Decreased vision in both eyes AUTOFLUORESCENCE - OU - BOTH EYES STAT 12/17/2024 2:29 PM EDT Decreased vision in both eyes COLOR FUNDUS PHOTOGRAPHY - OU - BOTH EYES STAT 12/17/2024 2:29 PM EDT OUTSIDE IMAGING 12/02/2024 CT ABDOMEN/PELVIS OUTSIDE (NO INTERPRETATION) Routine 11/22/2024 12:[address] CHEST OUTSIDE (NO INTERPRETATION) Routine 11/22/2024 12:00 AM EDT from Last 3 Months Results * (ABNORMAL) POCT Glucose (12/19/2024 11:58 AM EDT) Only the most recent of5 resultswithin the time period is included. Glucose, POCT 129(H) 70 - 110 mg/dL [facility] 12/19/2024 11:5 8 AM EDT 12/19/2024 12:00 PM EDT us Rosa Price MD POINT OF CARE TEST [place] [address] * LFTs (hepatic panel) (12/19/2024 5:40 AM EDT) Only the most recent of2 resultswithin the time period is included. ALBUMIN 3.4 3.3 - 5.0 g/dL [facility] TOTAL BILIRUBIN 0.5 0.0 - 1.0 mg/dL [facility] DIRECT BILIRUBIN 0.2 0.0 - 0.3 mg/dL [facility] ALKALINE PHOSPHATASE 105 45 - 115 U/L [facility] AST 25 10 - 40 U/L [facility] ALT 24 10 - 55 U/L [facility] TOTAL PROTEIN 6.2 6.0 - 8.3 g/dL [facility] GLOBULIN 2.8 1.9 - 4.1 g/dL [facility] Blood 12/19/2024 5:40 AM EDT 12/19/2024 6:26 AM EDT Daniel Leung MD, KRISTI LAB BLOOD ORDERABLES Reva l Result Performing Organization Address [facility] Co de Phone Number [address] [address] * Free light chains, serum (12/19/2024 5:40 AM EDT) FREE KAPPA LT CHAIN 15.8 3.3 - 19.4 mg/L [facility] FREE LAMBDA LT CHAIN 17.5 5.7 - 26.3 mg/L [facility] FREE KAPPA LAMBDA RAT 0.90 0.30 - 1.70 [facility] Blood 12/19/2024 5:40 AM EDT 12/19/2024 6:26 AM EDT Result Josep Price MD LAB BLOOD ORDERABLES Final Resu lt Performing Organization Address [facility] Co de Phone Number [address] [address] * (ABNORMAL) Sedimentation rate (ESR) (12/19/2024 5:40 AM EDT) Only the most recent of4 resultswithin the time period is included. Pathologist [facility] ESR 60(H) 0 - 19 mm/h [facility] Blood 12/19/2024 5:40 AM EDT 12/19/2024 6:26 AM EDT Result Josep Price MD LAB BLOOD ORDERABLES Final Resu lt Performing Organization Address [facility] Co de Phone Number [address] [address] * (ABNORMAL) CBC (12/19/2024 5:40 AM EDT) Only the most recent of2 resultswithin the time period is included. WBC 5.01 4.00 - 11.00 K/uL [facility] RBC 3.48(L) 4.50 - 5.90 M/uL [facility] HGB 11.1(L) 13.5 - 17.5 g/dL [facility] HCT 32.5(L) 41.0 - 53.0 % [facility] PLT 303 150 - 450 K/uL [facility] MCV 93.4 80.0 - 100.0 fL [facility] MCH 31.9(H) 27.0 - 31.0 pg [facility] MCHC 34.2 32.0 - 36.0 g/dL [facility] RDW 16.4(H) 11.5 - 14.5 % [facility] MPV 8.3(L) 8.4 - 12.0 fL [facility] NRBC 0.00 0.00 /100 WBCs [facility] ABSOLUTE NRBC 0.00 0.00 K/uL [facility] Blood 12/19/2024 5:40 AM EDT 12/19/2024 6:26 AM EDT us Daniel Leung MD, MBA LAB BLOOD ORDERABLES Reva l Result Performing Organization Address City/[facility] Co de Phone Number [address] [phone] * (ABNORMAL) Phosphorus (12/19/2024 5:40 AM EDT) Only the most recent of2 resultswithin the time period is included. PHOSPHORUS 2.4(L) 2.6 - 4.5 mg/dL [facility] Blood 12/19/2024 5:40 AM EDT 12/19/2024 6:26 AM EDT us Daniel Leung MD, MBA LAB BLOOD ORDERABLES Reva l Result Performing Organization Address City/[facility] Co de Phone Number [address] [address] * Magnesium (12/19/2024 5:40 AM EDT) Only the most recent of2 resultswithin the time period is included. MAGNESIUM 1.9 1.7 - 2.4 mg/dL [facility] Blood 12/19/2024 5:40 AM EDT 12/19/2024 6:26 AM EDT us Daniel Leung MD, MBA LAB BLOOD ORDERABLES Reva l Result Performing Organization Address City/[facility] Co de Phone Number [address] [phone] * (ABNORMAL) Basic metabolic panel (12/19/2024 5:40 AM EDT) Only the most recent of3 resultswithin the time period is included. SODIUM 128(L) 135 - 145 mmol/L [facility] POTASSIUM 4.1 3.4 - 5.0 mmol/L [facility] CHLORIDE 96(L) 98 - 108 mmol/L [facility] CO2 20(L) 23 - 32 mmol/L [facility] BUN 14 8 - 25 mg/dL [facility] CREATININE 0.56(L) 0.60 - 1.30 mg/dL [facility] GLUCOSE 117(H) 70 - 110 mg/dL [facility] CALCIUM 8.5 8.5 - 10.5 mg/dL [facility] EGFR 105 >59 mL/min/1. 73m2 [facility] Comment:Estimated glomerular filtration rate calculated using the CKD-EPI refit equation. ANION GAP 12 3 - 17 mmol/L [facility] Blood 12/19/2024 5:40 AM EDT 12/19/2024 6:26 AM EDT us Daniel Leung MD, KRISTI LAB BLOOD ORDERABLES Reva duran Result [address] [address] * Interpretive Lab Report (12/18/2024 5:35 PM EDT) 12/18/2024 5:35 PM EDT 12/20/2024 12:50 PM EDT Narrative SEE NARRATIVE - 12/22/2024 9:14 AM EDT [address] [address] Power Hammer Operator: Jose Luis Chin MD CLIA ID # [id number] Laboratory Report Anti-Neutrophil Cytoplasmic Antibody Testing Patient Name: BJ LARA : 1950 (Age: 74) Sex: M Institution: [facility] Location: [place] [address] Date of Collection: 12/18/2024 Date of Reported: 12/22/2024 09:14 Results To: Devante Corey MD SPECIMENS RECEIVED: A: BLOOD #[id number] RESULT: ANCA NEGATIVE. NOTE: Indirect immunofluorescence testing for anti-neutrophil cytoplasm antibodies (ANCA) is negative. ELISAs are also negative for antibodies to proteinase 3 and myeloperoxidase. INTERPRETATION: The findings provide no support for the diagnosis of active granulomatosis with polyangiitis, microscopic polyangiitis, idiopathic necrotizing and crescentic glomerulonephritis, or a related form of vasculitis. However, up to 40% of patients with limited granulomatosis with polyangiitis (i.e. without evidence of renal disease) and up to 10% of patients with renal involvement disease may be negative at presentation. Some of these will turn positive if tested serially. Please call the [facility] Immunopathology Laboratory at [phone] with questions or concerns regarding ANCA tests. These tests were developed, and their performance characteristics determined by the Immunopathology Laboratory at the [facility]. Their characteristics have been published: Journal of the [place] Society of Nephrology 2:27-36, 1990; Human Pathology 24:170-8, 1992; Archives of Internal Medicine 156:440-5; Annals of Internal Medicine 126:866-73, 1996. These tests have not been cleared or approved by the U.S. Food and Drug Administration (FDA). The FDA has determined that clearance or approval is not necessary. Electronically Signed Out By: Nam Chamberlain MD Devante Corey MD PATHOLOGY ORDERABLES Fin al Result SEE NARRATIVE * SPEP PANEL (12/18/2024 5:35 PM EDT) Total Protein 6.3 6.0 - 8.3 g/dL [facility] IMMUNOGLOBULIN G 624 614 - 1,295 mg/dL [facility] IgA 181 69 - 309 mg/dL [facility] IMMUNOGLOBULIN M 181 53 - 334 mg/dL [facility] SPEP Normal pattern [facility] Comment: Normal SPEP: Normal pattern Performing Physician, Feng Walter M.D., [id number] Serum protein electrophoresis results should be evaluated in the context of separately reported serum free light chain levels and ratio when these additional results are available. Blood 12/18/2024 5:35 PM EDT 12/18/2024 5:44 PM EDT Result Josep Price MD LAB BLOOD ORDERABLES Final Resu lt Performing Organization Address [facility] Co de Phone Number [address] [phone] * Syphilis antibody screen (12/18/2024 5:35 PM EDT) Pathologist [facility] Syphilis Antibody Screen Non-React deanna Non-React deanna [facility] Comment: INTERPRETATION: Negative for syphilis antibodies. NOTE: This specimen was screened for syphilis using a specific immunoassay for the detection of IgG and IgM Treponema pallidum antibodies. This test has replaced the Non-Treponemal RPR as the initial screening antibody test for syphilis at [facility], because it is more sensitive and specific. Blood 12/18/2024 5:35 PM EDT 12/18/2024 5:45 PM EDT Result Josep Price MD LAB BLOOD ORDERABLES Final Resu lt Performing Organization Address [facility] Co de Phone Number [address] [address] * Anti-Neutrophil Cytoplasmic Antibody (ANCA) (12/18/2024 5:35 PM EDT) [facility] ANCA (IMMUNOPATH) Specimen received in [facility] Core Laboratory. Testing will be performed in [facility] Immunopathology Laboratory. Results, when available, will be available as Pathology Reports. [facility] Blood 12/18/2024 5:35 PM EDT 12/18/2024 5:45 PM EDT Result Josep Price MD LAB BLOOD ORDERABLES Final Resu lt Performing Organization Address [place]/[facility] Co de Phone Number [address] [address] * (ABNORMAL) Antinuclear antibody (MILADIS) (12/18/2024 5:35 PM EDT) Pathologist [facility] MILADIS Result Positive (A) Negative [facility] Comment: Performing Physician, Feng Walter M.D., [id number] Method is indirect immunofluorescence assay (IFA) with digital and/or optical microscopy evaluation. MILADIS Titer 1 1:160(A) Negative [facility] MILADIS Pattern 1 HOMOGENE OUS(A) Negative [facility] Comment: The indirect immunofluorescence test on Hep2 cell substrate shows that antibodies in the serum of this patient produce diffuse, homogeneous staining of the Hep2 cell nuclei in interphase, and intense staining of the chromosomal region of cells in mitosis or metaphase. This is consistent with a nuclear homogeneous pattern (AC- 1). It is associated with antibodies to double-stranded DNA, histone (K1T-X8S)-DNA complex, and nucleosomes in about 90% of patients with SLE and drug-induced SLE, 45% of patients with rheumatoid arthritis, and a small percentage of patients with systemic sclerosis and Sjogren's syndrome. The test for antibody to double-stranded DNA may be ordered to support the diagnosis of SLE and to differentiate spontaneous from drug-induced lupus. Anti-double stranded DNA antibodies are rarely detected in patients with drug-induced lupus. Blood 12/18/2024 5:35 PM EDT 12/18/2024 5:44 PM EDT Rosa Price MD LAB BLOOD ORDERABLES Final Resu lt [address] [address] * Vitamin B12 (12/18/2024 5:35 PM EDT) VITAMIN B12 818 >231 pg/mL [facility] Blood 12/18/2024 5:35 PM EDT 12/18/2024 5:44 PM EDT Rosa Price MD LAB BLOOD ORDERABLES Final Resu lt Performing Organization Address City/[facility]/ZIP Co de Phone Number [address] [address] * Chemistry Comment (12/18/2024 4:28 PM EDT) Only the most recent of2 resultswithin the time period is included. Comments (Chemistry) ERROR CCOM [facility] 12/18/2024 4:28 PM EDT 12/18/2024 5:28 PM EDT us Sonya Griffith MD, PhD LAB BLOOD ORDERA BLES Final Result Performing Organization Address [facility]/ZIP Co de Phone Number [address] [address] * NMO/AQP4 IgG Ab, CSF (12/18/2024 4:28 PM EDT) Only the most recent of2 resultswithin the time period is included. CSF NMO/AQP4-IGG FACS Credit [facility] Comment: SPECIMEN RELOGGED SEE ACCN [id number] Cerebrospinal Fluid (Cerebrospinal Fluid) 12/18/2024 4:28 PM EDT 12/18/2024 5:28 PM EDT us Rosa Price MD BODY FLUIDS AND STOOLS ORDERABL ES Final Result Performing Organization Address [facility] Co de Phone Number [address] [address] * MULTIPLE SCLEROSIS (MS) PROFILE, SERUM AND CSF (12/18/2024 4:28 PM EDT) Only the most recent of2 resultswithin the time period is included. [place] [employer], CSF Credit mg/dL [facility] Comment: SPECIMEN RELOGGED SEE ACCN [id number] Additional Sample for Reflex OLIGS Credit [facility] Comment: SPECIMEN RELOGGED SEE ACCN [id number] Cerebrospinal Fluid (Cerebrospinal Fluid) 12/18/2024 4:28 PM EDT 12/18/2024 5:28 PM EDT us Rosa Price MD LAB BLOOD ORDERABLES Final Resu lt Performing Organization Address [facility]/ZIP Co de Phone Number [address] [address] * Hematology comment (12/18/2024 4:28 PM EDT) Only the most recent of3 resultswithin the time period is included. HEMATOLOGY COMMENT: ERROR HEMCOM [facility] 12/18/2024 4:28 PM EDT 12/18/2024 5:28 PM EDT us Sonya Griffith MD, PhD LAB BLOOD ORDERA BLES Final Result Performing Organization Address City/[facility]/ZIP Co de Phone Number [address] [address] * Syphilis antibody, CSF (VDRL) (12/18/2024 4:28 PM EDT) Only the most recent of2 resultswithin the time period is included. VDRL, CSF Credit [facility] Comment: SPECIMEN RELOGGED SEE ACCN [id number] Cerebrospinal Fluid (Cerebrospinal Fluid) 12/18/2024 4:28 PM EDT 12/18/2024 5:28 PM EDT us Rosa Price MD BODY FLUIDS AND STOOLS ORDERABL ES Final Result Performing Organization Address [facility] Co de Phone Number [address] [address] * (ABNORMAL) Cell count/differential, CSF (12/18/2024 4:28 PM EDT) Only the most recent of2 resultswithin the time period is included. CSF COLOR Credit(A) COLORLESS [facility] Comment: SPECIMEN RELOGGED SEE ACCN [id number] Tube #, CSF Credit [facility] Comment: SPECIMEN RELOGGED SEE ACCN [id number] CSF TURBIDITY Credit(A) Clear [facility] Comment: SPECIMEN RELOGGED SEE ACCN [id number] XANTHOCHROMIA Credit(A) NOT PRESENT [facility] Comment: SPECIMEN RELOGGED SEE ACCN [id number] RBC, CSF Credit(A) None Seen /uL [facility] Comment: SPECIMEN RELOGGED SEE ACCN [id number] CSF MHCT Credit <2.0 % [facility] Comment: SPECIMEN RELOGGED SEE ACCN [id number] Nucleated cells, CSF Credit 0 - 5 /uL [facility] Comment: SPECIMEN RELOGGED SEE ACCN [id number] CSF NEUTS Credit 0 % [facility] Comment: SPECIMEN RELOGGED SEE ACCN [id number] CSF BANDS Credit 0 % [facility] Comment: SPECIMEN RELOGGED SEE ACCN [id number] CSF LYMPHS Credit 34 - 94 % [facility] Comment: SPECIMEN RELOGGED SEE ACCN [id number] CSF REACTIVE LYMPHS Credit 0 % [facility] Comment: SPECIMEN RELOGGED SEE ACCN [id number] CSF MONOS Credit 19 - 49 % [facility] Comment: SPECIMEN RELOGGED SEE ACCN [id number] CSF EOS Credit 0 % [facility] Comment: SPECIMEN RELOGGED SEE ACCN [id number] CSF BASO Credit 0 % [facility] Comment: SPECIMEN RELOGGED SEE ACCN [id number] CSF BLAST Credit 0 % [facility] Comment: SPECIMEN RELOGGED SEE ACCN [id number] CSF MACROPHAGE/LININ G Credit 0 % [facility] Comment: SPECIMEN RELOGGED SEE ACCN [id number] CSF UNCLASSIFIED Credit 0 % [facility] Comment: SPECIMEN RELOGGED SEE ACCN [id number] NRBC Credit 0 /100 WBCs [facility] Comment: SPECIMEN RELOGGED SEE ACCN [id number] Cerebrospinal Fluid (Cerebrospinal Fluid) 12/18/2024 4:28 PM EDT 12/18/2024 5:28 PM EDT Result Josep Price MD BODY FLUIDS AND STOOLS ORDERABL ES Final Result [address] [address] * Total protein, CSF (12/18/2024 4:28 PM EDT) Only the most recent of2 resultswithin the time period is included. CSF TOTAL PROTEIN Credit 10.0 - 40.0 mg/dl [facility] Comment: SPECIMEN RELOGGED SEE ACCN [id number] Cerebrospinal Fluid (Cerebrospinal Fluid) 12/18/2024 4:28 PM EDT 12/18/2024 5:28 PM EDT us Rosa Price MD BODY FLUIDS AND STOOLS ORDERABL ES Final Result Performing Organization Address [facility] Co de Phone Number [address] [address] * Glucose, CSF (12/18/2024 4:28 PM EDT) Only the most recent of2 resultswithin the time period is included. CSF GLUCOSE Credit 50 - 75 mg/dL [facility] Comment: SPECIMEN RELOGGED SEE ACCN [id number] Cerebrospinal Fluid (Cerebrospinal Fluid) 12/18/2024 4:28 PM EDT 12/18/2024 5:28 PM EDT us Rosa Price MD BODY FLUIDS AND STOOLS ORDERABL ES Final Result Performing Organization Address [facility] Co de Phone Number [address] [address] * Creat. Comment (12/18/2024 4:25 PM EDT) Creat Comment Increasing Creatinine Value on your Patient: The calculated GFR may thus overestimate the true GFR and should not be used to guide medication dosing. Negative [facility] 12/18/2024 4:25 PM EDT 12/18/2024 4:31 PM EDT us Sonya Griffith MD, PhD LAB BLOOD ORDERA BLES Final Result Performing Organization Address [facility] Co de Phone Number [address] [address] * Lumbar Puncture (12/18/2024 2:40 PM EDT) Anatomical Region Laterality Modality Other Narrative 12/18/2024 2:40 PM EDT Rosa Price MD 12/18/2024 7:57 PM Lumbar Puncture Date/Time: 12/18/2024 2:40 PM Performed by: Sonya Griffith MD, PhD Authorized by: Rosa Price MD [place] Protocol: Consent obtained: Yes Time out: Immediately prior to the procedure a time-out was called A time out verifies correct patient, procedure, equipment and site/side marked as required: Indications: Indications: Evaluation for inflammation and evaluation for infection Anesthesia: Local infiltration Local anesthetic: Lidocaine 1% without epinephrine Anesthetic total (ml): 3 Procedure Details: Preparation: Patient was prepped and draped in usual sterile fashion Lumbar space: L5-S1 interspace Patient's position: Sitting Needle gauge: 20 Number of attempts: 4 Fluid appearance: Clear Post-procedure: Adhesive bandage applied Patient tolerance: Patient tolerated the procedure well with no immediate complications us Rosa Price MD NEUROLOGY ORDERABLES Final Resu lt * Serology Saved Specimen (12/18/2024 2:36 PM EDT) SEROLOGY SAVE TEST STORING FROZEN SPECIMEN IN LAB FOR 6 MONTHS [facility] 12/18/2024 2:36 PM EDT 12/18/2024 5:27 PM EDT us Rosa Price MD MICROBIOLOGY - GENERAL ORDERABL ES Final Result Performing Organization Address City/State/[facility] Co de Phone Number [address] [address] * Cell count & differential, tube 4 (12/18/2024 2:36 PM EDT) CSF COLOR COLORLESS COLORLESS [facility] Tube #, CSF 4 [facility] CSF TURBIDITY Clear Clear [facility] XANTHOCHROMIA None None [facility] RBC, CSF None 0 - 5 /uL [facility] CSF MHCT Not Done 0.0 % [facility] Nucleated cells, CSF 4 0 - 5 /uL [facility] Comment:Total Nucleated Cell s = White Blood Cells + Other Nucleated Cells CSF NEUTS 0 0 % [facility] CSF BANDS 0 0 % [facility] CSF LYMPHS 98 0 - 100 % [facility] CSF REACTIVE LYMPHS 0 0 % [facility] CSF MONOS 2 0 - 100 % [facility] CSF EOS 0 0 % [facility] CSF BASO 0 0 % [facility] CSF BLAST 0 0 % [facility] CSF UNCLASSIFIED 0 0 % [facility] CSF MACROPHAGE/LININ G 0 0 % [facility] NRBC 0 0 /100 WBCs [facility] Cerebrospinal Fluid (Cerebrospinal Fluid) 12/18/2024 2:36 PM EDT 12/18/2024 5:35 PM EDT us Rosa Price MD BODY FLUIDS AND STOOLS ORDERABL ES Final Result Performing Organization Address City/[facility]/ZIP Co de Phone Number [facility] [address] [address] * Lyme disease PCR, non-blood (12/18/2024 2:36 PM EDT) SPECIMEN SOURCE CSF [facility] DPT OF LAB MED AND PAT+ B.BURGDORFERI PCR Negative Negative [facility] DPT OF LAB MED AND PAT+ B.MAYONII PCR Negative Negative [facility] DPT OF LAB MED AND PAT+ B.GARINII/AFZELI Negative Negative [facility] DPT OF LAB MED AND PAT+ Comment SEE NOTE [facility] D[facility] OF LAB MED AND PAT+ Comment: (NOTE) If clinical features of illness are highly indicative of Lyme neuroborreliosis, additional serological testing would be recommended. ADDITIONAL INFORMATION This test was developed and its performance characteristics determined by [facility] in a manner consistent with CLIA requirements. This test has not been cleared or approved by the U.S. Food and Drug Administration. Other (Spinal Fluid) 12/18/2024 2:36 PM EDT 12/18/2024 5:34 PM EDT us Rosa Price MD BODY FLUIDS AND STOOLS ORDERABL ES Final Result Performing Organization Address City/[facility]/ZIP Co de Phone Number [facility] DPT OF LAB MED AND PAT+ [address] [place] [address] * CSF Culture/Gram Stain (12/18/2024 2:36 PM EDT) Special Requests NO, CSF SHUNT OR OTHER FOREIGN MATERIAL IS NOT PRESENT, AND PATIENT IS NOT RECEIVING INTRATHECAL MEDICATION. 12/18/2024 2:36 PM EDT [facility] GRAM STAIN SPUN SLIDE: Moderate MONONUCLEAR CELLS , NO POLYS , NO ORGANISMS SEEN 12/19/2024 8:00 AM EDT [facility] CSF Culture/Smear NO GROWTH 12/19/2024 9:32 AM EDT [facility] Cerebrospinal Fluid (Cerebrospinal Fluid) 12/18/2024 2:36 PM EDT 12/18/2024 5:26 PM EDT Rosa Price MD MICROBIOLOGY - GENERAL ORDERABL ES Final Result Performing Organization Address [facility]/ZIP Co de Phone Number [facility] [address] [place] [address] * Bartonella serology (12/18/2024 10:45 AM EDT) B.HENSELAE AB, IGG <1:128 <1:128 titer [facility]PATH [address] SWENSON AB, IGM <1:20 <1:20 titer [facility]PATH [address] DR VILLA AB, IGG <1:128 <1:128 titer [facility]PATH [address] DR VILLA AB, IGM <1:20 <1:20 titer [facility] Comment: (NOTE) ADDITIONAL INFORMATION This test was developed and its performance characteristics determined by [facility] in a manner consistent with CLIA requirements. This test has not been cleared or approved by the U.S. Food and Drug Administration. Blood 12/18/2024 10:4 5 AM EDT 12/18/2024 11:08 AM EDT Rosa Price MD LAB BLOOD ORDERABLES Final Resu lt Performing Organization Address City/[facility] Co de Phone Number [facility] LAB MED/PATH SUPERIOR [address] [place] [address] * Sodium, random urine (12/18/2024 7:39 AM EDT) URINE SODIUM 52 mmol/L [facility] Comment:Results must be inte rpreted based on patient context and with other clinical and laboratory data. Urine (Urine) 12/18/2024 7:3 9 AM EDT 12/18/2024 7:48 AM EDT Result Josep Price MD URINE ORDERABLES Final Result Performing Organization Address [facility] Co de Phone Number [address] [address] * Osmolality, Random Urine (12/18/2024 7:39 AM EDT) URINE OSMOLALITY 399 150 - 1,150 mOsm/kg water [facility] Urine (Urine) 12/18/2024 7:3 9 AM EDT 12/18/2024 7:48 AM EDT us Rosa Price MD URINE ORDERABLES Final Result Performing Organization Address [facility] Co de Phone Number [address] [address] * Creatinine, random urine (12/18/2024 7:39 AM EDT) URINE CREATININE 35 mg/dL [facility] Urine (Urine) 12/18/2024 7:3 9 AM EDT 12/18/2024 7:48 AM EDT us Rosa Price MD URINE ORDERABLES Final Result Performing Organization Address [facility] Co de Phone Number [address] [address] * PTT (12/18/2024 5:45 AM EDT) APTT 27.9 24.0 - 37.5 sec [facility] Comment:Check MAR for the ta rget range that is ordered for your patient. Blood 12/18/2024 5:45 AM EDT 12/18/2024 5:55 AM EDT us Daniel Leung MD, KRISTI LAB BLOOD ORDERABLES Reva l Result Performing Organization Address City/[facility]/ZIP Co de Phone Number [address] [address] * PT-INR (12/18/2024 5:45 AM EDT) PT 10.9 10.0 - 13.0 sec [facility] INR 1.0 0.9 - 1.1 [facility] Blood 12/18/2024 5:45 AM EDT 12/18/2024 5:55 AM EDT Daniel Leung MD, KRISTI LAB BLOOD ORDERABLES Reva l Result Performing Organization Address [facility] Co de Phone Number [address] [address] * Lab Add On: serum osmol (12/18/2024 5:45 AM EDT) TEST REQUESTED SERUM OSMOL [facility] Comments (Chemistry) ADD ON COMPLETE. [facility] Comment:SEE [id number] 12/18/2024 5:45 AM EDT 12/18/2024 8:03 AM EDT Rosa Price MD LAB BLOOD ORDERABLES Final Resu lt Performing Organization Address [facility] Co de Phone Number [address] [address] * (ABNORMAL) C-Reactive Protein (12/18/2024 5:45 AM EDT) Only the most recent of3 resultswithin the time period is included. C REACTIVE PROTEIN 69.7(H) <8.0 mg/L [facility] Comment:This reference range is for the evaluation of inflammation. Order High Sensitivity CRP for cardiac risk status evaluation. Blood 12/18/2024 5:45 AM EDT 12/18/2024 5:54 AM EDT Daniel Leung MD KRISTI LAB BLOOD ORDERABLES Reva l Result Performing Organization Address [facility] Co de Phone Number [address] [address] * (ABNORMAL) Osmolality, serum (12/18/2024 5:45 AM EDT) OSMOLALITY 268(L) 280 - 296 mOsm/kg water [facility] 12/18/2024 5:45 AM EDT 12/18/2024 5:54 AM EDT Devante Corey MD LAB BLOOD ORDERABLES Fin al Result Performing Organization Address [facility]/ZIP Co de Phone Number [facility] [address] [place] [address] * Myelin Oligodendrocyte Glycoprotein, Serum (12/18/2024 12:39 AM EDT) Pathologist [facility] MOGTS titer Negative Negative [facility] DPT OF LAB MED AND PAT+ Comment: (NOTE) No informative autoantibodies were detected in this evaluation. A negative result does not preclude a diagnosis of an inflammatory [employer]OUT [employer] OPERATOR demyelinating disorder. ADDITIONAL INFORMATION This test was developed and its performance characteristics determined by [facility] in a manner consistent with CLIA requirements. This test has not been cleared or approved by the U.S. Food and Drug Administration. Blood 12/18/2024 12:3 9 AM EDT 12/18/2024 1:22 AM EDT BRANDY Wagner MDA LAB BLOOD ORDERABLES Reva l Result Performing Organization Address City/[facility]/ZIP Co de Phone Number [facility] DPT OF LAB MED AND PAT+ [address] [place] [address] * NMO evaluation, serum (12/18/2024 12:39 AM EDT) Pathologist [facility] NMO/AQP4 Ab, IgG Negative Negative [facility] DPT OF LAB MED AND PAT+ Comment: (NOTE) Recommend repeat testing in 6 months if clinical suspicion is high. Negative result can occur in the setting of immunosuppression. ADDITIONAL INFORMATION This test was developed and its performance characteristics determined by [facility] in a manner consistent with CLIA requirements. This test has not been cleared or approved by the U.S. Food and Drug Administration. Blood 12/18/2024 12:3 9 AM EDT 12/18/2024 1:22 AM EDT us Daniel Leung MD, KRISTI LAB BLOOD ORDERABLES Reva duran Result [facility] DPT OF LAB MED AND PAT+ [address] [place] [address] * (ABNORMAL) CBC and differential (12/18/2024 12:39 AM EDT) Only the most recent of2 resultswithin the time period is included. WBC 5.09 4.00 - 11.00 K/uL [facility] RBC 3.46(L) 4.50 - 5.90 M/uL [facility] HGB 11.0(L) 13.5 - 17.5 g/dL [facility] HCT 31.9(L) 41.0 - 53.0 % [facility] PLT 277 150 - 450 K/uL [facility] MCV 92.2 80.0 - 100.0 fL [facility] MCH 31.8(H) 27.0 - 31.0 pg [facility] MCHC 34.5 32.0 - 36.0 g/dL [facility] RDW 16.4(H) 11.5 - 14.5 % [facility] MPV 8.2(L) 8.4 - 12.0 fL [facility] NRBC 0.00 0.00 /100 WBCs [facility] ABSOLUTE NRBC 0.00 0.00 K/uL [facility] DIFF [employer] [facility] NEUTS 48.9 48.0 - 76.0 % [facility] LYMPHS 23.4 18.0 - 41.0 % [facility] MONOS 19.1(H) 4.0 - 11.0 % [facility] EOS 4.1 0.0 - 5.0 % [facility] BASOS 0.8 0.0 - 1.5 % [facility] % IMMATURE GRANS 3.7(H) 0.0 - 0.9 % [facility] Comment:Immature granulocyte s = metamyelos + myelos + promyelos ABSOLUTE NEUTS 2.49 1.92 - 7.60 K/uL [facility] ABSOLUTE LYMPHS 1.19 0.72 - 4.10 K/uL [facility] ABSOLUTE MONOS 0.97 0.16 - 1.10 K/uL [facility] ABSOLUTE EOS 0.21 0.00 - 0.50 K/uL [facility] ABSOLUTE BASOS 0.04 0.00 - 0.15 K/uL [facility] ABS IMMATURE GRANS 0.19(H) 0.00 - 0.09 K/uL [facility] Blood 12/18/2024 12:3 9 AM EDT 12/18/2024 1:19 AM EDT us Daniel Leung MD, KRISTI LAB BLOOD ORDERABLES Reva duran Result [address] [address] * MRI FACE (ORBITS) WITH AND WITHOUT CONTRAST (12/17/2024 8:00 PM EDT) Anatomical Region Laterality Modality Face Magnetic Resonan ce 12/17/2024 8:07 PM EDT Impressions 12/17/2024 8:21 PM EDT 1. Enhancement of the bilateral optic discs with restricted diffusion which may be seen with optic neuritis associated with various inflammatory and autoimmune diseases. 2. Moderate chronic appearing white matter changes, not typical for chronic small vessel ischemic changes, which may also be related to the optic disc findings and differential diagnostic considerations. 3. Chronic left cerebellar infarct. 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 COMPARISON: Outside MR brain dated 08/09/2024 FINDINGS: ORBITS: Optic Nerves and Chiasm: There is a punctate enhancement along the bilateral optic disc with associated restricted diffusion (901:9, 703:546, and 705:546). Otherwise, no signal abnormality, mass, or abnormal enhancement is seen along the course of the optic nerves. Orbital Fat: Normal. No fat stranding. Ocular Globes: Normal. No abnormality or abnormal enhancement. Extraocular Muscles: Normal. No enlargement. Lacrimal Glands: Normal. No enlargement, inflammatory change, or mass. Pre-Orbital Soft Tissues: Normal. No fat stranding. . Brain: There is mild prominence of the ventricles and sulci compatible with age-appropriate involutional change. There are several round T2/FLAIR hyperintense foci primarily within the subcortical white matter of both cerebral hemispheres as well as more confluent mild T2/FLAIR hyperintensity along the lateral ventricles. These white matter changes are not associated with restricted diffusion or abnormal enhancement suggesting chronicity. There is a chronic-appearing superior left cerebellar infarct(401:13 and 1103:144). No signal abnormality is seen in the right cerebellar hemisphere or brainstem. Visualized Paranasal Sinuses: Normal. No mucosal inflammation or fluid. 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 COMPARISON: Outside MR brain dated 08/09/2024 FINDINGS: ORBITS: Optic Nerves and Chiasm: There is a punctate enhancement along thebilateral optic disc with associated restricted diffusion (901:9, 703:546,and 705:546). Otherwise, no signal abnormality, mass, or abnormalenhancement is seen along the course of the optic nerves. Orbital Fat: Normal. No fat stranding. Ocular Globes: Normal. No abnormality or abnormal enhancement. Extraocular Muscles: Normal. No enlargement. Lacrimal Glands: Normal. No enlargement, inflammatory change, or mass. Pre-Orbital Soft Tissues: Normal. No fat stranding. . Brain: There is mild prominence of the ventricles and sulci compatiblewith age-appropriate involutional change. There are several round T2/FLAIRhyperintense foci primarily within the subcortical white matter of bothcerebral hemispheres as well as more confluent mild T2/FLAIRhyperintensity along the lateral ventricles. These white matter changesare not associated with restricted diffusion or abnormal enhancementsuggesting chronicity. There is a chronic-appearing superior leftcerebellar infarct(401:13 and 1103:144). No signal abnormality is seen inthe right cerebellar hemisphere or brainstem. Visualized Paranasal Sinuses: Normal. No mucosal inflammation or fluid. IMPRESSION: 1. Enhancement of the bilateral optic discs with restricted diffusionwhich may be seen with optic neuritis associated with various inflammatoryand autoimmune diseases. 2. Moderate chronic appearing white matter changes, not typical forchronic small vessel ischemic changes, which may also be related to theoptic disc findings and differential diagnostic considerations. 3. Chronic left cerebellar infarct. Josep Tanner MD IMG MR HEAD/N NITA Final Result * MRI BRAIN WITH AND WITHOUT CONTRAST (12/17/2024 8:00 PM EDT) Anatomical Region Laterality Modality Head Magnetic Resonan ce 12/17/2024 8:07 PM EDT Impressions 12/17/2024 8:21 PM EDT 1. Enhancement of the bilateral optic discs with restricted diffusion which may be seen with optic neuritis associated with various inflammatory and autoimmune diseases. 2. Moderate chronic appearing white matter changes, not typical for chronic small vessel ischemic changes, which may also be related to the optic disc findings and differential diagnostic considerations. 3. Chronic left cerebellar infarct. 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 COMPARISON: Outside MR brain dated 08/09/2024 FINDINGS: ORBITS: Optic Nerves and Chiasm: There is a punctate enhancement along the bilateral optic disc with associated restricted diffusion (901:9, 703:546, and 705:546). Otherwise, no signal abnormality, mass, or abnormal enhancement is seen along the course of the optic nerves. Orbital Fat: Normal. No fat stranding. Ocular Globes: Normal. No abnormality or abnormal enhancement. Extraocular Muscles: Normal. No enlargement. Lacrimal Glands: Normal. No enlargement, inflammatory change, or mass. Pre-Orbital Soft Tissues: Normal. No fat stranding. . Brain: There is mild prominence of the ventricles and sulci compatible with age-appropriate involutional change. There are several round T2/FLAIR hyperintense foci primarily within the subcortical white matter of both cerebral hemispheres as well as more confluent mild T2/FLAIR hyperintensity along the lateral ventricles. These white matter changes are not associated with restricted diffusion or abnormal enhancement suggesting chronicity. There is a chronic-appearing superior left cerebellar infarct(401:13 and 1103:144). No signal abnormality is seen in the right cerebellar hemisphere or brainstem. Visualized Paranasal Sinuses: Normal. No mucosal inflammation or fluid. 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 COMPARISON: Outside MR brain dated 08/09/2024 FINDINGS: ORBITS: Optic Nerves and Chiasm: There is a punctate enhancement along thebilateral optic disc with associated restricted diffusion (901:9, 703:546,and 705:546). Otherwise, no signal abnormality, mass, or abnormalenhancement is seen along the course of the optic nerves. Orbital Fat: Normal. No fat stranding. Ocular Globes: Normal. No abnormality or abnormal enhancement. Extraocular Muscles: Normal. No enlargement. Lacrimal Glands: Normal. No enlargement, inflammatory change, or mass. Pre-Orbital Soft Tissues: Normal. No fat stranding. . Brain: There is mild prominence of the ventricles and sulci compatiblewith age-appropriate involutional change. There are several round T2/FLAIRhyperintense foci primarily within the subcortical white matter of bothcerebral hemispheres as well as more confluent mild T2/FLAIRhyperintensity along the lateral ventricles. These white matter changesare not associated with restricted diffusion or abnormal enhancementsuggesting chronicity. There is a chronic-appearing superior leftcerebellar infarct(401:13 and 1103:144). No signal abnormality is seen inthe right cerebellar hemisphere or brainstem. Visualized Paranasal Sinuses: Normal. No mucosal inflammation or fluid. IMPRESSION: 1. Enhancement of the bilateral optic discs with restricted diffusionwhich may be seen with optic neuritis associated with various inflammatoryand autoimmune diseases. 2. Moderate chronic appearing white matter changes, not typical forchronic small vessel ischemic changes, which may also be related to theoptic disc findings and differential diagnostic considerations. 3. Chronic left cerebellar infarct. us Josep Tanner MD IMG MR HEAD/N NITA Final Result * Jackson Visual Field - OU - Both Eyes (12/17/2024 5:50 PM EDT) Narrative ROBLinda - 12/17/2024 5:50 PM EDT Right Eye Pattern: 24-2. Left Eye Pattern: 24-2. Notes OD: inferonasal defect OS: nonspecific defects us Josep Tanner MD OPHTHALMOLOGY IMAGING Final Result SHAE * OCT, RETINA - OU - BOTH EYES- [place] (12/17/2024 5:23 PM EDT) Narrative ROBLinda - 12/17/2024 5:53 PM EDT Intact EZ, no PVD, no IRF/SRF OU Josep Tanner MD OPHTHALMOLOGY IMAGING Final Result SHAE * OCT, Optic Nerve - OU - Both Eyes- [place]; RNFL, GCC; Disc, Macula (12/17/2024 5:23 PM EDT) Narrative SHAE - 12/17/2024 5:53 PM EDT Thinning by GCC OU Nasal increased thickness OD by RNFL OS with ST thinning by RNFL Josep Tanner MD OPHTHALMOLOGY IMAGING Final Result Performing Organization Address City/[facility]/ZIP Co de Phone Number SHAE * Autofluorescence - OU - Both Eyes (12/17/2024 2:29 PM EDT) Anatomical Region Laterality Modality Head Optical Coherenc e Tomography Narrative 12/17/2024 5:51 PM EDT WNL other than superonasal scar OS Alvaro Sewell MD OPHTHALMOLOGY IMAGING Edite d Result - Final * Color Fundus Photography - OU - Both Eyes (12/17/2024 2:29 PM EDT) Anatomical Region Laterality Modality Head Photography Narrative 12/17/2024 5:51 PM EDT Temporal pallor in both eyes OS > OD, retina attached Alvaro Sewell MD OPHTHALMOLOGY IMAGING Final Result * Outside Imaging Report Only (12/02/2024) us Scanning Interface Provider IMG XR CHEST Reva l Result * CT Abdomen/Pelvis Outside (No Interpretation) (11/22/2024 12:05 AM EDT) Other Narrative PERCIPIO_DFCI - 11/29/2024 12:35 PM EDT This study is for PACS storage only and not for interpretation. us Gavin Seymour MD IMG OUTSIDE IMAGING W/OUT INT ERPRETATION Final Result GARCIA_DFCI * CT Chest Outside (No Interpretation) (11/22/2024 12:00 AM EDT) Other Narrative KRISTY - 11/29/2024 12:34 PM EDT This study is for PACS storage only and not for interpretation. Gavin Seymour MD IMG OUTSIDE IMAGING W/OUT INT ERPRETATION Final Result GARCIA_[facility] from Last [address] [place] [address] [place] [address] MEDICARE PPO BLUE REPLACEMENT [facility] MEDICARE PPO BLUE REPLACEMENT [facility] MEDICARE PPO BLUE REPLACEMENT [facility] MEDICARE PPO BLUE REPLACEMENT [place] MEDICARE PPO BLUE REPLACEMENT Advance Directives For more information, please contact: [phone] (9AM - 5PM [facility], Friday-Friday) Documents on File Type Date Recorded Patient 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 Expl anation Healthcare Proxy 12/18/2024 12:59 PM * Full Code (Latest Code Status on File) Date Activated Date Inactivated Comments 12/18/2024 4:03 AM Question Answer Comments Code Status Confirmed With: Patient Care Teams Traffic Workforce Representative Relationship Specialty Start Date End Date Nam Arguello NP [facility] [place] [address] PCP - General Nurse Practitioner 07/26/24 Self-Referred, Patient 07/26/24 Mckay Meyers MD [address] [place] [address] 08/06/24 Additional Source Comments The information contained in this document represents components of the legal health record. It is not the complete legal health record.[facility]
--- OUTSIDE RECORDS SUMMARY | 2025-02-15 07:40 | XMS_ITS | Encounter Summary ---
Author Organization [facility] Address [address] [place] [address] [place] [phone] Phone Care Team Providers Care Precision Assembly Inspector Name Role Phone Nam Arguello NP Primary Care Provider + Self-Referred, Patient Unavailable Unavailab Mckay Fabian MD Unavailable [phone] Encounter Details Date Type Department Care Team (Late st Contact Info) Description 12/17/2024 Procedure Pass [facility] - [facility], [facility] [address] [place] [address] Social History Tobacco Use Types Packs/Day Years [...] 12/18/2024 4:00 AM Alexi Rae RN * [place] Suicide Severity Rating Scale (Screener/Recent Self-Report) Question Answer Date of Assessment Author 1. Wish to be (Past 1 Month) No 025 4:00 AM Ivory Rae RN 2. Non-Specific Active Suici jaimie Thoughts (Past 1 Month) Yes 12/18/2024 4:00 AM Ivory Rae RN 3. Active Suicidal Ideation with any Methods (Not Plan) Without Intent to Act (Past 1 Month) No 12/18/2024 4:00 AM EDT Luis Eduardo Reid RN 4. Active Suicidal Ideation with Some Intent to Act, Without Specific Plan (Past 1 Month) No 12/18/2024 4:00 AM MARCELT Luis Eduardo Reid RN 5. Active Suicidal Ideation with Specific Plan and Intent (Past 1 Month) No 12/18/2024 4:00 AM EDT Ivory Reid RN 6. Suicidal Behavior (Lifetime) No 4:00 AM EDT Ivory Reid RN documented as of this encounter Plan of Treatment Not on file documented as of this encounter Visit Diagnoses Not on filedocumented in this encounter Care Teams Precision Assembly Inspector Relationship Specialty Start Date End Date Nam Arguello NP [address] [facility] [address] PCP - General Nurse Practitioner 07/26/24 Self-Referred, Patient 07/26/24 Mckay Meyers MD [address] [place] [address] 08/06/24 documented as of this encounter Additional Source Comments The information contained in this document represents components of the legal health record. It is not the complete legal health record.[facility]
--- OUTSIDE RECORDS SUMMARY | 2025-02-15 07:40 | XMS_ITS | Encounter Summary ---
Author Organization [facility] Address [address] [place] [address] [place] [phone] Phone Care Team Providers Care Tool Dresser Name Role Phone Nam Arguello NP Primary Care Provider + Self-Referred, Patient Unavailable Unavailab Mckay Fabian MD Unavailable Encounter Details Date Type Department Care Team (Late st Contact Info) Description 01/18/2025 Procedure Pass [facility] EKG [address] [place] [address] Social History Tobacco Use Types Packs/Day Years [...] on filedocumented in this encounter Care Teams Tool Dresser Relationship Specialty Start Date End Date Nam Arguello NP [address] [facility] [place] [address] PCP - General Nurse Practitioner 07/26/24 Self-Referred, Patient 07/26/24 Mckay Meyers MD [address] [place] [address] (work) 08/06/24 documented as of this encounter Additional Source Comments The information contained in this document represents components of the legal health record. It is not the complete legal health record.[facility]
--- NOTE | 2025-02-15 07:43 | MHC.OFFVIS ---
Intake Visit Reasons: 3m/PVR Intake Note: Patient presents today for follow up on: epididymal cyst, enlarged prostate, and nocturia Urology Medication: finasteride ,myrbetriq Antibiotic Allergies: None Blood Thinners: None PVR: 8ml's Floor Hand Required: No Accompanied by: Self / Same As Patient Allergies No Known Allergies Allergy (Verified 02/15/25 08:29) Medication List - Last Reconciled 02/15/25 by MARCO A Min- albuterol sulfate 90 mcg/actuation 2 puffs PO Q6H PRN 30 days [alpha lipoic acid 10 mg PO 2XD] atorvastatin 40 mg PO QPM blood sugar diagnostic (FreeStyle Test strips) bid for diabetes dexamethasone 4 mg PO BID empagliflozin (Jardiance) 10 mg PO DAILY 90 days enoxaparin (Lovenox) 70 mg (0.7 mL) subcut Q12H 30 days finasteride 5 mg PO DAILY 90 days hztvqcitblz-armkxyiov-xqtsbvbq 100-62.5-25 mcg (Trelegy Ellipta) 1 inh inhalation DAILY folic acid 1 mg PO DAILY ipratropium-albuterol 0.5 mg-3 mg(2.5 mg base)/3 mL 3 mL inhalation Q4-6H PRN lisinopril 10 mg PO DAILY lorazepam 1 mg PO BEDTIME PRN [Magnesia 250 mg PO DAILY] mirabegron ER (Myrbetriq) 25 mg PO DAILY 30 days ondansetron 8 mg PO Q8H triamcinolone acetonide 0.5% 1 appl topical BID Vascepa (icosapent ethyl) 1 g PO BID 90 days NS HPI Comments Details: Bj is a very pleasant 74 year-old male patient of . He has a past medical history of asthma, hypertension, and hyperlipidemia. He presents to the office today for follow-up of his enlarged prostate and lower urinary tract symptoms. During last office visit patient was started on Myrbetriq 25 mg daily for ongoing lower urinary tract symptoms he had been experiencing (urinary urgency, urinary frequency, and nocturia). However, he reports he is unsure how helpful this has been as he has had other issues going on. He discusses his daughter who was his healthcare proxy has recently been admitted to the hospital as she is in a manic episode. He discusses having recently started therapy through [facility] as he feels very overwhelmed with his metastatic lung cancer and family issues. In office urinalysis results reviewed with the patient today. PVR 8 mL. We did discuss further treatment options of lower urinary tract symptoms and risks and benefits of these treatment options. He would like to continue with current management at this time. We discussed the importance of management and diabetes for improvement in lower urinary tract symptoms as well as overall health and well-being. We discussed bladder triggers and irritants. He denies incontinence, hematuria, dysuria, foul smelling urine, changes to urinary stream, flank pain, fever, and or chills. He is happy with his current voiding parameters. Patient previously trialed Flomax however did not find this helpful and was experiencing retrograde ejaculation and did not wish to trial different alpha-alicia. PSA 06/18 1.6, 07/20 0.4 Patient with previous abdominal ultrasound noting 04/17 bilateral tiny cysts that require no follow-up imaging per radiology report. Symmetrical nephrograms. No nephrolithiasis or hydronephrosis. The bladder is unremarkable. All questions were answered. He otherwise offers no other issues or concerns at this time. [facility] Medical History Optic neuritis Rash and nonspecific skin eruption GERD (gastroesophageal reflux disease) Diabetes Lung cancer Osteoarthritis of shoulders, bilateral Personal history of nicotine dependence Dyslipidemia Asthma HTN (hypertension) Tubular adenoma of colon Lipoma Surgical History History of right inguinal hernia repair History of colonoscopy History of laparoscopic cholecystectomy (01/23/24) Hx of excision of mass Family History Mother Mental health disorder Colon cancer Brother Prostate cancer Social History Household Members: None Housing: House Are you a primary prompt care rn to a significant other at home: No Do you presently have visiting nurse or other home services: No Comment: ache Patient Tobacco Use Status: Former Tobacco user Tobacco use type: Cigarette Years Smoked: (onset 20yo, 1ppd x 51yrs, 50pyh - quit 2010) e-Cigarette/Vaping Use: Never Used Advance Directives Date on File: 11/27/21 service: No Current occupational status: retired Cognitive needs: No Hearing needs: No Vision needs: No Review of Systems Const Reports as per HPI Eyes Reports no additional complaints ENT Reports no additional complaints Card Reports as per HPI Resp Reports as per HPI GI Reports no additional complaints Reports as per HPI Musc Reports no additional complaints Neuro Reports no additional complaints Psych Reports no additional complaints Endo Reports no additional complaints Rocky/Lymph Reports as per HPI Aller/Immun Reports no additional complaints Physical Exam Const General: cooperative, healthy appearing, comfortable, no acute distress, well developed, alert and awake Orientation/consciousness: patient oriented x3 Limitations: no limitations HEENT Head: Yes normal to inspection, Yes normocephalic and Yes atraumatic Ears: hearing grossly normal bilaterally Eyes General: appearance normal, both eyes and all related structures Neck Neck: Yes normal visual inspection and Yes trachea midline Chest Chest palpation & inspection: normal inspection of the chest Resp Effort & Inspection: normal respiratory effort and able to speak in complete sentences Cardio Rate: regular rate GI Inspection: Yes normal to inspection General: Yes no CVA tenderness Back/Spine/Pelvis Back: no CVA tenderness Skin General skin exam: no rashes or lesions noted Neuro General: patient oriented x3 Extrem General: Yes normal to inspection Psych Appearance: grossly normal and well kempt Mental Status: mental status grossly normal Speech and movement: Normal speech and movement present and Clear speech present Affect: normal affect Attitude: cooperative Thought process: Normal thought process present Thought content: Normal thought content present Insight: Fair insight present (Psych) Judgement: Fair judgement present (Psych) Assessment & Plan Assessment & Plan (1) Lower urinary tract symptoms: Code(s): R39.9 - Unspecified symptoms and signs involving the genitourinary system Category: Medical (2) Enlarged prostate: Code(s): N40.0 - Benign prostatic hyperplasia without lower urinary tract symptoms Category: Medical (3) Weak urinary stream: Code(s): R39.12 - Poor urinary stream Category: Medical (4) Nocturia: Code(s): R35.1 - Nocturia Category: Medical Plan In office urinalysis results reviewed with the patient today; as noted above. PVR 8 mL. We did discuss potential causes of lower urinary tract symptoms patient is experiencing as well as further treatment options and risks and benefits of these treatment options. We discussed the importance of management and diabetes for improvement overall health and well-being. We discussed bladder triggers/irritants. We discussed the importance of limiting fluids 2-3 hours prior to bed to decrease episodes of nocturia. Continue Myrbetriq and finasteride as discussed and prescribed Follow-up in 6 months with PSA and PVR; or sooner with any issues, concerns, and or questions. Orders: Orders Prostate Specific Antigen 6 Months N40.0 - Benign prostatic hyperplasia without lower urinary tract symptoms, R35.1 - Nocturia, R39.12 - Poor urinary stream, R39.9 - Unspecified symptoms and signs involving the genitourinary system Patient Instructions: The patient had an opportunity to ask questions regarding the treatment plan. All questions were answered. Physical exam, labs, and imaging were discussed and reviewed in detail. As well as risks, benefits, and discussion of treatment choices. No major barriers to understanding were identified. The patient expressed understanding and agreement with the above treatment plan. The patient was made aware they should contact our office by phone for worsening of their current condition, the appearance of new symptoms, or with any questions or concerns. Compliance is encouraged with any medications and follow up testing that is ordered. It is a privilege to be allowed the opportunity to participate in? your urological care.? Again, if you have any questions or concerns If you have any questions or concerns please do not hesitate to contact me. The office is [phone]. This note is constructed using voice recognition software. While every effort has been made to ensure accuracy rail signal mechanic errors may have been included. Yours sincerely, EDER Min Coding Level of Care Code Est Pt Level 3 (69971) Complex EM visit Add On G2211 Diagnoses Lower urinary tract symptoms R39.9 Enlarged prostate N40.0 Weak urinary stream R39.12 Nocturia R35.1
== END 2025-02-15 08:28 | disposition home or self-care (01) ==
LOC: HO.HUSH 07:37
PROVIDERS: PCP Nurse Practitioner Family; Visit Provider Nurse Practitioner Family
DX: R39.9 Unspecified symptoms and signs involving the genitourinary system (principal); N40.0 Benign prostatic hyperplasia without lower urinary tract symptoms; R39.12 Poor urinary stream; R35.1 Nocturia; Z13.9 Encounter for screening, unspecified
CPT/HCPCS: 99213; G2211

== ENCOUNTER → 2025-02-15 07:36 | Outpatient (BNVA) | payer MEDICARE, SELFPAY | PROVIDERS: PCP Nurse Practitioner Family; Visit Provider Nurse Practitioner Family | DX: N40.1 Benign prostatic hyperplasia with lower urinary tract symptoms (principal); R35.1 Nocturia; R39.12 Poor urinary stream; R39.9 Unspecified symptoms and signs involving the genitourinary system | CPT/HCPCS: 81003; 99212 ==

== ENCOUNTER 2025-03-16 12:49 | Outpatient (AMB) | payer MEDICARE, SELFPAY ==
--- NOTE | 2025-03-16 12:57 | A.OFFPC_ITS ---
Vital Signs 03/16/25 13:01 Height 5 ft 8 in Weight 150 lb BMI 22.8 BP 126/64 Blood Pressure Location Lt brachial Position Sitting Respiration 16 Pulse 96 Pulse Source Pulse Oximeter Temp 97.6 F Temp Source Oral Pulse Oximetry (%) 95 Oxygen Delivery Method Room Air Intake Visit Reasons: 4m f/u Gusset Edger Required: No Accompanied by: Self Allergies No Known Allergies Allergy (Verified 03/16/25 13:01) Tobacco use date assessed: 10/28/24 Fall risk assessment: No Falls in past year Last assessed Fall Risk: 03/16/25 Dental Screening Dental Screen Date: 03/16/25 Did you have a dental visit in the last 12 months?: Yes Did you have a dental problem in the last 6 months where you did not have access to dental care?: No HPI 4m f/u HPI Details Chief Complaint The patient presents for a follow-up regarding diabetes management and cancer treatment. History of Present Illness The patient is a 75-year-old male presenting with a follow-up for diabetes management and ongoing cancer treatment. His Type 2 Diabetes Mellitus is well- controlled with an A1c of 6.3, despite receiving chemotherapy and dexamethasone regularly. He continues to follow up with oncology for non-small cell lung cancer, which has metastasized to the liver and bone, specifically the L5 vertebral body (it appears). The patient was previously on immunotherapy, which was discontinued due to retinal issues. Currently, he is on one chemotherapeutic agent administered weekly and continues to undergo PET scans and imaging through oncology. He reports doing well, with no significant weight loss and remains active. His thyroid function shows variability, and there is a possibility of requiring low- dose levothyroxine in the future. itching skin, especially along spine, thought to be dermatitis from chemo. Social History - Level of Activity: The patient remains active despite ongoing cancer treatment. Health Maintenance - Diabetes Management: A1c is well-contr olled at 6.3. - Thyroid Monitoring: Continued observat ion of thyroid function with potential future levothyroxine therapy. Review of Systems - General: Reports no significant weight loss, gaining weight. - Endocrine: Reports stable diabetes con trol, thyroid variability. -denies any recent fevers, chills, N/V, CP, increased SOB. Does report some fatigue with heavy exertion. Physical Exam General: Cooperative, healthy appearing, comfortable, no acute distress and well developed Orientation: Patient oriented x3 Limitations: No limitations Head: Normal to inspection Ears: Hearing grossly normal bilaterally Nose: Normal external nose present Face and sinus: Normal facial exam Eyes: Appearance normal, both eyes and all related structures Neck: Normal visual inspection and Yes full ROM Respiratory: Lungs were fairly clear bilaterally, slightly diminished Cardiovascular: S1, S2, though difficult to auscultate GI: Normal to inspection. Soft to palpation and nontender Skin: dry macular dermatitis to center back running along spine region (thought to be from chemo, seeing derm in 2 months) Neuro: Patient oriented x3 Extremities: Normal to inspection Results - Labs: A1c at 6.3, indicating well-cont rolled diabetes. - Imaging: Ongoing PET scans and imaging for cancer monitoring. Plan Patient was informed and verbally consented to the use of an ambient scribe for clinic note documentation during this visit. 1. Type 2 Diabetes Mellitus The patient's diabetes is well-controlled with an A1c of 6.3, despite chemotherapy and dexamethasone use. No changes to the current diabetes management plan are necessary at this time. 2. Non-Small Cell Lung Cancer With Metas tasis The patient continues to receive chemotherapy for non-small cell lung cancer with metastasis to the liver and bone. He is under regular oncology follow-up, with ongoing PET scans and imaging. Future plans include possible radiation therapy to the L5 vertebral body and a biopsy. 3. Retinal Issues Due To Immunotherapy Immunotherapy was discontinued due to retinal issues, and the patient is currently not on any immunotherapy. 4. Thyroid Function Variability The patient's thyroid function is being monitored, with potential future need for low-dose levothyroxine therapy. Discussion Notes During the visit, we discussed the patient's well-controlled diabetes and ongoing cancer treatment. The patient is to continue with his current chemotherapy regimen and regular oncology follow-ups. We also reviewed the potential need for future radiation therapy and biopsy for the L5 vertebral body. The importance of monitoring thyroid function was emphasized, with the possibility of introducing levothyroxine therapy if needed. Patient Instructions - Continue current diabetes management a nd monitor blood sugar levels regularly. - Follow up with oncology as scheduled f or ongoing cancer treatment and monitoring. - Be aware of any changes in vision and report them immediately due to previous retinal issues. - Monitor thyroid function and discuss a ny symptoms with your healthcare provider. [facility] Medical History Optic neuritis Rash and nonspecific skin eruption GERD (gastroesophageal reflux disease) Diabetes Lung cancer Osteoarthritis of shoulders, bilateral Personal history of nicotine dependence Dyslipidemia Asthma HTN (hypertension) Tubular adenoma of colon Lipoma Surgical History History of right inguinal hernia repair History of colonoscopy History of laparoscopic cholecystectomy (01/23/24) Hx of excision of mass Family History Mother Mental health disorder Colon cancer Brother Prostate cancer Social History Household Members: None Housing: House Are you a primary daycare assistant to a significant other at home: No Do you presently have visiting nurse or other home services: No Comment: ache Patient Tobacco Use Status: Former Tobacco user Tobacco use type: Cigarette Years Smoked: (onset 20yo, 1ppd x 51yrs, 50pyh - quit 2010) e-Cigarette/Vaping Use: Never Used Advance Directives Date on File: 11/27/21 service: No Current occupational status: retired Cognitive needs: No Hearing needs: No Vision needs: No Questionnaire PHQ-9 Over the last 2 weeks, how often have you been bothered by any of the following problems? 1. Little interest or pleasure in doing things: not at all 2. Feeling down, depressed, or hopeless: not at all 3. Trouble falling or staying asleep, or sleeping too much: not at all 4. Feeling tired or having little energy: not at all 5. Poor appetite or overeating: not at all 6. Feeling bad about yourself - or that you are a failure or have let yourself or your family down: not at all 7. Trouble concentrating on things, such as reading the newspaper or watching television: not at all 8. Moving or speaking so slowly that other people could have noticed. Or the opposite - being so fidgety or restless that you have been moving around a lot m ore than usual: not at all 9. Thoughts that you would be better off or of hurting yourself in some way: not at all Total score: 0 Depression Screening Interpretation: Negative Depression Screening Done: Yes 96394 - PHQ-9 Billing: Yes Source: Developed by Drs. Kyle Bravo, Yareli Josue, Lucho Dhaliwal and colleagues, with an educational leyla from [employer]. Thrive Questionnaire Date Thrive assessed: 06/08/24 I am a: Patient What is your living situation today?: I have a steady place to live Within the past 12 months, did the food you bought not last and you didn't have the money to get more?: Never true Within the past 12 months, did you worry whether your food would run out before you got money to buy more?: Never true Do you have trouble paying for medicines?: No Do you have trouble getting transportation to medical appointments?: No Do you have trouble paying your heating and electricity bill?: No Do you have trouble taking care of your child, family member or friend?: No Do you have trouble with day-to-day activities such as bathing, preparing meals, shopping, managing finances, etc.?: No Are you currently unemployed and looking for a job?: No Are you interested in more education?: No Please select the resources that you would like help with: None Currently or been in a relationship where the following occur: No concerns reported THRIVE Score: 0 ANDRIY-7 AMB Questionnaire ANDRIY-7 Date ANDRIY - 7 assessed: 03/16/25 Feeling nervous, anxious, or on edge: 0 = Not at all Not being able to stop or control worryin = Not at all Worrying too much about different things: 0 = Not at all Trouble relaxin = Not at all Being so restless that it is hard to sit still: 0 = Not at all Becoming easily annoyed or irritable: 0 = Not at all Feeling afraid as if something awful might happen: 0 = Not at all Total ANDRIY-7 score (0-4 normal; 5-9 mild; 10-14 moderate; 15-21 severe): 0 Source: Developed by Drs. Kyle Bravo, Lucho Bryant and colleagues, with an educational leyla from [employer]. ANDRIY-7 Assessment Billing ANDRIY-7 Assessment Tool: ANDRIY-7 Assessment 95045 Physical exam (Primary Care) Vital Signs: Last Vital Signs Temp 97.6 F 03/16/25 13:01 Pulse 96 03/16/25 13:01 Resp 16 03/16/25 13:01 BP 126/64 03/16/25 13:01 Pulse Ox 95 03/16/25 13:01 Oxygen Delivery Method Room Air 03/16/25 13:01 BMI result Body Mass Index 22.8 Tobacco/Smoking Status: Tobacco use Status Tobacco use date assessed 10/28/24 03/16/25 12:58 Patient Tobacco Use Status Former Tobacco user 03/16/25 12:58 Tobacco use type Cigarette 03/16/25 12:58 e-Cigarette/Vaping Use Never Used 03/16/25 12:58 PHQ-9: PHQ-9 Score PHQ-9: Total score 0 03/16/25 14:03 Depression Screening Interpretation: Negative Thrive Assessment: Date of Thrive Assessment Date Thrive assessed 06/08/24 03/16/25 12:58 Currently or been in a relationship where the following occur: No concerns reported Coding Level of Care Code Est Pt Level 3 (99166) Diagnoses Diabetes E11.9 Carcinoma, lung C34.90 Metastatic lung cancer (metastasis from lung to other site) C34.90 Elevated TSH R79.89 Additional Codes ANDRIY-7 Assessment Billing - ANDRIY-7 Assessment Tool: ANDRIY-7 Assessment 18024 ([id number]) PHQ-9 - 99099 - PHQ-9 Billing: Yes ([id number]) Assessment & Plan Assessment & Plan (1) Diabetes: Code(s): E11.9 - Type 2 diabetes mellitus without complications Category: Medical (2) Carcinoma, lung: Code(s): C34.90 - Malignant neoplasm of unspecified part of unspecified bronchus or lung Category: Medical (3) Metastatic lung cancer (metastasis from lung to other site): Code(s): C34.90 - Malignant neoplasm of unspecified part of unspecified bronchus or lung Category: Medical (4) Elevated TSH: Code(s): R79.89 - Other specified abnormal findings of blood chemistry Category: Medical Plan . Orders: Orders Microalbumin, Random (w Creat) Today - Other specified abnormal findings of blood chemistry TSH reflex Free T4 Today R7.89 - Other specified abnormal findings of blood chemistry UA CC w/rflx Micro + Cult Today - Other specified abnormal findings of blood chemistry
[2025-03-16 13:01] VITALS: BP 126/64; PULSE 96; RESP 16; TEMP 36.4; O2SAT 95; BMI 22.8
--- OUTSIDE RECORDS SUMMARY | 2025-03-16 17:49 | XMS_ITS | Data Portability ---
Author Organization [place] [facility], [facility] Address [address] [place] [address] Care Team Providers Care Senior Teller Name Role Phone CHERYL GUEVARA Primary Care Provider [phone] Assessment No assessment recorded. 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 - [facility] 08:41:29 Problem Notes None recorded. Procedures Surgical History Date Name Laterality Status Provider Name and Address Organization Details Recorded Time 12/24/19 25 Sports Shoulder Bilateral 4 & 1 w/US completed Cornelio Herr PA-C [address], [place], [address], [facility]] [facility] 12/23/2024 08:51:33 09/10/19 25 Sports Shoulder Bilateral 4 & 1 w/US completed SHAYNA Field-C [address], [place], [address], [facility] 09/09/2024 08:41:18 06/11/19 25 Sports Shoulder Bilateral completed SHAYNA Field-C [address], [place], [address], [facility]] [facility] 06/25/2024 08:24:45 03/05/20 24 Sports Shoulder Bilateral completed SHAYNA Field-C [address], [place], [address], [facility]] [facility] 03/05/2024 08:30:30 12/05/19 24 Sports Shoulder Bilateral completed SHAYNA Field-C [address], [place], [address], [facility] 12/05/2023 08:40:55 08/29/19 24 Sports Shoulder Bilateral completed SHAYNA Field-C [address], [place], [address], [facility] 08/29/2023 08:33:59 01/22/20 04 Gastrointestinal Surgery completed Sandra Can [facility] 03/05/2024 08:21:20 Imaging Results None recorded. Procedure Notes None recorded. Medical Equipment None Reported. Allergies Allergen ID Allergen Name Allergen Category Reaction Reaction Severity Criticality Documentation Date Start Date Code Code System Note Provider Name and Address Organization Details Recorded Time 158445 acetamino phen / oxycodone medicatio n Not available Not available Not available 07/28/20232022 61383 3 RxNorm Not Available [facility] 16:12:52 Medications Name Sig Start Date Stop Date Status Note LastModified by Organization Details LastModified Time amoxicillin 500 mg capsule TAKE 2 TABLETS BY MOUTH RIGTH AWAY THEN 1 TABLET 3 TIMES A DAY UNTIL FINISHED 04/03 /2024 completed Not Available Not Available Not Available [...] Not Available Not Available No t Available triamcinolo ne acetonide 0.5 % topical cream APPLY TO AFFECTED AREAS OF SKIN TWICE A DAY active Not Available Not [...] mg tablet TAKE 2 TABLETS BY MOUTH DAILY WITH FOOD active Not Available Not Available No t Available triamcinolo ne acetonide 0.1 % topical cream APPLY TOPICALLY TO AFFECTED AREAS OF SKIN TWICE A DAY active Not Available Not Available No t Available ondansetron 8 mg disintegrat ing tablet DISSOLVE 1 TAB BY MOUTH EVERY 8 HOURS active Not Available Not Available No t Available oxycodone-a cetaminophe n 5 mg-325 mg tablet TAKE 1 TABLET BY MOUTH EVERY 4 TO 6 HOURS NEEDED FOR PAIN 03/05 completed Not Available Not Available Not Available famotidine 20 mg tablet PLEASE SEE ATTACHED FOR DETAILED DIRECTION S active Not Available Not Available No t Available lorazepam 0.5 mg tablet TAKE 1 TABLET BY MOUTH AT BEDTIME NEEDED FOR INSOMNIA AND ANXIETY active Not Available Not Available No t Available tamsulosin 0.4 mg capsule 08/28 completed [...] mg tablet TAKE 1 TABLET BY MOUTH BEDTIME NEEDED FOR INSOMNIA AND ANXIETY active Not Available Not Available No t Available cefuroxime axetil 500 mg tablet TAKE 1 TABLET BY MOUTH EVERY DAY EVERY 12 HOURS 12/20 completed Not Available Not Available Not Available methylpredn isolone 4 mg tablets in [...] (0.7 ML) SUBCUTANE OUSLY EVERY 12 HOURS FOR 30 DAYS active Not Available Not Available No t Available Flovent HFA 110 mcg/actuati on aerosol inhaler 08/26 completed Not Available Not Available Not Available hydrochloro thiazide 12.5 mg tablet TAKE 1 TABLET DAILY active Not Available Not Available No t Available FreeStyle Lite Meter kit TWICE A DAY TESTING FOR DIABETES active Not Available Not Available No t Available Myrbetriq 25 mg tablet,exte nded release TAKE 1 TABLET BY MOUTH DAILY active Not Available Not Available No t Available Vascepa 1 gram capsule TAKE 1 CAPSULE TWICE DAILY active Not Available Not Available No t Available Eliquis 5 mg tablet TAKE 1 TABLET TWICE A DAY 09/09 completed Not Available Not Available Not Available potassium chloride ER 20 mEq tablet,exte nded release TAKE 1 TABLET BY MOUTH DAILY active Not Available Not Available No t Available Jardiance 10 mg tablet TAKE 1 TABLET DAILY active Not Available Not Available No t Available Arnuity Ellipta 100 mcg/actuati on powder for inhalation USE 1 INHALATIO N ORALLY DAILY active Not Available Not Available No t Available Trelegy Ellipta 100 mcg-62.5 mcg-25 mcg powder for inhalation USE 1 INHALATIO N [...] Updated DateTime 06/11/2024 175.26 cm 25.8 kg/m2 95755.66 g Sandra Can [facility] 06/11/2024 08:22:49 Date Recorded Body height Body mass index (BMI) Body weight Provider Name and Address Organization Details Last Updated DateTime 09/09/2024 175.26 cm 25.8 kg/m2 69287.66 g Sandra Can [facility] 09/09/2024 08:25:11 Date Recorded Body height Body mass index (BMI) Body weight Provider Name and Address Organization Details Last Updated DateTime 12/05/2023 175.26 cm 25.8 kg/m2 55977.66 g Cornelio Herr PA-C [address], [place], [address], [place] [facility] 12/05/2023 08:32:08 Date Recorded Body height Provider Name an d Address Organization Details Last Updated DateTime 12/23/2024 175.26 cm Sandra Can [facility] 12/23/2024 08:51:03 Date Recorded Body height Body mass index (BMI) Body weight Provider Name and Address Organization Details Last Updated DateTime 03/05/2024 175.26 cm 25.8 kg/m2 48389.66 g Sandra Pamella [facility] 03/05/2024 08:23:05 Social History None recorded. [...] Kidney/Bladder Problems N Anemia N Heart Attack ([place]) N Diabetes Y Bleeding Disorder N Seizures/Epilepsy N AIDS/HIV N Congestive Heart Failure (CHF) N Asthma Y Peripheral Vascular Disease N Sleep Apnea N Hepatitis N Heart Disease N Pulmonary Embolism N Hypertension Y Osteoporosis N Past Encounters Encounter ID Performer Location Encounter Start Date Encounter Closed Date Diagnosis/Indication Diagnosis SNOMED-CT Code Diagnosis ICD10 Code Diagnosis IMO Codes Diagnosis Note [id number] [place] [id number] 08/29/2023 08:20:43 09/18/2023 11:58:44 Osteoarthritis of left glenohumeral joint 4708042703 183456 M19.012 Osteoarthr itis of right glenohumeral joint 3690387576 690561 M19.[id number] [place] [id number] 12/05/2023 08:23:37 01/02/2024 10:37:31 Osteoarthritis of left glenohumeral joint 9266211778 767435 M19.012 Osteoarthr itis of right glenohumeral joint 1775346472 316442 M19.445 [id number] [facility] [address] [place] [id number] 03/05/2024 08:18:56 03/31/2024 10:29:40 Osteoarthritis of left glenohumeral joint 9540082826 939463 M19.012 Osteoarthr itis of right glenohumeral joint 7984577065 400965 M19.213 [id number] [facility] [address] [place] [id number] 06/11/2024 08:19:16 07/12/2024 13:53:12 Osteoarthritis of bilateral glenohumeral joints 6689114520 898945 M19.011 M19.012 [id number] [facility] [address] [place] [id number] 09/09/2024 08:19:59 09/28/2024 14:05:58 Osteoarthritis of bilateral glenohumeral joints 2941529498 908566 M19.011 M19.012 [id number] [facility] [address] [place] [id number] 12/23/2024 08:47:44 12/31/2024 08:53:03 Osteoarthritis of bilateral glenohumeral joints 2143925809 569959 M19.011 M19.012 [id number] Health Concerns Section Related Observation LastModified by Organization Detai ls LastModified Time None Recorded Concern Status LastModified by Organization Details LastModified Time None Recorded Advance Directives Directive None Recorded Payers Insurance Date Sequence Insurance Name Policy Number Policy Almodovar Covered Member ID Almodovar Member ID Guarantor Name 03/07/2025 1 [place] (MEDICARE REPLACEMENT PPO) [id number] Bj Lara [id number] Bj Lara Notes Date Note Type Note Provider Name [...] up as needed. Cornelio Herr PA-C [address] [facility], [place], [address], [facility] - [facility] 12/05/2023 [...] up as needed. Cornelio Herr PA-C [address], [place], [address], [facility]3] [facility] 03/05/2024 [...] coordination, reflexes, sensation are within normal limits.ASSESSMENTbilater il glenohumeral joint arthritisPLANThe patient has done well with conservative management in regards to the shoulder. Continued conservative management recommended. Moderating activities with the upper extremity recommended also. See procedure note. Follow up as needed. Cornelio Herr PA-C [address], [place], [address], [facility]3] [facility] 06/25/2024 08:24:47 5 text/html I am [...] up as needed. Cornelio Herr PA-C [address], [place], [address], [facility]3] [facility] 09/09/2024 08:42:13 5 text/html I am seeing the patient today under the supervision of Dr. Rooney who was available but who did not [...] up as needed. Cornelio Herr PA-C [address], [place], [address], [facility]] [facility] 12/23/2024 08:52:26
== END 2025-03-16 13:56 | disposition home or self-care (01) ==
LOC: HO.HMCC 12:50
PROVIDERS: PCP Nurse Practitioner Family; Visit Provider Nurse Practitioner Family
DX: E11.9 Type 2 diabetes mellitus without complications (principal); C34.90 Malignant neoplasm of unspecified part of unspecified bronchus or lung; R79.89 Other specified abnormal findings of blood chemistry

== ENCOUNTER → 2025-03-16 12:49 | Outpatient (BNVA) | payer MEDICARE, SELFPAY | PROVIDERS: PCP Nurse Practitioner Family; Visit Provider Nurse Practitioner Family | DX: E11.9 Type 2 diabetes mellitus without complications (principal); C34.90 Malignant neoplasm of unspecified part of unspecified bronchus or lung; C78.7 Secondary malignant neoplasm of liver and intrahepatic bile duct; C79.51 Secondary malignant neoplasm of bone; R79.89 Other specified abnormal findings of blood chemistry | CPT/HCPCS: 96127; 99212 ==

== ENCOUNTER 2025-05-17 11:48 | Outpatient (REF) | payer MEDICARE, SELFPAY ==
--- NOTE | 2025-05-09 14:33 | MHC.HEMONCMA ---
Addendum entered by Radha Schwartz MA 05/10/25 16:30: pt called back and left vm today, msg sent to Dr. Meyers as Anne out of office today. Original Note: Triage - Pt called requesting to speak with Anne regarding discontinuing Dexamethasone. Wanted to know if he should wean off and how best to do that. Requesting a call back when possible. Msg sent to Anne and Dr. Meyers
--- NOTE | ~2025-05-17 | CT_ITS ---
EXAMINATION: CT CHEST WITH IV CONTRAST, CT ABDOMEN PELVIS WITH IV CONTRAST INDICATION: On [id number] lung carcinoma COMPARISON: Comparison made with the prior examination dated 11/22/2024.. TECHNIQUE: CT scan of the chest, abdomen and pelvis was performed following administration of 85 mL Omnipaque 350 using standard departmental protocol. Coronal and sagittal reformatted images were generated and reviewed. The patient received oral contrast material. This CT exam was performed with one or more of the following dose reduction techniques: automated exposure control, adjustment of the mA and/or kV according to patient size, use of iterative reconstruction technique. DLP: 863 mGy-cm CHEST: THYROID: The thyroid is unremarkable. LUNGS: The previously seen right upper lobe mass invading the mediastinum larger in size measuring approximately 6.6 x 5.4 x 3.1 cm (previously approximately 6.4 x 5.3 x 2.1 cm). No pulmonary nodules are identified. MEDIASTINUM: There is a superior mediastinal lymph node measuring 1.3 cm (previously 0.7 cm). KALI: There is no hilar lymphadenopathy. CARDIOVASCULATURE: The heart is normal in size. There is no pericardial effusion. The thoracic aorta is normal in caliber. DEGREE OF CORONARY CALCIFICATION: not evaluable, due to dense contrast in the coronary arteries. PLEURA: There is no pleural effusion. No pneumothorax. MAIN AIRWAYS: There is narrowing of the right upper lobe bronchus which is more prominent than on the prior study. AXILLA: There is no axillary lymphadenopathy. SOFT TISSUES: Unremarkable. BONES: There is degenerative disc disease of the spine. ABDOMEN: LIVER: The liver is normal in size and contour. A mass in segment VIII is larger in size measuring 1.9 cm (previously 1.1 cm. No additional liver mass is identified. The hepatic and portal veins are patent. GALLBLADDER / BILE DUCTS: The gallbladder is surgically absent. There is no intra or extrahepatic biliary ductal dilatation. SPLEEN: The previously seen hypodense lesion at the superior aspect of the spleen is smaller measuring 4 mm in size. PANCREAS: The pancreas is unremarkable in appearance. ADRENAL GLANDS: There is new moderate to marked thickening of the right adrenal limbs, consistent with a metastatic deposit. The left adrenal gland is unremarkable. KIDNEYS/RETROPERITONEUM: No renal calculi are identified. There is no hydronephrosis. There is a 1.3 cm left renal cyst. LYMPH NODES: There are enlarged periportal lymph nodes measuring up to 1.8 cm in size. There is an 11 mm pericaval lymph node VASCULATURE: The abdominal aorta demonstrates atherosclerotic calcification, but is normal in caliber. MESENTERY/PERITONEUM: No free fluid. No masses. There is no free intraperitoneal gas. STOMACH: The stomach is collapsed, limiting evaluation. SMALL BOWEL: The small bowel is normal in caliber. COLON: The colon is unremarkable. APPENDIX: Normal. URINARY BLADDER/PELVIC ORGANS: The urinary bladder is unremarkable. There are calcifications of the prostate. BONES / SOFT TISSUES: There is degenerative disc disease of the spine. CT/CT abdomen pelvis w IV con IMPRESSION: 1. Interval enlargement of the previously seen right upper lobe mass invading the mediastinum, with greater narrowing of the right upper lobe bronchus. Enlargement of a right superior mediastinal lymph node. 2. 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 3. New right adrenal metastatic lesion. 4. New periportal and paracaval lymphadenopathy. Electronically signed by: Kyle Nova MD 05/17/2025 02:50 PM [facility]
--- NOTE | ~2025-05-17 | CT_ITS ---
EXAMINATION: CT CHEST WITH IV CONTRAST, CT ABDOMEN PELVIS WITH IV CONTRAST INDICATION: On [id number] lung carcinoma COMPARISON: Comparison made with the prior examination dated 11/22/2024.. TECHNIQUE: CT scan of the chest, abdomen and pelvis was performed following administration of 85 mL Omnipaque 350 using standard departmental protocol. Coronal and sagittal reformatted images were generated and reviewed. The patient received oral contrast material. This CT exam was performed with one or more of the following dose reduction techniques: automated exposure control, adjustment of the mA and/or kV according to patient size, use of iterative reconstruction technique. DLP: 863 mGy-cm CHEST: THYROID: The thyroid is unremarkable. LUNGS: The previously seen right upper lobe mass invading the mediastinum larger in size measuring approximately 6.6 x 5.4 x 3.1 cm (previously approximately 6.4 x 5.3 x 2.1 cm). No pulmonary nodules are identified. MEDIASTINUM: There is a superior mediastinal lymph node measuring 1.3 cm (previously 0.7 cm). KALI: There is no hilar lymphadenopathy. CARDIOVASCULATURE: The heart is normal in size. There is no pericardial effusion. The thoracic aorta is normal in caliber. DEGREE OF CORONARY CALCIFICATION: not evaluable, due to dense contrast in the coronary arteries. PLEURA: There is no pleural effusion. No pneumothorax. MAIN AIRWAYS: There is narrowing of the right upper lobe bronchus which is more prominent than on the prior study. AXILLA: There is no axillary lymphadenopathy. SOFT TISSUES: Unremarkable. BONES: There is degenerative disc disease of the spine. ABDOMEN: LIVER: The liver is normal in size and contour. A mass in segment VIII is larger in size measuring 1.9 cm (previously 1.1 cm. No additional liver mass is identified. The hepatic and portal veins are patent. GALLBLADDER / BILE DUCTS: The gallbladder is surgically absent. There is no intra or extrahepatic biliary ductal dilatation. SPLEEN: The previously seen hypodense lesion at the superior aspect of the spleen is smaller measuring 4 mm in size. PANCREAS: The pancreas is unremarkable in appearance. ADRENAL GLANDS: There is new moderate to marked thickening of the right adrenal limbs, consistent with a metastatic deposit. The left adrenal gland is unremarkable. KIDNEYS/RETROPERITONEUM: No renal calculi are identified. There is no hydronephrosis. There is a 1.3 cm left renal cyst. LYMPH NODES: There are enlarged periportal lymph nodes measuring up to 1.8 cm in size. There is an 11 mm pericaval lymph node VASCULATURE: The abdominal aorta demonstrates atherosclerotic calcification, but is normal in caliber. MESENTERY/PERITONEUM: No free fluid. No masses. There is no free intraperitoneal gas. STOMACH: The stomach is collapsed, limiting evaluation. SMALL BOWEL: The small bowel is normal in caliber. COLON: The colon is unremarkable. APPENDIX: Normal. URINARY BLADDER/PELVIC ORGANS: The urinary bladder is unremarkable. There are calcifications of the prostate. BONES / SOFT TISSUES: There is degenerative disc disease of the spine. CT/CT chest w IV con IMPRESSION: 1. Interval enlargement of the previously seen right upper lobe mass invading the mediastinum, with greater narrowing of the right upper lobe bronchus. Enlargement of a right superior mediastinal lymph node. 2. 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 3. New right adrenal metastatic lesion. 4. New periportal and paracaval lymphadenopathy. Electronically signed by: Kyle Nova MD 05/17/2025 02:50 PM [facility]
--- OUTSIDE RECORDS SUMMARY | 2025-05-17 13:06 | XMS_ITS | Encounter Summary ---
Author Organization [facility] Address [address] [place] [address] [place] [phone] Phone Care Team Providers Care Environmental Resource Specialist Name Role Phone Nam Arguello NP Primary Care Provider + Self-Referred, Patient Unavailable Unavailab Mckay Fabian MD Unavailable [phone] Reason for Visit * Reason Onset Date Comments PreAuth 04/19/2025 Encounter Details Date Type Department Care Team (Late st Contact Info) Description 04/19/2025 Telephone [facility] [place] [facility] [address] [place] [address] Nam Jason MD [address] [place], [place] [id number] [email or web address] PreAut Social History Tobacco Use Types Packs/Day Years [...] PM EST documented as of this encounter Progress Notes * Adriana Rea - 04/20/2025 9:33 AM EST Authorization pending. Radiation therapy approved. IGRT denied. Information scanned. Requested a fast appeal for IGRT, Received call from Alba from [employer] and she stated that IGRT has been approved. ([phone]) documented in this encounter Plan of Treatment Upcoming Encounters Date Type Department Care Team (Late st Contact Info) Description 06/15/2025 3:00 PM EST Telemedicine - audio only [facility] [address] [place] [address] Nam Jason MD [address] [place] [address] [email or web address] documented as of this encounter Visit Diagnoses Not on filedocumented in this encounter Care Teams Environmental Resource Specialist Relationship Specialty Start Date End Date Nam Arguello NP [address] [place] [address] PCP - General Nurse Practitioner 07/26/24 Self-Referred, Patient 07/26/24 Mckay Meyers MD [address] [place] [address] 08/06/24 documented as of this encounter Additional Source Comments The information contained in this document represents components of the legal health record. It is not the complete legal health record.[facility]
--- OUTSIDE RECORDS SUMMARY | 2025-05-17 13:06 | XMS_ITS | Encounter Summary ---
Author Organization [facility] Address [address] [place] [address] [place] [address] Phone Care Team Providers Care Registration Officer Name Role Phone Nam Arguello NP Primary Care Provider + Self-Referred, Patient Unavailable Unavailab Mckay Fabian MD Unavailable Encounter Details Date Type Department Care Team (Late st Contact Info) Description 12/17/2024 Procedure Pass [facility] - MRI, [facility] [address] [place] [address] Social History Tobacco Use Types Packs/Day Years [...] as of this encounter Plan of Treatment Upcoming Encounters Date Type Department Care Team (Late st Contact Info) Description 06/15/2025 3:00 PM EST Telemedicine - audio only [facility] [place] [facility] [address] [place] [address] Nam Jason MD [address] [place] [address] [email or web address] documented as of this encounter Visit Diagnoses Not on filedocumented in this encounter Care Teams Registration Officer Relationship Specialty Start Date End Date Nam Arguello NP [address] [place] [address] PCP - General Nurse Practitioner 07/26/24 Self-Referred, Patient 07/26/24 Mckay Meyers MD [address] [place] [address] 08/06/24 documented as of this encounter Additional Source Comments The information contained in this document represents components of the legal health record. It is not the complete legal health record.[facility]
--- OUTSIDE RECORDS SUMMARY | 2025-05-17 13:06 | XMS_ITS | Clinical Summary ---
Author Organization [facility] Address [address] [place] [address] Phone Care Team Providers Care Hand Cooper Helper Name Role Phone Nam Arguello NP Primary Care Provider + Self-Referred, Patient Unavailable Unavailab Mckay Fabian MD Unavailable Allergies Active Allergy Reactions Criticality Noted Date Comments Oxycodone-Acetaminop hen Nausea and/or Vomiting 10/25/2022 Patient states he can take either alone without nausea Medications atorvastatin (LIPITOR) 40 MG tablet 40 [...] (four) hours as needed for shortness of breath/dyspnea. Active TRELEGY ELLIPTA 100-62.5-25 mcg inhalation powder [...] needed for nausea. Prior to chemo 12/20/19 Active Additional Information Patient not taking.Reported on 05/09/2025 predniSONE (DELTASONE) 20 MG tablet Take 1 tablet (20 mg total) by mouth daily. Taking prior to chemo 12/20/19 Active Additional Information Patient not taking.Reported on 05/02/2025 hydroCHLOROthiazid e 12.5 MG tablet Take 12.5 mg by mouth daily. Active famotidine (PEPCID) 20 MG tablet PLEASE SEE ATTACHED FOR DETAILED DIRECTIONS Active gabapentin (NEURONTIN) 100 MG capsule Take 100 mg by mouth 2 (two) times a day. Active oxyCODONE 5 MG immediate release tablet every 6 (six) hours as needed. 04/07/20 Active oxyCODONE 5 MG immediate release tablet Take 5 mg by mouth every 6 (six) hours as needed. CancerPain-part ial fill ok Active morphine (MS CONTIN) 30 MG ER tablet Take 30 mg by mouth 2 (two) times a day. CancerPain-part ial fill ok Active dexAMETHasone (DECADRON) 4 mg/mL oral solution 07/26/19 Active Active Problems Problem Noted Date Diagnosed Date Metastatic cancer to bone 04/19/2025 Optic neuritis 12/18/2024 Osteoarthritis of bilateral glenohumeral joints 09/09/2024 Primary lung adenocarcinoma 08/06/2024 Amblyopia 07/14/2024 Overview (04/11/2025): benzene operator reviewed and feels this is an issue of dry eyes. No signs to cataract or glaucoma. Suggested eye drops to treat the issue are not helping as much as hoped. Light headedness 05/12/2024 Overview (08/06/2024): Had mild [...] Encounters Date Type Department Care Team Description 05/10/2025 Documentation [facility] [address] [place] [address] Delicia Steel [place] Rad Onc discharge (Metastatic cancer to bone) 05/09/2025 1:20 PM EST Procedure visit [facility] [address] [place] [address] Nam Jason MD Metastatic cancer to bone (Primary Dx) 05/05/2025 Telephone [facility] [address] [place] [address] Cele Andre RN 05/02/2025 1:20 PM EST Procedure visit [facility] Radiation Oncology [address] [address] Nam Jason MD Metastatic cancer to bone (Primary Dx) 04/28/2025 1:00 PM EST Treatment [facility] Radiation Oncology [address] [address] Nam Jason MD 04/27/2025 1:10 PM EST Office Visit [facility] Radiation Oncology [address] [address] Nam Jason MD Metastatic cancer to bone (Primary Dx) 04/19/2025 10:00 AM EST Office Visit [facility] Radiation Oncology [address] [address] Nam Jason MD Metastatic cancer to bone (Primary Dx) 04/19/2025 Telephone [facility] [address] [place] [address] [facility] 04/12/2025 3:30 PM EST Office Visit [facility] [address] [place] [address] Nam Jason MD Primary lung adenocarcinoma (Primary Dx) 04/06/2025 Ancillary Orders [facility] [address] [place] [address] Unknown, Unknown, 04/06/2025 Ancillary Orders [facility] [address] [place] [address] Unknown, Unknown, 04/06/2025 Ancillary Orders [facility] [address] [place] [address] Unknown, Unknown, 04/06/2025 Ancillary Orders [facility] [address] [place] [address] Unknown, Unknown, 02/17/2025 12:10 PM EDT Ancillary Procedure [facility] OUTSIDE IMG [address] [place] [address] Gavin Seymour MD 02/17/2025 Ancillary Orders [facility] OUTSIDE IMG [address] [place] [address] Gavin Seymour MD from Last 3 Months [...] 12/17/2024 Are you denied basic needs [facility] as food, clothing, or medical care? No [...] Sign Reading Time Taken Comments Blood Pressure 98/65 05/09/2025 1:00 PM EST Pulse 72 05/09/2025 1:00 PM EST Temperature 36.7 C (98.1 F) 04/12/2025 3:01 PM EST Respiratory Rate 20 05/09/2025 1:00 PM EST Oxygen Saturation 97% 05/09/2025 1:00 PM EST Inhaled Oxygen Concentration - - Weight 63.2 kg (139 lb 6.4 oz) 05/09/2025 1:00 P M EST Height 172.7 cm (5' 8 ) 04/12/2025 3:01 PM EST Body Mass Index 21.2 04/12/2025 3:01 PM EST Plan of Treatment Upcoming Encounters Date Type Department Care Team (Late st Contact Info) Description 06/15/2025 3:00 PM EST Telemedicine - audio only [facility] [place] [facility] [address] [place] [address] Nam Jason MD [address] [place] [id number] [email or web address] Health Maintenance Due Date Last Done Comments SMOKING Hx and SMOKELESS TOBACCO SCREENING 1965 HEPATITIS C SCREENING 1970 COLOGUARD 1997 COLONOSCOPY 1997 COLORECTAL CANCER SCREENING 1997 FIT TEST 1997 FOBT 1997 SIGMOIDOSCOPY 1997 VIRTUAL COLONOSCOPY 1997 ABDOMINAL AORTIC ANEURYSM (AAA) SCREENING 2017 COVID-19 VACCINE ( season) 2025 02/11/2024, 05/17/2023, 02/21/2022, Additional history exists DEPRESSION SCREENING 01/16/2026 01/16/2025 CREATININE LEVEL 05/09/2026 05/09/2025, , 12/18/2024, Additional history exists POTASSIUM LEVEL 05/09/2026 05/09/2025, 11/24, 12/18/2024, Additional history exists Adult Td,Tdap Booster 05/24/2032 05/24/2022 , 02/20/2015, 05/28/2013 PNEUMOCOCCAL VACCINES (50+ years) Completed 11/19/2021, 04/24/2018 RSV VACCINE Completed 05/13/2023 ZOSTER VACCINES Completed 05/12/2024, 02/11/2024 INFLUENZA VACCINE Completed 02/15/2025, , 02/12/2023, Additional history exists HEPATITIS A VACCINES Aged Out No long [...] Procedure Name Priority Date/Time Associated Diagnosis Comments RED BLOOD CELL (RBC) MORPHOLOGY Routine 05/09/2025 1:39 PM EST Metastatic cancer to bone CBC AND DIFFERENTIAL Routine 05/09/2025 1:39 PM EST Metastatic cancer to bone COMPREHENSIVE METABOLIC PANEL (CMP) Routine 05/09/2025 1:39 PM EST Metastatic cancer to bone CBC AND DIFFERENTIAL Routine 05/09/2025 1:39 PM EST Metastatic cancer to bone MCT (MOBILE CARDIAC TELEMETRY) Routine 03/08/2025 8:19 AM EDT Cerebellar stroke NM PET WHOLE BODY OUTSIDE (NO INTERPRETATION) Routine 02/17/2025 12:08 PM EDT from Last 3 Months Results * (ABNORMAL) Comprehensive Metabolic Panel (CMP) (05/09/2025 1:39 PM EST) Sodium 130(L) 136 - 145 mmol/L 05/09/2025 2:58 PM EST [facility] Potassium 4.5 3.4 - 5.1 mmol/L 05/09/2025 2:58 PM EST [facility] Chloride 98 98 - 107 mmol/L 05/09/2025 2:58 PM EST [facility] CO2 20 20 - 31 mmol/L 05/09/2025 2:58 PM [facility] BUN 24(H) 6 - 23 mg/dL 05/09/2025 2:58 PM [facility] Creatinine 0.60 0.60 - 1.30 mg/dL 05/09/2025 2:58 PM [facility] Glucose 172(H) 70 - 99 mg/dL 05/09/2025 2:58 PM [facility] Calcium 8.3(L) 8.5 - 10.5 mg/dL 05/09/2025 2:58 PM [facility] AST 14 <40 U/L 05/09/2025 2:58 PM [facility] ALT 23 <50 U/L 05/09/2025 2:58 PM [facility] Alkaline Phosphatase 139(H) 40 - 130 U/L 05/09/2025 2:58 PM [facility] Bilirubin, Total 0.5 0.0 - 1.2 mg/dL 05/09/2025 2:58 PM [facility] Total Protein 6.8 6.4 - 8.3 g/dL 05/09/2025 2:58 PM [facility] Albumin 3.9 3.5 - 5.2 g/dL 05/09/2025 2:58 PM [facility] Globulin 2.9 1.9 - 4.1 g/dL 05/09/2025 2:58 PM [facility] eGFR 102 >59 mL/min/1.7 3m2 05/09/2025 2:58 PM [facility] Comment:Estimated glomerular filtration rate calculated using the CKD-EPI refit equation. Anion Gap 12 3 - 17 mmol/L 05/09/2025 2:58 PM [facility] Blood (Blood) Venipuncture / Unknown 05/09/2025 1:39 PM EST 05/09/2025 2:05 PM EST us Nam Jason MD LAB BLOOD BKR ORDERABLES Final Result [facility] [address] [place] [address] * (ABNORMAL) CBC and Differential (05/09/2025 1:39 PM EST) WBC 8.19 4.00 - 11.00 K/uL 05/09/2025 2:41 PM [facility] RBC 4.10(L) 4.50 - 5.90 M/uL 05/09/2025 2:41 PM [facility] Hemoglobin 12.5(L) 13.5 - 17.5 g/dL 05/09/2025 2:41 PM [facility] Hematocrit 38.0(L) 41.0 - 53.0 % 05/09/2025 2:41 PM [facility] MCV 92.7 80.0 - 100.0 fL 05/09/2025 2:41 PM [facility] MCH 30.5 27.0 - 31.0 pg 05/09/2025 2:41 PM [facility] MCHC 32.9 32.0 - 36.0 g/dL 05/09/2025 2:41 PM [facility] MPV 8.4 8.4 - 12.0 fL 05/09/2025 2:41 PM [facility] RDW-CV 16.4(H) 11.5 - 14.5 % 05/09/2025 2:41 PM [facility] PLT 296 150 - 450 K/uL 05/09/2025 2:41 PM [facility] Neutrophils 84.6 % 05/09/2025 2:41 PM [facility] Lymphocytes 4.3 % 05/09/2025 2:41 PM [facility] Monocytes 6.5 % 05/09/2025 2:41 PM [facility] Eosinophils 0.4 % 05/09/2025 2:41 PM [facility] Basophils 0.4 % 05/09/2025 2:41 PM [facility] Imm Grans 3.8 % 05/09/2025 2:41 PM [facility] Comment:Confirmed by smear evelyne valencia. NRBC 0.0 <=0.0 /100 WBCs 05/09/2025 2:41 PM [facility] Absolute Neutrophils 6.94 1.92 - 7.60 K/uL 05/09/2025 2:41 PM [facility] Absolute Lymphocytes 0.35(L) 0.72 - 4.10 K/uL 05/09/2025 2:41 PM [facility] Absolute Monocytes 0.53 0.16 - 1.10 K/uL 05/09/2025 2:41 PM [facility] Absolute Eosinophils 0.03 0.00 - 0.50 K/uL 05/09/2025 2:41 PM [facility] Absolute Basophils 0.03 0.00 - 0.15 K/uL 05/09/2025 2:41 PM [facility] Absolute Imm Grans 0.31(H) 0.00 - 0.09 K/uL 05/09/2025 2:41 PM [facility] Absolute NRBC 0.00 <=0.00 K cells/uL 05/09/2025 2:41 PM [facility] Absolute Neutrophils 6.94 1.92 - 7.60 K/uL 05/09/2025 2:41 PM [facility] Comment:Automated cell count . Manual ANC may differ if performed. Diff Type Auto 05/09/2025 2:41 PM [facility] Blood (Blood) Venipuncture / Unknown 05/09/2025 1:39 PM EST 05/09/2025 2:05 PM EST us Nam Jason MD LAB BLOOD BKR ORDERABLES Final Result [address] [address] * Red Blood Cell (RBC) Morphology (05/09/2025 1:39 PM EST) RBC Morphology Reviewed 05/09/2025 2:41 PM [facility] [place] Cells/Echinocyt es present 05/09/2025 2:41 PM [facility] Elliptocytes/Ov alocytes present 05/09/2025 2:41 PM [facility] Blood (Blood) Venipuncture / Unknown 05/09/2025 1:39 PM EST 05/09/2025 2:05 PM EST us Nam Jason MD LAB BLOOD BKR ORDERABLES Final Result [facility] [address] [place] [address] * MCT (Mobile Cardiac Telemetry) (03/08/2025 8:19 AM EDT) Anatomical Region Laterality Modality Heart Other 03/04/2025 11:5 9 PM EDT Narrative 03/16/2025 5:09 AM EDT Agree with Findings. On run of NSVT vs. AIRVR 118bpm. Patient triggered events correspond to sinus rhythm, PACs Procedure Note Bj Moore MD - 03/16/2025 Agree with Findings. On run of NSVT vs. AIRVR 118bpm. Patient triggeredevents correspond to sinus rhythm, PACs us Terri Frausto MD, MSc [facility] O RDERABLES Final Result * NM PET Whole Body Outside (No Interpretation) (02/17/2025 12:08 PM EDT) Other Narrative [facility] - 02/17/2025 12:08 PM EDT This study is for PACS storage only and not for interpretation. Procedure Note Hien Bedolla - 02/17/2025 This study is for PACS storage only and not for interpretation. us Gavin Seymour MD IMG OUTSIDE IMAGING W/OUT INT ERPRETATION Final Result [facility] from Last 3 Months Insurance BL[employer] [place] [place]IC[place] [address] [place] [id number] [address] [place] [place] [id number] [address] [place] [place] [id number] MEDICARE PPO BLUE REPLACEMENT [facility] MEDICARE PPO BLUE REPLACEMENT [facility] MEDICARE PPO BLUE REPLACEMENT Advance Directives For more information, please contact: [phone] (9AM - 5PM [facility], Friday-Friday) Documents on File Type Date Recorded Patient International Sourcing Manager Expl anation Healthcare Proxy 12/18/2024 12:59 PM * Full Code (Latest Code Status on File) Date Activated Date Inactivated Comments 12/18/2024 4:03 AM Question Answer Comments Code Status Confirmed With: Patient Care Teams Hand Cooper Helper Relationship Specialty Start Date End Date Nam Arguello NP [address] [place] PCP - General Nurse Practitioner 07/26/24 Self-Referred, Patient 07/26/24 Mckay Meyers MD [address] [place] [phone] 08/06/24 Additional Source Comments The information contained in this document represents components of the legal health record. It is not the complete legal health record.[facility]
--- OUTSIDE RECORDS SUMMARY | 2025-05-17 13:06 | XMS_ITS | Clinical Summary ---
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 (CMS/HCC V24, CMS/HCC V28) Discharge Disposition: Home or Self Care from Last 3 Months Social History Tobacco Use Types Packs/Day Years Used Date Smoking Tobacco: Never Assessed Sex and Gender Information Value Date Recorded Sex Assigned at Not on file Legal Sex Male 1:40 PM EDT Gender Identity Not on file Sexual Orientation Not on file Plan of Treatment Health Maintenance Due Date Last Done Comments Colorectal Cancer Screening: Colonoscopy 1950 Depression Screening 05/26/2024 COVID-19 Vaccine ( season) 2025 02/11/2024, 05/17/2023, 02/21/2022, Additional history exists Abdominal Aortic Aneurysm (AAA) Screen 02/16/2025 Cholesterol Screening (Lipid Panel) 02/16/2025 Falls Risk Assessment 02/16/2025 Hepatitis C Screening 02/16/2025 Medicare Annual Wellness Visit 02/16/2025 Social Influencers of Health Screening 02/16/2025 DTaP,Tdap,and Td Vaccines (4 - Td or Tdap) 05/24/2032 05/24/2022, 02/20/2015, 05/28/2013 Pneumococcal Vaccine: 50+ Years Completed 11/19/2021, 04/24/2018 RSV Immunization Adult Patients Completed 05/13/2023 Zoster Vaccines Completed 05/12/2024, 02/11/2024 Influenza Vaccine Completed 02/15/2025, , 02/12/2023, Additional history exists HIB Vaccines Aged Out No longer eligi ble based on patient's age to complete this topic HPV Vaccines Aged Out No longer eligi ble based on patient's age to complete this topic Hepatitis A Vaccines Aged Out No long er eligible based on patient's age to complete this topic Hepatitis B Vaccines Aged Out No long er eligible based on patient's age to complete this topic IPV Vaccines Aged Out No longer eligi ble based on patient's age to complete this topic MMR Vaccines Aged Out No longer eligi ble based on patient's age to complete this topic Meningococcal ACWY Vaccine Aged Out N o longer eligible based on patient's age to complete this topic Meningococcal B Vaccine Aged Out No l onger eligible based on patient's age to complete this topic RSV Immunization Patients Under 20 months Aged Out No longer eligible based on patient's age to complete this topic Varicella Vaccines Aged Out No longer eligible based on patient's age to complete this topic Procedures Procedure Name Priority Date/Time Associated Diagnosis Comments PET CT SKULL TO MID THIGH SUBSEQUENT Routine 02/17/2025 9:45 AM EDT 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 Overall, interval decrease in FDG activity in the right upper lobe mass, right adrenal mass, hepatic lesions and L5 vertebral body 2. New FDG avid osseous lesions in keeping with metastatic disease 3. Nonspecific bowel activity which may represent colitis Please note: The CT was acquired at a low radiation dose settings. The images are of nondiagnostic quality and used solely for purposes of attenuation correction and slice localization for the PET scan. If a diagnostic CT study is desired it must be ordered separately. -------- FINAL REPORT -------- Dictated By: Aimee Otero Dictated Date: 02/18/2025 04:36 ET Assigned Physician: Aimee Otero Reviewed and Electronically Signed By: Aimee Otero Signed Date: 02/18/2025 06:03 ET Workstation ID: [id number] Transcribed By: Self Edit Transcribed Date: 02/18/2025 04:36 ET Narrative 02/18/2025 6:03 AM EDT INDICATION: NON-SMALL CELL RIGHT LUNG CANCER. History of right upper lobe spiculated mass consistent with malignancy with mediastinal adenopathy with probable metastatic disease to the right adrenal gland. Outside PET/CT demonstrated right mediastinal/suprahilar mass with metastatic lymph nodes in the neck and retroperitoneum as well as metastases to the right adrenal gland, liver and L5 vertebral body. Milder foci of uptake in the left lung suspicious for metastatic disease. Restaging after treatment. TECHNIQUE: FDG PET-CT imaging was performed from the skull bases through the thighs in a single acquisition with data set reconstructed in axial, coronal, and sagittal planes at the computer workstation with fused data from both the PET imaging study and attenuation correction CT. The CT portion of the examination was done strictly for attenuation correction and is not a true diagnostic CT examination. DLP: 426 mGy-cm Radiopharmaceutical: 10.5 mCi of F-18 FDG IV. Blood glucose: 118 mg/dl. COMPARISON: Correlation is made with outside CT of the chest abdomen and pelvis October 2024 FINDINGS: HEAD AND NECK: No abnormal FDG avid cervical or supraclavicular lymphadenopathy. THORAX: Right upper lobe mass extending into the mediastinum SUV max 8.2 (previously 11.8) with FDG avid right paratracheal and hilar activity measuring up to SUV Max 7.0 (previously 6.9). No significant left hilar activity SUV max 1.8. Subcarinal activity SUV max 2 (mediastinal blood pool SUV Max 2). Few small pulmonary nodules without significant FDG activity. Bilateral axillary lymph nodes without significant FDG activity SUV max 1.1. ABDOMEN/PELVIS: FDG avid right adrenal mass SUV max 6.9 (previously 10.8). Low-attenuation right hepatic lesion SUV max 3.3 (previously 9.8). Previously seen more inferiorly right hepatic lesion is less conspicuous on today's examination. Nonspecific slight asymmetry in the left hepatic lobe SUV max 2.2 (background liver activity SUV max 2.2). Previously seen low-attenuation lesion in the spleen is not conspicuous on today's examination without focal abnormal uptake noted in this region. Portacaval/wellington hepatis lymph nodes measuring up to SUV Max 8.6 (previously 15.5). Nonspecific bowel activity extending from the ascending colon to the transverse colon, descending colon and rectum which may represent colitis. Superimposed diverticular disease. MUSCULOSKELETAL: FDG avid osseous lesions. For example, along the right lesser trochanter SUV Max 2, sacrum SUV max 9.2, L5 SUV max 3.6 (previously 12. 2), L2 SUV max 7.7 and sternum SUV Max 6.3. Procedure Note Aimee Otero MD - 02/18/2025 INDICATION: NON-SMALL CELL RIGHT LUNG CANCER. History of right upper lobespiculated mass consistent with malignancy with mediastinal adenopathywith probable metastatic disease to the right adrenal gland. OutsidePET/CT demonstrated right mediastinal/suprahilar mass with metastaticlymph nodes in the neck and retroperitoneum as well as metastases to theright adrenal gland, liver and L5 vertebral body. Milder foci of uptakein the left lung suspicious for metastatic disease. Restaging aftertreatment. TECHNIQUE: FDG PET-CT imaging was performed from the skull bases throughthe thighs in a single acquisition with data set reconstructed in axial,coronal, and sagittal planes at the computer workstation with fused datafrom both the PET imaging study and attenuation correction CT. The CTportion of the examination was done strictly for attenuation correctionand is not a true diagnostic CT examination. DLP: 426 mGy-cm Radiopharmaceutical: 10.5 mCi of F-18 FDG IV. Blood glucose: 118 mg/dl. COMPARISON: Correlation is made with outside CT of the chest abdomen andpelvis October 2024 FINDINGS: HEAD AND NECK: No abnormal FDG avid cervical or supraclavicularlymphadenopathy. THORAX: Right upper lobe mass extending into the mediastinum SUV max 8.2(previously 11.8) with FDG avid right paratracheal and hilar activitymeasuring up to SUV Max 7.0 (previously 6.9). No significant left hilaractivity SUV max 1.8. Subcarinal activity SUV max 2 (mediastinal bloodpool SUV Max 2). Few small pulmonary nodules without significant FDG activity. Bilateral axillary lymph nodes without significant FDG activity SUV max1.1. ABDOMEN/PELVIS: FDG avid right adrenal mass SUV max 6.9 ([id number]). Low-attenuation right hepatic lesion SUV max 3.3 (previously 9.8).Previously seen more inferiorly right hepatic lesion is less conspicuouson today's examination. Nonspecific slight asymmetry in the left hepaticlobe SUV max 2.2 (background liver activity SUV max 2.2). Previously seenlow-attenuation lesion in the spleen is not conspicuous on today'sexamination without focal abnormal uptake noted in this region. Portacaval/wellington hepatis lymph nodes measuring up to SUV Max 8.6(previously 15.5). Nonspecific bowel activity extending from the ascending colon to thetransverse colon, descending colon and rectum which may represent colitis.Superimposed diverticular disease. MUSCULOSKELETAL: FDG avid osseous lesions. For example, along the rightlesser trochanter SUV Max 2, sacrum SUV max 9.2, L5 SUV max 3.6(previously 12. 2), L2 SUV max 7.7 and sternum SUV Max 6.3. IMPRESSION: 1. Overall, interval decrease in FDG activity in the right upper lobemass, right adrenal mass, hepatic lesions and L5 vertebral body 2. New FDG avid osseous lesions in keeping with metastatic disease 3. Nonspecific bowel activity which may represent colitis Please note: The CT was acquired at a low radiation dose settings. The images are ofnondiagnostic quality and used solely for purposes of attenuationcorrection and slice localization for the PET scan. If a diagnostic CTstudy is desired it must be ordered separately. -------- FINAL REPORT -------- Dictated By: Aimee Otero Dictated Date: 02/18/2025 04:36 ET Assigned Physician: Aimee Otero Reviewed and Electronically Signed By: Aimee Otero Signed Date: 02/18/2025 06:03 ET Workstation ID: [id number] Transcribed By: Self Edit Transcribed Date: 02/18/2025 04:36 ET Linh Meyers MD IM NM PROCEDURES Final Result from Last 3 Months Insurance [employer] [employer] - [place] MEDICARE [place]VANTAGE
--- OUTSIDE RECORDS SUMMARY | 2025-05-17 13:06 | XMS_ITS | Encounter Summary ---
Author Organization [facility] Address [address] [place] [address] [place] [address] Phone Care Team Providers Care Assistant Child Care Teacher Name Role Phone Nam Arguello NP Primary Care Provider + Self-Referred, Patient Unavailable Unavailab Mckay Fabian MD Unavailable [phone] Encounter Details Date Type Department Care Team ([facility] st Contact Info) Description 12/17/2024 Ophth Exam [facility] Emergency Department [address] [place] [address] Josep Tanner MD [address] [place] [address] [email or web address] Social History Tobacco Use Types Packs/Day Years [...] 3:00 PM EST Telemedicine - audio only [facility] [address] [place] [address] Nam Jason MD [address] [place] [address] [email or web address] documented as of this encounter Visit Diagnoses Not on filedocumented in this encounter Care Teams Assistant Child Care Teacher Relationship Specialty Start Date End Date Nam Arguello NP [address] [facility] [place] [address] PCP - General Nurse Practitioner 07/26/24 Self-Referred, Patient 07/26/24 Mckay Meyers MD [address] [place] [address] 08/06/24 documented as of this encounter Additional Source Comments The information contained in this document represents components of the legal health record. It is not the complete legal health record.[facility]
--- OUTSIDE RECORDS SUMMARY | 2025-05-17 13:06 | XMS_ITS | Encounter Summary ---
Author Organization [facility] Address [address] [place] [address] [place] [address] Phone Care Team Providers Care Income Tax Manager Name Role Phone Nam Arguello NP Primary Care Provider + Self-Referred, Patient Unavailable Unavailab Mckay Fabian MD Unavailable [phone] Encounter Details Date Type Department Care Team (Late st Contact Info) Description 12/17/2024 Procedure Pass [facility] Imaging - MRI, [facility] [address] [place] [address] Social History Tobacco Use Types Packs/Day Years [...] 6:20 PM EDT documented in this encounter Plan of Treatment Upcoming Encounters Date Type Department Care Team (Late st Contact Info) Description 06/15/2025 3:00 PM EST Telemedicine - audio only [facility] [address] [place] [address] Nam Jason MD [address] [place] [address] [email or web address] documented as of this encounter Visit Diagnoses Not on filedocumented in this encounter Care Teams Income Tax Manager Relationship Specialty Start Date End Date Nam Arguello NP [address] [place] [address] PCP - General Nurse Practitioner 07/26/24 Self-Referred, Patient 07/26/24 Mckay Meyers MD [address] [place] [address] 08/06/24 documented as of this encounter Additional Source Comments The information contained in this document represents components of the legal health record. It is not the complete legal health record.[facility]
--- OUTSIDE RECORDS SUMMARY | 2025-05-17 13:06 | XMS_ITS | Encounter Summary ---
Author Organization [facility] Address [address] [place] [address] [place] [address] Phone Care Team Providers Care Attractions Associate Name Role Phone Nam Arguello NP Primary Care Provider + Self-Referred, Patient Unavailable Unavailab Mckay Fabian MD Unavailable [phone] Encounter Details Date Type Department Care Team (Late st Contact Info) Description 01/18/2025 Procedure Pass [facility] EKG [address] [place] [address] Social History Tobacco Use Types Packs/Day Years [...] 3:00 PM EST Telemedicine - audio only [facility] [place] [facility] [address] [place] [address] Nam Jason MD [address] [place] [address] [email or web address] documented as of this encounter Visit Diagnoses Not on filedocumented in this encounter Care Teams Attractions Associate Relationship Specialty Start Date End Date Nam Arguello NP [address] [facility] [place] [address] PCP - General Nurse Practitioner 07/26/24 Self-Referred, Patient 07/26/24 Mckay Meyers MD [address] [place] [address] 08/06/24 documented as of this encounter Additional Source Comments The information contained in this document represents components of the legal health record. It is not the complete legal health record.[facility]
[2025-05-17] MEDS: iohexoL 350 MG/ML 100 ML INFUS..BTL IV (14:22)
[2025-05-17] MEDS: Barium Sulfate Oral (Mocha) 450 ML ORAL.SUSP 900 ML PO (14:22)
== END 2025-05-17 11:49 ==
LOC: HO.CT 11:48
PROVIDERS: PCP Nurse Practitioner Family; Visit Provider Nurse Practitioner Family
DX: C34.90 Malignant neoplasm of unspecified part of unspecified bronchus or lung (principal)
CPT/HCPCS: 71260; 74177; Q9967

== ENCOUNTER → 2025-05-17 12:05 | Outpatient (BNV) | payer MEDICARE, SELFPAY | PROVIDERS: PCP Nurse Practitioner Family; Visit Provider Radiology Diagnostic Radiology | DX: R59.0 Localized enlarged lymph nodes (principal); C79.71 Secondary malignant neoplasm of right adrenal gland | CPT/HCPCS: 71260; 74177 ==

== ENCOUNTER 2025-05-23 16:01 | Outpatient (REF) | payer MEDICARE, SELFPAY ==
--- NOTE | ~2025-05-23 | XR_ITS ---
EXAMINATION: XR ABDOMEN COMPLETE CLINICAL INDICATION: Abdominal pain during defeacation COMPARISON: None. Correlation made with CT abdomen and pelvis 05/17/2025. TECHNIQUE: AP abdomen, supine and upright. FINDINGS: Bowel gas pattern is normal/nonspecific. There is no focally dilated loop, or significant differential air-fluid levels on the upright radiograph. There is no evidence of free intraperitoneal air on the upright radiograph. No significant constipation is evident. No organomegaly is present. No large abdominal mass. Cholecystectomy clips are present. No abnormal soft tissue calcifications. Mildly elevated right hemidiaphragm. Lung bases appear clear. Sclerotic changes in the lumbar spine are consistent with known osseous metastases. Associated degenerative changes and mild scoliosis. XR/XR acute abdomen series IMPRESSION: No acute abdominal abnormality. Electronically signed by: Gino Basurto MD 05/23/2025 04:41 PM [facility]
--- OUTSIDE RECORDS SUMMARY | 2025-05-23 17:51 | XMS_ITS | Encounter Summary ---
Author Organization [facility] Address [address] [place] [address] [place] [address] Phone Care Team Providers Care Home Care Coordinator Name Role Phone Nam Arguello NP Primary Care Provider + Self-Referred, Patient Unavailable Unavailab Mckay Fabian MD Unavailable [phone] Encounter Details Date Type Department Care Team (Late st Contact Info) Description 01/18/2025 Procedure Pass [facility] EKG [address] [place] [address] Social History Tobacco Use Types Packs/Day Years [...] Telemedicine - audio only [facility] [place] [facility] [address] [place] [address] Nam Jason MD [address] [place] [address] [email or web address] documented as of this encounter Visit Diagnoses Not on filedocumented in this encounter Care Teams Home Care Coordinator Relationship Specialty Start Date End Date Nam Arguello NP [address] [place] [address] PCP - General Nurse Practitioner 07/26/24 Self-Referred, Patient 07/26/24 Mckay Meyers MD [address] [place] [address] 08/06/24 documented as of this encounter Additional Source Comments The information contained in this document represents components of the legal health record. It is not the complete legal health record.[facility]
--- OUTSIDE RECORDS SUMMARY | 2025-05-23 17:51 | XMS_ITS | Clinical Summary ---
Author Organization [facility] Address [address] [place] [address] Phone Care Team Providers Care Hardware Assembler Name Role Phone Nam Arguello NP Primary [...] lung adenocarcinoma 08/06/2024 [employer] 07/14/2024 Overview (04/11/2025): marketing automation analyst reviewed and feels this is an issue [...] Type Department Care Team Description 05/10/2025 Documentation [facility] [address] [place] [phone] Delicia Steel [place] Rad Onc discharge (Metastatic cancer to bone) 05/09/2025 1:20 PM EST Procedure visit [facility] [address] [place] [phone] Nam Jason MD Metastatic cancer to bone (Primary Dx) 05/05/2025 Telephone [facility] [address] [place] [phone] Cele Andre RN 05/02/2025 1:20 PM EST Procedure visit [facility] Radiation Oncology [address] [address] Nam Jason MD Metastatic cancer to bone (Primary Dx) 04/28/2025 1:00 PM EST Treatment [facility] [address] [address] Nam Jason MD 04/27/2025 1:10 PM EST Office Visit [facility]cology [address] [address] Nam Jason MD Metastatic cancer to bone (Primary Dx) 04/19/2025 10:00 AM EST Office Visit [facility]iation Oncology [address] [address] Nam Jason MD Metastatic cancer to bone (Primary Dx) 04/19/2025 Telephone [facility] [address] [place] [phone] Nam Jason MD PreRust 04/12/2025 3:30 PM EST Office Visit [facility] [address] [place] [address] Nam aJson MD Primary lung adenocarcinoma (Primary Dx) 04/06/2025 Ancillary Orders [facility]Outside Imaging [address] [place] [address] Unknown, Patrick, 04/06/2025 Ancillary Orders [facility] Imaging [address] [place] [address] Unknown, Patrick, 04/06/2025 Ancillary Orders [facility] Imaging [address] [place] [address] Unknown, Patrick, 04/06/2025 Ancillary Orders [facility]Outside Imaging [address] [place] [address] Unknown, MD Patrick from Last 3 Months Family History Medical [...] 3:00 PM EST Telemedicine - audio only [facility] [address] [place] [address] Nam Jason MD [address] [place] [address] [email or web address] Health Maintenance Due Date Last Done Comments [...] Additional history exists POTASSIUM LEVEL 05/09/2026 05/09/2025, 0711/2024, 12/18/2024, Additional history exists Adult Td,Tdap Booster [...] Routine 03/08/2025 8:19 AM EDT Cerebellar stroke from Last 3 Months Results * (ABNORMAL) Comprehensive Metabolic Panel (CMP) (05/09/2025 1:39 PM EST) Sodium 130(L) 136 - 145 mmol/L 05/09/2025 2:58 PM [facility] Potassium 4.5 3.4 - 5.1 mmol/L 05/09/2025 2:58 PM [facility] Chloride 98 98 - 107 mmol/L 05/09/2025 2:58 PM [facility] CO2 20 20 - 31 mmol/L 05/09/2025 2:58 PM [facility] BUN 24(H) 6 - 23 mg/dL 05/09/2025 2:58 PM [facility] Creatinine 0.60 0.60 - 1.30 mg/dL 05/09/2025 2:58 PM [facility] Glucose 172(H) 70 - 99 mg/dL 05/09/2025 2:58 PM [facility] Calcium 8.3(L) 8.5 - 10.5 mg/dL 05/09/2025 2:58 PM [facility] AST 14 <40 U/L 05/09/2025 2:58 PM [facility] ALT 23 <50 U/L 05/09/2025 2:58 PM [facility] Alkaline Phosphatase 139(H) 40 - 130 U/L 05/09/2025 2:58 PM [facility] Bilirubin, Total 0.5 0.0 - 1.2 mg/dL 05/09/2025 2:58 PM [facility] Total Protein 6.8 6.4 - 8.3 g/dL 05/09/2025 2:58 PM [facility] Albumin 3.9 3.5 - 5.2 g/dL 05/09/2025 2:58 PM [facility] Globulin 2.9 1.9 - 4.1 g/dL 05/09/2025 2:58 PM [facility] eGFR 102 >59 mL/min/1.7 3m2 05/09/2025 2:58 PM [facility] Comment:Estimated glomerular filtration rate calculated using the CKD-EPI refit equation. Anion Gap 12 3 - 17 mmol/L 05/09/2025 2:58 PM [facility] Blood (Blood) Venipuncture / Unknown 05/09/2025 1:39 PM EST 05/09/2025 2:05 PM EST us Nam Jason MD LAB BLOOD BKR ORDERABLES Final Result [address] [address] * (ABNORMAL) CBC and Differential (05/09/2025 1:39 PM EST) WBC 8.19 4.00 - 11.00 K/uL 05/09/2025 2:41 PM [facility] RBC 4.10(L) 4.50 - 5.90 M/uL 05/09/2025 2:41 PM [facility] Hemoglobin 12.5(L) 13.5 - 17.5 g/dL 05/09/2025 2:41 PM [facility] Hematocrit 38.0(L) 41.0 - 53.0 % 05/09/2025 2:41 PM [facility] MCV 92.7 80.0 - 100.0 fL 05/09/2025 2:41 PM [facility] MCH 30.5 27.0 - 31.0 pg 05/09/2025 2:41 PM [facility] MCHC 32.9 32.0 - 36.0 g/dL 05/09/2025 2:41 PM [facility] MPV 8.4 8.4 - 12.0 fL 05/09/2025 2:41 PM [facility] RDW-CV 16.4(H) 11.5 - 14.5 % 05/09/2025 2:41 PM [facility] PLT 296 150 - 450 K/uL 05/09/2025 2:41 PM [facility] Neutrophils 84.6 % 05/09/2025 2:41 PM [facility] Lymphocytes 4.3 % 05/09/2025 2:41 PM [facility] Monocytes 6.5 % 05/09/2025 2:41 PM [facility] Eosinophils 0.4 % 05/09/2025 2:41 PM [facility] Basophils 0.4 % 05/09/2025 2:41 PM [facility] Imm Grans 3.8 % 05/09/2025 2:41 PM [facility] Comment:Confirmed by smear evelyne valencia. NRBC 0.0 <=0.0 /100 WBCs 05/09/2025 2:41 PM [facility] Absolute Neutrophils 6.94 1.92 - 7.60 K/uL 05/09/2025 2:41 PM [facility] Absolute Lymphocytes 0.35(L) 0.72 - 4.10 K/uL 05/09/2025 2:41 PM [facility] Absolute Monocytes 0.53 0.16 - 1.10 K/uL 05/09/2025 2:41 PM [facility] Absolute Eosinophils 0.03 0.00 - 0.50 K/uL 05/09/2025 2:41 PM [facility] Absolute Basophils 0.03 0.00 - 0.15 K/uL 05/09/2025 2:41 PM [facility] Absolute Imm Grans 0.31(H) 0.00 - 0.09 K/uL 05/09/2025 2:41 PM [facility] Absolute NRBC 0.00 <=0.00 K cells/uL 05/09/2025 2:41 PM [facility] Absolute Neutrophils 6.94 1.92 - 7.60 K/uL 05/09/2025 2:41 PM [facility] Comment:Automated cell count . Manual ANC may differ if performed. Diff Type Auto 05/09/2025 2:41 PM [facility] Blood (Blood) Venipuncture / Unknown 05/09/2025 1:39 PM EST 05/09/2025 2:05 PM EST Nam Jason MD LAB BLOOD BKR ORDERABLES Final Result Performing Organization Address [facility]/ZIP Co de Phone Number [address] [address] * Red Blood Cell (RBC) Morphology (05/09/2025 1:39 PM EST) RBC Morphology Reviewed 05/09/2025 2:41 PM [facility] Castor Cells/Echinocyt es present 05/09/2025 2:41 PM [facility] Elliptocytes/Ov alocytes present 05/09/2025 2:41 PM [facility] Blood (Blood) Venipuncture / Unknown 05/09/2025 1:39 PM EST 05/09/2025 2:05 PM EST us Nam Jason MD LAB BLOOD BKR ORDERABLES Final Result Performing Organization Address City/[facility]/ZIP Co de Phone Number [address] [address] * MCT (Mobile Cardiac Telemetry) (03/08/2025 8:19 [...] Patient triggeredevents correspond to sinus rhythm, PACs Terri Frausto MD [facility] ORDERA BLES Final Result from Last [address] [address] MEDICARE PPO BLUE REPLACEMENT [address] [place] [address] MED[address] [place] [address] [address] [address] MEDICARE PPO BLUE [address] [place] [address] MEDICARE PPO BLUE REPLACEMENT Advance Directives For more information, please contact: [phone] (9AM - 5PM [facility], Friday-Friday) Documents on File Type Date Recorded Patient Package Reinspector Expl anation Healthcare Proxy 12/18/2024 12:59 PM * Full Code (Latest Code Status on File) Date Activated Date Inactivated Comments 12/18/2024 4:03 AM Question Answer Comments Code Status Confirmed With: Patient Care Teams Hardware Assembler Relationship Specialty Start Date End Date Nam Arguello NP [address] [place] [id number] PCP - General Nurse Practitioner 07/26/24 Self-Referred, Patient 07/26/24 Mckay Meyers MD [address] [place] [address] 08/06/24 Additional Source Comments The information contained in this document represents components of the legal health record. It is not the complete legal health record.[facility]
--- OUTSIDE RECORDS SUMMARY | 2025-05-23 17:51 | XMS_ITS | Encounter Summary ---
Author Organization [facility] Address [address] [place] [address] [place] [address] Phone Care Team Providers Care School Library Media Program Director Name Role Phone Nam Arguello NP Primary Care Provider + Self-Referred, Patient Unavailable Unavailab Mckay Fabian MD Unavailable Encounter Details Date Type Department Care Team (Late st Contact Info) Description 12/17/2024 Procedure Pass [facility], [facility] [address] [place] [address] Social History Tobacco Use Types Packs/Day Years [...] you interested in more education? Not on kiesha e 07/26/2024 Are you concerned about learning? [...] - audio only [facility] [address] [place] [address] Nam Jason MD [address] [place] [address] [email or web address] documented as of this encounter Visit Diagnoses Not on filedocumented in this encounter Care Teams School Library Media Program Director Relationship Specialty Start Date End Date Nam Arguello NP [address] [place] [address] PCP - General Nurse Practitioner 07/26/24 Self-Referred, Patient 07/26/24 Mckay Meyers MD [address] [place] [address] 08/06/24 documented as of this encounter Additional Source Comments The information contained in this document represents components of the legal health record. It is not the complete legal health record.[facility]
--- OUTSIDE RECORDS SUMMARY | 2025-05-23 17:51 | XMS_ITS | Clinical Summary ---
Author Organization [facility] Address [address] [place] [address] Phone Care Team Providers Care Hris Analyst Name Role Phone Unavailable Primary Care Provider Unavailabl e Social History Tobacco Use Types Packs/Day Years [...] on patient's age to complete this topic Insurance [employer] - [place] MEDICARE ADVANTAGE
--- OUTSIDE RECORDS SUMMARY | 2025-05-23 17:51 | XMS_ITS | Data Portability ---
Author Organization [facility], [facility] Address [address] [place] [address] Care Team Providers Care Sql Data Analyst Name Role Phone KelechihetalCheryl Primary Care Provider Assessment No assessment recorded. Plan of Treatment Reminders Order Date Submit Date Provider Name Organization Details Last Modified By Last Modified Time Details Appointments RECHEC K 15 2025 11:30A M Cornelio torres PA-C Not available Not available Not available Lab None record ed. Referral None record ed. Procedures None record ed. Surgeries None record ed. Imaging None record ed. MedicationOrders None record ed. VaccineOrders None record ed. Patient TargetsNo targets recorded. Patient InstructionsNo instructions recorded. Reason for Referral None Reported. 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 Procedures Surgical History Date Name Laterality Status Provider Name and Address Organization Details Recorded Time 03/25/20 25 Sports Shoulder Bilateral 4 & 1 w/US completed Cornelio Herr PA-C [address], [place], [address], [facility] 03/25/2025 14:28:30 12/24/19 25 Sports Shoulder Bilateral 4 & 1 w/US completed Cornelio Herr, PA-C [address], [place], [address], [facility] 12/23/2024 08:51:33 09/10/19 25 Sports Shoulder Bilateral 4 & 1 w/US completed Cornelio Herr, PA-C [address], [place], [address], [facility] 09/09/2024 08:41:18 06/11/19 25 Sports Shoulder Bilateral completed Cornelio Herr, PA-C [address], [place], [address], [facility] 06/25/2024 08:24:45 03/05/20 24 Sports Shoulder Bilateral completed Cornelio Herr PA-C [address], [place], [address], [facility] 03/05/2024 08:30:30 12/05/19 24 Sports Shoulder Bilateral completed Cornelio Herr, PA-C [address], [place], [address], [facility] 12/05/2023 08:40:55 08/29/19 24 Sports Shoulder Bilateral completed Cornelio Herr, PA-C [address], [place], [address], [facility] 08/29/2023 08:33:59 01/22/20 04 Gastrointestinal Surgery completed Sandra Can [facility] 03/05/2024 08:21:20 Imaging Results None recorded. Procedure Notes None recorded. Medical Equipment None Reported. Allergies Allergen ID Allergen Name Allergen Category Reaction Reaction Severity Criticality Documentation Date Start Date Code Code System Note Provider Name and Address Organization Details Recorded Time 830634 acetamino phen / oxycodone medicatio n Not available Not available Not available 07/28/20232022 10681 3 RxNorm Not Available [facility] 16:12:52 Medications Name Authored On Sig Start Date Stop Date Status Note Indication Fill Status Repeat Number Dispense Quantity LastModified by Organization Details LastModified Time FreeS tyle Lite Meter kit 4 07:13:42 TWIC E A DAY TEST ING FOR DIAB ETES active Not Available Not availab le 0 Not Available Not Available [facility] 08/27/2023 07:13:42 doxyc yclin e hycla te 100 mg table t 4 07:13:42 TAKE 1 TABL ET BY VINNY GALVAN E A DAY FOR 1 DAY 08/26 aborted Not Available Not availab le 0 Not Available [facility] 08/27/2023 15:00:29 amoxi cilli n 500 mg capsu le 4 07:13:42 TAKE 2 TABL ETS BY VINNY Garland AWAY THEN 1 TABL ET 3 TIME S A DAY UNTI L FINI SHED 08/26 aborted Not Available Not availab le 0 Not Available [facility] 08/27/2023 15:00:43 benzo natat e 100 mg capsu le 4 07:13:42 TAKE 1 CAP (100 MG) ORAL LY 2 TO 3 TIME S A DAY NEED ED FOR COUG H 08/26 aborted Not Available Not availab le 0 Not Available [facility] 08/27/2023 15:00:51 azith romyc in 250 mg table t 4 07:13:42 TAKE 1 TABL ET BY VINNY Mckeon FOR 6 DAYS STAR T ON DAY 2 OF THER APY 08/26 aborted Not Available Not availab le 0 Not Available [facility] 08/27/2023 15:00:54 Flove nt HFA 110 mcg/a ctuat ion aeros ol inhal er 4 07:13:42 08/26 aborted Not Available Not availab le 0 Not Available [facility] 08/27/2023 15:01:02 atorv astat in 10 mg table t 4 07:13:42 TAKE 1 TABL ET BY VINNY Mckeon EVEN ING 08/26 aborted Not Available Not availab le 0 Not Available [facility] 08/27/2023 15:01:16 amoxi cilli n 875 mg-po tassi um clavu lanat e 125 mg table t 4 07:13:42 TAKE 1 TABL ET BY VINNY Garland TWIC E A DAY 08/26 aborted Not Available Not availab le 0 Not Available [facility] 08/27/2023 15:01:21 tamsu losin 0.4 mg capsu le 4 07:13:42 08/28 aborted Not Available Not availab le 0 Not Available [facility] 08/29/2023 08:26:04 metfo rmin ER 500 mg table t,ext ended relea se 24 hr 4 07:13:42 TAKE 1 TABL ET BY VINNY Mckeon 08/28 aborted Not Available Not availab le 0 Not Available [facility] 08/29/2023 08:26:11 omepr azole 20 mg delay ed relea se,di sinte marcelino ng table t 4 08:26:33 Take by oral rout e. active Not Available Not availab le 0 Not Available [facility] 08/29/2023 08:26:33 FreeS tyle Eric ts 28 gauge 4 20:54:54 active Not Available Not availab le 0 Not Available Not Available [facility] 12/04/2023 20:54:54 FreeS tyle Test strip s 4 20:54:54 TWIC E A DAY FOR DIAB ETES active Not Available Not availab le 0 Not Available Not Available [facility] 12/04/2023 20:54:54 OneTo uch Delic a Plus Eric t 30 gauge 4 20:54:54 active Not Available Not availab le 0 Not Available Not Available [facility] 12/04/2023 20:54:54 atorv astat in 20 mg table t 4 20:54:54 TAKE 1 TABL ET BY MOUT H EVER Y DAY IN THE EVEN ING 11/30 aborted Not Available Not availab le 0 Not Available Cornelio Herr PA-C [address], [place], [address], [facility] 12/05/2023 08:31:58 docus ate sodiu m 100 mg capsu le 4 20:51:47 TAKE 1 CAPS ULE BY MOUT H TWIC E A DAY active Not Available Not availab le 0 Not Available Not Available [facility] 03/04/2024 20:51:47 Paxlo vid 300 mg (150 mg x 2)-10 0 mg table ts in a dose pack 20:54:54 TAKE 2 TABL ETS (LUCY MATR MITCH R) AND TAKE 1 TABL ET (RIT ONAV IR) BY MOUT H TWIC E A DAY FOR 5 DAYS 03/02 aborted Not Available Not availab le 0 Not Available Sandra Can [facility] 03/05/2024 08:21:13 oxyco done- aceta minop hen 5 mg-32 5 mg table t 4 20:51:47 TAKE 1 TABL ET BY MOUT H EVER Y 4 TO 6 HOUR S NEED ED FOR PAIN 03/05 aborted Not Available Not availab le 0 Not Available Sandra Can [facility] 03/05/2024 08:23:44 Arnui ty Ellip ta 100 mcg/a ctuat ion powde r for inhal ation 5 20:52:09 active Not Available Not availab le 0 Not Available Not Available [facility] 06/10/2024 20:52:09 benzo natat e 200 mg capsu le 5 20:52:09 TAKE 1 CAPS ULE BY MOUT H 3 TIME S A DAY NEED ED FOR COUG H active Not Available Not availab le 0 Not Available Not Available [facility] 06/10/2024 20:52:09 hydro chlor othia zide 12.5 mg table t 5 21:12:37 TAKE 1 TABL ET PARVEZ Y active Not Available Not availab le 0 Not Available Not Available [facility] - External Data Service - prod 09/08/2024 21:12:37 iprat ropiu m 0.5 mg-al buter ol 3 mg (2.5 mg base) /3 mL nebul izati on soln 21:12:37 3 ML INHA LED EVER Y 4 TO 6 HOUR S NEED ED FOR WHEE ZING active Not Available Not availab le 0 Not Available Not Available [facility] - External Data Service - prod 09/08/2024 21:12:37 Eliqu is DVT-P E Treat ment 30-Da y Start er 5 mg (74 table ts) in dose pack 21:12:38 TAKE 10 MG BY MOUT H TWIC E A DAY FOR 7 DAYS THEN DECR EASE TO 5 MG TWIC E A DAY active Not Available Not availab le 0 Not Available Not Available [facility] - External Data Service - prod 09/08/2024 21:12:38 lisin opril 20 mg table t 21:12:38 TAKE 1 TABL ET PARVEZ Y active Not Available Not availab le 0 Not Available Not Available [facility] - External Data Service - prod 09/08/2024 21:12:38 trazo done 50 mg table t 21:12:38 TAKE 1 TABL ET BY MOUT H AT BEDT JEET NEED ED FOR SLEE P active Not Available Not availab le 0 Not Available Not Available [facility] - External Data Service - prod 09/08/2024 21:12:38 methy lpred nisol one 4 mg table ts in a dose pack 20:52:09 TAKE 6 TABL ETS ON DAY 1 DIRE CTED ON PACK AGE AND DECR EASE BY 1 TAB EACH DAY FOR A TOTA L OF 6 DAYS 09/09 aborted Not Available Not availab le 0 Not Available Sandra Can [place] [facility] [place] [facility] 09/09/2024 08:25:25 Eliqu is 5 mg table t 21:12:37 TAKE 1 TABL ET TWIC E A DAY 09/09 aborted Not Available Not availab le 0 Not Available Sandra Can [place] [facility] [place] [facility] 09/09/2024 08:25:33 predn isone 20 mg table t 5 09:44:00 TAKE 2 TABL ETS BY MOUT H PARVEZ Y WITH FOOD active Not Available Not availab le 0 Not Available Not Available [facility] - External Data Service - prod 12/20/2024 09:44:00 buspi joan 5 mg table t 5 09:44:01 TAKE 1 TABL ET BY MOUT H TWIC E A DAY active Not Available Not availab le 0 Not Available Not Available [facility] - External Data Service - prod 12/20/2024 09:44:01 famot idine 20 mg table t 5 09:44:01 PLEA SE SEE MARIIA CHED FOR DETA ILED DIRE CTIO NS active Not Available Not availab le 0 Not Available Not Available [facility] - External Data Service - prod 12/20/2024 09:44:01 triam cinol one aceto nide 0.1 % topic al cream 5 09:44:01 APPL Y TOPI CALL Y TO AFFE CTED AREA S OF SKIN TWIC E A DAY active Not Available Not availab le 0 Not Available Not Available [facility] - External Data Service - prod 12/20/2024 09:44:01 cefur oxime axeti l 500 mg table t 5 09:44:02 TAKE 1 TABL ET BY MOUT H EVER Y DAY EVER Y 12 HOUR S 12/20 aborted Not Available Not availab le 0 Not Available Not Available [facility] - External Data Service - prod 12/20/2024 09:44:02 dexam ethas one 4 mg table t 5 09:44:02 TAKE 1 TAB BY MOUT H 2 TIME S PARVEZ Y THE DAY BEFO RE, DAY OF AND DAY AFTE R CHEM OTHE RAPY active Not Available Not availab le 0 Not Available Not Available [facility] - External Data Service - prod 12/20/2024 09:44:02 loraz epam 0.5 mg table t 5 09:44:02 TAKE 1 TABL ET BY MOUT H AT BEDT JEET NEED ED FOR INSO MNIA AND ANXI ETY active Not Available Not availab le 0 Not Available Not Available [facility] - External Data Service - prod 12/20/2024 09:44:02 potas sium chlor rome ER 20 mEq table t,ext ended relea se 5 09:44:02 TAKE 1 TABL ET BY MOUT H PARVEZ Y active Not Available Not availab le 0 Not Available Not Available [facility] - External Data Service - prod 12/20/2024 09:44:02 albut xavi sulfa te HFA 90 mcg/a ctuat ion aeros ol inhal er 5 16:30:13 USE 2 INHA LATI ONS ORAL LY EVER Y 6 HOUR S NEED ED FORB RONC HOSP ASM active Not Available Not availab le 0 Not Available Not Available [facility] - External Data Service - prod 03/22/2025 16:30:13 Jardi ance 10 mg table t 5 16:30:13 TAKE 1 TABL ET PARVEZ Y active Not Available Not availab le 0 Not Available Not Available [facility] - External Data Service - prod 03/22/2025 16:30:13 Myrbe triq 25 mg table t,ext ended relea se 5 16:30:13 TAKE 1 TABL ET BY MOUT H EVER Y DAY active Not Available Not availab le 0 Not Available Not Available [facility] - External Data Service - prod 03/22/2025 16:30:13 Trele gy Ellip ta 100 mcg-6 2.5 mcg-2 5 mcg powde r for inhal ation 5 16:30:13 USE 1 INHA LATI ON ORAL LY PARVEZ Y active Not Available Not availab le 0 Not Available Not Available [facility] - External Data Service - prod 03/22/2025 16:30:13 triam cinol one aceto nide 0.5 % topic al cream 5 16:30:13 APPL Y TO AFFE CTED AREA TOPI CALL Y TWIC E A DAY active Not Available Not availab le 0 Not Available Not Available [facility] - External Data Service - prod 03/22/2025 16:30:13 atorv astat in 40 mg table t 5 16:30:14 TAKE 1 TABL ET EVER Y EVEN ING active Not Available Not availab le 0 Not Available Not Available [facility] - External Data Service - prod 03/22/2025 16:30:14 finas terid e 5 mg table t 5 16:30:14 TAKE 1 TABL ET PARVEZ Y active Not Available Not availab le 0 Not Available Not Available [facility] - External Data Service - prod 03/22/2025 16:30:14 folic acid 1 mg table t 5 16:30:14 TAKE 1 TABL ET BY MOUT H EVER Y DAY active Not Available Not availab le 0 Not Available Not Available [facility] - External Data Service - prod 03/22/2025 16:30:14 hydro xyzin e pamoa te 25 mg capsu le 5 16:30:14 TAKE 1 CAPS ULE ORAL LY 2 TIME S A DAY NEED ED FOR ITCH ING FOR 30 DAYS active Not Available Not availab le 0 Not Available Not Available [facility] - External Data Service - prod 03/22/2025 16:30:14 loraz epam 1 mg table t 5 16:30:14 TAKE 1 TABL ET BY MOUT H BEDT JEET NEED ED FOR INSO MNIA AND ANXI ETY active Not Available Not availab le 0 Not Available Not Available [facility] - External Data Service - prod 03/22/2025 16:30:14 Vasce pa 1 gram capsu le 5 16:30:14 TAKE 1 CAPS ULE TWIC E PAREVZ Y active Not Available Not availab le 0 Not Available Not Available [facility] - External Data Service - prod 03/22/2025 16:30:14 enoxa camryn 80 mg/0. 8 mL subcu taneo us syrin ge 5 04:18:[address] 70 UNIT S (0.7 ML) SUBC UTAN EOUS LY EVER Y 12 HOUR S active Not Available Not availab le 0 Not Available Not Available [facility] - External Data Service - prod 03/25/2025 04:18:45 ondan setro n 8 mg disin tegra ting table t 5 04:18:45 DISS OLVE 1 TAB BY MOUT H EVER Y 8 HOUR S active Not Available Not availab le 0 Not Available Not Available [facility] - External Data Service - prod 03/25/2025 04:18:45 Vitals Date Recorded Body height Body mass index (BMI) Body weight Provider Name and Address Organization Details Last Updated DateTime 06/11/2024 175.26 cm 25.8 kg/m2 33336.66 g Sandra Can [place] [facility] 06/11/2024 08:22:49 Date Recorded Body height Body mass index (BMI) Body weight Provider Name and Address Organization Details Last Updated DateTime 09/09/2024 175.26 cm 25.8 kg/m2 07611.66 g Sandra Can [place] [facility] 09/09/2024 08:25:11 Date Recorded Body height Provider Name an d Address Organization Details Last Updated DateTime 12/23/2024 175.26 cm Sandra Can [place] [facility] 12/23/2024 08:51:03 Date Recorded Body height Body mass index (BMI) Body weight Provider Name and Address Organization Details Last Updated DateTime 03/05/2024 175.26 cm 25.8 kg/m2 46421.66 g Sandra Can [facility] 03/05/2024 08:23:05 Date Recorded Body height Body mass index (BMI) Body weight Provider Name and Address Organization Details Last Updated DateTime 03/25/2025 175.26 cm 25.8 kg/m2 41979.66 g Sandra Can [facility] 03/25/2025 14:18:04 Social History Social History Observation Description Date Observed Sex Unknown 03/22/2025 Legal Sex Male Status Not (finding) 05/23/20 25 No social history survey screeners recorded No social history SDOH screeners recorded Functional Status None recorded. No Functional Screening assessment recorded No Functional SDOH screeners recorded Mental Status None recorded. No Mental Screening assessment recorded No Mental SDOH screeners recorded Family History Nothing Reported. Medical History Condition Response Allergies/Hayfever N Coronary Artery Disease N Anxiety/Depression N Emphysema N Thyroid Problems N COPD N Pacemaker N Anemia N Kidney/Bladder Problems N Vascular Disease N Heart Attack ([place]) N Gastrointestinal Disease Y Diabetes Y Autoimmune [...] ICD10 Code Diagnosis IMO Codes Diagnosis Note [id number] [facility] [address] [place] [address] 08/29/2023 08:20:43 09/18/2023 11:58:44 Osteoarthritis of left glenohumeral joint 2347279927 286182 M19.012 Osteoarthr itis of right glenohumeral joint 6581062729 858427 M19.544 [id number] [facility] [address] [place] [address] 12/05/2023 08:23:37 01/02/2024 10:37:31 Osteoarthritis of left glenohumeral joint 0813063644 553586 M19.012 Osteoarthr itis of right glenohumeral joint 6803543601 896218 M19.508 [id number] ART [facility] Clinical [address] [place] [address] 03/05/2024 08:18:56 03/31/2024 10:29:40 Osteoarthritis of left glenohumeral joint 0117077989 845192 M19.012 Osteoarthr itis of right glenohumeral joint 8118019146 373847 M19.293 [id number] [facility] Clinical [address] [place] [address] 06/11/2024 08:19:16 07/12/2024 13:53:12 Osteoarthritis of bilateral glenohumeral joints 9878215664 039193 M19.011 M19.012 [id number] [id number] [facility] [address] [place] [address] 09/09/2024 08:19:59 09/28/2024 14:05:58 Osteoarthritis of bilateral glenohumeral joints 1519613400 249166 M19.011 M19.012 [id number] [id number] [facility] [address] [place] [address] 12/23/2024 08:47:44 12/31/2024 08:53:03 Osteoarthritis of bilateral glenohumeral joints 7770872897 105983 M19.011 M19.012 [id number] [facility] [address] [place] [address] 03/25/2025 14:09:35 04/07/2025 08:06:35 Osteoarthritis of bilateral glenohumeral joints 9824361730 420684 M19.011 M19.012 [id number] Health Concerns Section Related Observation LastModified by Organization Detai ls LastModified Time None Recorded Concern Status LastModified by Organization Details LastModified Time None Recorded SDOH Concern Status LastModified by Organization Detai ls LastModified Time None Recorded Advance Directives Directive None Recorded Payers Insurance Date Sequence Insurance Name Policy Number Policy Almodovar Covered Member ID Almodovar Member ID Guarantor Name 04/07/2025 1 [facility] MEDIC[place] PPO BLUE (MEDICARE REPLACEMENT PPO) [id number] Bj Capellan [facility] [id number] [facility] Notes Date Note Type Note Provider [...] up as needed. Cornelio Herr PA-C [address], [place], [address], [facility] 03/05/2024 08:31:17 5 text/html I [...] coordination, reflexes, sensation are within normal limits.ASSESSMENTbilater va glenohumeral joint arthritisPLANThe patient has done well with conservative management in regards to the shoulder. Continued conservative management recommended. Moderating activities with the upper extremity recommended also. See procedure note. Follow up as needed. Cornelio Herr PA-C [address], [place], [address], [facility] 06/25/2024 08:24:47 5 text/html I [...] up as needed. Cornelio Herr PA-C [address], [place], [address], [facility] 09/09/2024 08:42:13 5 text/html I am seeing [...] up as needed. Cornelio Herr PA-C [address], [place], [address], [facility] 12/23/2024 08:52:26 text/html I am seeing the patient today [...] up as needed. Cornelio Herr PA-C [address] [facility] [address], [place], [address], [facility] 03/25/2025 14:28:47 Care Team Name Role Member ID Specialty Address Phone CHERYL GUEVARA NP Primary Care Provider [address] [facility], [place], [place]
--- OUTSIDE RECORDS SUMMARY | 2025-05-23 17:51 | XMS_ITS | Encounter Summary ---
Author Organization [facility] Address [address] [place] [address] [place] [phone] Phone Care Team Providers Care Booky Name Role Phone Nam Arguello NP Primary Care Provider + Self-Referred, Patient Unavailable Unavailab Mckay Fabian MD Unavailable Encounter Details Date Type Department Care Team ([facility] st Contact Info) Description 12/17/2024 Ophth Exam [facility] [address] [place] [address] Josep Tanner MD [address] [place] [address] [email or web address] Social History Tobacco Use Types Packs/Day Years [...] 3:00 PM EST Telemedicine - audio only [facility] [address] [place] [address] Nam Jason MD [address] [place] [address] [email or web address] documented as of this encounter Visit Diagnoses Not on filedocumented in this encounter Care Teams Booky Relationship Specialty Start Date End Date Nam Arguello NP [address] [place] [address] PCP - General Nurse Practitioner 07/26/24 Self-Referred, Patient 07/26/24 Mckay Meyers MD [address] [place] [address] 08/06/24 documented as of this encounter Additional Source Comments The information contained in this document represents components of the legal health record. It is not the complete legal health record.[facility]
--- OUTSIDE RECORDS SUMMARY | 2025-05-23 17:51 | XMS_ITS | Continuity of Care Document ---
Author Organization [facility] Address [address] [place] [address] Care Team Providers Care Drilling Plant Operator Name Role Phone Kelechihetal Cheryl Primary Care Provider [phone] Assessment No assessment recorded. 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 Procedures Surgical History Date Name Laterality Status Provider Name and Address Organization Details Recorded Time 03/25/20 25 Sports Shoulder Bilateral 4 & 1 w/US completed Cornelio Herr PA-C [address], [place], [address], [facility] 03/25/2025 14:28:30 12/24/19 25 Sports Shoulder Bilateral 4 & 1 w/US completed SHAYNA Field-C [address], [place], [address], [facility] 12/23/2024 08:51:33 09/10/19 25 Sports Shoulder Bilateral 4 & 1 w/US completed Cornelio Herr PA-C [address], [place], [address], [facility] 09/09/2024 08:41:18 06/11/19 25 Sports Shoulder Bilateral completed Cornelio Herr PA-C [address], [place], [address], [facility] 06/25/2024 08:24:45 03/05/20 24 Sports Shoulder Bilateral completed Cornelio Herr PA-C [address], [place], [address], [facility] 03/05/2024 08:30:30 12/05/19 24 Sports Shoulder Bilateral completed Cornelio Herr PA-C [address], [place], [address], [facility] 12/05/2023 08:40:55 08/29/19 24 Sports Shoulder Bilateral completed Cornelio Herr PA-C [address], [place], [address], [facility] 08/29/2023 08:33:59 01/22/20 04 Gastrointestinal Surgery completed Sandra Can [facility] 03/05/2024 08:21:20 Imaging Results None recorded. Procedure Notes None recorded. Medical Equipment None Reported. Allergies Allergen ID Allergen Name Allergen Category Reaction Reaction Severity Criticality Documentation Date Start Date Code Code System Note Provider Name and Address Organization Details Recorded Time 543123 acetamino phen / oxycodone medicatio n Not available Not available Not available 07/28/20232022 18563 3 RxNorm Not Available [facility] 16:12:52 Medications Name Authored On Sig Start Date Stop Date Status Note Indication Fill Status Repeat Number Dispense Quantity LastModified by Organization Details LastModified Time FreeS tyle Lite Meter kit 4 07:13:42 TWIC E A DAY TEST ING FOR DIAB ETES active Not Available Not availab le 0 Not Available Not Available [facility] 08/27/2023 07:13:42 doxyc yclin e hycla te 100 mg table t 4 07:13:42 TAKE 1 TABL ET BY VINNY Garland TWPETTY E A DAY FOR 1 DAY 08/26 aborted Not Available Not availab le 0 Not Available [facility] 08/27/2023 15:00:29 amoxi cilli n 500 mg capsu le 4 07:13:42 TAKE 2 TABL ETS BY VINNY Garland AWAY THEN 1 TABL ET 3 TIME S A DAY UNTI L FINI SHED 08/26 aborted Not Available Not availab le 0 Not Available [facility] 08/27/2023 15:00:43 benzo natat e 100 mg capsu le 4 07:13:42 TAKE 1 CAP (100 MG) ORAL LY 2 TO 3 TIME S A DAY NEED ED FOR COUG H 08/26 aborted Not Available Not availab le 0 Not Available [facility] 08/27/2023 15:00:51 azith romyc in 250 mg table t 4 07:13:42 TAKE 1 TABL ET BY VINNY Mckeon FOR 6 DAYS STAR T ON DAY 2 OF THER APY 08/26 aborted Not Available Not availab le 0 Not Available [facility] 08/27/2023 15:00:54 Flove nt HFA 110 mcg/a ctuat ion aeros ol inhal er 4 07:13:42 08/26 aborted Not Available Not availab le 0 Not Available [facility] 08/27/2023 15:01:02 atorv astat in 10 mg table t 4 07:13:42 TAKE 1 TABL ET BY VINNY Mckeon EVEN ING 08/26 aborted Not Available Not availab le 0 Not Available [facility] 08/27/2023 15:01:16 amoxi cilli n 875 mg-po tassi um clavu lanat e 125 mg table t 4 07:13:42 TAKE 1 TABL ET BY VINNY Garland TWIC E A DAY 08/26 aborted Not Available Not availab le 0 Not Available [facility] 08/27/2023 15:01:21 tamsu losin 0.4 mg capsu le 4 07:13:42 08/28 aborted Not Available Not availab le 0 Not Available [facility] 08/29/2023 08:26:04 metfo rmin ER 500 mg table t,ext ended relea se 24 hr 4 07:13:42 TAKE 1 TABL ET BY VINNY Mckeon 08/28 aborted Not Available Not availab le 0 Not Available [facility] 08/29/2023 08:26:11 omepr azole 20 mg delay ed relea se,di sinte grati ng table t 4 08:26:33 Take by oral rout e. active Not Available Not availab le 0 Not Available [facility] 08/29/2023 08:26:33 FreeS tyle Eric ts 28 gauge 4 20:54:54 active Not Available Not availab le 0 Not Available Not Available [facility] 12/04/2023 20:54:54 FreeS tyle Test strip s 4 20:54:54 TWIC E A DAY FOR DIAB ETES active Not Available Not availab le 0 Not Available Not Available [facility] 12/04/2023 20:54:54 OneTo uch Delic a Plus Eric t 30 gauge 4 20:54:54 active Not Available Not availab le 0 Not Available Not Available [facility] 12/04/2023 20:54:54 atorv astat in 20 mg table t 4 20:54:54 TAKE 1 TABL ET BY MOUT H EVER Y DAY IN THE EVEN ING 11/30 aborted Not Available Not availab le 0 Not Available Cornelio Herr PA-C [address], [place], [address], [facility] 12/05/2023 08:31:58 docus ate sodiu m 100 mg capsu le 4 20:51:47 TAKE 1 CAPS ULE BY MOUT H TWIC E A DAY active Not Available Not availab le 0 Not Available Not Available [facility] 03/04/2024 20:51:47 Paxlo vid 300 mg (150 mg x 2)-10 0 mg table ts in a dose pack 4 20:54:54 TAKE 2 TABL ETS (LUCY MATR MITCH R) AND TAKE 1 TABL ET (RIT ONAV IR) BY MOUT H TWIC E A DAY FOR 5 DAYS 03/02 aborted Not Available Not availab le 0 Not Available Sandra Can [facility] 03/05/2024 08:21:13 oxyco done- aceta minop hen 5 mg-32 5 mg table t 4 20:51:47 TAKE 1 TABL ET BY MOUT H EVER Y 4 TO 6 HOUR S NEED ED FOR PAIN 03/05 aborted Not Available Not availab le 0 Not Available Sandra Can [facility] 03/05/2024 08:23:44 Arnui ty Ellip [...] base) /3 mL nebul izati on soln 5 21:12:37 3 ML INHA LED EVER Y 4 TO 6 HOUR S NEED ED FOR WHEE ZING active Not Available Not availab le 0 Not Available Not Available ming - External Data Service - prod 09/08/2024 21:12:37 Eliqu is DVT-P E Treat ment 30-Da y Start er 5 mg (74 table ts) in dose pack 5 21:12:38 TAKE 10 MG BY MOUT H TWIC E A DAY FOR 7 DAYS THEN DECR EASE TO 5 MG TWIC E A DAY active Not Available Not availab le 0 Not Available Not Available ming - External Data Service - prod 09/08/2024 21:12:38 lisin opril 20 mg table t 5 21:12:38 TAKE 1 TABL ET PARVEZ Y active Not Available Not availab le 0 Not Available Not Available ming - External Data Service - prod 09/08/2024 21:12:38 trazo done 50 mg table t 5 21:12:38 TAKE 1 TABL ET BY MOUT H AT BEDT JEET NEED ED FOR SLEE P active Not Available Not availab le 0 Not Available Not Available ming - External Data Service - prod 09/08/2024 21:12:38 methy lpred nisol one 4 mg table ts in a dose pack 5 20:52:09 TAKE 6 TABL ETS ON DAY 1 DIRE CTED ON PACK AGE AND DECR EASE BY 1 TAB EACH DAY FOR A TOTA L OF 6 DAYS 09/09 aborted Not Available Not availab le 0 Not Available Sandra Can [place] [facility] 09/09/2024 08:25:25 Eliqu is 5 mg table t 5 21:12:37 TAKE 1 TABL ET TWIC E A DAY 09/09 aborted Not Available Not availab le 0 Not Available Sandra Can [place] [facility] 09/09/2024 08:25:33 predn isone [...] 16:30:14 TAKE 1 CAPS ULE TWIC E PARVEZ Y active Not Available Not availab [...] Updated DateTime 03/25/2025 175.26 cm 25.8 kg/m2 12939.66 g Sandra Can [place] [facility] [place] [facility] 03/25/2025 14:18:04 Social History Social History Observation Description Date Observed Sex Unknown 03/25/2025 Legal Sex Male Status Not (finding) 05/23/20 [...] Problems N Vascular Disease N Heart Attack ([place]) N Gastrointestinal Disease Y Diabetes Y Autoimmune [...] ICD10 Code Diagnosis IMO Codes Diagnosis Note [id number] [place] [address] 03/25/2025 14:09:35 04/07/2025 08:06:35 Osteoarthritis of bilateral glenohumeral joints [id number] M19.011 M19.012 [id number] Health Concerns Section Related Observation LastModified by Organization Detai ls LastModified Time None Recorded Concern Status LastModified by Organization Details LastModified Time None Recorded SDOH Concern Status LastModified by Organization Detai ls LastModified Time None Recorded Payers Encounter Date Sequence Insurance Name Policy Number Policy Almodovar Covered Member ID Almodovar Member ID Guarantor Name 03/25/2025 1 [facility]: MEDICARE PPO BLUE (MEDICARE REPLACEMENT PPO) [id number] [facility] [id number] [facility] Notes Date Note Type Note [...] as needed. Cornelio Herr PA-C [address] [facility] [facility] [address], [place], [address], [facility] 03/25/2025 14:28:47 Care Team Name Role Member ID Specialty Address Phone CHERYL GUEVARA NP Primary Care Provider [id number] [facility] [facility], [place], [place]
--- OUTSIDE RECORDS SUMMARY | 2025-05-23 17:51 | XMS_ITS | Encounter Summary ---
Author Organization [facility] Address [address] [place] [address] [place] [address] Phone Care Team Providers Care Window Shade Ring Coverer Name Role Phone Nam Arguello NP Primary Care Provider + Self-Referred, Patient Unavailable Unavailab Mckay Fabian MD Unavailable Encounter Details Date Type Department Care Team (Late st Contact Info) Description 12/17/2024 Procedure Pass [facility]IZ[facility] Imaging - MRI, [facility] [address] [place] [address] Social History Tobacco Use Types Packs/Day Years [...] 3:00 PM EST Telemedicine - audio only [facility] [address] [place] [address] Nam Jason MD [address] [place] [address] [email or web address] documented as of this encounter Visit Diagnoses Not on filedocumented in this encounter Care Teams Window Shade Ring Coverer Relationship Specialty Start Date End Date Nam Arguello NP [address] [place] [address] PCP - General Nurse Practitioner 07/26/24 Self-Referred, Patient 07/26/24 Mckay Meyers MD [address] [place] [address] 08/06/24 documented as of this encounter Additional Source Comments The information contained in this document represents components of the legal health record. It is not the complete legal health record.[facility]
--- OUTSIDE RECORDS SUMMARY | 2025-05-23 17:51 | XMS_ITS | Encounter Summary ---
Author Organization [facility] Address [address] [place] [address] [place] [address] Phone Care Team Providers Care Plastics Plater Name Role Phone Nam Arguello NP Primary Care Provider + Self-Referred, Patient Unavailable Unavailab Mckay Fabian MD Unavailable Reason for Visit * Reason Onset Date Comments PreAuth 04/19/2025 Encounter Details Date Type Department Care Team (Late st Contact Info) Description 04/19/2025 Telephone [facility] [address] [place] [address] Nam Jason MD [address] [place], [place] [id number] [email or web address] PreAut Social History Tobacco Use Types [...] for IGRT, Received call from Alba from [employer] and she stated that IGRT has been approved. ([phone]) documented in this encounter Plan of Treatment Upcoming Encounters Date Type Department Care Team (Late st Contact Info) Description 06/15/2025 3:00 PM EST Telemedicine - audio only [facility] [address] [place] [address] Nam Jason MD [address] [place] [address] [email or web address] documented as of this encounter Visit Diagnoses Not on filedocumented in this encounter Care Teams Plastics Plater Relationship Specialty Start Date End Date Nam Arguello NP [address] [place] [address] PCP - General Nurse Practitioner 07/26/24 Self-Referred, Patient 07/26/24 Mckay Meyers MD [address] [place] [address] 08/06/24 documented as of this encounter Additional Source Comments The information contained in this document represents components of the legal health record. It is not the complete legal health record.[facility]
== END 2025-05-23 16:02 | disposition home or self-care (01) ==
LOC: HO.XRAY 16:01
PROVIDERS: PCP Nurse Practitioner Family; Visit Provider Internal Medicine Medical Oncology
DX: K58.1 Irritable bowel syndrome with constipation (principal)
CPT/HCPCS: 74022